=== PATIENT | female | born 1935 | race Caucasian/White ===

== ENCOUNTER 2017-09-13 08:14 | Inpatient (IN) | payer OTHER, MEDICARE ==
--- NOTE | 2017-09-13 08:37 | RAD REPORT ---
EXAM DESCRIPTION: CT - Ct Stroke Brain Wo Cont - 09/13/2017 8:30 am CLINICAL HISTORY: CVA COMPARISON: 09/13/2014 MR brain TECHNIQUE: All CT scans are performed using dose optimization technique as appropriate and may inclu de automated exposure control or mA/KV adjustment according to patient size. FINDINGS: No intracranial hemorrhage, hydrocephalus or extra-axial fluid collection.Moderate brain a trophy seen.2.5 cm area of hypodensity distribution of the left MCA noted compatible with subacute CV A. No hemorrhagic component. The paranasal sinuses and mastoids are clear. The calvarium is intact. 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 The findings were discussed with Dr. Barry on 09/13/2017 at 8:30 a.m. by telephone.
[2017-09-13 08:55] LABS: Absolute Lymphocytes (CBC) 2.5 K/uL (0.7-4.9); Absolute Monocytes 0.4 K/uL (0.1-1.3); Absolute Neutrophil 4.7 K/uL (1.8-8.0); Basophils % 0.6 % (0-1.3); Eosinophils % 0.9 % (0-4.4); Hematocrit 43.2 % (36.0-45.0); Lymphocytes % 32.3 % (15.3-44.8); MCH 31.9 pg (27.0-35.0); MCV 93.5 fL (80-100); MPV 8.4 fL (7.6-11.3); Monocytes % 5.7 % (3.3-12.3); RBC Red Blood Cell Count 4.62 M/uL (3.86-4.86)
[2017-09-13 09:02] LABS: Protime INR 0.97
[2017-09-13 09:05] LABS: Potassium 3.9 mEq/L (3.6-5.0)
[2017-09-13] MEDS ORDERED: ACETAMINOPHEN 650MG/RECT SUPP PR ONE (09:29)
--- NOTE | 2017-09-13 10:23 | RAD REPORT ---
EXAM DESCRIPTION: CT - Head angio - 09/13/2017 9:30 am CLINICAL HISTORY: CVA COMPARISON: CT head September 13 TECHNIQUE: During dynamic enhancement using nonionic IV contrast, axial 1 millimeter thick images of the head were obtained. Sagittal and coronal reformatted images were generated and reviewed. FINDINGS: Left vertebral artery is dominant. Distal vertebral arteries and basilar artery show a very minimal t ortuosity but no stenosis or acute finding. No aneurysm or vascular malformation identified. At the skullbase to supraclinoid termination, the internal carotid artery show no stenosis or signifi cant atherosclerotic change. The anterior and posterior cerebral artery distribution show no signific ant disease. The patient's left frontal and left basal ganglia region infarction does not have a berny esponding named branch occlusion on CT angiography. No significant atherosclerotic changes identifiab le in the left MCA distribution. No acute right MCA abnormality seen. Major venous sinuses are patent. IMPRESSION: CT angiography of the head shows no aneurysm, vascular malformation or significant vascu lar finding. No specific abnormality seen as a correlate for the acute/subacute CVA findings on the earlier CT hea d exam.
--- NOTE | 2017-09-13 10:34 | RAD REPORT ---
EXAM DESCRIPTION: RAD - Chest Single View - 09/13/2017 8:49 am CLINICAL HISTORY: Code stroke chest film COMPARISON: August 09 TECHNIQUE: AP portable chest image was obtained 0820 hours . FINDINGS: Lung volumes are low. Lung base atelectasis is present. No failure, infiltrate or mass. He art and vasculature are normal. No measurable pleural effusion and no pneumothorax. No gross bony abn ormality seen. No acute aortic findings suspected. IMPRESSION: No acute cardiopulmonary process. No suspicious interval change.
--- NOTE | 2017-09-13 10:47 | EKG ---
Test Date: 2017-09-13 Test Time: 08:36:13 Tower Climber: JESSICA MEASUREMENT RESULTS: Intervals: Rate: 69 AZ: 194 QRSD: 78 QT: 416 QTc: 445 Tiona: P: 58 AZ: 194 QRS: -7 T: 49 INTERPRETIVE STATEMENTS: Sinus bradycardia with frequent premature ventricular complexes Low voltage QRS Borderline ECG No previous ECG available for comparison Electronically Signed On 09-13-17 10:46:11 CDT by Ferdinand Benites
--- NOTE | 2017-09-13 11:01 | EDPHYS ---
Physician Documentation [facility] Name: Robby Schmid Age: 82 yrs Sex: Female : 1935 Arrival Date: 09/13/2017 Time: 08:15 Bed 6 Private MD: Davion Florian ED Physician Atif Barry HPI: 09/13 08:19 This 82 yrs old Female presents to ER via Wheelchair with complaints of S/S jr8 of Possible Stroke. 08:19 The patient's problem is reported as a facial droop, on right, dysphasia, incoherent jr8 speech, expressive aphasia, weakness, in the right upper extremity, in the right lower extremity, in the right side of face. Onset: The symptoms/episode began/occurred at an unknown time. Duration: The episode is continuous. The symptoms are alleviated by nothing. The symptoms are aggravated by nothing. Associated signs and symptoms: The patient has no apparent associated signs or symptoms. Severity of symptoms: At their worst the symptoms were severe. Patient's baseline: Neuro: alert and fully oriented, Motor: no deficits, Ambulation: walks without assistance, Speech: normal. The patient has not experienced similar symptoms in the past. The patient has not recently seen a physician. Daughter of patient stated that last known well was sometime last night. That patient woke up with garbled speech and weakness . Historical: - Allergies: 08:20 No Known Allergies; aa5 - PMHx: 08:22 Hypothyroidism; High Cholesterol; sv - PSHx: 08:21 Cholecystectomy; Hysterectomy; Tonsillectomy; sv - Immunization history:: Adult Immunizations unknown, Last tetanus immunization: unknown. - Social history:: Smoking status: unknown. - Ebola Screening: : Unable to complete screening because patient is disoriented, . ROS: 08:19 Eyes: Negative for injury, pain, redness, and discharge, ENT: Negative for injury, jr8 pain, and discharge, Neck: Negative for injury, pain, and swelling, Cardiovascular: Negative for chest pain, palpitations, and edema, Respiratory: Negative for shortness of breath, cough, wheezing, and pleuritic chest pain, Abdomen/GI: Negative for abdominal pain, nausea, vomiting, diarrhea, and constipation, Back: Negative for injury and pain, MS/Extremity: Negative for injury and deformity, Skin: Negative for injury, rash, and discoloration. 08:19 Neuro: Positive for speech changes, weakness. Exam: 08:19 Eyes: Pupils equal round and reactive to light, extra-ocular motions intact. Lids and jr8 lashes normal. Conjunctiva and sclera are non-icteric and not injected. Cornea within normal limits. Periorbital areas with no swelling, redness, or edema. ENT: Nares patent. No nasal discharge, no septal abnormalities noted. Tympanic membranes are normal and external auditory canals are clear. Oropharynx with no redness, swelling, or masses, exudates, or evidence of obstruction, uvula midline. Mucous membranes moist. Neck: Trachea midline, no thyromegaly or masses palpated, and no cervical lymphadenopathy. Supple, full range of motion without nuchal rigidity, or vertebral point tenderness. No Meningismus. Cardiovascular: Regular rate and rhythm with a normal S1 and S2. No gallops, murmurs, or rubs. Normal PMI, no JVD. No pulse deficits. Respiratory: Lungs have equal breath sounds bilaterally, clear to auscultation and percussion. No rales, rhonchi or wheezes noted. No increased work of breathing, no retractions or nasal flaring. Abdomen/GI: Soft, non-tender, with normal bowel sounds. No distension or tympany. No guarding or rebound. No evidence of tenderness throughout. Back: No spinal tenderness. No costovertebral tenderness. Full range of motion. Skin: Warm, dry with normal turgor. Normal color with no rashes, no lesions, and no evidence of cellulitis. MS/ Extremity: Pulses equal, no cyanosis. Neurovascular intact. Full, normal range of motion. 08:19 Neuro: Orientation: to person, place, situation, Mentation: able to follow commands, Memory: unable to test, Cranial nerves: CN I not tested, CN II- XII are normal as tested, visual forbes are intact. extraocular movements are intact, Nystagmus is absent. Speech is dysarthric, slowed, Cerebellar function: Motor: moves all fours, strength is 5/5 in the left arm and left leg, strength is 4/5 in the right arm, Strength is 2/5 in the right leg, Sensation: no obvious gross deficits, Gait: not tested. seizure activity, is not displayed by the patient, Abnormal movements: there are no abnormal movements. 08:30 Radiologist reports: Left sided ischemic changes present jr8 Vital Signs: 09:00 Weight 81.65 kg (R); Height 5 ft. 6 in. (167.64 cm); sg 09:04 BP 148 / 97; Pulse 67; Resp 23 S; Temp 97.6; Pulse Ox 98% on R/A; Pain 0/10; sg 09:43 BP 156 / 72; Pulse 60; Resp 14 S; Pulse Ox 100% on R/A; sg 10:26 BP 156 / 89; Pulse 68 MON; Resp 16 S; Pulse Ox 99% on R/A; sg 11:30 BP 139 / 64; Pulse 55 MON; Resp 16 S; Pulse Ox 99% on R/A; sg 19:18 BP 169 / 84; Pulse 68; Resp 20; Pulse Ox 100% on R/A; mt 20:52 BP 151 / 77; Pulse 70; Resp 18; Pulse Ox 97% on R/A; mt 23:44 BP 155 / 70; Pulse 65; Resp 19; Pulse Ox 97% on R/A; mt 09:00 Body Mass Index 29.05 (81.65 kg, 167.64 cm) NIH Stroke Scale Scores: 08:17 NIHSS Score: 11 aa5 08:19 NIHSS Score: 11 jr8 MDM: 08:29 ED course: Spoke with daughter, last known normal was last night, brother contacted rn patient this AM, already "garbled speech", not at baseline. outside of TPA window, spoke with daughter, understands no TPA. . 08:29 Patient medically screened. jr8 09:01 ED course: Contacted Dr. Durham. Wants CTA done to see if large vessel occlusion. If not jr8 will be happy to keep her here . 09:21 Data reviewed: vital signs, nurses notes, lab test result(s), EKG, radiologic studies, jr8 CT scan, plain films. Data interpreted: Pulse oximetry: on room air is 98 %. Interpretation: normal. Counseling: I had a detailed discussion with the patient and/or guardian regarding: the historical points, exam findings, and any diagnostic results supporting the discharge/admit diagnosis, lab results, radiology results. ED course: Discussed with family and patient that because there is no clear definitive time as to when the s/s started that she is not a candidate for tPA. Family understood and is good with this decision. 10:58 ED course: Dr. Durham consulted again. No large vessel occlusion. Will accept patient as jr8 consult. Dr. Florian notified and will see patient as well . 09/13 08:20 Order name: Basic Metabolic Panel; Complete Time: 09:09 09/13 08:20 Order name: CBC with Diff; Complete Time: 08:57 em09/13 08:20 Order name: Protime (+inr); Complete Time: 09:09 09/13 08:20 Order name: Ptt, Activated; Complete Time: 09:09 09/13 08:20 Order name: Urine Microscopic Only; Complete Time: 15:56 em09/13 08:20 Order name: CT Stroke Brain w/o Contrast; Complete Time: 08:57 em09/13 08:20 Order name: Stroke CXR 1 View; Complete Time: 10:41 em09/13 09:04 Order name: Head angio; Complete Time: 10:41 EDMS 09/13 10:58 Order name: US Carotid Artery Bilateral 09/13 10:58 Order name: MRI - Brain Wo Cont 8 09/13 15:24 Order name: Urine Dipstick--Ancillary (enter results) 09/13 15:52 Order name: Urine Dipstick-Ancillary; Complete Time: 15:56 EDMS 09/13 18:11 Order name: Glucose, Ancillary Testing; Complete Time: 07:03 EDMS 09/13 08:20 Order name: EKG; Complete Time: 08:21 em09/13 08:20 Order name: Accucheck; Complete Time: 09:20 09/13 08:20 Order name: Cardiac monitoring; Complete Time: 09:20 09/13 08:20 Order name: EKG - Nurse/Tech; Complete Time: 09:20 09/13 08:20 Order name: IV Saline Lock; Complete Time: 09:20 09/13 08:20 Order name: Labs collected and sent; Complete Time: 09:20 em09/13 08:20 Order name: NPO; Complete Time: 09:20 em09/13 08:20 Order name: O2 Per Protocol; Complete Time: 09:20 09/13 08:20 Order name: O2 Sat Monitoring; Complete Time: 09:20 em1 09/13 08:20 Order name: Stroke Swallow Screen; Complete Time: 09:35 em1 09/13 08:20 Order name: Urine Dipstick-Ancillary (obtain specimen); Complete Time: 15:05 [facility] 09/13 12:49 Order name: US; Complete Time: 12:55 EDHI 09/13 14:55 Order name: MRI; Complete Time: 15:08 [facility] 09/13 14:32 Order name: Mackey; Complete Time: 15:05 sg Administered Medications: 09:35 Drug: Acetaminophen Suppository 650 mg Route: MD; sg 11:21 Follow up: Response: No adverse reaction sg 11:42 Drug: Aspirin Suppository 300 mg Route: MD; sg 11:58 Follow up: Response: No adverse reaction sg 11:43 Drug: foLIC Acid 1 mg Route: IVPB; Site: left antecubital; sg 11:58 Follow up: Response: No adverse reaction; IV Status: Completed infusion sg Point of Care Testing: Blood Glucose: 09:04 Blood Glucose: 104 mg/dL; sg Ranges: Critical Glucose Levels:Adult <50 mg/dl or >400 mg/dl <40 mg/dl or >180 mg/dl Disposition: 09/13/17 11:00 Hospitalization ordered by Davion Florian for Inpatient Admission. Preliminary diagnosis is Cerebral infarction. - Bed requested for Intensive Care Unit. - Status is Inpatient Admission. ao - Condition is Fair. - Problem is new. - Symptoms are unchanged. UTI on Admission? No NIH Stroke Scale - NIH Stroke Score Date: 09/13/2017 Time: 08:17 Total Score = 11 1a. Level of Consciousness (LOC) - 0(Alert) 1b. Level of Consciousness (LOC) (Year \\T\\ Age) - 2(Neither) 1c. LOC Commands (Open \\T\\ Closes Eyes/Recycling Crew Supervisor) - 0(Both) 2. Best Gaze (Lateral Gaze Paresis) - 0(Normal) 3. Visual Field Loss - 0(No visual loss) 4. Facial Palsy - 2(Partial paralysis) 5a. Left Arm: Motor (10-second hold) - 0(No drift) 5b. Right Arm: Motor (10-second hold) - 1(Drift) 6a. Left Leg: Motor (5-second hold - always test supine) - 0(No drift) 6b. Right Leg: Motor (5-second hold - always test supine) - 2(Drift, some effort against gravity) 7. Limb Ataxia (finger/nose \\T\\ heel/vaughn - test with eyes open) - 0(Absent) 8. Sensory Loss (pinprick arms/legs/face) - 0(Normal) 9. Best Language: Aphasia (description/naming/reading) - 2(Severe aphasia) 10. Dysarthria (speech clarity - read or repeat words) - 2(Severe) 11. Extinction and Inattention (visual/tactile/auditory/spatial/personal) - 0(No abnormality) Initials: aa5 NIH Stroke Scale - NIH Stroke Score Date: 09/13/2017 Time: 08:19 Total Score = 11 1a. Level of Consciousness (LOC) - 0(Alert) 1b. Level of Consciousness (LOC) (Year \\T\\ Age) - 1(One) 1c. LOC Commands (Open \\T\\ Closes Eyes/Recycling Crew Supervisor) - 0(Both) 2. Best Gaze (Lateral Gaze Paresis) - 0(Normal) 3. Visual Field Loss - 0(No visual loss) 4. Facial Palsy - 3(Complete paralysis) 5a. Left Arm: Motor (10-second hold) - 0(No drift) 5b. Right Arm: Motor (10-second hold) - 1(Drift) 6a. Left Leg: Motor (5-second hold - always test supine) - 0(No drift) 6b. Right Leg: Motor (5-second hold - always test supine) - 2(Drift, some effort against gravity) 7. Limb Ataxia (finger/nose \\T\\ heel/vaughn - test with eyes open) - 0(Absent) 8. Sensory Loss (pinprick arms/legs/face) - 0(Normal) 9. Best Language: Aphasia (description/naming/reading) - 2(Severe aphasia) 10. Dysarthria (speech clarity - read or repeat words) - 2(Severe) 11. Extinction and Inattention (visual/tactile/auditory/spatial/personal) - 0(No abnormality) Initials: jr8 Addendum: 09/19/2017 19:39 Co-signature as Attending Physician, Atif Barry MD. rn Signatures: Dispatcher [employer] Bárbara Graham RN RN sv Webb, Martha, RN RN mw Gay, Steven RN RN sg Atif Barry MD MD rn Martinez, Eric em1 Jacklyn Garrett RN RN aa5 Nikolas Richardson PA PA jr8 Stone Bhakta RN RN ao Corrections: (The following items were deleted from the chart) 09/13 08:56 08:21 NIHSS Score: 11 jr8 jr8 08:56 08:19 NIHSS Score: 11 jr8 jr8 08:56 08:32 NIHSS Score: 11 jr8 jr8 11:00 11:00 Hospitalization Ordered by Davion Florian MD for Inpatient Admission. jr8 Preliminary diagnosis is Cerebral infarction. Bed requested for Telemetry/MedSurg (Inpatient). Status is Inpatient Admission. Condition is Fair. Problem is new. Symptoms are unchanged. UTI on Admission? No. jr8 17:27 11:00 09/13/2017 11:00 Hospitalization Ordered by Davion Florian MD for Inpatient sg Admission. Preliminary diagnosis is Cerebral infarction. Bed requested for Intensive Care Unit. Status is Inpatient Admission. Condition is Fair. Problem is new. Symptoms are unchanged. UTI on Admission? No. jr8 19:24 17:27 09/13/2017 11:00 Hospitalization Ordered by Davion Florian MD for Inpatient sg Admission. Preliminary diagnosis is Cerebral infarction. Bed requested for [facility] ER HOLD. Status is Inpatient Admission. Condition is Fair. Problem is new. Symptoms are unchanged. UTI on Admission? No. sg 23:14 19:24 09/13/2017 11:00 Hospitalization Ordered by Davion Florian MD for Inpatient mw Admission. Preliminary diagnosis is Cerebral infarction. Bed requested for [facility] ER HOLD. Status is Inpatient Admission. Condition is Fair. Problem is new. Symptoms are unchanged. UTI on Admission? No. sg 09/14 00:51 09/13 23:14 09/13/2017 11:00 Hospitalization Ordered by Davion Florian MD for ao Inpatient Admission. Preliminary diagnosis is Cerebral infarction. Bed requested for Intensive Care Unit. Status is Inpatient Admission. Condition is Fair. Problem is new. Symptoms are unchanged. UTI on Admission? No.
--- NOTE | 2017-09-13 11:01 | ER ---
Nurse's Notes [facility] Name: Robby Schmid Age: 82 yrs Sex: Female : 1935 Arrival Date: 09/13/2017 Time: 08:15 Bed 6 Private MD: Davion Florian Diagnosis: Cerebral infarction Presentation: 09/13 08:15 Acuity: MANJINDER 2 aa5 08:15 Transition of care: patient was not received from another setting of care. An acute aa5 neurological deficit is present. The patient has been moved to a treatment area. Care prior to arrival: None. 08:15 Method Of Arrival: Wheelchair aa5 08:15 Presenting complaint: Pt's daughter states "my brother was speaking to her over-the aa5 phone this morning and she seemed like she was having trouble speaking". Pt is able to state her name at this time. Expressive aphasia noted. Right sided facial droop noted. 08:15 Pre-hospital glucose is not applicable to this patient. Onset of symptoms is unknown. aa5 Risk Assessment: Do you want to hurt yourself or someone else? Patient reports no desire to harm self or others. Initial Sepsis Screen: Does the patient meet any 2 criteria? No. Patient's initial sepsis screen is negative. Does the patient have a suspected source of infection? No. Patient's initial sepsis screen is negative. Triage Assessment: 08:30 The onset of the patients symptoms was more than six hours ago. General: Behavior is sg cooperative, anxious. General: Appears in no apparent distress. well groomed, well developed, well nourished. Neuro: Reports headache in entire frontal area. 22:05 The onset of the patients symptoms was. ao 09/14 00:50 The onset of the patients symptoms was. ao Stroke Activation: Symptom onset > 6 hours Physician: Stroke Attending; Name: ; Notified At: ; Arrived At: Physician: Chief Stroke Resident; Name: ; Notified At: ; Arrived At: Physician: Stroke Resident; Name: ; Notified At: ; Arrived At: Physician: ED Attending; Name: ; Notified At: ; Arrived At: Physician: ED Resident; Name: ; Notified At: ; Arrived At: Historical: - Allergies: 09/13 08:20 No Known Allergies; aa5 - PMHx: 08:22 Hypothyroidism; High Cholesterol; sv - PSHx: 08:21 Cholecystectomy; Hysterectomy; Tonsillectomy; sv - Immunization history:: Adult Immunizations unknown, Last tetanus immunization: unknown. - Social history:: Smoking status: unknown. - Ebola Screening: : Unable to complete screening because patient is disoriented, . Screenin:30 Fall Risk No secondary diagnosis (0 pts). IV access (20 points). Ambulatory Aid- sg None/Bed Rest/Nurse Assist (0 pts). Gait- Weak (10 pts.). Mental Status- Overestimates/Forgets Limitations (15 pts.). Total Welch Fall Scale indicates Low Risk Score (25-44 pts). Fall prevention measures have been instituted. Side Rails Up X 2 Family Present and informed to notify staff if they need to leave bedside. 08:30 Abuse screen: unable to assess. Nutritional screening: No deficits noted. Tuberculosis sg screening: unable to assess at this time. Assessment: 08:20 Reassessment: Pt taken to CT via stretcher and accompanied by me . aa5 08:30 The patient has not been NPO before screening. The patient is alert, and able to follow sg commands. The patient exhibits slurred or garbled speech. The patient is exhibiting difficulty speaking. The patient does not exhibit difficulty understanding words. The patient is unable to swallow own secretions without drooling or the need for suction. Bedside swallow screening discontinued. Patient kept NPO until cleared by Speech Therapy or Physician. The patient failed the bedside swallow screening. The patient will be kept NPO until cleared by Speech Therapy or Physician. Provider notified of bedside swallow screening results: Atif Barry MD. 08:30 pt to remain NPO d/t current status/condition pt to be NPO dt current status. sg 08:37 T-PA (Activase) Screening: Contraindications: Patient reports onset of signs and sg symptoms of stroke greater than 6 hours ago: Yes. 08:45 General: Appears in no apparent distress. Behavior is cooperative, appropriate for age, sg anxious. Pain: Complains of pain in head. Neuro: Level of Consciousness is awake, obeys commands, Oriented to person, Speech is slurred, with expressive aphasia noted, Facial droop on right. Cardiovascular: Heart tones S1 S2 present Capillary refill is brisk in bilateral fingers Patient's skin is warm and dry. Chest pain is denied. Respiratory: Airway is patent Respiratory effort is even, unlabored, Respiratory pattern is regular, symmetrical, Breath sounds are clear. GI: No signs and/or symptoms were reported involving the gastrointestinal system. : No signs and/or symptoms were reported regarding the genitourinary system. EENT: No signs and/or symptoms were reported regarding the EENT system. Derm: Skin is pink, warm \\T\\ dry. 09:40 Reassessment: Patient appears in no apparent distress at this time. Patient and/or sg family updated on plan of care and expected duration. Pain level reassessed. 10:43 Reassessment: Patient appears in no apparent distress at this time. No changes from sg previously documented assessment. pt family remains at bedside at this time, awaiting CT results prior to dispo, no new orders received at this time, Nikolas CAMP at bedside re evaluating pt at this time, updating pt and pt family on results and POC. 11:49 Reassessment: pt able to verbalize yes and no at this time, remains slurred, pt family sg at bedside, updated on POC and need for admission, pt family stated understanding, awaiting [facility] bed [facility]. Vital Signs: 09:00 Weight 81.65 kg (R); Height 5 ft. 6 in. (167.64 cm); sg 09:04 BP 148 / 97; Pulse 67; Resp 23 S; Temp 97.6; Pulse Ox 98% on R/A; Pain 0/10; sg 09:43 BP 156 / 72; Pulse 60; Resp 14 S; Pulse Ox 100% on R/A; sg 10:26 BP 156 / 89; Pulse 68 MON; Resp 16 S; Pulse Ox 99% on R/A; sg 11:30 BP 139 / 64; Pulse 55 MON; Resp 16 S; Pulse Ox 99% on R/A; sg 19:18 BP 169 / 84; Pulse 68; Resp 20; Pulse Ox 100% on R/A; mt 20:52 BP 151 / 77; Pulse 70; Resp 18; Pulse Ox 97% on R/A; mt 23:44 BP 155 / 70; Pulse 65; Resp 19; Pulse Ox 97% on R/A; mt 09:00 Body Mass Index 29.05 (81.65 kg, 167.64 cm) NIH Stroke Scale Scores: 08:17 NIHSS Score: 11 aa5 08:19 NIHSS Score: 11 jr8 ED Course: 08:15 Patient arrived in ED. sb2 08:15 Davion Florian MD is Private Physician. sb2 08:15 Arm band placed on Patient placed in an exam room, on a stretcher. aa5 08:[address] via stretcher. sv 08:21 Nikolas Richardson PA is PHCP. jr8 08:21 Atif Barry MD is Attending Physician. jr8 08:30 CT Stroke Brain w/o Contrast In Process Unspecified. EDMS 08:30 Patient has correct armband on for positive identification. Placed in gown. Bed in low sg position. Call light in reach. Side rails up X2. field marketing associate on. Pulse ox on. NIBP on. Warm blanket given. Head of bed elevated. 08:30 Diet: Patient is NPO. sg 08:32 Triage completed. aa5 08:33 geochemical laboratory technician Sondra at bedside for code stroke blood draw. Inserted saline lock: 22 gauge sg in left antecubital area, using aseptic technique. IV inserted by waste transportation technicianteto Brown. Thermoregulation: warm blanket given to patient. 08:44 Chet Fields, RN is Primary Nurse. sg 08:49 Stroke CXR 1 View In Process Unspecified. EDMS 09:12 CT completed. Patient tolerated procedure well. Patient moved to CT via stretcher. mw3 Patient moved back from CT. 09:15 RN/ABAP DEVELOPER escort patient out of department to CT scan. sg 09:30 Head angio In Process Unspecified. EDMS 10:59 Davion Florian MD is Hospitalizing Provider. jr8 11:00 No provider procedures requiring assistance completed. Patient admitted, IV remains in sg place. intact. 12:14 Patient taken to ultrasound. via stretcher. aa4 13:50 Patient moved to MRI via stretcher. em2 14:59 Mackey cath inserted, using sterile technique, 16 Fr., by ks, balloon inflated, urine sg specimen collected. returned clear yellow urine. Patient tolerated well. a urine specimen has been collected and sent to lab. Administered Medications: 09:35 Drug: Acetaminophen Suppository 650 mg Route: NC; sg 11:21 Follow up: Response: No adverse reaction sg 11:42 Drug: Aspirin Suppository 300 mg Route: NC; sg 11:58 Follow up: Response: No adverse reaction sg 11:43 Drug: foLIC Acid 1 mg Route: IVPB; Site: left antecubital; sg 11:58 Follow up: Response: No adverse reaction; IV Status: Completed infusion sg Point of Care Testing: Blood Glucose: 09:04 Blood Glucose: 104 mg/dL; sg Ranges: Outcome: 11:00 Decision to Hospitalize by Provider. nelson 11:00 Admitted to ER Hold. Please see [facility] for further documentation. sg 11:00 Condition: stable 11:00 Instructed on the need for admit, safety practices. 09/14 00:51 Patient left the ED. ao NIH Stroke Scale - NIH Stroke Score Date: 09/13/2017 Time: 08:17 Total Score = 11 1a. Level of Consciousness (LOC) - 0(Alert) 1b. Level of Consciousness (LOC) (Year \\T\\ Age) - 2(Neither) 1c. LOC Commands (Open \\T\\ Closes Eyes/Director Of Nuclear Medicine) - 0(Both) 2. Best Gaze (Lateral Gaze Paresis) - 0(Normal) 3. Visual Field Loss - 0(No visual loss) 4. Facial Palsy - 2(Partial paralysis) 5a. Left Arm: Motor (10-second hold) - 0(No drift) 5b. Right Arm: Motor (10-second hold) - 1(Drift) 6a. Left Leg: Motor (5-second hold - always test supine) - 0(No drift) 6b. Right Leg: Motor (5-second hold - always test supine) - 2(Drift, some effort against gravity) 7. Limb Ataxia (finger/nose \\T\\ heel/vaughn - test with eyes open) - 0(Absent) 8. Sensory Loss (pinprick arms/legs/face) - 0(Normal) 9. Best Language: Aphasia (description/naming/reading) - 2(Severe aphasia) 10. Dysarthria (speech clarity - read or repeat words) - 2(Severe) 11. Extinction and Inattention (visual/tactile/auditory/spatial/personal) - 0(No abnormality) Initials: aa5 NIH Stroke Scale - NIH Stroke Score Date: 09/13/2017 Time: 08:19 Total Score = 11 1a. Level of Consciousness (LOC) - 0(Alert) 1b. Level of Consciousness (LOC) (Year \\T\\ Age) - 1(One) 1c. LOC Commands (Open \\T\\ Closes Eyes/Director Of Nuclear Medicine) - 0(Both) 2. Best Gaze (Lateral Gaze Paresis) - 0(Normal) 3. Visual Field Loss - 0(No visual loss) 4. Facial Palsy - 3(Complete paralysis) 5a. Left Arm: Motor (10-second hold) - 0(No drift) 5b. Right Arm: Motor (10-second hold) - 1(Drift) 6a. Left Leg: Motor (5-second hold - always test supine) - 0(No drift) 6b. Right Leg: Motor (5-second hold - always test supine) - 2(Drift, some effort against gravity) 7. Limb Ataxia (finger/nose \\T\\ heel/vaughn - test with eyes open) - 0(Absent) 8. Sensory Loss (pinprick arms/legs/face) - 0(Normal) 9. Best Language: Aphasia (description/naming/reading) - 2(Severe aphasia) 10. Dysarthria (speech clarity - read or repeat words) - 2(Severe) 11. Extinction and Inattention (visual/tactile/auditory/spatial/personal) - 0(No abnormality) Initials: nelson Signatures: Dispatcher [employer] EDBárbara Peck RN Chet Shaw RN LEONOR sg Sondra Chowdary aa4 Jacklyn Garrett RN RN aa5 Nikolas Richardson PA PA jr8 Steve Stoddard2 Stone Bhakta, RN RN darell Garcia, [facility] Greta Das 2 Yvonne Stapleton mw3 Corrections: (The following items were deleted from the chart) 09/13 11:22 08:37 T-PA (Activase) Screening: Contraindications: Intracranial hemorrhage and sg its risk factor and suspicion of subarachnoid bleed: Yes. Patient reports onset of signs and symptoms of stroke greater than 6 hours ago: Yes. sg
[2017-09-13] MEDS ORDERED: ASPIRIN 600 MG/SUPP PR ONE (11:29)
[2017-09-13] MEDS ORDERED: FOLIC ACID 5 MG/ML VIAL ONE (11:30)
--- NOTE | 2017-09-13 12:49 | RAD REPORT ---
EXAM DESCRIPTION: MIGUEL - CP - 09/13/2017 12:33 pm CLINICAL HISTORY: CVA COMPARISON: None. TECHNIQUE: Real-time sonographic evaluation of both carotid systems was performed. Doppler interroga tion was performed with waveform tracing bilaterally. FINDINGS: Normal high resistance waveforms are noted in both external carotid arteries. The common c arotid arteries and internal carotid arteries show normal low resistance waveforms. No significant plaque formation is seen. Peak systolic and end diastolic velocity values and the ICA/ CCA ratios are in the non-hemodynamically significant range. Antegrade flow seen in both vertebral arteries. IMPRESSION: No significant atherosclerotic changes noted. No evidence of a hemodynamically significant stenosis.
--- NOTE | 2017-09-13 14:54 | RAD REPORT ---
EXAM DESCRIPTION: MRI - Brain Wo Cont - 09/13/2017 2:21 pm CLINICAL HISTORY: CVA, abnormal CT head COMPARISON: CT head September 13 TECHNIQUE: Sagittal T1-weighted images were obtained along with axial PD, heavily T2-weighted and T2 -FLAIR images. Axial DWI and ADC mapping sequences were also obtained along with coronal heavily T2-w eighted images. FINDINGS: Diffusion-weighted imaging shows a 4 centimeter area of abnormal signal. Signal abnormalit y extends from the deep periventricular white matter of the posterior left frontal lobe into the left basal ganglia, external capsule and insular cortex. There is corresponding diminished signal on ADC mapping. Hyperintense T2 signal is present in the same areas. The area of MR infarction is larger starr n reflected by the CT study. This is not believed to be progression over the short interval but rathe r differences between the 2 modalities. Patient has a mild underlying atrophy. There is little or no chronic ischemic change identifiable. In the posterolateral left cerebellar hemisphere there is a 15 x 3 mm area of abnormal diffusion weight ed signal. This has a matching diminished signal on ADC mapping. T2 signal is hyperintense. No midline shift and no significant mass effect. No extra-axial fluid collections. Signal voids are s een as a normal finding in the major intracranial vessels. No globe or orbital content abnormality. No sella or supra sella abnormality. Mastoid air cells and paranasal sinuses are clear. IMPRESSION: Acute nonhemorrhagic 4 centimeter sized infarction involving the left basal ganglia, ins ular cortex and deep periventricular white matter of the left frontal lobe. Finding matches the earlier CT study with the MRI indicating that the area of infarction is larger th an reflected on the CT examination. A second much smaller area of infarction is present in the left cerebellum. The presence of a second area of infarction in a different vascular distribution could indicate that etiology for the infarcti ons is thromboembolic.
[2017-09-13 15:51] LABS: Urine Blood NEGATIVE (NEG); Urine Glucose NEGATIVE (NEG); Urine Protein NEGATIVE (NEG); Urine Specific Gravity 1.015 (1.005-1.030)
[2017-09-13 15:52] LABS: Urine Bacteria <20 /HPF (<20); Urine Culture Reflex Order NOT NEEDED; Urine RBC <5 /HPF (NONE SEEN)
[2017-09-13] MEDS: NA CHLORIDE 0.9% 1,000 ML IV SCH (17:00)
[2017-09-13] MEDS: ENOXAPARIN 40 MG/0.4 ML SQ SCH (17:00)
[2017-09-13] MEDS ORDERED: NA CHLORIDE 0.9% 1,000 ML ONE (17:08)
[2017-09-13] MEDS ORDERED: ENOXAPARIN 40 MG/0.4 ML SQ ONE (17:08)
--- NOTE | 2017-09-13 23:12 | CON ---
Date of Consultation: 09/13/2017 Reason For Consultation: Stroke. History Of Present Illness: This is an 82-year-old lady who was in her usual state of health until r eally she was found this morning by her family with right-sided weakness and unable to speak properly . She was brought to the emergency department. CT scan of the brain even at that juncture demonstra luisa hypodensity, 2.5 cm, left MCA distribution. It is not the entire left MCA. Urgent CT angiogram did not demonstrate any evidence of a large vessel occlusion. Subsequently, brain MRI confirms the m oderate left subcortical infarct involving basal ganglia, insula, and periventricular white matter, l eft frontal region, with a small area of infarction in the left cerebellum as well, suggesting cardio embolic etiology. The patient was normally on aspirin prior to this event. She is in slightly luisito r clinical condition than the imaging demonstrates, although she is still quite ill. Consultation wa s requested. Past Medical History: Hypertension, hypothyroidism. Medications: Routine home medications are metoprolol, lisinopril, hydrochlorothiazide, and aspirin. Now, she is on aspirin and Lovenox 0.9. Allergies: NONE. Social History: She lives with family. Never smoked. Normally independent with activities of daily living. Family History: Noncontributory. Review of Systems: General: General good health. Eyes: Negative. Ears, Nose, and Throat: The patient is aphasic. Cardiovascular: Hypertension. Pulmonary: Negative. Gastrointestinal: Negative. Genitourinary: Negative. Musculoskeletal: Right-sided weakness. Neurologic: As noted. Psychiatric: Negative. Endocrine: Hypothyroidism. Hematologic: Negative. Physical Examination: General/Neurologic/HEENT: On exam, she is awake, alert, but aphasic. Can follow simple one-step com mands, squeezing hands, lifting the left upper extremity. Pupils are reactive. Ocular motion full. Bruno full to threat. Significant nonfluent aphasia. The patient is essentially unable to speak a t all. Decreased right nasolabial fold. Upper motor neuron. Tongue midline. Soft palate elevates bilaterally. Examination of her extremities reveals 4/5 right hemiparesis, leg slightly greater than the arm. No cortical extinction as best I can tell given the aphasia. Reflexes 2+ on the right, 1+ /4 on the left. Upgoing toe on the right. Stroke scale 11. Pertinent Laboratory Data: Imaging as noted. CBC is normal. PTT 19. Electrolytes are normal. EKG is sinus bradycardia. Impression: Acute ischemic stroke. Plan: Continue DVT prophylaxis, aspirin, IV fluids, speech therapy, physical therapy, occupational t herapy. Labs as ordered are appropriate. Check echocardiogram. Check sedimentation rate, B12 level in the morning as well. The patient would benefit from inpatient rehab. I suspect she will need ei ther that or some other intermediate facility before she is able to safely return home with supervisi on. Doppler demonstrated no stenosis. We will continue to follow with you. HUNTER/SALOME Voice ID: [id number] Report ID: [id number]
--- NOTE | 2017-09-14 03:01 | HP ---
Date of Admission: 09/13/2017 Chief Complaint: Slurred speech. History Of Present Illness: This is an 82-year-old female patient, who lives at home, was brought in to the emergency room this morning because of possibility of stroke with her slurred speech. The pat augustina's son called and talked to her this morning around 0730 or so and noted that her speech was abno rmal and the last time when she was found to be normal was sometime yesterday evening, so she went to bed apparently feeling normal and woke up this morning like this, so we believe that sometime during nighttime she probably had a stroke which was diagnosed after she came into the emergency room and s he was admitted to the hospital under my service. I saw her in the emergency room this evening. The re were no family members with her at bedside when I saw her. Allergies: NO KNOWN ALLERGIES. Medications: According to office chart, she takes allopurinol 100 mg daily, aspirin 81 mg daily, Sean trate plus D 1 tablet 2 times a day, clonazepam 1 mg every day as needed for muscle cramps, levothyro xine 88 mcg p.o. daily, metoprolol ER 100 mg p.o. 2 times a day, ProAir inhaler 2 puffs every 4 to 6 hours as needed, valsartan 40 mg p.o. daily in the morning, vitamin D3 1000 units p.o. daily, Zyrtec 10 mg p.o. daily. Review of Systems: MANAGER RFID: As mentioned above. All other systems reviewed and negative. Past Medical History: Hypertension, mixed hyperlipidemia, COPD, hypothyroidism, impaired fasting glu cose, osteoarthritis at multiple sites. Past Surgical History: Hysterectomy and cholecystectomy. Family History: Significant for hypertension, diabetes, anxiety, breast cancer. Social History: Negative for smoking or alcohol use. Physical Examination: Vital Signs: Last vital signs before I saw her this evening, temperature 97.6, pulse 60, respiratory rate 16, blood pressure 169/84, oxygen saturation 99%. General: Awake, alert, oriented, not in distress. HEENT: Head atraumatic, normocephalic. Conjunctivae nonerythematous. Sclerae white. Mouth, no thr ush or edema noted. Ears/Nose, no mass, lesion, discharge noted. Neck: Supple. No JVD, lymph nodes, bruit, thyromegaly noted. Lungs: Bilateral good equal air entry. Clear to auscultation. No rhonchi. No rales. Heart: Normal heart sounds, no murmur or gallop. Abdomen: Soft, bowel sounds normal. No guarding, rigidity, tenderness, mass, hepatosplenomegaly, di stention, or bruit noted. Extremities: No leg edema. No calf tenderness. Skin: No rash, ulcer, cellulitis. Lymphatics: No lymph node enlargement in neck, supraclavicular, infraclavicular region. Neuro: The patient has flattening of the right nasolabial fold. Her speech, she has expressive apha branden, but she is able to speak very few words. She does follow simple commands and she has right-side d hemiparesis. Chest: Unremarkable. External Genitalia: Deferred. Rectal: Deferred. Laboratory Data: White count 7.8, hemoglobin 14.7, platelets 176. INR 0.97. Sodium 138, potassium 3.9, chloride 104, bicarb 26, BUN 19, creatinine 0.84, glucose 118. Urinalysis negative. Her carotid Doppler shows no significant atherosclerotic changes noted. No evidence of hemodynamical ly significant stenosis. CAT scan of the brain shows subacute CVA, left MCA territory without hemorr hagic component. Chest x-ray, no acute cardiopulmonary process identified. CT angiogram of head, no evidence of aneurysm, vascular malformation. MRI of the brain shows known hemorrhagic acute 4 cm si ze infarction involving left basal ganglia, insular cortex, and deep periventricular white matter of the left frontal lobe, second smaller area of infarction present in the left cerebellum. Electrocard iogram: Normal sinus rhythm, sinus bradycardia with premature ventricular complex. Impression: 1.Acute stroke. 2.Hypertension. 3.Hypothyroidism. 4.Mixed hyperlipidemia. 5.Chronic obstructive pulmonary disease. 6.Osteoarthritis, multiple sites. 7.Impaired fasting glucose. Plan: Admit the patient to hospital for further evaluation and management of this problem. The kne ent is appropriate for inpatient and is expected to spend 2 midnights in hospital. We will consult N eurology. Start the patient on aspirin and Lovenox for DVT prophylaxis. Fall precaution ordered. W e will consult physical therapy, occupational therapy, speech therapy and I will continue home medica tions per order tomorrow depending on the patient's swallowing ability. I will see her tomorrow for followup. Details and plan of treatment discussed with the patient. We will not initiate any oral m edication until we get clearance from speech therapy. We will monitor her on telemetry for any cardi ac arrhythmia, especially atrial fibrillation. SAPNA/MODL Voice ID: [id number]
[2017-09-14 06:03] LABS: Albumin 3.7 g/dL (3.2-5.5); Bilirubin Total 0.7 mg/dL (0.3-1.2); CKMB Creatine Kinase MB 1.7 ng/ml (0.3-4.0); Magnesium 1.9 mg/dL (1.8-2.5); Potassium 3.7 mEq/L (3.6-5.0); Protein, Total 6.7 g/dL (6.0-8.3)
[2017-09-14 06:04] LABS: Thyroid Stimulating Hormone 7.68 uIU/mL (0.34-5.60)
[2017-09-14 07:09] VITALS: BMI 24.6
[2017-09-14] MEDS: NA CHLORIDE 0.9% 1,000 ML IV SCH ×2 (07:23→20:45)
[2017-09-14] MEDS ORDERED: PNEUMOCOCCAL VACCINE 0.5 ML IMVAC ONE (08:00)
[2017-09-14] MEDS: ENOXAPARIN 40 MG/0.4 ML SQ SCH (08:37)
[2017-09-14] MEDS ORDERED: ASPIRIN 600 MG/SUPP PR SCH (09:00)
--- NOTE | 2017-09-14 10:36 | RAD REPORT ---
EXAM DESCRIPTION: VASExtrem Venous W Compress Bil09/14/2017 10:26 am CLINICAL HISTORY: Bilateral leg swelling COMPARISON: 2011 FINDINGS: The common femoral, superficial femoral, popliteal and posterior tibial veins bilaterally are compressible and demonstrate augmentation. Doppler demonstrates good flow. IMPRESSION: No evidence of deep venous thrombosis involving either lower extremity.
--- NOTE | 2017-09-14 10:41 | RAD REPORT ---
EXAM DESCRIPTION: RAD - Barium Swallow Modified - 09/14/2017 10:27 am CLINICAL HISTORY: Cough and dysphagia FINDINGS: laryngeal penetration not cleared;aspiration cough with thin straw and pill;
--- NOTE | 2017-09-14 12:48 | ECHO ---
HEIGHT: 5 ft 6 in WEIGHT: 152 lb 9.6 oz DATE OF STUDY: 09/14/[address]: Serafin Richardson 2-DIMENSIONAL: YES M.MODE: YES DOPPLER: YES COLOR FLOW: YES TDS: PORTABLE: DEFINITY: BUBBLE STUDY: DIAGNOSIS: CEREBRAL VASCULAR ACCIDENT CARDIAC HISTORY: CATHERIZATION: SURGERY: PROSTHETIC VALVE: PACEMAKER: MEASUREMENTS (cm) DIASTOLIC (NORMALS) SYSTOLIC (NORMALS) IVSd 1.0 (0.6-1.2) LA Diam 3.2 (1.9-4.0) LVEF 62% LVIDd 3.7 (3.5-5.7) LVIDs 2.5 (2.0-3.5) %FS 33% LVPWd 1.0 (0.6-1.2) Ao Diam 2.8 (2.0-3.7) 2 DIMENSIONAL ASSESSMENT: RIGHT ATRIUM: NORMAL LEFT ATRIUM: NORMAL RIGHT VENTRICLE: NORMAL LEFT VENTRICLE: NORMAL TRICUSPID VALVE: NORMAL MITRAL VALVE: NORMAL PULMONIC VALVE: NORMAL AORTIC VALVE: NORMAL PERICARDIAL EFFUSION: NONE AORTIC ROOT: NORMAL LEFT VENTRICULAR WALL MOTION: NORMAL DOPPLER/COLOR FLOW: NORMAL COMMENTS: 1, NORMAL 2D ECHO DOPPLER. 2, NO THROMBUS. 3, NO VEGETATION TECHNOLOGIST: JAGDISH PENA
--- NOTE | 2017-09-15 00:40 | PN ---
Date of Progress Note: 09/14/2017 Reason: Stroke. Interval History: The patient is quite a bit improved today, still in ICU, but should be transferrin g to the floor later on this evening. Speech is much better. She only passed her swallow study, mod ified diet, but she will be able to eat. LDL was 62. So, no need for intensive statin therapy. Physical Examination: General: On exam, she is awake, alert, oriented. HEENT/Neurologic: Pupils are reactive. Ocular motion full, forbes full. Decreased right nasolabial fold. Aphasia dramatically improved today. Able to name objects and colors appropriately. Follow commands. Right hemiparesis 4+, right-sided hyperreflexia. Upgoing toe on the right. Pertinent Laboratory Data: As noted. Echocardiogram normal. Impression: Acute ischemic stroke. Plan: groover and turner to aspirin and Plavix combination, overlap at 48 hours, and then likely just downg rade to Plavix monotherapy. PT, OT, and speech therapy. Rehab consult has been ordered. We will co mag to follow with you. CARMENZA Voice ID: [id number] Report ID: [id number]
--- NOTE | 2017-09-15 01:20 | PN ---
Date of Progress Note: 09/14/2017 Subjective: The patient was seen this morning for followup. She was lying in bed, not in any distress, feels better today than yesterday. No new problem reported by nursing staff in ICU. Objective: Vital Signs: Reviewed. HEENT: Examination unremarkable. Lungs: Clear to auscultation. Heart: Sounds normal. Abdomen: Soft. Bowel sounds normal. No guarding, rigidity, tenderness, or distention. Extremities: No leg edema. Neurologic: No change from yesterday. Laboratory Data: The patient's TSH result reviewed, vitamin B12 550, LDL cholesterol 62, triglycerides 74. Liver function test unremarkable. Glucose 120. Troponin 0.37. Venous Doppler of the lower extremity negative for DVT. Echocardiogram shows normal ejection fraction, modified barium swallow result reviewed. Impression: 1. Stroke. 2. Hypertension. 3. Hyperlipidemia. 4. Hypothyroidism. Plan: We will go ahead and continue to follow with neurologist and neurology consultation is appreciated. We will consult rehab, Physical Therapy, Occupational Therapy, and Speech Therapy work with patient. Continue DVT prophylaxis with Lovenox. Details and plan of treatment discussed with the patient and her daughter who was outside in ICU waiting room. I will see her tomorrow for followup. We will make adjustment on her levothyroxine dose. Diet order was given per recommendation from Speech Therapy. SAPNA/MODL Voice ID: [id number] Report ID: [id number]
[2017-09-15] MEDS ORDERED: LEVOTHYROXINE SOD 0.1 MG TAB PO SCH (06:00)
[2017-09-15] MEDS: METOPROLOL TAR 25 MG TAB PO SCH ×2 (09:57→20:11)
[2017-09-15] MEDS: VALSARTAN 40 MG TAB PO SCH (09:58)
[2017-09-15] MEDS: ENOXAPARIN 40 MG/0.4 ML SQ SCH (09:59)
[2017-09-15] MEDS: CLOPIDOGREL 75 MG TABLET PO SCH (10:00)
[2017-09-15] MEDS: ASPIRIN EC 81 MG TAB PO SCH (10:00)
--- NOTE | 2017-09-15 13:43 | PN ---
Date of Progress Note: 09/15/2017 Subjective: The patient was seen this morning for followup. No new complaints or problems reported by patient. Lying in bed. Her daughter was present with her. Answers questions. Follows commands. Objective: Vital Signs: Reviewed. HEENT: Examination unremarkable. Lungs: Clear to auscultation. Heart: Sounds normal. Abdomen: Soft, bowel sounds normal. No guarding, rigidity, tenderness, or distention. Extremities: No leg edema. Neurologic Exam: Right-sided hemiparesis and facial asymmetry that she had with flattening of the ri ght nasolabial fold upon admission is significantly better. She still has some asymmetry but much be tter. Impression: 1.Stroke with right-sided hemiparesis. 2.Hypertension. 3.Mixed hyperlipidemia. 4.Hypothyroidism. Plan: We will go ahead and increase the dose of levothyroxine from 88 mcg up to 100 mcg p.o. daily. Continue statin therapy, aspirin, and Plavix. Continue to follow with neurologist. She is tolerati ng diet very well as per recommendation from speech therapist. Rehab consult is requested. Details and plan of treatment discussed with her and her daughter. Continue current antihypertensive medicat ions. Vital signs reviewed. SAPNA/MODL Voice ID: [id number] Report ID: [id number]
[2017-09-15] MEDS: ATORVASTATIN 80 MG TAB PO SCH (20:12)
--- NOTE | 2017-09-16 01:08 | PN ---
Date of Progress Note: 09/15/2017 Reason: Stroke. Interval History: The patient is doing quite well. I would say she is doing better than anticipated , making a very good recovery. Actually doing so well, rehab declined to accept the patient, so home health will needs to be arranged. Outpatient speech therapy and occupational therapy and physical t herapy. Physical Examination: Vital Signs: On exam, she is afebrile. Vitals are stable. GENERAL: Awake, alert, oriented, able to name 6/6 objects accurately. Can read a sentence accuratel y. Slight residual dysarthria. Decreased right nasolabial fold, drift on the right. Upgoing toe on the right. Impression: Cerebral infarction, improving. Plan: We will stop aspirin tomorrow. Plan for discharge to home once home health arrangements have been made. We will continue to follow with you. CARMENZA Voice ID: [id number] Report ID: [id number]
[2017-09-16] MEDS: LEVOTHYROXINE SOD 0.1 MG TAB PO SCH (06:03)
[2017-09-16] MEDS: CLOPIDOGREL 75 MG TABLET PO SCH (09:03)
[2017-09-16] MEDS: ASPIRIN EC 81 MG TAB PO SCH (09:03)
[2017-09-16] MEDS: ENOXAPARIN 40 MG/0.4 ML SQ SCH (09:03)
[2017-09-16] MEDS: VALSARTAN 40 MG TAB PO SCH (09:03)
[2017-09-16] MEDS: METOPROLOL TAR 25 MG TAB PO SCH ×2 (09:03→21:03)
[2017-09-16 11:08] LABS: Potassium 3.3 mEq/L (3.6-5.0)
[2017-09-16 11:14] LABS: Absolute Lymphocytes (CBC) 1.7 K/uL (0.7-4.9); Absolute Monocytes 0.3 K/uL (0.1-1.3); Absolute Neutrophil 3.8 K/uL (1.8-8.0); Basophils % 0.4 % (0-1.3); Eosinophils % 2.4 % (0-4.4); Hematocrit 42.4 % (36.0-45.0); Lymphocytes % 28.2 % (15.3-44.8); MCH 32.5 pg (27.0-35.0); MCV 93.2 fL (80-100); MPV 8.4 fL (7.6-11.3); RBC Red Blood Cell Count 4.55 M/uL (3.86-4.86)
--- NOTE | 2017-09-16 15:33 | PN ---
Date of Progress Note: 09/16/2017 Subjective: The patient was seen for followup. Lying in bed. Her family member was at bedside. No new complaints or problems reported. She participated well with the therapy yesterday, ambulating w ell with the therapy. No trouble swallowing. Objective: Vital Signs: Reviewed. HEENT: Unremarkable. Lungs: Clear to auscultation. Heart: Heart sounds normal. Abdomen: Soft, bowel sounds normal. No guarding, rigidity, tenderness, or distention. Extremities: No leg edema. Laboratory Data: White count 5.9, hemoglobin 14.8, and platelets 170. Sodium 135, potassium 3.3, ch loride 104, bicarb 24, BUN 16, creatinine 0.78, and glucose 183. Impression: 1.Stroke with right-sided hemiparesis. 2.Hypokalemia. 3.Hypertension. 4.Hyperlipidemia. Plan: We will continue current medications. Replace electrolytes per protocol. Physical therapy to continue to work with the patient. Continue current statin therapy. DVT prophylaxis, and I will se e her tomorrow for followup. SAPNA/MODL Voice ID: [id number] Report ID: [id number]
[2017-09-16] MEDS ORDERED: MAGNESIUM HYDROXIDE 8% 30 ML PO PRN (16:30)
[2017-09-16] MEDS: KCL 20 MEQ/100 mL IVPB 20 MEQ/100 ML BAG IV SCH ×2 (16:33→21:03)
--- NOTE | 2017-09-16 18:32 | PN ---
Date of Progress Note: 09/16/2017 Reason: Stroke. Interval History: The patient is stable, doing well, eating regular diet, not too much difficulty wi th manipulation of the utensils. No new problems. Physical Examination: Vital Signs: On exam, she is afebrile. Vitals are stable. General: Awake, alert, oriented. Slight dysarthria. Aphasia has largely resolved. Decreased right nasolabial fold. Ocular motion full. Bruno full. Neurologic: Right hemiparesis significantly improved 4+ to 5-. No cortical extinction on sensory ex am. Upgoing toe on the right still on reflex testing. Impression: Cerebral infarction stable. Plan: Stop aspirin. Continue Plavix, secondary stroke prevention. DVT prophylaxis. We will follow up on Monday. She may not going to leave the hospital until Monday. She will need some type of the [facility] arranged and it is unclear if the facilities/Home Health companies will be open on Monday b eing that it is a holiday. We will continue to follow. CARMENZA Voice ID: [id number] Report ID: [id number]
[2017-09-16] MEDS: DOCUSATE NA/SENNA CONC 1 TAB PO SCH (21:03)
[2017-09-16] MEDS: ATORVASTATIN 80 MG TAB PO SCH (21:03)
[2017-09-17] MEDS: LEVOTHYROXINE SOD 0.1 MG TAB PO SCH (06:02)
[2017-09-17 06:12] LABS: Magnesium 2.2 mg/dL (1.8-2.5)
[2017-09-17] MEDS: METOPROLOL TAR 25 MG TAB PO SCH ×2 (10:12→21:31)
[2017-09-17] MEDS: CLOPIDOGREL 75 MG TABLET PO SCH (10:12)
[2017-09-17] MEDS: ENOXAPARIN 40 MG/0.4 ML SQ SCH (10:12)
[2017-09-17] MEDS: VALSARTAN 40 MG TAB PO SCH (11:02)
--- NOTE | 2017-09-17 12:10 | PN ---
Date of Progress Note: 09/17/2017 Subjective: The patient was seen this morning for followup. No new complaints or problems reported by the patient. She is overall feeling better. Had a bowel movement this morning. She does transfe r herself out of bed to go to the bathroom with a standby assist. No swallowing difficulties. Objective: Vital Signs: Reviewed. HEENT: Unremarkable. Lungs: Clear to auscultation. Heart: Sounds normal. Abdomen: Soft. Bowel sounds normal. No guarding, rigidity, tenderness, or distention. Extremities: No leg edema. Neurologic: Very minimum facial asymmetry noted compared to before. Power in right upper and right lower extremity is almost identical to the left side. Laboratory Data: Potassium 4, magnesium 2.2. Fingerstick blood sugar readings reviewed. Impression: 1.Stroke. 2.Hypertension. 3.Hypokalemia. 4.Type 2 diabetes mellitus. Plan: Continue current medications. We will continue aspirin, Plavix, statin therapy. Continue cur rent antihypertensive medication. Physical Therapy to continue to work with the patient. Possible discharge to go home beginning of is next week. SAPNA/MODL Voice ID: [id number] Report ID: [id number]
[2017-09-17] MEDS: DOCUSATE NA/SENNA CONC 1 TAB PO SCH (21:27)
[2017-09-17] MEDS: ATORVASTATIN 80 MG TAB PO SCH (21:34)
[2017-09-18] MEDS: LEVOTHYROXINE SOD 0.1 MG TAB PO SCH (05:40)
[2017-09-18] MEDS: METOPROLOL TAR 25 MG TAB PO SCH (09:58)
[2017-09-18] MEDS: CLOPIDOGREL 75 MG TABLET PO SCH (09:58)
[2017-09-18] MEDS: VALSARTAN 40 MG TAB PO SCH (09:58)
[2017-09-18] MEDS: ENOXAPARIN 40 MG/0.4 ML SQ SCH (09:58)
--- NOTE | 2017-09-18 13:32 | PN ---
Date of Progress Note: 09/18/2017 Subjective: The patient was seen this morning for followup. She was sitting at bedside, trying to p ut her socks on. Family was at bedside. She is doing very well in terms of her day-to-day activity. Denies any complaints. Objective: Vital Signs: Reviewed. HEENT: Unremarkable. Lungs: Clear to auscultation. Heart: Sounds normal. Abdomen: Soft. Bowel sounds normal. No guarding, rigidity, tenderness, or distention. Extremities: No leg edema. Neurologic: Very minimum facial asymmetry on the right side to go with minimal flattening of the marga olabial fold. Her power in both upper and both lower extremities almost symmetrical on both sides. Impression: 1.Stroke. 2.Hypertension. 3.Hyperlipidemia. Plan: We will go ahead and continue current medications. Continue physical therapy, occupational th erapy, speech therapy. Our plan is to possibly discharge her to go home tomorrow. The patient is co nsidered high level for inpatient rehab and it was recommended that the patient gets either outpatien t physical therapy or home health care and home physical therapy. I did discuss with the patient and her family today. Family will be able to bring her for outpatient therapy and I think that would be more beneficial for her than getting home health and home physical therapy. So, I have requested [facility] to help make arrangements for any DME that the patient may need and also outpatient physical therapy, occupational therapy, and speech therapy services with pos sibility of discharge tomorrow. SAPNA/MODL Voice ID: [id number] Report ID: [id number]
[2017-09-18] MEDS: DOCUSATE NA/SENNA CONC 1 TAB PO SCH (20:12)
[2017-09-18] MEDS: ATORVASTATIN 80 MG TAB PO SCH (20:12)
[2017-09-18 23:52] VITALS: O2SAT 97
[2017-09-19] MEDS: LEVOTHYROXINE SOD 0.1 MG TAB PO SCH (05:57)
[2017-09-19] MEDS: ENOXAPARIN 40 MG/0.4 ML SQ SCH (09:30)
[2017-09-19] MEDS: VALSARTAN 40 MG TAB PO SCH (09:30)
[2017-09-19] MEDS: CLOPIDOGREL 75 MG TABLET PO SCH (09:30)
[2017-09-19 11:53] VITALS: BP 119/62; TEMP 97.5
--- NOTE | 2017-09-20 04:25 | CON ---
Date of Consultation: 09/19/2017 Reason For Consultation: Sinus pauses and sick sinus syndrome. History Of Present Illness: Ms. Schmid is an 82-year-old. She was admitted to Dr. Florian's service on 09/13/2017 with a CVA. She has a history of hypertension, dyslipidemia, and hypothyroidism. An echo cardiogram, which was done on 09/14/2017, was normal. The patient's main issue was speech impairment with a stroke. Negative cardiac workup, otherwise. No chest pain. While she was in the hospital [facility] evaluated, she had episodes of bradycardia and pauses overnight. There were hemodynamically n on-compromising. There were no symptoms. No chest pain, palpitations, or syncope. Her EKG is florencia l. She was receiving beta-blockers. Allergies: NONE. Review of Systems: Negative. Social History: Negative. Family History: Noncontributory. Medications: As listed by Dr. Florian. Physical Examination: Vital signs: Stable. She was afebrile. HEENT: Negative. Neck: Supple with no bruit. Chest: Clear to auscultation and percussion. Cardiac: Exam reveals a regular rhythm and rate without murmurs, gallops, or rubs. Abdomen: Benign. Extremities: Reveal no clubbing, cyanosis, or edema. Diagnostic Data: Fairly unremarkable. Impression And Plan: 1.Recent cerebrovascular accident. No evidence of atrial fibrillation. Pauses and bradycardia may be secondary to the cerebrovascular accident and certainly could be secondary to the beta-blockers. I would just stop her beta-blockers for now and continue her valsartan for blood pressure. She is on aspirin and Plavix. 2.Hypertension, well controlled. 3.Dyslipidemia, on Lipitor. 4.Hypothyroid, on Synthroid. 5.The patient has an appointment with me on the a 48-hour Holter to see if she is still h as pauses after being off beta-blockers. We will make further decisions in that regard depending on the Holter. She can go home whenever it is okay with Dr. Florian. KIZZY/SALOME Voice ID: [id number] Report ID: [id number]
--- NOTE | 2017-09-20 21:07 | DS ---
Date of Discharge: 09/19/2017 Disposition: Discharged to go home. Physical Examination: HEENT: Unremarkable. Lungs: Clear to auscultation. Heart: Sounds normal Abdomen: soft, bowel sounds normal, no guarding rigidity tenderness or distention Extremities: No leg edema. OUTSIDE SALESMAN exam minimum, facial asymmetry with flattening of the right-sided nasolabial fold, again this is significant better than before. Otherwise power is almost equal on both upper and lower extremity. Discharge Medications Instructions: 1. Continue all prior home medication except. 2. Stop metoprolol. 3. Stop aspirin. 4. stop levothyroxine 88 mcg dose. 5. Start atorvastatin 80 mg p.o. daily at bedtime. 6. Start clopidogrel 75 mg p.o. daily. 7. Start levothyroxine 100 mcg p.o. daily. 8. Follow up at my office per her scheduled appointment and she has appointment to see me end of next month and follow up with Dr. Durham in 2 weeks. 9. Go to hospital outpatient physical therapy. Hospital Course: 82-year-old female patient, who was admitted to the hospital under my service. After she came into the emergency room with complaints of slurred speech. Please see dictated H and P for more information. The patient was evaluated in emergency room, she was out of window for tPA therapy and after she was evaluated, she was admitted to the hospital. She had workup done in the emergency room and after admission that included a carotid Doppler showing no significant atherosclerotic changes. CAT scan of the brain showing subacute CVA left MCA territory without hemorrhagic component chest x-ray no acute cardiopulmonary changes. CT angiogram of the head no evidence of aneurysm or vascular malformation. MRI of the brain showing no non hemorrhagic acute 4 cm size. Infarction involving left basal ganglia, insular cortex and deep periventricular white matter of the left frontal lobe. Neurology consultation was obtained from Dr. Durham, initially he continued aspirin 81 mg and added Plavix subsequently he discontinued aspirin and only continued Plavix as anti-platelet therapy. Echocardiogram showed normal ejection fraction 62% and modified barium swallow was done. Speech therapy's give recommendation regarding her diet and she tolerated diet very well. Initially, she was in ICU. Subsequently, she was moved out of ICU to regular room. Venous Doppler of leg was negative for DVT. Patient participated well with physical therapy. Rehab was consulted but she was considered too high level for rehab and it was recommended for patient to either do home health with home physical therapy or outpatient physical therapy. The patient has excellent family support and they are going to bring her to outpatient physical therapy. Social Service was consulted to help make arrangements. Overall, the patient's condition has improved significantly and she was discharged to go home in stable condition with above-mentioned medication and instructions. Final Diagnoses: 1. Acute stroke. 2. Hypertension. 3. Hypothyroidism. 4. Mixed hyperlipidemia. 5. Chronic obstructive pulmonary disease. 6. Osteoarthritis, multiple sites. 7. Impaired fasting glucose. SAPNA/MODL Voice ID: [id number] Report ID: [id number] GARO
--- NOTE | 2017-09-20 21:52 | DS ---
Date of Discharge: 09/19/2017 Disposition: Discharged to go home. Physical Examination: HEENT: Unremarkable. Lungs: Clear to auscultation. Heart: Sounds normal Abdomen: Soft. Bowel sounds normal. No guarding, rigidity, tenderness or distention Extremities: No leg edema. MINER PLACER: Minimum facial asymmetry with flattening of the right-sided nasolabial fold. Again, this is si gnificantly better than before. Otherwise, power is almost equal on both upper and lower extremities . Discharge Medications Instructions: 1.Continue all prior home medication except. 2.Stop metoprolol. 3.Stop aspirin. 4.stop levothyroxine 88 mcg dose. 5.Start atorvastatin 80 mg p.o. daily at bedtime. 6.Start clopidogrel 75 mg p.o. daily. 7.Start levothyroxine 100 mcg p.o. daily. 8.Follow up at my office per her scheduled appointment and she has appointment to see me end of next month and follow up with Dr. Durham in 2 weeks. 9.Go to hospital outpatient physical therapy. Hospital Course: 82-year-old female patient, who was admitted to the hospital under my service. Aft er she came into the emergency room with complaints of slurred speech. Please see dictated H and P f or more information. The patient was evaluated in emergency room, she was out of window for tPA ther apy and after she was evaluated, she was admitted to the hospital. She had workup done in the emerge ncy room and after admission that included a carotid Doppler showing no significant atherosclerotic c hanges. CAT scan of the brain showing subacute CVA left MCA territory without hemorrhagic component chest x-ray no acute cardiopulmonary changes. CT angiogram of the head no evidence of aneurysm or va scular malformation. MRI of the brain showing no non hemorrhagic acute 4 cm size. Infarction involv ing left basal ganglia, insular cortex and deep periventricular white matter of the left frontal lobe . Neurology consultation was obtained from Dr. Durham, initially he continued aspirin 81 mg and added Plavix subsequently he discontinued aspirin and only continued Plavix as anti-platelet therapy. Ech ocardiogram showed normal ejection fraction 62% and modified barium swallow was done. Speech therapy 's give recommendation regarding her diet and she tolerated diet very well. Initially, she was in IC U. Subsequently, she was moved out of ICU to regular room. Venous Doppler of leg was negative for D VT. Patient participated well with physical therapy. Rehab was consulted but she was considered too high level for rehab and it was recommended for patient to either do home health with home physical therapy or outpatient physical therapy. The patient has excellent family support and they are going to bring her to outpatient physical therapy. Social Service was consulted to help make arrangements. Overall, the patient's condition has improved significantly and she was discharged to go home in [facility] condition with above-mentioned medication and instructions. Final Diagnoses: 1.Acute stroke. 2.Hypertension. 3.Hypothyroidism. 4.Mixed hyperlipidemia. 5.Chronic obstructive pulmonary disease. 6.Osteoarthritis, multiple sites. 7.Impaired fasting glucose. SAPNA/MODL Voice ID: [id number] Report ID: [id number]
== END 2017-09-19 12:32 | disposition home or self-care (01) | DRG 65 ==
LOC: ER 08:14 → ERHOLD 11:00 → 3RD-ICU 09-14 00:13 → 4TH 09-14 21:30
PROVIDERS: ADMIT Internal Medicine; ATTEND Internal Medicine
DX: I63.9 Cerebral infarction, unspecified (principal); G81.91 Hemiplegia, unspecified affecting right dominant side; R47.01 Aphasia; I10 Essential (primary) hypertension; R29.711 NIHSS score 11; E03.9 Hypothyroidism, unspecified; E78.2 Mixed hyperlipidemia; J44.9 Chronic obstructive pulmonary disease, unspecified; M19.90 Unspecified osteoarthritis, unspecified site; E87.6 Hypokalemia; R73.01 Impaired fasting glucose
CPT/HCPCS: 36415; 51702; 70450; 70496; 70551; 71045; 74230; 80048; 80053; 80061; 81003; 81015; 82550; 82553; 82607; 82962; 83735; 84132; 84439; 84443; 84484; 85025; 85610; 85652; 85730; 93005; 93306; 93880; 93970; 94760; 96374; 97163; 99285; J1650; J7030; Q9967

== ENCOUNTER 2018-01-15 19:40 | Emergency (ER) | payer OTHER, MEDICARE ==
[2018-01-15] MEDS ORDERED: AMLODIPINE 5 MG TAB ONE (20:57)
[2018-01-15 21:21] LABS: Absolute Lymphocytes (CBC) 1.8 K/uL (0.7-4.9); Absolute Monocytes 0.6 K/uL (0.1-1.3); Absolute Neutrophil 3.4 K/uL (1.8-8.0); Basophils % 0.4 % (0-1.3); Eosinophils % 1.6 % (0-4.4); Hematocrit 39.3 % (36.0-45.0); Lymphocytes % 30.5 % (15.3-44.8); MCH 31.9 pg (27.0-35.0); MCV 91.5 fL (80-100); MPV 8.1 fL (7.6-11.3); Monocytes % 10.7 % (3.3-12.3)
[2018-01-15 21:30] LABS: Protime INR 1.04
[2018-01-15 21:53] LABS: Albumin 3.5 g/dL (3.4-5.0); Bilirubin Direct 0.2 mg/dL (0-0.2); Bilirubin Total 0.3 mg/dL (0.2-1.0); Magnesium 2.1 mg/dL (1.8-2.4); Potassium 3.8 mmol/L (3.5-5.1)
--- NOTE | 2018-01-15 22:04 | RAD REPORT ---
EXAM DESCRIPTION: CT - Head Brain Wo Cont - 01/15/2018 9:53 pm CLINICAL HISTORY: Headache COMPARISON: August 2017 TECHNIQUE: Computed axial tomography of the head was obtained. IV contrast was not requested. All CT scans are performed using dose optimization technique as appropriate and may include automated exposure control or mA/KV adjustment according to patient size. FINDINGS: An intracranial bleed is not seen . The ventricles are normal in caliber. No extra-axial fluid collection is noted. 4 centimeter low-density area within the left insular cortex, left external capsule and left basal ga nglia represents a relatively old infarct. . Fluid within the sinuses/ mastoids is not seen. IMPRESSION: No acute intracranial abnormality is seen. If patient's symptoms persist MRI of the bra in would be recommended.
--- NOTE | 2018-01-15 23:20 | ER ---
Nurse's Notes [facility] Name: Robby Schmid Age: 82 yrs Sex: Female : 1935 Arrival Date: 01/15/2018 Time: 19:40 Bed 28 Private MD: Davion Florian Diagnosis: Epistaxis Presentation: 01/15 19:50 Presenting complaint: Patient states: she was at home this evening and coughed aa1 forcefully and her nose began to bleed. Reports bleeding began around 1700 and family was concerned because she had a stroke back in August. Upon arrival blood oozing from R nare which was controlled after application of nose clamp. Transition of care: patient was not received from another setting of care. Onset of symptoms was January 15, 2018. Risk Assessment: Do you want to hurt yourself or someone else? Patient reports no desire to harm self or others. Initial Sepsis Screen: Does the patient meet any 2 criteria? No. Patient's initial sepsis screen is negative. Does the patient have a suspected source of infection? No. Patient's initial sepsis screen is negative. Care prior to arrival: None. 19:50 Method Of Arrival: Ambulatory aa1 19:50 Acuity: MANJINDER 3 aa1 Historical: - Allergies: 20:10 No Known Allergies; aa1 - Home Meds: 20:10 atorvastatin 40 mg oral tab 1 tab once daily [Active]; Plavix 75 mg Oral tab 1 tab once aa1 daily [Active]; valsartan 40 mg oral tab once daily [Active]; levothyroxine 75 mcg tab 1 tab once daily [Active]; clonazepam 1 mg Oral tab daily [Active]; Zyrtec 10 mg Oral tab 1 tab once daily [Active]; [place] 3-6-9 1,200 mg oral cap daily [Active]; CoQ-10 100 mg oral cap daily [Active]; cholecalciferol (vitamin D3) 5,000 unit oral tab daily [Active]; - PMHx: 20:10 High Cholesterol; Hypothyroidism; CVA; Hypertension; aa1 - PSHx: 20:10 Cholecystectomy; Hysterectomy; Tonsillectomy; aa1 - Immunization history:: Flu vaccine is not up to date. - Social history:: Smoking status: Patient/guardian denies using tobacco, never smoked, Patient/guardian denies using alcohol, street drugs, The patient lives with family. - Ebola Screening: : No symptoms or risks identified at this time. - Family history:: not pertinent. Screenin:50 Abuse screen: Denies threats or abuse. Denies injuries from another. Nutritional aa1 screening: No deficits noted. Tuberculosis screening: No symptoms or risk factors identified. Fall Risk None identified. Assessment: 20:14 General: Appears uncomfortable, slender, well groomed, well developed, well nourished, tl3 Behavior is calm, cooperative, appropriate for age. Pain: Denies pain. Neuro: Level of Consciousness is awake, alert, obeys commands, Oriented to person, place, time, situation, Appropriate for age. Cardiovascular: Patient's skin is warm and dry. Respiratory: Airway is patent Respiratory effort is even, unlabored, Respiratory pattern is regular, symmetrical, Breath sounds are clear bilaterally. GI: No signs and/or symptoms were reported involving the gastrointestinal system. : EENT: Nares with bleeding noted nose clip applied. Derm: No signs and/or symptoms reported regarding the dermatologic system. Musculoskeletal: No signs and/or symptoms reported regarding the musculoskeletal system. 21:16 Reassessment: No changes from previously documented assessment. Patient and/or family tl3 updated on plan of care and expected duration. Pain level reassessed. Patient is alert, oriented x 3, equal unlabored respirations, skin warm/dry/pink. pt in no distress, removed nasal clamp, no further bleeding. 21:46 Reassessment: Patient appears in no apparent distress at this time. No changes from tl3 previously documented assessment. Patient and/or family updated on plan of care and expected duration. Pain level reassessed. Patient is alert, oriented x 3, equal unlabored respirations, skin warm/dry/pink. 23:03 Reassessment: Patient appears in no apparent distress at this time. No changes from tl3 previously documented assessment. Patient and/or family updated on plan of care and expected duration. Pain level reassessed. Patient is alert, oriented x 3, equal unlabored respirations, skin warm/dry/pink. Dr Peres at bedside discussing POC. 23:44 Reassessment: Patient appears in no apparent distress at this time. No changes from tl3 previously documented assessment. Patient and/or family updated on plan of care and expected duration. Pain level reassessed. Patient is alert, oriented x 3, equal unlabored respirations, skin warm/dry/pink. Vital Signs: 19:50 BP 193 / 80; Pulse 73; Resp 18; Pulse Ox 99% on R/A; Weight 63.96 kg; Height 5 ft. 2 aa1 in. (157.48 cm); Pain 0/10; 21:16 BP 160 / 76; Pulse 71; Resp 18; Pulse Ox 100% on R/A; tl3 23:03 BP 151 / 66; Pulse 71; Resp 18; Pulse Ox 98% ; tl3 19:50 Body Mass Index 25.79 (63.96 kg, 157.48 cm) aa1 ED Course: 19:40 Patient arrived in ED. am2 19:41 Davion Florian MD is Private Physician. am2 19:50 Arm band placed on right wrist. Patient placed in an exam room, on a stretcher. aa1 19:50 Patient has correct armband on for positive identification. Bed in low position. Call aa1 light in reach. Pulse ox on. NIBP on. Warm blanket given. 19:54 Kamila Peres MD is Attending Physician. ma2 20:06 Triage completed. aa1 20:10 Deb Reagan RN is Primary Nurse. tl3 20:14 No provider procedures requiring assistance completed. tl3 21:16 Inserted saline lock: 22 gauge in left antecubital area, using aseptic technique. Blood tl3 collected. 21:[address] via stretcher. tl3 21:53 CT completed. Patient tolerated procedure well. Patient moved back from CT. nj 21:53 CT Head Brain wo Cont In Process Unspecified. EDMS 23:44 IV discontinued, intact, bleeding controlled, No redness/swelling at site. Pressure tl3 dressing applied. Administered Medications: 21:00 Drug: Norvasc 5 mg Route: PO; tl3 21:48 Follow up: Response: No adverse reaction tl3 Outcome: 23:19 Discharge ordered by . ma2 23:44 Discharged to home ambulatory. tl3 23:44 Condition: improved 23:44 Discharge instructions given to patient, family, Instructed on discharge instructions, follow up and referral plans. Demonstrated understanding of instructions, follow-up care. 23:45 Patient left the ED. tl3 Signatures: Dispatcher [employer] EDMS Stephany Medley, RN RN aa1 Jed Ellsworth Amanda am2 Kamila Peres MD MD ma2 Deb Reagan RN RN tl3
--- NOTE | 2018-01-15 23:20 | EDPHYS ---
Physician Documentation [facility] Name: Robby Schmid Age: 82 yrs Sex: Female : 1935 Arrival Date: 01/15/2018 Time: 19:40 Bed 28 Private MD: Davion Florian ED Physician Kamila Peres HPI: 01/15 21:33 This 82 yrs old Female presents to ER via Ambulatory with complaints of Nose ma2 Bleed. 21:33 The patient presents with epistaxis x 10 min . Onset: The symptoms/episode ma2 began/occurred suddenly, today. Associated signs and symptoms: Loss of consciousness: the patient experienced no loss of consciousness, Pertinent positives: bleeding, Pertinent negatives: blurred vision, chest pain, cough, lightheadedness, nausea, rhinorrhea, shortness of breath. Severity of symptoms: At their worst the symptoms were moderate in the emergency department the symptoms have resolved. The patient has experienced a previous episode. here with epistaxis x 10 that stopped with pressure, takes Plavix, no bleeding anywhere els e. Historical: - Allergies: 20:10 No Known Allergies; aa1 - Home Meds: 20:10 atorvastatin 40 mg oral tab 1 tab once daily [Active]; Plavix 75 mg Oral tab 1 tab once aa1 daily [Active]; valsartan 40 mg oral tab once daily [Active]; levothyroxine 75 mcg tab 1 tab once daily [Active]; clonazepam 1 mg Oral tab daily [Active]; Zyrtec 10 mg Oral tab 1 tab once daily [Active]; [place] 3-6-9 1,200 mg oral cap daily [Active]; CoQ-10 100 mg oral cap daily [Active]; cholecalciferol (vitamin D3) 5,000 unit oral tab daily [Active]; - PMHx: 20:10 High Cholesterol; Hypothyroidism; CVA; Hypertension; aa1 - PSHx: 20:10 Cholecystectomy; Hysterectomy; Tonsillectomy; aa1 - Immunization history:: Flu vaccine is not up to date. - Social history:: Smoking status: Patient/guardian denies using tobacco, never smoked, Patient/guardian denies using alcohol, street drugs, The patient lives with family. - Ebola Screening: : No symptoms or risks identified at this time. - Family history:: not pertinent. ROS: 21:33 Constitutional: Negative for fever, chills, and weight loss, Cardiovascular: Negative ma2 for chest pain, palpitations, and edema, Respiratory: Negative for shortness of breath, cough, wheezing, and pleuritic chest pain, Abdomen/GI: Negative for abdominal pain, nausea, diarrhea, and constipation, MS/Extremity: Negative for injury and deformity, Skin: Negative for injury, rash, and discoloration, Neuro: Negative for headache, weakness, numbness, tingling, and seizure, Psych: Negative for depression, anxiety, suicide ideation, homicidal ideation, and hallucinations. 21:33 ENT: Positive for Negative for clotted blood right nostril . Exam: 21:33 Constitutional: This is a well developed, well nourished patient who is awake, alert, ma2 and in no acute distress. Head/Face: Normocephalic, atraumatic. Eyes: Pupils equal round and reactive to light, extra-ocular motions intact. Lids and lashes normal. Conjunctiva and sclera are non-icteric and not injected. Cornea within normal limits. Periorbital areas with no swelling, redness, or edema. ENT: Nares patent. No nasal discharge, no septal abnormalities noted. Tympanic membranes are normal and external auditory canals are clear. Oropharynx with no redness, swelling, or masses, exudates, or evidence of obstruction, uvula midline. Mucous membranes moist. Chest/axilla: Normal chest wall appearance and motion. Nontender with no deformity. No lesions are appreciated. Cardiovascular: Regular rate and rhythm with a normal S1 and S2. No gallops, murmurs, or rubs. Normal PMI, no JVD. No pulse deficits. Respiratory: Lungs have equal breath sounds bilaterally, clear to auscultation and percussion. No rales, rhonchi or wheezes noted. No increased work of breathing, no retractions or nasal flaring. Abdomen/GI: Soft, non-tender, with normal bowel sounds. No distension or tympany. No guarding or rebound. No evidence of tenderness throughout. Skin: Warm, dry with normal turgor. Normal color with no rashes, no lesions, and no evidence of cellulitis. MS/ Extremity: Pulses equal, no cyanosis. Neurovascular intact. Full, normal range of motion. Neuro: Awake and alert, GCS 15, oriented to person, place, time, and situation. Cranial nerves II-XII grossly intact. Motor strength 5/5 in all extremities. Sensory grossly intact. Cerebellar exam normal. Normal gait. Vital Signs: 19:50 BP 193 / 80; Pulse 73; Resp 18; Pulse Ox 99% on R/A; Weight 63.96 kg; Height 5 ft. 2 aa1 in. (157.48 cm); Pain 0/10; 21:16 BP 160 / 76; Pulse 71; Resp 18; Pulse Ox 100% on R/A; tl3 23:03 BP 151 / 66; Pulse 71; Resp 18; Pulse Ox 98% ; tl3 19:50 Body Mass Index 25.79 (63.96 kg, 157.48 cm) aa1 MDM: 19:54 Patient medically screened. ma2 21:33 Differential diagnosis: epistaxis r/t trauma, spontaneous epistaxis, elevated BP, went ma2 doen from sbp 190 to 160. 23:18 Data reviewed: vital signs, nurses notes, lab test result(s), EKG, radiologic studies. ma2 Counseling: I had a detailed discussion with the patient and/or guardian regarding: the historical points, exam findings, and any diagnostic results supporting the discharge/admit diagnosis, the presence of at least one elevated blood pressure reading (>120/80) during this emergency department visit, radiology results, the need for outpatient follow up. Response to treatment: the patient's symptoms have resolved after treatment. 01/15 20:03 Order name: Basic Metabolic Panel; Complete Time: 22:47 [facility] 01/15 20:03 Order name: CBC with Diff; Complete Time: 22:47 [facility] 01/15 20:03 Order name: LFT's; Complete Time: 22:47 [facility] 01/15 20:03 Order name: Magnesium; Complete Time: 22:47 [facility] 01/15 20:03 Order name: PT-INR; Complete Time: 22:47 [facility] 01/15 21:29 Order name: CT Head Brain wo Cont; Complete Time: 22:47 [facility] 01/15 20:03 Order name: Cardiac monitoring; Complete Time: 21:15 [facility] 01/15 20:03 Order name: EKG - Nurse/Tech; Complete Time: 21:15 [facility] 01/15 20:03 Order name: IV Saline Lock; Complete Time: 21:15 [facility] 01/15 20:03 Order name: Labs collected and sent; Complete Time: 21:15 [facility] 01/15 20:03 Order name: O2 Per Protocol; Complete Time: 20:17 [facility] 01/15 20:03 Order name: O2 Sat Monitoring; Complete Time: 20:17 me Administered Medications: 21:00 Drug: Norvasc 5 mg Route: PO; tl3 21:48 Follow up: Response: No adverse reaction tl3 Disposition: 01/15/18 23:19 Discharged to Home. Impression: Epistaxis. - Condition is Stable. - Discharge Instructions: Nosebleed, Adult, Nosebleed, [id number]. - Medication Reconciliation Form, Thank You Letter, Antibiotic Education, Prescription Opioid Use form. - Follow up: Private Physician; When: Tomorrow; Reason: Continuance of care. - Problem is new. - Symptoms are resolved. - Notes: do not take plavix tomorrow 01/16/2018 for 1 day. Resume plavix as prescribed on 01/17/2018. Signatures: Dispatcher [employer] EDStephany Munoz, RN RN aa1 Kamila Peres MD MD ma2 Deb Reagan RN RN tl3 Corrections: (The following items were deleted from the chart) 23:45 23:19 01/15/2018 23:19 Discharged to Home. Impression: Epistaxis. Condition is Stable. tl3 Forms are Medication Reconciliation Form, Thank You Letter, Antibiotic Education, Prescription Opioid Use. Follow up: Private Physician; When: Tomorrow; Reason: Continuance of care. Problem is new. Symptoms are resolved. me2
[2018-01-16 00:40] VITALS: BP 151/66; O2SAT 98
--- NOTE | 2018-01-16 09:25 | EKG ---
Test Date: 2018-01-15 Test Time: 20:58:56 [employer]er: TL MEASUREMENT RESULTS: Intervals: Rate: 73 LA: 184 QRSD: 90 QT: 404 QTc: 445 [place]: P: 61 LA: 184 QRS: -5 T: 54 INTERPRETIVE STATEMENTS: Normal sinus rhythm Normal ECG Compared to ECG 09/13/2017 08:36:13 Sinus bradycardia no longer present Ventricular premature complex(es) no longer present Electronically Signed On 01-16-18 09:23:57 CDT by Shay Reyez
== END 2018-01-15 23:45 | disposition home or self-care (01) ==
LOC: ER 19:40
DX: R04.0 Epistaxis (principal); E78.00 Pure hypercholesterolemia, unspecified; E03.9 Hypothyroidism, unspecified; I10 Essential (primary) hypertension
CPT/HCPCS: 36415; 70450; 80048; 80076; 83735; 85025; 85610; 93005; 99284

== ENCOUNTER 2018-01-22 09:20 | Emergency (ER) | payer OTHER, MEDICARE ==
[2018-01-22 09:55] LABS: Absolute Monocytes 0.2 K/uL (0.1-1.3); Absolute Neutrophil 4.7 K/uL (1.8-8.0); Basophils % 0.4 % (0-1.3); Eosinophils % 1.1 % (0-4.4); Hematocrit 38.4 % (36.0-45.0); Lymphocytes % 37.4 % (15.3-44.8); MCV 92.3 fL (80-100); MPV 8.5 fL (7.6-11.3); Monocytes % 2.8 % (3.3-12.3); RBC Red Blood Cell Count 4.16 M/uL (3.86-4.86)
[2018-01-22 10:04] LABS: Protime INR 1.12
[2018-01-22 10:24] LABS: BUN Blood Urea Nitrogen 30 mg/dL (7-18); Bicarbonate 26 mmol/L (21-32); Glucose Level 144 mg/dL (74-106); Sodium Level 143 mmol/L (136-145); Troponin (Emerg Dept Use Only) < 0.02 ng/mL (0.0-0.045)
[2018-01-22] MEDS ORDERED: NA CHLORIDE 0.9% 0 ML ONE (10:39)
--- NOTE | 2018-01-22 11:09 | ER ---
Nurse's Notes [facility] Name: Robby Schmid Age: 82 yrs Sex: Female : 1935 Arrival Date: 01/22/2018 Time: 09:26 Bed 5 Private MD: Diagnosis: Epistaxis;Dehydration Presentation: 01/22 09:26 Presenting complaint: EMS states: Seen in ED last week for nosebleed, was told to stop hb taking Plavix, got confused and continued taking it, had nosebleed on Monday that lasted all day long, has felt weak ever since. On scene pt was diaphoretic and pale, BP 90/40, improved 120/80 after 200ml NS. BGL 103. Hx CVA. Transition of care: patient was not received from another setting of care. Onset of symptoms was January 22, 2018. Risk Assessment: Do you want to hurt yourself or someone else? Patient reports no desire to harm self or others. 09:26 Method Of Arrival: EMS: [facility] hb 09:26 Acuity: MANJINDER 3 hb 09:28 Care prior to arrival: IV initiated. 20 GA, in the left hand, Glucose check: 103. hb 09:30 Initial Sepsis Screen: Does the patient meet any 2 criteria? No. Patient's initial sv sepsis screen is negative. Does the patient have a suspected source of infection? No. Patient's initial sepsis screen is negative. Historical: - Allergies: : No Known Allergies; hb - Home Meds: : atorvastatin 40 mg Oral tab 1 tab once daily [Active]; cholecalciferol (vitamin D3) hb 5,000 unit Oral tab daily [Active]; clonazepam 1 mg Oral tab daily [Active]; CoQ-10 100 mg Oral cap daily [Active]; levothyroxine 75 mcg tab 1 tab once daily [Active]; [place] 3-6-9 1,200 mg Oral cap daily [Active]; Plavix 75 mg Oral tab 1 tab once daily [Active]; valsartan 40 mg Oral tab once daily [Active]; Zyrtec 10 mg Oral tab 1 tab once daily [Active]; - PMHx: :29 CVA; Hypertension; High Cholesterol; Hypothyroidism; hb - PSHx: : Cholecystectomy; Hysterectomy; Tonsillectomy; hb - Immunization history:: Adult Immunizations up to date. - Social history:: Smoking status: Patient/guardian denies using tobacco. - Ebola Screening: : No symptoms or risks identified at this time. - Family history:: not pertinent. - Hospitalizations: : No recent hospitalization is reported. Screenin:30 Abuse screen: Denies threats or abuse. Denies injuries from another. Nutritional sv screening: No deficits noted. Tuberculosis screening: No symptoms or risk factors identified. Fall Risk None identified. Assessment: 09:30 General: Appears in no apparent distress. uncomfortable, well developed, Behavior is sv calm, cooperative, appropriate for age. General: Reports not drinking water because it makes her cough. Pain: Denies pain. Neuro: Level of Consciousness is awake, alert, obeys commands, Oriented to person, place, time, situation, Moves all extremities. Full function Speech is normal, Reports weakness. Cardiovascular: Patient's skin is warm and dry. Pulses are palpable in right radial artery and left radial artery Rhythm is sinus rhythm. Respiratory: Respiratory effort is even, unlabored, Respiratory pattern is regular, symmetrical. GI: No signs and/or symptoms were reported involving the gastrointestinal system. : No signs and/or symptoms were reported regarding the genitourinary system. EENT: No signs and/or symptoms were reported regarding the EENT system. Derm: Skin is pale, Skin temperature is cool. Musculoskeletal: No signs and/or symptoms reported regarding the musculoskeletal system. 10:40 Reassessment: Patient appears in no apparent distress at this time. No changes from sv previously documented assessment. Patient and/or family updated on plan of care and expected duration. Pain level reassessed. Patient is alert, oriented x 3, equal unlabored respirations, skin warm/dry/pink. 11:33 Reassessment: Patient appears in no apparent distress at this time. No changes from sv previously documented assessment. Patient and/or family updated on plan of care and expected duration. Pain level reassessed. Patient is alert, oriented x 3, equal unlabored respirations, skin warm/dry/pink. Vital Signs: 09:28 BP 127 / 88; Pulse 89; Resp 16; Pulse Ox 96% on R/A; Pain 0/10; hb 10:00 BP 119 / 63; Pulse 71; Resp 17; Pulse Ox 100% on R/A; sv 10:51 BP 123 / 68; Pulse 70; Resp 18; Pulse Ox 100% ; sv 11:29 BP 115 / 66; Pulse 72; Resp 16; Pulse Ox 99% ; sv ED Course: 09:26 Patient arrived in ED. hb 09:26 Maintain EMS IV. Dressing intact. Site clean \T\ dry. Gauge \T\ site: 20G left hand. sv 09:28 Triage completed. hb 09:28 Atif Barry MD is Attending Physician. rn 09:29 Arm band placed on right wrist. hb 09:30 Patient has correct armband on for positive identification. Placed in gown. Bed in low sv position. Side rails up X2. senior sales representative on. Pulse ox on. NIBP on. Door closed. Warm blanket given. Head of bed elevated. 09:39 Bárbara Gonsalez RN is Primary Nurse. sv 09:45 Initial lab(s) drawn, by me, sent to lab. Inserted saline lock: 22 gauge in left sv antecubital area, using aseptic technique. ,using aseptic technique. diffusics Blood collected. Flushed left antecubital with 5 ml normal saline. 10:00 EKG done, by health physics technician. reviewed by Atif Barry MD. at1 11:08 Bárbara eNw MD is Referral Physician. rn 11:30 No provider procedures requiring assistance completed. IV discontinued, intact, sv bleeding controlled, No redness/swelling at site. Pressure dressing applied. Administered Medications: 09:48 Drug: NS 0.9% 500 ml Route: IV; Rate: bolus; Site: left antecubital; sv 10:15 Follow up: Response: No adverse reaction; IV Status: Completed infusion; IV Intake: sv 500ml 10:45 Drug: NS 0.9% 500 ml Route: IV; Rate: bolus; Site: left antecubital; sg 11:20 Follow up: Response: No adverse reaction; IV Status: Completed infusion; IV Intake: sv 500ml Intake: 10:15 IV: 500ml; Total: 500ml. sv 11:20 IV: 500ml; Total: 1000ml. sv Outcome: 11:09 Discharge ordered by . rn 11:30 Discharged to home via wheelchair, with family. sv 11:30 Condition: stable 11:30 Discharge instructions given to patient, family, Instructed on discharge instructions, follow up and referral plans. increase PO fluids Demonstrated understanding of instructions, follow-up care. 11:34 Patient left the ED. sv Signatures: Bárbara Gonsalez RN RN sv Chet Fields RN RN sg Nieto, Roman, MD MD rn Gonzales, Amanda, server EKG Tat1 Ghada Fields RN RN Corrections: (The following items were deleted from the chart) 11:33 11:33 Reassessment: Patient appears in no apparent distress at this time. No changes sv from previously documented assessment. Patient and/or family updated on plan of care and expected duration. Pain level reassessed. Patient is alert, oriented x 3, equal unlabored respirations, skin warm/dry/pink. Patient is alert/active/playful, equal unlabored respirations, skin warm/dry/pink. sv
--- NOTE | 2018-01-22 11:09 | EDPHYS ---
Physician Documentation [facility] Name: Robby Schmid Age: 82 yrs Sex: Female : 1935 Arrival Date: 01/22/2018 Time: 09:26 Bed 5 Private MD: ED Physician Atif Barry HPI: 01/22 09:37 This 82 yrs old Female presents to ER via EMS with complaints of General rn Weakness. 09:37 The patient presents with a nose bleed, that is apparently anterior, and the bleeding rn resolved prior to arrival. Onset: The symptoms/episode began/occurred 2 day(s) ago. Modifying factors: The symptoms are alleviated by nothing. the symptoms are aggravated by nothing. Severity of symptoms: At their worst the symptoms were moderate in the emergency department the symptoms have resolved. The patient has experienced a previous episode. The patient has been recently seen by a physician:. Reports 2 nosebleeds in last week, last one was 2 days ago, was seen here, told to stop plavix, got medication confused, continued taking her plavix, states "bled all day". Is scared to eat or drink because states coughs when swallows and is scared of causing nosebleed again. Has not bled for 2 days. + generalized weakness, got up to use bathroom today, felt lightheaded, thinks let herself down and sat next to tub, but doesn't recall all events, unsure if passed out.. Historical: - Allergies: : No Known Allergies; hb - Home Meds: : atorvastatin 40 mg Oral tab 1 tab once daily [Active]; cholecalciferol (vitamin D3) hb 5,000 unit Oral tab daily [Active]; clonazepam 1 mg Oral tab daily [Active]; CoQ-10 100 mg Oral cap daily [Active]; levothyroxine 75 mcg tab 1 tab once daily [Active]; [place] 3-6-9 1,200 mg Oral cap daily [Active]; Plavix 75 mg Oral tab 1 tab once daily [Active]; valsartan 40 mg Oral tab once daily [Active]; Zyrtec 10 mg Oral tab 1 tab once daily [Active]; - PMHx: : CVA; Hypertension; High Cholesterol; Hypothyroidism; hb - PSHx: Cholecystectomy; Hysterectomy; Tonsillectomy; hb - Immunization history:: Adult Immunizations up to date. - Social history:: Smoking status: Patient/guardian denies using tobacco. - Ebola Screening: : No symptoms or risks identified at this time. - Family history:: not pertinent. - Hospitalizations: : No recent hospitalization is reported. ROS: 09:37 Constitutional: Negative for fever, chills, and weight loss, Eyes: Negative for injury, rn pain, redness, and discharge, ENT: + intermittent nosebleed Neck: Negative for injury, pain, and swelling, Cardiovascular: Negative for chest pain, palpitations, and edema, Respiratory: Negative for shortness of breath, cough, wheezing, and pleuritic chest pain, Abdomen/GI: Negative for abdominal pain, nausea, vomiting, diarrhea, and constipation, MS/Extremity: Negative for injury and deformity, Skin: Negative for injury, rash, and discoloration, Neuro: + generalized weakness Exam: 09:37 Constitutional: This is a well developed, well nourished patient who is awake, alert, rn and in no acute distress. Head/Face: Normocephalic, atraumatic. Eyes: Pupils equal round and reactive to light, extra-ocular motions intact. Lids and lashes normal. Conjunctiva and sclera are non-icteric and not injected. Cornea within normal limits. Periorbital areas with no swelling, redness, or edema. ENT: no active bleeding, no clots in nares, dry MM Cardiovascular: Regular rate and rhythm with a normal S1 and S2. No gallops, murmurs, or rubs. Normal PMI, no JVD. No pulse deficits. Respiratory: Lungs have equal breath sounds bilaterally, clear to auscultation and percussion. No rales, rhonchi or wheezes noted. No increased work of breathing, no retractions or nasal flaring. Abdomen/GI: Soft, non-tender, with normal bowel sounds. No distension or tympany. No guarding or rebound. No evidence of tenderness throughout. Skin: warm, dry MS/ Extremity: Pulses equal, no cyanosis. Neurovascular intact. Full, normal range of motion. Equal circumference. Neuro: Awake and alert, GCS 15, oriented to person, place, time, and situation. Cranial nerves II-XII grossly intact. Motor strength 4/5 in all extremities. Sensory grossly intact. 10:02 ECG was reviewed by the Attending Physician. rn Vital Signs: 09:28 BP 127 / 88; Pulse 89; Resp 16; Pulse Ox 96% on R/A; Pain 0/10; hb 10:00 BP 119 / 63; Pulse 71; Resp 17; Pulse Ox 100% on R/A; sv 10:51 BP 123 / 68; Pulse 70; Resp 18; Pulse Ox 100% ; sv 11:29 BP 115 / 66; Pulse 72; Resp 16; Pulse Ox 99% ; sv MDM: 09:28 Patient medically screened. rn 11:07 Differential diagnosis: spontaneous epistaxis. Data reviewed: vital signs, nurses rn notes, lab test result(s), EKG, and as a result, I will discharge patient. Counseling: I had a detailed discussion with the patient and/or guardian regarding: the historical points, exam findings, and any diagnostic results supporting the discharge/admit diagnosis, lab results, the need for outpatient follow up, to return to the emergency department if symptoms worsen or persist or if there are any questions or concerns that arise at home. Response to treatment: the patient's symptoms have markedly improved after treatment, and as a result, I will discharge patient. Special discussion: I discussed with the patient/guardian in detail that at this point there is no indication for admission to the hospital. It is understood, however, that if the symptoms persist or worsen the patient needs to return immediately for re-evaluation. Based on the history and exam findings, there is no indication for further emergent testing or inpatient evaluation. I discussed with the patient/guardian the need to see the ENT specialist for further evaluation of the symptoms. ED course: Pt needs ENT f/u, no bleed for 2 days, off plavix, h/h normal, + dehydration, otherwise feels better with fluids, will dc home as at baseline now and no changes neurologically. . 01/22 09:29 Order name: CBC with Diff; Complete Time: 10: rn 01/22 09:29 Order name: Basic Metabolic Panel; Complete Time: : rn 01/22 09:29 Order name: Protime (+inr); Complete Time: :30 rn 01/22 09:29 Order name: Ptt, Activated; Complete Time: : rn 01/22 09:29 Order name: Troponin (emerg Dept Use Only); Complete Time: 10: rn 01/22 09:29 Order name: IV Start; Complete Time: 09:49 rn 01/22 09:29 Order name: EKG; Complete Time: rn 01/22 09:29 Order name: EKG - Nurse/Tech; Complete Time: :25 rn EC:02 Rate is 70 beats/min. Rhythm is regular. QRS [place] is Normal. MI interval is normal. QRS rn interval is normal. QT interval is normal. No Q waves. T waves are Normal. No ST changes noted. Clinical impression: Normal ECG. Interpreted by me. Administered Medications: 09:48 Drug: NS 0.9% 500 ml Route: IV; Rate: bolus; Site: left antecubital; sv 10:15 Follow up: Response: No adverse reaction; IV Status: Completed infusion; IV Intake: sv 500ml 10:45 Drug: NS 0.9% 500 ml Route: IV; Rate: bolus; Site: left antecubital; sg 11:20 Follow up: Response: No adverse reaction; IV Status: Completed infusion; IV Intake: sv 500ml Disposition: 01/22/18 11:09 Discharged to Home. Impression: Epistaxis, Dehydration. - Condition is Stable. - Discharge Instructions: Dehydration, Adult, Nosebleed, Adult, Near-Syncope. - Medication Reconciliation Form, Thank You Letter, Antibiotic Education, Prescription Opioid Use form. - Follow up: Bárbara New MD; When: As needed; Reason: Recheck today's complaints, Re-evaluation by your physician. - Problem is an ongoing problem. - Symptoms have improved. Signatures: Dispatcher [employer] EDBárbara Peck RN RN sv Gay, Steven, RN RN Atif Barry MD MD rn Baxter, Heather, RN RN Corrections: (The following items were deleted from the chart) 11:34 11:09 01/22/2018 11:09 Discharged to Home. Impression: Epistaxis; Dehydration. sv Condition is Stable. Forms are Medication Reconciliation Form, Thank You Letter, Antibiotic Education, Prescription Opioid Use. Follow up: Bárbara New; When: As needed; Reason: Recheck today's complaints, Re-evaluation by your physician. Problem is an ongoing problem. Symptoms have improved. rn
[2018-01-22 12:05] VITALS: BP 115/66; O2SAT 99
--- NOTE | 2018-01-22 13:15 | EKG ---
Test Date: 2018-01-22 Test Time: 09:54:04 Ballet Dancer: WOODY MEASUREMENT RESULTS: Intervals: Rate: 70 WI: 176 QRSD: 84 QT: 420 QTc: 453 [place]: P: 58 WI: 176 QRS: -2 T: 61 INTERPRETIVE STATEMENTS: Normal sinus rhythm Normal ECG Compared to ECG 01/15/2018 20:58:56 No significant changes Electronically Signed On 01-22-18 13:14:24 CDT by Ferdinand Benites
== END 2018-01-22 11:34 | disposition home or self-care (01) ==
LOC: ER 09:20
DX: E86.0 Dehydration (principal); I10 Essential (primary) hypertension; E03.9 Hypothyroidism, unspecified; E78.00 Pure hypercholesterolemia, unspecified; Z79.01 Long term (current) use of anticoagulants; Z86.73 Personal history of transient ischemic attack (TIA), and cerebral infarction without residual deficits
CPT/HCPCS: 36415; 80048; 84484; 85025; 85610; 85730; 93005; 96360; 99285

== ENCOUNTER 2020-12-18 19:36 | Inpatient (IN) | payer OTHER, MEDICARE ==
--- NOTE | 2020-12-18 20:25 | RAD REPORT ---
EXAM DESCRIPTION: RAD - Hip Right 2 View - 12/18/2020 8:19 pm CLINICAL HISTORY: Right hip pain FINDINGS: Subcapital markedly displaced right femoral fracture with angulation present at fracture s ite. No dislocation
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
--- NOTE | 2020-12-18 20:26 | RAD REPORT ---
EXAM DESCRIPTION: Adalid Single View12/18/2020 8:19 pm CLINICAL HISTORY: Chest pain COMPARISON: 2019 FINDINGS: The lungs appear clear of acute infiltrate. The heart is normal size IMPRESSION: No acute abnormalities displayed
[2020-12-18 20:30] LABS: Absolute Lymphocytes (CBC) 1.2 K/uL (0.7-4.9); Basophils % 0.3 % (0-1.3); Hematocrit 38.9 % (36.0-45.0); MPV 8.1 fL (7.6-11.3)
[2020-12-18 20:34] LABS: Protime INR 1.03
[2020-12-18] MEDS ORDERED: MORPHINE 4 MG/ML SYR ONE (20:47)
[2020-12-18] MEDS ORDERED: ONDANSETRON 4 MG/2 ML VIAL ONE (20:47)
--- NOTE | 2020-12-18 20:49 | ER ---
Nurse's Notes [facility] Name: Robby Schmid Age: 85 yrs Sex: Female : 1935 Arrival Date: 12/18/2020 Time: 19:37 Bed 7 Private MD: Diagnosis: Fracture of unspecified part of neck of right femur-Subcapital fracture Presentation: 12/18 19:43 Ebola Screen: No symptoms or risks identified at this time. ea 19:43 Acuity: MANJINDER 3 ea 19:43 Chief complaint: EMS states: Reports pt felt dizzy and fell onto her bottom pt ea complaining of right hip pain with leg turned out and shortened. Coronavirus screen: At this time, the client does not indicate any symptoms associated with coronavirus-19. Initial Sepsis Screen: Does the patient meet any 2 criteria? No. Patient's initial sepsis screen is negative. Does the patient have a suspected source of infection? No. Patient's initial sepsis screen is negative. Risk Assessment: Do you want to hurt yourself or someone else? Patient reports no desire to harm self or others. Onset of symptoms was December 18, 2020. 19:43 Method Of Arrival: EMS: [facility] ea 19:43 Care prior to arrival: 22G to right hand, IV acetaminophen. Trauma event details: ea Injury occurred in the [facility], Injury occurred: at home. Injury occurred: December 18, 2020. 19:44 Mechanism of Injury: Fall from standing position. ea Trauma Activation: Alert Physician: ED Physician; Name: Dr Barry; Notified At: 19:35; Arrived At: 19:35 Physician: General Surgeon; Name: ; Notified At: 19:35; Arrived At: Physician: Radiology; Name: Yvnone Angel; Notified At: 19:35; Arrived At: 19:35 Physician: Respiratory; Name: ; Notified At: 19:35; Arrived At: Physician: Lab; Name: ; Notified At: 19:35; Arrived At: Trauma Activation: Alert Physician: ED Physician; Name: ; Notified At: ; Arrived At: Physician: General Surgeon; Name: ; Notified At: ; Arrived At: Physician: Radiology; Name: ; Notified At: ; Arrived At: Physician: Respiratory; Name: ; Notified At: ; Arrived At: Physician: Lab; Name: ; Notified At: ; Arrived At: Historical: - Allergies: 19:45 No Known Allergies; ea - Home Meds: 19:45 atorvastatin 40 mg Oral tab 1 tab once daily [Active]; cholecalciferol (vitamin D3) ea 5,000 unit Oral tab daily [Active]; clonazepam 1 mg Oral tab daily [Active]; CoQ-10 100 mg Oral cap daily [Active]; levothyroxine 75 mcg tab 1 tab once daily [Active]; [place] 3-6-9 1,200 mg Oral cap daily [Active]; Plavix 75 mg Oral tab 1 tab once daily [Active]; valsartan 40 mg Oral tab once daily [Active]; Zyrtec 10 mg Oral tab 1 tab once daily [Active]; - PMHx: 19:45 Hypothyroidism; Hypertension; High Cholesterol; CVA; ea - Immunization history:: Adult Immunizations up to date. - Immunization history: Last tetanus immunization: unknown. - Family history:: not pertinent. - Social history:: Smoking status: Patient denies any tobacco usage or history of. - Hospitalizations: : No recent hospitalization is reported. Screenin:43 Abuse screen: Denies threats or abuse. Nutritional screening: No deficits noted. ea Tuberculosis screening: No symptoms or risk factors identified. Fall Risk IV access (20 points). Primary Survey: 19:44 NO uncontrolled hemorrhage observed. A: The patient is alert. Airway: patent. ea Breathing/Chest: Respiratory pattern: regular, Respiratory effort: spontaneous, unlabored. Circulation: Skin color: pink, Skin temperature: warm. Disability Alert. Exposure/Environment: Obvious injury(ies) are noted at this time: pain to right hip A warming method has been applied: A warm blanket has been provided to the patient. 20:40 Reassessment Breathing/Chest Respiratory pattern Regular Respiratory effort Spontaneous em Unlabored Chest inspection Symmetrical. Assessment: 19:43 General: Appears uncomfortable, Behavior is appropriate for age. Pain: Complains of ea pain in right hip. Neuro: Level of Consciousness is awake, alert, obeys commands, Oriented to person, place, time. Cardiovascular: Patient's skin is warm and dry. Respiratory: Airway is patent Respiratory effort is even, unlabored, Respiratory pattern is regular, symmetrical. Derm: Skin is pink, warm \T\ dry. Musculoskeletal: right leg turned out pt complaining of pain to right hip. 20:30 Reassessment: Patient and/or family updated on plan of care and expected duration. Pain ea level reassessed. Patient is alert, oriented x 3, equal unlabored respirations, skin warm/dry/pink. 21:30 Reassessment: Patient and/or family updated on plan of care and expected duration. Pain ea level reassessed. Patient is alert, oriented x 3, equal unlabored respirations, skin warm/dry/pink. 22:57 Reassessment: Patient and/or family updated on plan of care and expected duration. Pain ea level reassessed. Patient is alert, oriented x 3, equal unlabored respirations, skin warm/dry/pink. Vital Signs: 19:46 BP 123 / 59; Pulse 70; Resp 18; Temp 97.8; Pulse Ox 97% ; ea 21:02 BP 142 / 71; Pulse 68; Resp 18; Pulse Ox 99% ; ea 22:00 BP 140 / 61; Pulse 65; Resp 18; Pulse Ox 91% on R/A; jb4 Marshall Coma Score: 19:46 Eye Response: spontaneous(4). Verbal Response: oriented(5). Motor Response: obeys ea commands(6). Total: 15. Trauma Score (Adult): 19:46 Eye Response: spontaneous(1); Verbal Response: oriented(1); Motor Response: obeys ea commands(2); Systolic BP: > 89 mm Hg(4); Respiratory Rate: 10 to 29 per min(4); Miranda Score: 15; Trauma Score: 12 ED Course: 19:37 Patient arrived in ED. ea 19:37 Myke Ring PA is PHCP. jmm 19:41 Atif Barry MD is Attending Physician. rn 19:43 Michelle Bangura RN is Primary Nurse. ea 19:44 Patient maintains SpO2 saturation greater than 95% on room air. Thermoregulation: warm ea blanket given to patient. 19:45 Patient has correct armband on for positive identification. Placed in gown. Bed in low ea position. Call light in reach. Side rails up X2. Pulse ox on. NIBP on. 19:47 Arm band placed on right wrist. Patient placed in an exam room, on a stretcher, on ea pulse oximetry. 20:19 Hip Right 2 View XRAY In Process Unspecified. EDMS 20:19 Pelvis XRAY In Process Unspecified. EDMS 20:19 XRAY Chest (1 view) In Process Unspecified. EDMS 20:35 Mackey cath inserted, using sterile technique, 18 Fr., by al, balloon inflated, to ea gravity drainage. 20:48 Brit Florian MD is Hospitalizing Provider. rn 20:49 Triage completed. ea 20:56 No provider procedures requiring assistance completed. Patient admitted, IV remains in ea place. Administered Medications: 20:39 Drug: morphine 2 mg Route: IVP; Site: right hand; em 20:39 CANCELLED (Other Intervention Used): Zofran (Ondansetron) 4 mg IVP once; over 2 minutes em 20:41 Drug: morphine 2 mg Route: IVP; Site: right hand; ea 21:30 Follow up: Response: No adverse reaction; Pain is decreased ea 20:46 Drug: Magnesium Sulfate 1 grams Route: IVPB; Infused Over: 1 hrs; Site: right hand; ea 22:58 Follow up: Response: No adverse reaction; IV Status: Completed infusion ea 23:59 Drug: Demerol (meperidine) 25 mg Route: IVP; Site: right hand; ea Intake: 20:58 PO: 0ml; Total: 0ml. ea Outcome: 20:48 Decision to Hospitalize by Provider. rn 20:58 Patient's length of stay was not longer than 2 hours. ea 21:02 Instructed on the need for admit, Demonstrated understanding of instructions. ea 22:48 Admitted to Med/surg accompanied by tech, via stretcher, room 406, with chart, Report ea called to Receiving nurse 22:48 Condition: stable 12/19 00:11 Patient left the ED. ea Signatures: Dispatcher [employer] EDMS Myke Ring PA PA jmm Munoz, Edgar, RN RN Acacia Elliott RN Atif Kaur MD MD rn Bryson, James, RN RN jb Michelle Bangura RN RN ea
--- NOTE | 2020-12-18 20:49 | EDPHYS ---
Physician Documentation [facility] Name: Robby Schmid Age: 85 yrs Sex: Female : 1935 Arrival Date: 12/18/2020 Time: 19:37 Bed 7 Private MD: ED Physician Atif Barry HPI: 12/18 19:43 This 85 yrs old Female presents to ER via Unassigned with complaints of Fall rn Injury. 19:43 Details of fall: The patient fell from an upright position, while standing. Onset: The rn symptoms/episode began/occurred just prior to arrival. Associated injuries: The patient sustained Right hip. Severity of symptoms: At their worst the symptoms were moderate, in the emergency department the symptoms are unchanged. The patient has not experienced similar symptoms in the past. The patient has not recently seen a physician. Patient reports fall from standing, got dizzy, no syncope or preceding chest pain. Reports only pain to right hip. Takes 2 baby aspirin a day. Sees Dr. Florian. Denies head or neck pain. Denies rib pain or back pain.. Historical: - Allergies: 19:45 No Known Allergies; ea - Home Meds: 19:45 atorvastatin 40 mg Oral tab 1 tab once daily [Active]; cholecalciferol (vitamin D3) ea 5,000 unit Oral tab daily [Active]; clonazepam 1 mg Oral tab daily [Active]; CoQ-10 100 mg Oral cap daily [Active]; levothyroxine 75 mcg tab 1 tab once daily [Active]; [place] 3-6-9 1,200 mg Oral cap daily [Active]; Plavix 75 mg Oral tab 1 tab once daily [Active]; valsartan 40 mg Oral tab once daily [Active]; Zyrtec 10 mg Oral tab 1 tab once daily [Active]; - PMHx: 19:45 Hypothyroidism; Hypertension; High Cholesterol; CVA; ea - Immunization history:: Adult Immunizations up to date. - Immunization history: Last tetanus immunization: unknown. - Family history:: not pertinent. - Social history:: Smoking status: Patient denies any tobacco usage or history of. - Hospitalizations: : No recent hospitalization is reported. ROS: 19:43 Constitutional: Negative for fever, chills, and weight loss, Eyes: Negative for injury, rn pain, redness, and discharge, ENT: Negative for injury, pain, and discharge, Neck: Negative for injury, pain, and swelling, Cardiovascular: Negative for chest pain, palpitations, and edema, Respiratory: Negative for shortness of breath, cough, wheezing, and pleuritic chest pain, Abdomen/GI: Negative for abdominal pain, nausea, vomiting, diarrhea, and constipation, Back: Negative for injury and pain, : Negative for injury, bleeding, discharge, and swelling, MS/Extremity: Positive for injury and pain to right hip Skin: Negative for injury, rash, and discoloration, Neuro: Negative for headache, weakness, numbness, tingling, and seizure. 19:43 All other systems are negative. Exam: 19:43 Constitutional: This is a well developed, well nourished patient who is awake, alert, rn appears uncomfortable Head/Face: Normocephalic, atraumatic. Eyes: Pupils equal round and reactive to light, extra-ocular motions intact. Lids and lashes normal. Conjunctiva and sclera are non-icteric and not injected. Cornea within normal limits. Periorbital areas with no swelling, redness, or edema. Neck: No midline cervical tenderness Chest/axilla: Normal chest wall appearance and motion. Nontender with no deformity. No lesions are appreciated. Cardiovascular: Regular rate and rhythm. No pulse deficits. Respiratory: No increased work of breathing, no retractions or nasal flaring. Abdomen/GI: Soft, non-tender Back: No spinal tenderness. No costovertebral tenderness. Full range of motion. Skin: Warm, dry with normal turgor. Normal color with no rashes, no lesions, and no evidence of cellulitis. MS/ Extremity: Pulses equal, no cyanosis. Right lower extremity slightly shortened and externally rotated with tenderness over lateral and proximal right hip Neuro: Awake and alert, GCS 15, oriented to person, place, time, and situation. Cranial nerves II-XII grossly intact. Motor strength 5/5 in all extremities. Sensory grossly intact. Vital Signs: 19:46 BP 123 / 59; Pulse 70; Resp 18; Temp 97.8; Pulse Ox 97% ; ea 21:02 BP 142 / 71; Pulse 68; Resp 18; Pulse Ox 99% ; ea 22:00 BP 140 / 61; Pulse 65; Resp 18; Pulse Ox 91% on R/A; jb4 [place] Coma Score: 19:46 Eye Response: spontaneous(4). Verbal Response: oriented(5). Motor Response: obeys ea commands(6). Total: 15. Trauma Score (Adult): 19:46 Eye Response: spontaneous(1); Verbal Response: oriented(1); Motor Response: obeys ea commands(2); Systolic BP: > 89 mm Hg(4); Respiratory Rate: 10 to 29 per min(4); Miranda Score: 15; Trauma Score: 12 MDM: 19:40 Patient medically screened. [facility] 20:46 Differential diagnosis: contusion, fracture, sprain, strain. Data reviewed: vital rn signs, nurses notes, lab test result(s), EKG, radiologic studies, plain films. Data interpreted: gambling monitor: rate is 70 beats/min, rhythm is normal sinus rhythm, regular, with no ectopy, Interpretation: normal rate, normal rhythm, Pulse oximetry: on room air is 97 %. Interpretation: normal. Test interpretation: by ED physician or midlevel provider: plain radiologic studies, X-ray right hip shows mildly displaced subcapital fracture. Counseling: I had a detailed discussion with the patient and/or guardian regarding: the historical points, exam findings, and any diagnostic results supporting the discharge/admit diagnosis, lab results, radiology results, the need for further work-up and treatment in the hospital. Response to treatment: the patient's symptoms have mildly improved after treatment, and as a result, I will admit patient. Admission orders: after a detailed discussion of the patient's condition and case, the admit orders are written by me. ED course: Patient with subcapital right hip fracture. Will admit to Dr. Florian. Consulted with Dr. Shultz.. 12/18 19:41 Order name: CBC with Diff; Complete Time: 20:39 [facility] 12/18 19:41 Order name: CMP [facility] 12/18 19:42 Order name: PT-INR rn 12/18 19:42 Order name: Ptt, Activated rn 12/18 19:42 Order name: Protime (+INR); Complete Time: 20:39 [facility] 12/18 19:42 Order name: PTT, Activated Partial Thromb; Complete Time: 20:39 [facility] 12/18 19:40 Order name: Hip Right 2 View XRAY; Complete Time: 20:29 [facility] 12/18 19:40 Order name: Pelvis XRAY; Complete Time: 20:29 [facility] 12/18 19:42 Order name: XRAY Chest (1 view); Complete Time: 20:29 rn 12/18 21:33 Order name: SARS-COV-2 RT PCR [facility] 12/18 19:41 Order name: Saline Lock; Complete Time: 20:40 [facility] 12/18 19:41 Order name: EKG - Nurse/Tech; Complete Time: 20:12 [facility] 12/18 19:52 Order name: NPO; Complete Time: 20:12 rn 12/18 20:46 Order name: Mackey; Complete Time: 20:46 ea 12/18 21:32 Order name: Droplet/Contact Precautions; Complete Time: 21:40 rn Administered Medications: 20:39 Drug: morphine 2 mg Route: IVP; Site: right hand; em 20:39 CANCELLED (Other Intervention Used): Zofran (Ondansetron) 4 mg IVP once; over 2 minutes em 20:41 Drug: morphine 2 mg Route: IVP; Site: right hand; ea 21:30 Follow up: Response: No adverse reaction; Pain is decreased ea 20:46 Drug: Magnesium Sulfate 1 grams Route: IVPB; Infused Over: 1 hrs; Site: right hand; ea 22:58 Follow up: Response: No adverse reaction; IV Status: Completed infusion ea 23:59 Drug: Demerol (meperidine) 25 mg Route: IVP; Site: right hand; ea Disposition Summary: 12/18/20 20:48 Hospitalization Ordered Hospitalization Status: Inpatient Admission rn Provider: Brit Florian rn Location: Telemetry/MedSurg (Inpatient) rn Condition: Stable rn Problem: new rn Symptoms: have improved rn Bed/Room Type: Standard rn Room Assignment: 406(12/18/20 22:29) mw Diagnosis - Fracture of unspecified part of neck of right femur - Subcapital fracture rn Forms: - Medication Reconciliation Form rn - SBAR form rn Signatures: Dispatcher [employer] Richelle Xavier RN RN mw Mickail, Joel, PA PA jmm Munoz, Edgar RN RN Atif Brown MD MD rn Antunez, Elena RN RN ea Corrections: (The following items were deleted from the chart) 20:21 20:02 CORONAVIRUS+BRZ ordered. EDMS EDMS 20:39 20:23 Zofran (Ondansetron) 4 mg IVP once; over 2 minutes ordered. rn em 22: 20:48 rn mw
[2020-12-18] MEDS ORDERED: Magnesium Sulfate 2gm IVPB 2 G/50 ML BAG IV ONE (21:06)
[2020-12-18 21:18] LABS: Potassium 4.2 mmol/L (3.5-5.1)
[2020-12-18 21:19] LABS: Bilirubin Total 0.4 mg/dL (0.2-1.0); Protein, Total 6.5 g/dL (6.4-8.2)
[2020-12-19] MEDS ORDERED: MEPERIDINE HCL 25 MG/ML SYR ONE (00:11)
[2020-12-19] MEDS ORDERED: ONDANSETRON 4 MG/2 ML VIAL IV PRN (01:03)
[2020-12-19] MEDS: D5.45NS W/KCL 20MEQ 1,000 ML IV SCH ×2 (02:38→11:03)
[2020-12-19] MEDS: MORPHINE 2 MG/ML SYR IV PRN ×2 (03:50→09:10)
[2020-12-19 06:55] LABS: Absolute Lymphocytes (CBC) 1.2 K/uL (0.7-4.9); Basophils % 0.4 % (0-1.3); Hematocrit 40.3 % (36.0-45.0); Lymphocytes % 32.5 % (15.3-44.8); MPV 8.1 fL (7.6-11.3); RBC Red Blood Cell Count 4.33 M/uL (3.86-4.86)
[2020-12-19 07:07] LABS: Potassium 5.3 mmol/L (3.5-5.1)
[2020-12-19] MEDS ORDERED: TRANEXAMIC ACID 1,000 MG in NA CHLORIDE 0.9% 50 ML IV ONE ×4 (11:00)
[2020-12-19 11:26] LABS: Potassium 4.2 mmol/L (3.5-5.1)
[2020-12-19] MEDS ORDERED: Ringers Lactate 1,000 ML IV ONE ×2 (11:38→14:36)
[2020-12-19] MEDS ORDERED: FENTANYL CITR 100 MCG/2 ML ONE (11:46)
[2020-12-19] MEDS ORDERED: propofoL 200 MG/20 ML VIAL IV ONE (11:46)
[2020-12-19] MEDS ORDERED: NEOSTIGMINE 1 MG/ML -5 ML ONE (11:47)
[2020-12-19] MEDS ORDERED: LIDOCAINE 1% MPF 5 ML VIAL ONE (11:47)
[2020-12-19] MEDS ORDERED: GLYCOPYRROLATE 0.2 MG/ML SYR ONE (11:47)
[2020-12-19] MEDS ORDERED: MIDAZOLAM HCL 2 MG/2 ML INJ ONE (11:47)
[2020-12-19] MEDS ORDERED: KETOROLAC 30 MG/ML INJ ONE (11:47)
[2020-12-19] MEDS ORDERED: ROCURONIUM 50 MG/5 ML VIAL IV ONE (11:48)
[2020-12-19] MEDS ORDERED: ONDANSETRON 4 MG/2 ML VIAL ONE (11:48)
[2020-12-19] MEDS ORDERED: dexAMETHasone 4 MG/ML VIAL ONE (11:55)
[2020-12-19] MEDS: D5 0.45 NS 1,000 ML IV SCH (12:00)
[2020-12-19] MEDS ORDERED: HYDROMORPHONE HCL 1 MG/ML INJ ONE (12:05)
[2020-12-19] MEDS ORDERED: CEFAZOLIN/SWI 1gm 1 GM/10 ML SYR ONE (12:06)
[2020-12-19] MEDS ORDERED: KETAMINE HCL 500 MG/5 ML VIAL ONE (12:19)
--- NOTE | 2020-12-19 14:33 | CON ---
Date of Consultation: 12/19/2020 Reason For Consultation: Right hip pain. History Of Present Illness: Ms. Schmid is an 85-year-old female, presented to the ER yesterday after sustaining a fall onto her right side with subsequent pain and inability to bear weight. She was bro ught in the emergency room and had x-rays, which demonstrated a right displaced femoral neck fracture . While in the ER, she was tested for COVID and was noted to come back positive. Review of Systems: As above, otherwise negative. Past Medical History: Includes hypothyroidism, hypertension, high cholesterol, history of stroke. Home Medications: Atorvastatin, levothyroxine, valsartan, Zyrtec. Allergies: NO KNOWN DRUG ALLERGIES. Social History: Denies tobacco use. Physical Examination: General: No apparent distress. HEENT: Normocephalic, atraumatic. Neck: Supple. Cardiovascular: Brisk cap refill to all digits. Chest: Nonlabored breathing. Abdomen: Nondistended. Psychiatric: Response to exam. Musculoskeletal: Bilateral upper extremities functional range of motion. No pain. No gross deformi ties. No obvious dislocations. Left lower extremity, functional range of motion without pain. No g ross deformities. No obvious dislocations. Right lower extremity, pain with range of motion of the right hip. Tenderness to palpation over the right hip. No tenderness over the right knee, tibia, or ankle. Gross sensation over the dorsal and plantar surface of the right foot. Positive firing of E HL and FHL. X-rays: X-rays of the right hip demonstrates a displaced right femoral neck fracture. Assessment And Plan: Ms. Bustamante is an 85-year-old female with a displaced right femoral neck fractur e as well as COVID positive test. I discussed with the patient and her family risks and benefits ass ociated with operative and nonoperative treatment at length. She expressed understanding. Given her displaced fracture pattern, I recommend right hip hemiarthroplasty. The patient is at increased ris k of morbidity and mortality postoperatively secondary to her positive COVID status and I discussed w ith the patient and family this as well. We will proceed with surgery today and patient will be ruiz sferred to the floor postoperatively and physical therapy will be consulted today with mobilization. CV/MODL Voice ID: [id number] Report ID: [id number]
--- NOTE | 2020-12-19 14:56 | P.BOP ---
Preoperative diagnosis: right femoral neck fracture Postoperative diagnosis: same Primary procedure: right hip hemiarthroplasty Tube Wrapper: NONE,NONE Estimated blood loss: 200 cc Specimen: right femoral head Findings: see dictation Anesthesia: General Complications: None Drain(s): Urinary catheter Implants: Biomet Sea 10 STD Press fit stem, 28x-6 mm head, 45 mm shell Fluids & blood products: per anesthesia record Transferred to: Recovery Room Condition: Good
[2020-12-19] MEDS ORDERED: DOCUSATE NA 100 MG CAP PO PRN (15:06)
[2020-12-19] MEDS ORDERED: TRAMADOL HCL 50 MG TAB PO PRN (15:06)
--- NOTE | 2020-12-19 15:47 | RAD REPORT ---
EXAM DESCRIPTION: RAD - Hip Right 2 View - 12/19/2020 3:35 pm CLINICAL HISTORY: postop right hip hemiarthroplasty COMPARISON: Hip Right 2 View dated 12/18/2020 FINDINGS: Postsurgical changes of the right hip arthroplasty procedure is noted. Skin justyna are pr esent laterally. No unexpected postoperative finding.
[2020-12-19 15:50] LABS: Hematocrit 35.8 % (36.0-45.0)
[2020-12-19] MEDS: CEFAZOLIN/SWI 1gm 1 GM/10 ML SYR IV SCH (16:49)
[2020-12-19] MEDS ORDERED: CEFAZOLIN/NS 1gm 1 GM/50 ML BAG IVPB SCH (18:00)
--- NOTE | 2020-12-19 22:12 | HP ---
Date of Admission: 12/18/2020 Chief Complaint: Fall and hip pain. History Of Present Illness: This is an 85-year-old female patient who lives at home, fell down and w as brought into emergency room, complaining of hip pain. After she was evaluated in the ER, she was diagnosed as having hip fracture and her COVID-19 test came back positive. She was admitted to the [facility] for further evaluation and management of this problem. Over 2 weeks ago on 12/03/2020, armando marie had symptoms of sinus infection with nasal and sinus congestion, sinus headache, and some colored sinus discharge. Her daughter who lives with her did not have any symptoms and patient was prescribe d antibiotics for sinus infection and she was instructed to get echo with test done, if she does not feel any better after using antibiotics. After that on 12/03/2020, I have not heard anything back fr senior living. The patient has decided not to take COVID-19 vaccine as per my discussion with her. Allergies: NO KNOWN ALLERGIES. Medications: 1.Amlodipine 5 mg daily at bedtime. 2.Aspirin 81 mg daily. 3.Atorvastatin 10 mg daily. 4.Vitamin D3 1000 unit daily. 5.Clonazepam 1 mg daily as needed for muscle spasm or cramps. 6.Escitalopram 10 mg daily. 7.Galantamine 8 mg daily. 8.Levothyroxine 88 mcg daily. 9.Metoprolol tartrate 25 mg 2 times a day. 10.Benicar 40 mg p.o. daily. Review of Systems: Musculoskeletal: As mentioned above. All other systems reviewed and negative. Past Medical History: Prior history of stroke, allergic rhinitis, hypothyroidism, impaired fasting g lucose, COPD, hypertension, mixed hyperlipidemia, osteoarthritis, restless leg syndrome, and chronic back pain. Past Surgical History: Cholecystectomy, hysterectomy. Family History: Father had hypertension, diabetes. Mother had breast cancer, hypertension. Brother , hypertension, diabetes. Sister with diabetes. Social History: Negative for smoking and alcohol use. Physical Examination: Vital Signs: Temperature 97.2, pulse 78, respiratory rate 20, blood pressure 154/63, oxygen saturati on 98% on room air, on 1 L nasal cannula oxygen. Height documented as 14 feet which is obviously wro ng. Weight documented as 159 pounds. According to my office record, her height is 5 feet 1 inch. General: Awake, alert, oriented, not in distress. HEENT: Head atraumatic, normocephalic. Conjunctivae nonerythematous. Sclerae white. Mouth, no thr ush or edema noted. Ears/Nose, no mass, lesion, discharge noted. Neck: Supple. No JVD, lymph nodes, bruit, thyromegaly noted. Lungs: Bilateral good equal air entry. Clear to auscultation. No rhonchi. No rales. Heart: Normal heart sounds, no murmur or gallop. Abdomen: Soft, bowel sounds normal. No guarding, rigidity, tenderness, mass, hepatosplenomegaly, dis tention, or bruit noted. Extremities: No leg edema. No calf tenderness. Skin: No rash, ulcer, cellulitis. Lymphatics: No lymph node enlargement in neck, supraclavicular, infraclavicular region. Neuro: No focal neurological deficit. Chest: Unremarkable. External Genitalia: Deferred. Rectal: Deferred. Laboratory Data: Yesterday, white count 4.3, hemoglobin 13.6, platelets 125. Today, white count 3.6, hemoglobin 13.9, platelets 110. PT 11.9, INR 1.03, PTT 25.1. Yesterday sodium 136, potassium 4.2, chloride 107, bicarb 23, BUN 16, creatinine 0.80, glucose 159, A ST 44, ALT 56, alkaline phosphatase 85. Today, sodium 135, potassium 5.3, chloride 108, bicarb 23, BUN 16, creatinine 0.70, glucose 171. Repeat Stat chem-7 was done this morning and potassium was 4.8. COVID-19 test positive. Chest x-ray, no acute cardiopulmonary changes. Hip and pelvis x-ray shows subcapital markedly displa chente right femoral fracture. Impression: 1.Right femur subcapital fracture, trauma, displaced. 2.COVID-19 infection. 3.Thrombocytopenia. 4.Hyperkalemia. 5.Hypertension. 6.Mixed hyperlipidemia. 7.Osteoarthritis, multiple sites. 8.Restless leg syndrome. 9.Hypothyroidism. 10.Impaired fasting glucose. 11.Chronic obstructive pulmonary disease. Plan: 1.Admit patient to hospital for further evaluation and management of this problem. The patient is a ppropriate who is expected to spend 2 midnights in hospital. We will keep her n.p.o. and she is at a cceptable risk from hip surgery which will be done today. We will continue IV fluid pain medications . SCD was ordered for deep venous thrombosis prophylaxis and we will go ahead and start her home med ications after surgery including appropriate anticoagulation therapy. Details and plan of treatment discussed with her. We will see her tomorrow for followup. SAPNA/SALOME Voice ID: [id number]
[2020-12-20] MEDS: D5 0.45 NS 1,000 ML IV SCH (03:32)
--- NOTE | 2020-12-20 04:10 | OP ---
Date of Procedure: 12/19/2020 Surgeon: Brett Shultz MD Preoperative Diagnosis: Right displaced femoral neck fracture. Postoperative Diagnosis: Right displaced femoral neck fracture. Procedure Performed: Right hip hemiarthroplasty. Anesthesia: General endotracheal. Fluids: Per Anesthesia record. Estimated Blood Loss: 200 cc. Complications: None. Implants: A Biomet Sea size 10 standard press-fit stem, a 28 x -6 mm head and a 45 mm bipolar shell. Indication For Procedure: Ms. Schmid is an 85-year-old female who presented the ER after sustaining a fall onto her right side with subsequent pain to the right hip. X-rays demonstrated a right femoral neck fracture. She was also noted to be COVID positive in the ER. I discussed with the patient and her family risks and benefits associated with operative and nonoperative treatment. She expressed understanding and elected to proceed with operative treatment. Description Of Procedure: After informed consent was obtained, the patient was identified in the preoperative holding area. The right lower extremity was marked. The patient was then brought back to the operating room, transferred to the operating table in the supine fashion and placed under general endotracheal anesthesia. She was then placed in the left lateral decubitus position with her extremities well padded and an axillary roll placed. A baltazar bag was then used to help hold the patient in position. The right lower extremity was then prepped and draped in usual sterile fashion. A time-out was initiated. The correct patient and procedure were confirmed and identified. The patient did receive her preoperative prophylactic antibiotics. Approximately, a 15 cm curvilinear incision was made centered over the greater trochanter consistent with a posterior approach to the hip. Dissection was then taken out of the tensor fascia ana rosa which was split and divided both in line with the incision. A Charnley retractor was then placed to retracted the tensor fascia ana rosa. Short external rotators were then found using blunt and gentle dissection. They were tagged with #5 Ethibond and removed using Bovie electrocautery off the greater trochanter. A T-shaped capsulotomy was performed and hematoma was evacuated. The femoral head was then noted to have obvious fracture of the femoral neck. A corkscrew was then used to remove the femoral head and a size 45 mm shell was selected. A trial head was then used to have an overall good fit. Next, attention was taken to the proximal femur. A cookie cutter followed by a canal finder was placed down the femoral canal in an antegrade fashion. A lateralizer was then placed down the femoral canal in an antegrade fashion. The proximal femur was then reamed using reamers starting at an 8 mm up to a size 10 mm reamer followed by broaching of the proximal femur from starting with a size 8 mm reamer to a size 10 mm broach. There was good overall fit with a 10 mm broach. It was then removed. A calcar planer was then used to clean up the femoral neck cut. A 20 x -6 mm head was selected with a 45 mm shell and trials were then reduced. The hip had overall good stability and good overall leg length. Those trial components were selected. The trial components were then removed. Hip was then irrigated thoroughly with normal saline using pulse lavage. A 10 mm press-fit stem was then placed down the femoral canal and there was good overall fit. A 45 mm shell with a 28 and -6 mm head was then placed. The hip was reduced. There was good overall limb length as well as stability. The wound was irrigated thoroughly with normal saline. The capsulotomy was approximated using a #5 Ethibond. The short external rotators were then attached back to the greater trochanter using a drill and suture passer to tighten the external rotators over a bone bridge. Next, the tensor fascia ana rosa was approximated using a #1 Vicryl. Subcutaneous tissue was approximated using a 2-0 Vicryl. Skin was approximated using the stapler. Sterile dressings were applied. The patient was placed in the abduction pillow, awakened, and transferred to PACU in stable condition. Postoperative Plan: Physical Therapy will be consulted to aid with mobilization. Patient may be weightbearing as tolerated with posterior hip precautions. CV/MODL Voice ID: [id number] Report ID: [id number] GARO
[2020-12-20] MEDS: CEFAZOLIN/SWI 1gm 1 GM/10 ML SYR IV SCH ×2 (06:20)
[2020-12-20 06:28] LABS: Absolute Lymphocytes (CBC) 0.8 K/uL (0.7-4.9); Basophils % 0.1 % (0-1.3); Hematocrit 31.8 % (36.0-45.0); Lymphocytes % 14.5 % (15.3-44.8); MPV 7.9 fL (7.6-11.3); RBC Red Blood Cell Count 3.44 M/uL (3.86-4.86)
[2020-12-20 06:44] LABS: Potassium 4.5 mmol/L (3.5-5.1)
[2020-12-20] MEDS ORDERED: MAGNESIUM HYDROXIDE 8% 30 ML PO PRN (08:35)
[2020-12-20] MEDS: LEVOTHYROXINE SOD 0.088 MG TAB PO SCH (09:00)
[2020-12-20] MEDS: DOCUSATE NA 100 MG CAP PO SCH (09:52)
[2020-12-20] MEDS: GALANTAMINE 4 MG TAB PO SCH (09:52)
[2020-12-20] MEDS: ASPIRIN EC 81 MG TAB PO SCH (09:52)
[2020-12-20] MEDS: ESCITALOPRAM 20 MG TAB PO SCH (09:52)
[2020-12-20] MEDS: ENOXAPARIN 40 MG/0.4 ML SQ SCH (09:53)
[2020-12-20] MEDS: AMLODIPINE 5 MG TAB PO SCH (09:54)
--- NOTE | 2020-12-20 11:49 | PN ---
Date of Progress Note: 12/20/2020 Subjective: The patient was seen this morning for followup. No new complaints or problems reported by the patient. Lying in bed, not in distress. Objective: Vital Signs: Reviewed. HEENT: Unremarkable. Lungs: Clear to auscultation. Heart: Sounds normal. Abdomen: Soft. Bowel sounds normal. No guarding, rigidity, tenderness, or distention. Extremities: No leg edema. Laboratory Data: White count 5.3, hemoglobin 11.1, platelets 135. Sodium 134, potassium 4.5, chlori de 104, bicarb 26, BUN 11, creatinine 0.72, glucose 196. Impression: 1.Hip fracture. 2.Acute blood loss anemia. 3.Hypertension. 4.Hyperlipidemia. 5.COVID-19 infection. Plan: We will continue anticoagulation therapy which is Lovenox per order. Continue home medication s per order. Pain medications will be given per order. As far as COVID-19 infection is concerned, t he patient is not having any problem with that at this point and we will continue to monitor her. St ool softener will be ordered for her. I will see her tomorrow for followup. We will monitor blood count. No need for any blood transfusion at this time. SAPNA/MODL Voice ID: [id number] Report ID: [id number]
[2020-12-20] MEDS: HYDROCODONE/APAP 7.5/325 MG TAB PO PRN (15:19)
[2020-12-20] MEDS ORDERED: GALANTAMINE 4 MG TAB PO SCH (17:00)
[2020-12-20] MEDS: ATORVASTATIN 10 MG TAB PO SCH (20:25)
[2020-12-20] MEDS: METOPROLOL TAR 25 MG TAB PO SCH (20:33)
[2020-12-21 04:18] LABS: Absolute Lymphocytes (CBC) 1.3 K/uL (0.7-4.9); Basophils % 0.2 % (0-1.3); Hematocrit 33.3 % (36.0-45.0); Lymphocytes % 21.9 % (15.3-44.8); MPV 7.7 fL (7.6-11.3); RBC Red Blood Cell Count 3.58 M/uL (3.86-4.86)
[2020-12-21] MEDS: METOPROLOL TAR 25 MG TAB PO SCH ×2 (06:00→17:28)
[2020-12-21] MEDS: GALANTAMINE 4 MG TAB PO SCH (09:32)
[2020-12-21] MEDS: ESCITALOPRAM 20 MG TAB PO SCH (09:33)
[2020-12-21] MEDS: AMLODIPINE 5 MG TAB PO SCH (09:33)
[2020-12-21] MEDS: DOCUSATE NA 100 MG CAP PO SCH (09:33)
[2020-12-21] MEDS: LEVOTHYROXINE SOD 0.088 MG TAB PO SCH (09:33)
[2020-12-21] MEDS: ASPIRIN EC 81 MG TAB PO SCH (09:34)
[2020-12-21] MEDS: ENOXAPARIN 40 MG/0.4 ML SQ SCH (09:34)
[2020-12-21] MEDS: MORPHINE 2 MG/ML SYR IV PRN (11:47)
[2020-12-21] MEDS: ATORVASTATIN 10 MG TAB PO SCH (20:26)
--- NOTE | 2020-12-21 23:26 | P.PN ---
Subjective Date of Service: 12/21/20 Chief Complaint: s/p R hip hemiarthroplasty Subjective: Improving, Working w/ PT pain controlled Physical Examination - Vital Signs Temperature: 99.8 F Blood Pressure: 131/56 Pulse: 70 Respirations: 21 Pulse Ox (%): 95 - Physical Exam General: Alert, In no apparent distress Musculoskeletal: Other (RLE: dressing with mild sanguinous drainage; mild swelling to thigh; no pain with ROM right hip; NVI distally) Assessment And Plan - Plan Robby is an 85 yo female s/p right hip hemiarthroplasty POD#2 -d/c viera today -mobilize with PT; WBAT RLE with posterior hip precautions -lovenox for DVT prophylaxis -await placement for IPR vs SNF
[2020-12-22] MEDS: METOPROLOL TAR 25 MG TAB PO SCH ×2 (05:30→17:09)
[2020-12-22] MEDS: HYDROCODONE/APAP 7.5/325 MG TAB PO PRN ×2 (05:45→20:42)
[2020-12-22] MEDS ORDERED: BISACODYL 10 MG RECTAL SUPP PR ONE (07:07)
--- NOTE | 2020-12-22 07:42 | PN ---
Date of Progress Note: 12/21/2020 Subjective: The patient was seen this morning for followup. She was lying in bed, not in distress. No new complaints or problems reported. Her hip pain is well controlled with pain medication. David es any nausea, vomiting. Objective: Vital Signs: Reviewed. HEENT: Unremarkable. Lungs: Clear to auscultation. Heart: Sounds normal. Abdomen: Soft. Bowel sounds normal. No guarding, rigidity, tenderness, or distention. Extremities: No leg edema. Laboratory Data: White count 6.2, hemoglobin 11.5, platelets 129. Sodium 137, potassium 4, chloride 105, bicarb 26, BUN 12, creatinine 0.65, glucose 109. Impression: 1.Hip fracture. 2.Anemia. 3.Hypertension. 4.Hyperlipidemia. 5.COVID-19 infection. Plan: We will continue current medication. The patient does not seem to have any problem regarding COVID-19 infection. We will continue current medications, continue current pain medication and DVT p rophylaxis. Physical Therapy to work with the patient and Social Service was consulted for discharge planning. I will see her tomorrow for followup. SAPNA/MODL Voice ID: [id number] Report ID: [id number]
--- NOTE | 2020-12-22 07:43 | RAD REPORT ---
EXAM DESCRIPTION: Adalid Single View12/22/2020 7:11 am CLINICAL HISTORY: Shortness of breath COMPARISON: December 18, 2020 FINDINGS: Development of mild bilateral pulmonary opacities. The heart is normal size IMPRESSION: Mild bilateral pulmonary opacities may represent pneumonia or
[2020-12-22] MEDS: ESCITALOPRAM 20 MG TAB PO SCH (09:47)
[2020-12-22] MEDS: GALANTAMINE 4 MG TAB PO SCH (09:47)
[2020-12-22] MEDS: DOCUSATE NA 100 MG CAP PO SCH (09:47)
[2020-12-22] MEDS: LEVOTHYROXINE SOD 0.088 MG TAB PO SCH (09:47)
[2020-12-22] MEDS: AMLODIPINE 5 MG TAB PO SCH (09:47)
[2020-12-22] MEDS: ENOXAPARIN 40 MG/0.4 ML SQ SCH (09:48)
[2020-12-22] MEDS: ASPIRIN EC 81 MG TAB PO SCH (09:48)
[2020-12-22] MEDS: ATORVASTATIN 10 MG TAB PO SCH (20:42)
[2020-12-23 04:51] LABS: BUN Blood Urea Nitrogen 11 mg/dL (7-18); Bicarbonate 29 mmol/L (21-32); Glucose Level 104 mg/dL (74-106); Magnesium 2.1 mg/dL (1.8-2.4); Potassium 3.6 mmol/L (3.5-5.1); Sodium Level 136 mmol/L (136-145)
[2020-12-23 04:55] LABS: Absolute Lymphocytes (CBC) 1.7 K/uL (0.7-4.9); Basophils % 0.3 % (0-1.3); Hematocrit 31.9 % (36.0-45.0); Lymphocytes % 28.3 % (15.3-44.8); MPV 7.6 fL (7.6-11.3); RBC Red Blood Cell Count 3.49 M/uL (3.86-4.86)
[2020-12-23] MEDS: METOPROLOL TAR 25 MG TAB PO SCH ×2 (05:52→17:21)
[2020-12-23] MEDS: LEVOTHYROXINE SOD 0.088 MG TAB PO SCH (05:52)
--- NOTE | 2020-12-23 06:19 | PN ---
Date of Progress Note: 12/22/2020 Subjective: The patient was seen this morning for followup. No new complaints or problems noted. S he was lying in bed. Pain was controlled with pain medication. On nasal cannula oxygen 2 to 3 L/min jessy. Objective: Vital Signs: Reviewed. HEENT: Unremarkable. Lungs: Clear to auscultation. Heart: Sounds normal. Abdomen: Soft. Bowel sounds normal. No guarding, rigidity, tenderness, or distention. Extremities: No leg edema. Laboratory Data: Chest x-ray reviewed. Impression: 1.Hip fracture. 2.COVID-19 infection. 3.Hypertension. 4.Acute blood loss anemia. Plan: We will continue current medication. Chest x-ray result from today reviewed. We will consult Dr. Dougherty. The patient came in with hip fracture and positive COVID test. Her symptoms related to COVID started approximately now 2 weeks prior to hospital admission with sinus infection type of s ymptoms and those symptoms have resolved now. Will continue to follow with Physical Therapy and I wi ll see her tomorrow for followup. SAPNA/MODL Voice ID: [id number] Report ID: [id number]
[2020-12-23] MEDS: ESCITALOPRAM 20 MG TAB PO SCH (09:13)
[2020-12-23] MEDS: AMLODIPINE 5 MG TAB PO SCH (09:13)
[2020-12-23] MEDS: ASPIRIN EC 81 MG TAB PO SCH (09:13)
[2020-12-23] MEDS: DOCUSATE NA 100 MG CAP PO SCH (09:13)
[2020-12-23] MEDS: GALANTAMINE 4 MG TAB PO SCH (09:13)
[2020-12-23] MEDS: ENOXAPARIN 40 MG/0.4 ML SQ SCH (09:14)
--- NOTE | 2020-12-23 19:20 | PN ---
Date of Progress Note: 12/23/2020 Subjective: The patient was seen this morning for followup. No new complaints or problems reported by the patient. Lying in bed, not in distress. She is no longer on oxygen and maintaining adequate oxygenation on room air. Denies any chest pain, shortness of breath physical therapy. Objective: Vital Signs: Reviewed. HEENT: Unremarkable. Lungs: Clear to auscultation. Heart: Sounds normal. Abdomen: Soft. Bowel sounds normal. No guarding, rigidity, tenderness, or distention. Extremities: No leg edema. Laboratory Data: Reviewed. Impression: 1.Hip fracture. 2.Hypertension. 3.Hyperlipidemia. 4.Acute blood loss anemia. Plan: We will go ahead and continue current medications, continue current DVT prophylaxis, continue physical therapy and we are awaiting on approval for inpatient rehab. Meanwhile, we will continue cu rrent medications. SAPNA/MODL Voice ID: [id number] Report ID: [id number]
[2020-12-23] MEDS: ATORVASTATIN 10 MG TAB PO SCH (21:05)
[2020-12-24] MEDS: METOPROLOL TAR 25 MG TAB PO SCH (05:35)
[2020-12-24] MEDS: LEVOTHYROXINE SOD 0.088 MG TAB PO SCH (05:41)
[2020-12-24] MEDS: DOCUSATE NA 100 MG CAP PO SCH (09:02)
[2020-12-24] MEDS: ESCITALOPRAM 20 MG TAB PO SCH (09:03)
[2020-12-24] MEDS: ASPIRIN EC 81 MG TAB PO SCH (09:03)
[2020-12-24] MEDS: GALANTAMINE 4 MG TAB PO SCH (09:03)
[2020-12-24] MEDS: AMLODIPINE 5 MG TAB PO SCH (09:03)
[2020-12-24 09:04] VITALS: BP 132/66
[2020-12-24] MEDS: ENOXAPARIN 40 MG/0.4 ML SQ SCH (09:04)
[2020-12-24 09:08] VITALS: TEMP 98.3
[2020-12-24 09:54] VITALS: O2SAT 96
--- NOTE | 2020-12-25 06:45 | DS ---
Date of Discharge: 12/24/2020 Disposition: Discharged to go to rehab floor. Physical Examination: HEENT: Unremarkable. Lungs: Clear to auscultation. Heart: Sounds normal. Abdomen: Soft. Bowel sounds normal. No guarding, rigidity, tenderness, or distention. Extremities: No leg edema. Right lower extremity has large area of green colored bruise involving u pper half of the anterior leg below the knee. Laboratory Data: Last CBC from yesterday: White count 5.9, hemoglobin 11.1, platelets 183. Upon ad mission, white count 4.3, hemoglobin 13.6, and platelet . Last chemistry yesterday: Sodiu m 136, potassium 3.6, chloride 103, bicarb 29, BUN 11, creatinine 0.56, glucose 104, magnesium ____. Hospital Course: This is an 85-year-old female patient who came into emergency room with fall and hi p pain. Please see dictated H and P for more information. Patient was diagnosed as having hip fract ure and was admitted to the hospital. Her COVID-19 test came back positive as well. On 12/03/2020, patient had symptoms of sinus infection with nasal and sinus congestion, sinus headache, and some col ored nasal discharge. She did not have any COVID test at that time, but she was treated with oral an tibiotics and she seemed to recover from that until this fall requiring admission to the hospital. A fter she was admitted to the hospital, Dr. Shultz from orthopedic service was consulted and patient was admitted to the hospital for this hip fracture problem. Patient had surgery done and postoperativel y she remained stable. At some point, she did require nasal cannula oxygen at 2 L/minute, but now sh e is maintaining adequate oxygenation on room air. She did not require any blood transfusion. DVT p rophylaxis was given using Lovenox. Home medications were continued per order and patient started to participate well with physical therapy. Inpatient rehab was consulted, and once the patient was acc epted, she was transferred to rehab in a stable condition where I will continue to follow up with her . Final Diagnoses: 1.Right femur subcapital fracture, displaced, status post surgery. 2.COVID-19 infection. 3.Thrombocytopenia. 4.Anemia due to acute blood loss. 5.Hypertension. 6.Mixed hyperlipidemia. 7.Osteoarthritis, multiple sites. 8.Restless legs syndrome. 9.Hypothyroidism. 10.Impaired fasting glucose. 11.Chronic obstructive pulmonary disease. 12.Hyperkalemia. 13.Hyponatremia. Discharge Medications: See copy of transfer order for more details. [facility] Voice ID: [id number] Report ID: [id number]
== END 2020-12-24 10:35 | DRG 521 ==
LOC: ER 19:36 → 4TH 22:01
PROVIDERS: ADMIT Internal Medicine; ATTEND Internal Medicine
PROC: 0SRR0JA Replacement of Right Hip Joint, Femoral Surface with Synthetic Substitute, Uncemented, Open Approach (ICD-10-PCS; principal; 2020-12-19 12:00)
DX: S72.011A Unspecified intracapsular fracture of right femur, initial encounter for closed fracture (principal); U07.1 COVID-19; D62 Acute posthemorrhagic anemia; E87.1 Hypo-osmolality and hyponatremia; D69.6 Thrombocytopenia, unspecified; E87.5 Hyperkalemia; I10 Essential (primary) hypertension; W18.39XA Other fall on same level, initial encounter; Y92.009 Unspecified place in unspecified non-institutional (private) residence as the place of occurrence of the external cause; E78.2 Mixed hyperlipidemia; M19.90 Unspecified osteoarthritis, unspecified site; G25.81 Restless legs syndrome; E03.9 Hypothyroidism, unspecified; R73.01 Impaired fasting glucose; J44.9 Chronic obstructive pulmonary disease, unspecified; Z86.73 Personal history of transient ischemic attack (TIA), and cerebral infarction without residual deficits
CPT/HCPCS: 36415; 51702; 71045; 72170; 80048; 80053; 82947; 83735; 85014; 85018; 85025; 85610; 85730; 88305; 88311; 93005; 96365; 96366; 96375; 97110; 97116; 97161; 97530; 99285; G0390; J0690; J1100; J1170; J1650; J2175; J2250; J2270; J2405; J2704; J2710; J3010; J3475; J7120; J7799; U0003

== ENCOUNTER 2020-12-22 14:22 | Inpatient (IN) | payer OTHER, MEDICARE ==
--- NOTE | 2020-12-24 10:39 | R.PREADM ---
PRE-ADMISSION SCREENING FORM SCREENING DATE AND TIME 12/22/2020 14:36 (CDT) ANTICIPATED REHAB ADMISSION DATE 12/24/2020 REFERRING FACILITY [facility] REFERRAL DATE AND TIME 12/22/2020 14:36 (CDT) REFERRAL ROOM# 406 ACUTE ADMIT DATE 12/18/2020 Previous Rehabilitation(s): No. ACUTE SPARE HAND/DC EMERGENCY DOCTOR Caro ATTENDING PHYSICIAN REFERRING PHYSICIAN REHAB FACILITY [facility] CLINICAL LIAISON Paulo Pizarro PHYSICIAN REVIEWER Dr. Neftaly Gaxiola M.D. MR# [id number] NAME RUDOLPH HERNANDEZ ADDRESS [address] PHONE [facility] [id number] DATE OF 1935 AGE 85 SSN# [id number] GENDER female MARITAL STATUS Single (Never ) PREF. LANGUAGE (IF NON-ARMENIAN) Bulgarian ADMIT FROM 02 - [email or web address]] PRE-HOSPITAL LIVING SETTING 01 - Home (private home/apt. board/care, assisted living, shelter, transitional living) HOME TYPE AND DETAILS Type of home: mobile home # of levels in the residence: 1 # of steps within the residence: 0 # of steps to enter the residence: 0 PRE-HOSPITAL LIVING WITH Family/Relatives FAMILY SUPPORT Yes PRIMARY FAMILY CONTACT NAME CARLOS MARTINO PRIMARY FAMILY CONTACT PHONE PRIMARY FAMILY CONTACT RELATIONSHIP Daughter IS PRIMARY FAMILY CONTACT AUTH. REP.? no 1ST EMERGENCY CONTACT CARLOS MARTINO 1ST CONTACT PHONE 1ST CONTACT RELATIONSHIP Daughter IS 1ST CONTACT AUTH. REP.? no PHONE 2ND CONTACT ON ADM.? no PATIENT EMPLOYMENT STATUS Retired (for age) PATIENT EMPLOYER No Employer PAYOR INFORMATION: 1ST PAYOR NAME MEDICARE 1ST PAYOR PHONE 1ST PAYOR INJURY/ILLNESS DUE TO ACCIDENT? No ANOTHER CONSTITUTION PARTY RESPONSIBLE? No PRIMARY REHAB/ACUTE DIAGNOSIS: Right Displaced Femoral Neck Fracture ONSET DATE 12/18/2020 REHAB IMPAIRMENT CATEGORY (KEERTHI): 07 Fracture of LE (FracLE) MEETS 60% rule AFFECTED EXTREMITIES: RLE PRIMARY DIAGNOSIS-RELATED SURGERIES: Right Hemiarthroplasty RISK FOR COMPLICATIONS: - COPD Pneumonia Respiratory Failure - Anti-Coagulants DVT - N/A COVID-19 Skin Breakdown Fall Risk Pain Impaired Fasting Glucose - Hypertension Hypertension - Past CVA Residual Weakness SUMMARY OF ACUTE HOSPITALIZATION: Pt. is a 85 yo Right-handed female. On 12/18/2020 she was admitted to [facility] with diagnosis Right Displaced Femoral Neck Fracture. Her impairment category is Orthopaedic Disorders 08 - Unilateral Hip Fracture (08.11). Pre-morbidly, Pt. was independent/mod-I in Locomotion, Social Cognition, Safety Awareness, Balance, a nd Transfers Control; and she had good Sphincter Control, Self-Care, Communication, and Endurance. Currently, she has deficits of Locomotion, Balance, Safety Awareness, Transfers Control, Sphincter Co ntrol, Self-Care, and Endurance. Pt. is now referred to [facility] for acute in-patient rehabilitation in order to maximize patient's functional independence in activities of daily living, strength, ROM, and mobi lity. Patient has realistic goal of being discharged at assistance level 7-Ind to reside at Home with Fami ly/Relatives. PAST MEDICAL HISTORY CVA COPD HYPERLIPIDEMIA OA RESTLESS LEG SYNDROME CHRONIC BACK PAIN ALLERGIC RHINITIS HYPOTHYROIDISM IMPAIRED FASTING GLUCOSE HTN PAST SURGICAL HISTORY: HYSTERECTOMY CHOLECYSTECTOMY MEDICATION ALLERGIES: No Known Drug Allergies (NKDA) ENVIRONMENTAL ALLERGIES: - Substance Allergies None Known - Other Allergies None Known CODE STATUS: Full code WEIGHT/HEIGHT/BMI: WEIGHT 174 lbs HEIGHT 5' 1" BMI 32.9 DIET: - Diet Type Regular - Diet - Solid Texture Regular - Diet - Liquid Texture Regular - Tube Feed N/A REVIEW OF SYSTEMS: - Gen Alert and awake Lying in bed No apparent distress Oriented to: person, time, and place - Vital Signs Temperature: 97.1 F SBP/DBP: 104/58 Pulse: 67 Resp: 16 Vital signs stable, afebrile - CVS RRR VITAL SIGNS Temperature: 97.1 F SBP/DBP: 104/58 Pulse: 67 Resp: 16 Vital signs stable, afebrile MEDICATIONS/TREATMENT: Other- See attached MAR (Medication Administration Record). CURRENT SPHINCTER CONTROL: Pre-hospital bladder status: unspecified # of bladder accidents in the last 7 days prior to screenin Pre-hospital bowel status: unspecified # of bowel accidents in the last 7 days prior to screenin Last Bowel Movement Date: 12/22/2020 CURRENT LOCOMOTION STATUS: distance walked 7 feet CGA WBAT RLE DETAILED CURRENT FUNCTIONAL STATUS: - Bladder accident frequency: 7-Ind - No accidents in the past 7 days - Bowel accident frequency: 7-Ind - No accidents in the past 7 days - Walking score based on distance walked: 0(N/A) score based on distance walked: 1(<=50ft) - Wheelchair score based on distance traveled: 0(N/A) QI SCORES: - Self-Care A. Eating 03-Partial/moderate assistance B. Oral hygiene 03-Partial/moderate assistance C. Toileting hygiene 02-Substantial/maximal assistance E. Shower/bathe self 02-Substantial/maximal assistance F. Upper body dressing 02-Substantial/maximal assistance G. Lower body dressing 02-Substantial/maximal assistance H. Putting on/taking off footwear 88-Not attempted due to medical condition or safety concerns - Mobility A. Roll left and right 03-Partial/moderate assistance B. Sit to lying 03-Partial/moderate assistance C. Lying to sitting on side of bed 03-Partial/moderate assistance D. Sit to stand 03-Partial/moderate assistance E. Chair/djv-in-znzzo transfer 03-Partial/moderate assistance F. Toilet transfer 03-Partial/moderate assistance G. Car transfer 88-Not attempted due to medical condition or safety concerns I. Walk 10 feet 88-Not attempted due to medical condition or safety concerns J. Walk 50 feet with two turns 88-Not attempted due to medical condition or safety concerns K. Walk 150 feet 88-Not attempted due to medical condition or safety concerns L. Walking 10 feet on uneven surfaces 88-Not attempted due to medical condition or safety concerns M. 1 step (curb) 88-Not attempted due to medical condition or safety concerns N. 4 steps 88-Not attempted due to medical condition or safety concerns O. 12 steps 88-Not attempted due to medical condition or safety concerns P. Picking up object 88-Not attempted due to medical condition or safety concerns R. Wheel 50 feet with two turns 88-Not attempted due to medical condition or safety concerns S. Wheel 150 feet 88-Not attempted due to medical condition or safety concerns - Bladder and Bowel Bladder continence Bowel continence - Endurance Fair - Balance Fair - Safety Awareness Fair CURRENT FUNC. DEFICITS: Self-Care, Mobility, Endurance, Balance, and Safety Awareness CURRENT / PREVIOUS ASSISTIVE DEVICES: Rolling Walker HISTORY OF FALLS. HAS THE PATIENT HAD TWO OR MORE FALLS IN THE PAST YEAR OR ANY FALL WITH INJURY IN T HE PAST YEAR?: No PRIOR SURGERY. DID THE PATIENT HAVE MAJOR SURGERY DURING THE 100 DAYS PRIOR TO ADMISSION?: No THERAPY NOTES FROM ACUTE CARE: Attached. SPECIAL NEEDS: - Safety Concerns Skin breakdown precautions needed due to skin breakdown risk PRECAUTIONS: - Posterior Hip Precaution No adduction across midline No external rotation No hip flexion >90 degrees No internal rotation No wheel chair propulsion - Weight Bearing Precaution WBAT right LE PATIENT NEEDS ACTIVE AND ONGOING THERAPEUTIC INTERVENTION OF MULTIPLE THERAPY DISCIPLINES, INCLUDING: - Dietary and Nutrition Adequate Nutrition. Nutritional Education. Nutritional Supplements. - Occupational Therapy Cognitive Retraining. Visual Perceptual Training. - Speech Therapy Cognitive Training. Expressive Language Skills. Memory Strategies. Receptive Language Skills. Speech Intelligibility Training. PATIENT NEEDS CLOSE MEDICAL SUPERVISION BY A REHABILITATION PHYSICIAN FOR: Coordination of Treatment Team Post-Op Complications PATIENT REQUIRES 24X7 REHAB NURSING FOR MEDICAL AND FUNCTIONAL MGT. OF THE FOLLOWING DEFICITS: Disease Management Medication Management Patient/Family Education Providing Safe Environment PATIENT REQUIRES INTENSIVE, COORDINATED INTERDISCIPLINARY APPROACH TO REHAB: Arranging Home Equipment/Services Discharge Planning Family Intervention/Training Identifier Horse/Case Management PATIENT REHAB POTENTIAL: Katy HERNANDEZ is able and expected to receive 3 hours of individualized therapy daily on at least 5 of chicho ry 7 days Katy HERNANDEZ's prognosis for significant practical improvement within a reasonable period of time appears Good Expected level of measurable improvement will be of a practical value to Katy HERNANDEZ's functional capaci ty or adaptations to impairments Has a viable Discharge Plan Medically appropriate; condition is sufficiently stable to participate in intensive rehab program DISCHARGE PLAN: - Estimated Length of Stay (days) 14. - Consensus on plan Discharge plan has been discussed with primary caregiver. Patient/Family is in agreement with the thanh n. Primary caregiver is in agreement with the plan. - Patient/Family Goals Return home independently. - Planned Living Setting Upon Discharge Home, to live with Family/Relatives. Transitional Living. RECOMMENDED CARE LEVEL: IRF RECOMMENDATION DETAILS: Recommended Admission to Comprehensive Rehabilitation Program to Increase Functional [place] SCREENER'S COMPLETENESS CONFIRMATION: - Screening Confirmation The patient data collection on this preadmission screening form is finished PHYSICIANS REVIEW AND ADMISSION DETERMINATION Admit - Based on my review of the Pre-Admission Screening results, in my medical judgment and experie nce, I concur with the findings and recommend admission to [facility], as this patient requires an IRF level of care. SIGNATURE PANEL: Electric System Operator - [electronically] signed by Paulo Pizarro on 12/24/2020 at 08:59 (CDT) Electric System Operator - [electronically] signed by Den Higginbotham PT on 12/24/2020 at 10:15 (CDT) Physician Reviewer - [electronically] signed by Dr. Neftaly Gaxiola M.D. on 12/24/2020 at 10:38 (CDT )
[2020-12-24] MEDS ORDERED: MORPHINE 2 MG/ML SYR IV PRN (11:34)
[2020-12-24] MEDS ORDERED: MAGNESIUM HYDROXIDE 8% 30 ML PO PRN (11:34)
[2020-12-24] MEDS ORDERED: ONDANSETRON 4 MG/2 ML VIAL IV PRN (11:34)
[2020-12-24] MEDS ORDERED: HYDROCODONE/APAP 7.5/325 MG TAB PO PRN ×2 (11:34→12:06)
[2020-12-24] MEDS ORDERED: ONDANSETRON 4 MG (ODT) TAB PO PRN (14:10)
[2020-12-24] MEDS: TRAMADOL HCL 50 MG TAB PO PRN (14:19)
[2020-12-24] MEDS: ACETAMINOPHEN 500 MG TAB PO PRN (17:09)
[2020-12-24] MEDS: METOPROLOL TAR 25 MG TAB PO SCH (17:09)
--- NOTE | 2020-12-24 17:21 | R.HP ---
HISTORY AND PHYSICAL FACILITY: [facility] ENCOUNTER DATE AND TIME: 12/24/2020 17:15 (CDT) MR#: [id number] NAME RUDOLPH HERNANDEZ ADDRESS: [address] [place] [address] [address] [facility] CITY: [place] [address] [address] PHONE: DATE OF : 1935 AGE: 85 SSN# [id number] GENDER: Female MARITAL STATUS Single (Never ) PRE-HOSPITAL LIVING SETTING 01 - Home (private home/apt. board/care, assisted living, snf, transitional living) PRE-HOSPITAL LIVING WITH Family/Relatives ENCOUNTER PHYSICIAN: Dr. Neftaly Gaxiola M.D. REFERRING DOCTOR: DATE OF ADMISSION: 12/24/2020 10:47 (CDT) REFERRING FACILITY [facility] HOME TYPE AND DETAILS: Type of home: mobile home # of levels in the residence: 1 # of steps within the residence: 0 # of steps to enter the residence: 0 ONSET DATE: 12/18/2020 PRIMARY DIAGNOSIS-RELATED SURGERIES: Right Hemiarthroplasty HISTORY OF PRESENT ILLNESS (HPI): Pt. is a 85 yo Right-handed female. On 12/18/2020 she was admitted to [facility] with diagnosis Right Displaced Femoral Neck Fracture. Her impairment category is Orthopaedic Disorders 08 - Unilateral Hip Fracture (08.11). Pre-morbidly, Pt. was independent/mod-I in Locomotion, Social Cognition, Safety Awareness, Balance, a nd Transfers Control; and she had good Sphincter Control, Self-Care, Communication, and Endurance. Currently, she has deficits of Locomotion, Balance, Safety Awareness, Transfers Control, Sphincter Co ntrol, Self-Care, and Endurance. Pt. is now referred to [facility] for acute in-patient rehabilitation in order to maximize patient's functional independence in activities of daily living, strength, ROM, and mobi lity. Patient has realistic goal of being discharged at assistance level 7-Ind to reside at Home with Fami ly/Relatives. MEDICATION ALLERGIES: No Known Drug Allergies (NKDA) ENVIRONMENTAL ALLERGIES: - Substance Allergies None Known - Other Allergies None Known PAST MEDICAL HISTORY: CVA COPD HYPERLIPIDEMIA OA RESTLESS LEG SYNDROME CHRONIC BACK PAIN ALLERGIC RHINITIS HYPOTHYROIDISM IMPAIRED FASTING GLUCOSE HTN PAST SURGICAL HISTORY: HYSTERECTOMY CHOLECYSTECTOMY SOCIAL HISTORY: - Home Living Family/Relatives REVIEW OF SYSTEMS: - Gen No Chills Fatigue No Fever - Eyes No Double Vision No itchiness - ENMT No Difficulty Swallowing - CVS No Chest Discomfort No Chest Pain Fatigue No Weight Gain - Resp No Cough No Shortness of Breath - GI Continent No Abdominal Pain No Constipation No Diarrhea - Continent No Kidney Pain No Painful Urination No Urinary Urgency - MSK Joint Pain Muscle Cramps No Stiffness - Skin No Itching No Rash No Suspicious Lesions - Neuro Coordination Difficulty No Difficulty with Concentration Memory Loss No Seizures Weakness - Psych No Anxiety No Depression No HIV Exposure No Persistent Infections No Seasonal Allergies - Endo No Cold/Heat Intolerance No Excessive Hunger No Excessive Thirst No Excessive Urination PHYSICAL EXAM - Gen Alert and awake Lying in bed No apparent distress Oriented to: person, time, and place - Skin No skin breakdown. Normacephalic - Eyes No abnormalities - ENMT No abnormalities - Neck No abnormalities - CVS RRR - Chest No abnormalities - Abd Soft - GI Non distended Deferred - No abnormalities - Ext Right hip surgical site has good hemostasis. - MSK 4+/5 weakness in right lower extremity - Neuro 4/5 strength right lower extremity. - Psych No abnormalities VITAL SIGNS Temperature: 97.6 F SBP/DBP: 112/56 Pulse: 80 Resp: 16 NURSING: - Shower allowing shower - Skin care per protocol PRECAUTIONS: - Posterior Hip Precaution No adduction across midline No external rotation No hip flexion >90 degrees No internal rotation No wheel chair propulsion - Weight Bearing Precaution WBAT right LE ACTIVITIES OOB only with supervision QI SCORES: - Self-Care A. Eating 03-Partial/moderate assistance B. Oral hygiene 03-Partial/moderate assistance C. Toileting hygiene 02-Substantial/maximal assistance E. Shower/bathe self 02-Substantial/maximal assistance F. Upper body dressing 02-Substantial/maximal assistance G. Lower body dressing 02-Substantial/maximal assistance H. Putting on/taking off footwear 88-Not attempted due to medical condition or safety concerns - Mobility A. Roll left and right 03-Partial/moderate assistance B. Sit to lying 03-Partial/moderate assistance C. Lying to sitting on side of bed 03-Partial/moderate assistance D. Sit to stand 03-Partial/moderate assistance E. Chair/mac-vs-rzvzu transfer 03-Partial/moderate assistance F. Toilet transfer 03-Partial/moderate assistance G. Car transfer 88-Not attempted due to medical condition or safety concerns I. Walk 10 feet 88-Not attempted due to medical condition or safety concerns J. Walk 50 feet with two turns 88-Not attempted due to medical condition or safety concerns K. Walk 150 feet 88-Not attempted due to medical condition or safety concerns L. Walking 10 feet on uneven surfaces 88-Not attempted due to medical condition or safety concerns M. 1 step (curb) 88-Not attempted due to medical condition or safety concerns N. 4 steps 88-Not attempted due to medical condition or safety concerns O. 12 steps 88-Not attempted due to medical condition or safety concerns P. Picking up object 88-Not attempted due to medical condition or safety concerns R. Wheel 50 feet with two turns 88-Not attempted due to medical condition or safety concerns S. Wheel 150 feet 88-Not attempted due to medical condition or safety concerns - Bladder and Bowel Bladder continence Bowel continence - Endurance Fair - Balance Fair - Safety Awareness Fair CURRENT FUNC. DEFICITS: Self-Care, Mobility, Endurance, Balance, and Safety Awareness MEDICATIONS: - Other See attached MAR (Medication Administration Record) ASSESSMENT: Pt. is a 85 yo Right-handed female.On 12/18/2020 she was admitted to [facility] with bashir gnosis Right Displaced Femoral Neck Fracture.Her impairment category is Orthopaedic Disorders 08 - U nilateral Hip Fracture (.).Pre-morbidly, Pt. was independent/mod-I in Locomotion, Social Cognitio n, Safety Awareness, Balance, and Transfers Control; and she had good Sphincter Control, Self-Care, C ommunication, and Endurance.Currently, she has deficits of Locomotion, Balance, Safety Awareness, Tra nsfers Control, Sphincter Control, Self-Care, and Endurance.Pt. is now referred to [facility] for acute in-patient rehabilitation in order to maximize patient's functional indepen dence in activities of daily living, strength, ROM, and mobility.- Rehab Goal Patient has realistic goal of being discharged at assistance level 7-Ind to reside at Home with Fami ly/Relatives. - Physical Therapy Decreased range of motion - to improve, our physical therapists will perform initial evaluation of pt 's status upon admission and devise an individualized program for increasing patient's Range of Motio n. Gait dysfunction - to improve, our physical therapists will perform initial evaluation of pt's status upon admission and devise an individualized program for Gait Training, and Wheel Chair mobility Inability to transfer - to improve, our physical therapists will perform initial evaluation of pt's s tatus upon admission and devise an individualized program for Bed mobility Need for home safety evaluation - to improve, our physical therapists will perform initial evaluation of pt's status upon admission and devise an individualized program for Home Evaluation Need in caregiver upon discharge - to improve, our physical therapists will perform initial evaluatio n of pt's status upon admission and devise an individualized program for Caregiver Training New precaution - to improve, our physical therapists will perform initial evaluation of pt's status u lili admission and devise an individualized program for Patient precaution education Poor balance - to improve, our physical therapists will perform initial evaluation of pt's status upo n admission and devise an individualized program for Balance Training Poor endurance - to improve, our physical therapists will perform initial evaluation of pt's status u lili admission and devise an individualized program for Endurance Training Weakness - to improve, our physical therapists will perform initial evaluation of pt's status upon ad mission and devise an individualized program for Aquatic Therapy, Neuromuscular Reeducation, and Stre ngthening Achieving independence - to improve, our physical therapists will perform initial evaluation of pt's status upon admission and devise an individualized program for Community Reintegration Activities - Occupational Therapy ADL deficits - to improve, our occupation therapists will perform initial evaluation of pt's status u lili admission and devise an individualized program for Bathing, Bed mobility, Community Reintegration , Cooking, Dressing, Eating, Fine Motor Skills, Grooming, Homemaking, Kitchen Mobility, Laundry, Britney ent Education, Safety Awareness, Splinting - Positioning, Transfers(Toilet, Tub, Shower), and Wheel C hair Management Need for director career - to improve, our occupation therapists will perform initial evaluation of pt's s tatus upon admission and devise an individualized program for Caregiver Training Weakness - to improve, our occupation therapists will perform initial evaluation of pt's status upon admission and devise an individualized program for Aquatic Therapy, Balance, Endurance, UE ROM, and U E strengthening MEDICAL PLAN: - Anterior Hip Precaution No abduction No active extension No adduction across midline No external rotation No hip flexion >90 degrees No internal rotation - Diet - Liquid Texture Start Regular - Tube Feed Start N/A - Diet Type Start Regular - Posterior Hip Precaution No adduction across midline No external rotation No hip flexion >90 degrees No internal rotation No wheel chair propulsion - Weight Bearing Precaution WBAT right LE - Skin care per protocol - Other See attached MAR (Medication Administration Record) - Diet - Solid Texture Regular - Shower shower DISCHARGE PLAN: - Estimated Length of Stay (days) 14. - Consensus on plan Discharge plan has been discussed with primary caregiver. Patient/Family is in agreement with the thanh n. Primary caregiver is in agreement with the plan. - Patient/Family Goals Return home independently. - Planned Living Setting Upon Discharge Home, to live with Family/Relatives. Transitional Living. SIGNATURE PANEL: (CDT)
--- NOTE | 2020-12-24 17:23 | PAPE ---
POST ADMISSION PHYSICIAN EVALUATION PATIENT: [facility] MR# [id number] REFERRING DOCTOR EVALUATION DATE AND TIME 12/24/2020 17:21 (CDT) NAME RUDOLPH HERNANDEZ DATE OF 1935 AGE 85 PHONE SSN# [id number] GENDER female EVALUATING PHYSICIAN Dr. Neftaly Gaxiola M.D. ADMISSION DIAGNOSIS: Right Displaced Femoral Neck Fracture ONSET DATE 12/18/2020 POST-ADMISSION FUNCTIONAL/MEDICAL STATUS: - Bladder Same accident frequency: 7-Ind - No accidents in the past 7 days - Bowel Same accident frequency: 7-Ind - No accidents in the past 7 days - Walking Same score based on distance walked: 0(N/A) Same score based on distance walked: 1(<=50ft) - Wheelchair Same score based on distance traveled: 0(N/A) STATUS CHANGE EVALUATION: No change in Functional or Medical Status is identified compared with Pre-Admission screening. PATIENT NEEDS CLOSE MEDICAL SUPERVISION BY A REHABILITATION PHYSICIAN FOR: Coordination of Treatment Team Post-Op Complications PATIENT REQUIRES 24X7 REHAB NURSING FOR MEDICAL AND FUNCTIONAL MGT. OF THE FOLLOWING DEFICITS: Disease Management Medication Management Patient/Family Education Providing Safe Environment PATIENT REQUIRES INTENSIVE, COORDINATED INTERDISCIPLINARY APPROACH TO REHAB: Arranging Home Equipment/Services Discharge Planning Family Intervention/Training Frame Table Operator/Case Management LIST OF IDENTIFIED AND POTENTIAL PROBLEMS: Alteration in leisure activities Bladder, Incontinence Bowel, Incontinence Infection, Actual or Potential Mobility Impaired Pain, Alteration in Comfort Self Care Deficit Skin Integrity, Actual or Potential Urinary Tract Infection (UTI), Actual or Potential RISK FOR COMPLICATIONS - COPD Pneumonia. Respiratory Failure. - Anti-Coagulants DVT. - N/A COVID-19. Skin Breakdown. Fall Risk. Pain. Impaired Fasting Glucose. - Hypertension Hypertension. - Past CVA Residual Weakness. PATIENT COULD BE AT RISK FOR COMPLICATIONS FROM ADVERSE MEDICAL CONDITIONS DUE TO HIS/HER COMORBIDITI ES AND THE RIGORS OF THE INTENSIVE REHABILLITATION PROGRAM. METHODS OR INTERVENTIONS TO AVOID COMPLIC ATIONS INCLUDE: - Infection Clinical staff to assess and manage the signs and symptoms of infection including fever, redness, war mth, etc. - Urinary Tract Infection - Falls Patient will be evaluated for Fall Precautions and will be placed on Fall Precautions as indicated pe r protocol. - Skin Breakdown Nursing will assess skin daily using assessment tool and will place on Skin Breakdown Precautions as indicated per protocol. - Pain Clinical staff may employ non-medication methods such as massage, distraction, decrease stimulus, etc . as needed. Clinical staff will assess patient's pain level every shift per protocol to assess and e nsure pain management effectiveness. Medications will be given and the pain level re-assessed. PRELIMINARY PLAN OF CARE: - Physical Therapy Patient needs Physical Therapy for a daily minimum of 1.5 hours at least 5 out of 7 days, to improve: Mobility, Strengthening, Transfers, Stretching, ROM, Endurance, Ability to manage stairs, Gait, and Balance. - Speech Therapy Patient needs Speech Therapy for a daily minimum of 0.5 hours at least 5 out of 7 days, to improve: S wallowing, Cognition, Language Skills, and Compensatory Strategies. - Rehabilitation Nursing Patient requires 24x7 Rehabilitation Nursing for: Pain Issues, Identifying and preventing risk factor s, Monitoring and reporting current medical conditions, Assisting with ambulation and transfer, Mariah ting with all ADL-s, Teaching patients about disease process and medications, Family teaching, Provid ing safe environment, Bowel and Bladder Issues, Skin Integrity, and Medication Management. Patient needs Frame Table Operator and/or Case Management for: Discharge Planning, Arranging Home Equipmen t or Services, and Family Interventions. - Dietary and Nutrition Services Patient needs Dietary and Nutrition Services for: Adequate Nutrition, Nutritional Supplements, and Nu tritional Education. - Occupational Therapy Patient needs Occupational Therapy for a daily minimum of 1.5 hours at least 5 out of 7 days, to impr ove Activities of Daily Living, including: Eating, Grooming, Bathing, Dressing, Toileting, Toilet Tra nsfers, Community Reintegration, Higher functional activities, Adaptive Equipment, Splinting, Househo ld Tasks, and Other activities as determined. QI SCORES: - Self-Care A. Eating 03-Partial/moderate assistance B. Oral hygiene 03-Partial/moderate assistance C. Toileting hygiene 02-Substantial/maximal assistance E. Shower/bathe self 02-Substantial/maximal assistance F. Upper body dressing 02-Substantial/maximal assistance G. Lower body dressing 02-Substantial/maximal assistance H. Putting on/taking off footwear 88-Not attempted due to medical condition or safety concerns - Mobility A. Roll left and right 03-Partial/moderate assistance B. Sit to lying 03-Partial/moderate assistance C. Lying to sitting on side of bed 03-Partial/moderate assistance D. Sit to stand 03-Partial/moderate assistance E. Chair/[id number] transfer 03-Partial/moderate assistance F. Toilet transfer 03-Partial/moderate assistance G. Car transfer 88-Not attempted due to medical condition or safety concerns I. Walk 10 feet 88-Not attempted due to medical condition or safety concerns J. Walk 50 feet with two turns 88-Not attempted due to medical condition or safety concerns K. Walk 150 feet 88-Not attempted due to medical condition or safety concerns L. Walking 10 feet on uneven surfaces 88-Not attempted due to medical condition or safety concerns M. 1 step (curb) 88-Not attempted due to medical condition or safety concerns N. 4 steps 88-Not attempted due to medical condition or safety concerns O. 12 steps 88-Not attempted due to medical condition or safety concerns P. Picking up object 88-Not attempted due to medical condition or safety concerns R. Wheel 50 feet with two turns 88-Not attempted due to medical condition or safety concerns S. Wheel 150 feet 88-Not attempted due to medical condition or safety concerns - Bladder and Bowel Bladder continence Bowel continence - Endurance Fair - Balance Fair - Safety Awareness Fair POTENTIAL FUNCTIONAL GOALS FOR PATIENT TO ACHIEVE BY DISCHARGE: - Safety Precaution Patient will remain free from falls or injury at time of discharge. - Bed Mobility Patient will perform bed mobility at 4-Wong level of assistance. - Transfers Patient will complete transfers from bed to chair at 4-Wong level of assistance. - Mobility Patient will ambulate 150 ft with 4-Wong level of assistance with RW. PATIENT REHAB POTENTIAL Katy HERNANDEZ is able and expected to receive 3 hours of individualized therapy daily on at least 5 of chicho ry 7 days LeoraTesfaye HERNANDEZ's prognosis for significant practical improvement within a reasonable period of time appears Good Expected level of measurable improvement will be of a practical value to LeoraTesfaye HERNANDEZ's functional capaci ty or adaptations to impairments Has a viable Discharge Plan Medically appropriate; condition is sufficiently stable to participate in intensive rehab program DISCHARGE PLAN: - Estimated Length of Stay (days) 14. - Consensus on plan Discharge plan has been discussed with primary caregiver. Patient/Family is in agreement with the thanh n. Primary caregiver is in agreement with the plan. - Patient/Family Goals Return home independently. - Planned Living Setting Upon Discharge Home, to live with Family/Relatives. Transitional Living. CONCLUSION ON REHABILITATION NECESSITY: I have evaluated patient's pre-admission functional status and, comparing it to the patient's post-ad mission functional status now, I conclude that the pre-admission assessment was accurate. Patient's c ondition on admission supports the medical necessity of admission to IRF. It is safe to proceed with patient's therapy program. SIGNATURE PANEL: (CDT)
[2020-12-24 19:58] LABS: Urine Appearance CLEAR (Clear); Urine Bilirubin NEGATIVE (Negative); Urine Blood NEGATIVE (Negative); Urine Color DK YELLOW (Yellow); Urine Glucose NEGATIVE (Negative); Urine Protein NEGATIVE (Negative); Urine Specific Gravity 1.015 (1.005-1.030); Urine pH 6.5 (5.0-7.0)
[2020-12-24] MEDS: MAGNESIUM OXIDE 400 MG TAB PO SCH (20:00)
[2020-12-24] MEDS: MELATONIN 3 MG TABLET PO PRN (21:22)
[2020-12-24] MEDS: ATORVASTATIN 10 MG TAB PO SCH (21:22)
[2020-12-24] MEDS: DOCUSATE NA/SENNA CONC 1 TAB PO PRN (21:22)
[2020-12-24 22:12] LABS: Urine Bacteria 20-50 /HPF (<20); Urine Mucus 2+ /HPF (NONE SEEN); Urine RBC <5 /HPF (NONE SEEN)
[2020-12-25] MEDS: METOPROLOL TAR 25 MG TAB PO SCH ×2 (05:17→17:24)
[2020-12-25 06:24] LABS: Absolute Lymphocytes (CBC) 1.4 K/uL (0.7-4.9); Basophils % 0.7 % (0-1.3); Hematocrit 31.4 % (36.0-45.0); Lymphocytes % 22.6 % (15.3-44.8); MPV 7.1 fL (7.6-11.3)
[2020-12-25 06:34] LABS: Albumin 2.2 g/dL (3.4-5.0); BUN Blood Urea Nitrogen 14 mg/dL (7-18); Bicarbonate 26 mmol/L (21-32); Glucose Level 105 mg/dL (74-106); Magnesium 2.1 mg/dL (1.8-2.4); Potassium 3.5 mmol/L (3.5-5.1); Prealbumin 5.5 mg/dL (20-40); Sodium Level 137 mmol/L (136-145)
[2020-12-25] MEDS: ENOXAPARIN 40 MG/0.4 ML SQ SCH (07:47)
[2020-12-25] MEDS: ESCITALOPRAM 20 MG TAB PO SCH (07:48)
[2020-12-25] MEDS: LEVOTHYROXINE SOD 0.088 MG TAB PO SCH (07:51)
[2020-12-25] MEDS: AMLODIPINE 5 MG TAB PO SCH (08:00)
[2020-12-25] MEDS: DOCUSATE NA 100 MG CAP PO SCH (08:33)
[2020-12-25] MEDS: MAGNESIUM OXIDE 400 MG TAB PO SCH ×2 (08:34→19:39)
[2020-12-25] MEDS: ASPIRIN EC 81 MG TAB PO SCH (08:34)
[2020-12-25] MEDS: GALANTAMINE 4 MG TAB PO SCH (08:35)
[2020-12-25] MEDS: LIDOCAINE 4% PATCH TOP SCH (08:40)
--- NOTE | 2020-12-25 10:04 | P.RH.PN ---
Estimated Length of Stay: 14 Expected Discharge Date: 01/05/21 Discharge Disposition Plan: Home Family Support: Yes Skilled Nursing Goal: Mobility, Transfers, Self Care Vital Signs: Last Vital Signs Temp 96.7 F L 12/25/20 08:00 Pulse 65 12/25/20 08:00 Resp 14 12/25/20 08:00 BP 117/63 12/25/20 08:00 Pulse Ox 96 12/25/20 08:00 Laboratory: Laboratory Last Values WBC 6.10 K/uL (4.3-10.9) 12/25/20 06:00 RBC 3.40 M/uL (3.86-4.86) L 12/25/20 06:00 Hgb 11.0 g/dL (12.0-15.0) L 12/25/20 06:00 Hct 31.4 % (36.0-45.0) L 12/25/20 06:00 MCV 92.2 fL (80-100) 12/25/20 06:00 MCH 32.3 pg (27.0-35.0) 12/25/20 06:00 MCHC 35.0 g/dL (32.0-36.0) 12/25/20 06:00 RDW 13.3 % (12.1-15.2) 12/25/20 06:00 Plt Count 262 K/uL (152-406) D 12/25/20 06:00 MPV 7.1 fL (7.6-11.3) L 12/25/20 06:00 Neutrophils % 65.2 % (41.7-73.7) 12/25/20 06:00 Lymphocytes % 22.6 % (15.3-44.8) 12/25/20 06:00 Monocytes % 9.5 % (3.3-12.3) 12/25/20 06:00 Eosinophils % 2.0 % (0-4.4) 12/25/20 06:00 Basophils % 0.7 % (0-1.3) 12/25/20 06:00 Absolute Neutrophils 4.0 K/uL (1.8-8.0) 12/25/20 06:00 Absolute Lymphocytes 1.4 K/uL (0.7-4.9) 12/25/20 06:00 Absolute Monocytes 0.6 K/uL (0.1-1.3) 12/25/20 06:00 Absolute Eosinophils 0.1 K/uL (0-0.5) 12/25/20 06:00 Absolute Basophils 0.0 K/uL (0-0.5) 12/25/20 06:00 Sodium 137 mmol/L (136-145) 12/25/20 06:00 Potassium 3.5 mmol/L (3.5-5.1) 12/25/20 06:00 Chloride 105 mmol/L (98-107) 12/25/20 06:00 Carbon Dioxide 26 mmol/L (21-32) 12/25/20 06:00 BUN 14 mg/dL (7-18) 12/25/20 06:00 Creatinine 0.57 mg/dL (0.55-1.3) 12/25/20 06:00 Estimated GFR > 90 mL/min (=/>90) 12/25/20 06:00 Glucose 105 mg/dL (74-106) 12/25/20 06:00 Calcium 8.0 mg/dL (8.5-10.1) L 12/25/20 06:00 Magnesium 2.1 mg/dL (1.8-2.4) 12/25/20 06:00 Albumin 2.2 g/dL (3.4-5.0) L 12/25/20 06:00 Prealbumin 5.5 mg/dL (20-40) L 12/25/20 06:00 Urine Color Dk yellow (Yellow) 12/24/20 19:17 Urine Appearance Clear (Clear) 12/24/20 19:17 Urine pH 6.5 (5.0-7.0) 12/24/20 19:17 Ur Specific [place] 1.015 (1.005-1.030) 12/24/20 19:17 Glucose (UA)(Auto) Negative (Negative) 12/24/20 19:17 Urine Ketones Negative (Negative) 12/24/20 19:17 Urine Blood Negative (Negative) 12/24/20 19:17 Urine Nitrite Negative (Negative) 12/24/20 19:17 Urine Bilirubin Negative (Negative) 12/24/20 19:17 Urine Urobilinogen 2.0 mg/dL (0.2-1.0) H 12/24/20 19:17 Ur Leukocyte Esterase Negative (Negative) 12/24/20 19:17 Urine RBC <5 /HPF (NONE SEEN) 12/24/20 19:17 Urine WBC 5-10 /HPF (<5) H 12/24/20 19:17 Ur Squamous Epith Cells 10-20 /HPF (NONE SEEN) H 12/24/20 19:17 Urine Bacteria 20-50 /HPF (<20) H 12/24/20 19:17 Urine Mucus 2+ /HPF (NONE SEEN) 12/24/20 19:17 Urine Culture Reflexed Not needed 12/24/20 19:17 Urine Total Protein Negative (Negative) 12/24/20 19:17 Weight: 174 lb Physician Update: Labs reviewed and are stable except prealbumin of 5.5. Will add Lasha and Ensure high protein. Walking 32' with minimum assistance using a rolling waker. She has post covid-19 and may need O2 supplementation. Will use incentive spirometry. Summary: Patient's care plan and longterm goals have been reviewed and revised as necessary. Please see the Rehabilitation Signature page for all necessary signatures.
[2020-12-25] MEDS: ENSURE HIGH PROTEIN 237 ML CAN PO SCH (19:38)
[2020-12-25] MEDS: DOCUSATE NA/SENNA CONC 1 TAB PO PRN (19:39)
[2020-12-25] MEDS: MEGESTROL 400 MG/10 ML UCUP PO SCH (19:39)
[2020-12-25] MEDS: JUVEN PACKET PO SCH (19:39)
[2020-12-25] MEDS: MELATONIN 3 MG TABLET PO PRN (19:40)
[2020-12-25] MEDS: ATORVASTATIN 10 MG TAB PO SCH (20:30)
[2020-12-25] MEDS: TRAMADOL HCL 50 MG TAB PO PRN (22:12)
[2020-12-26] MEDS: METOPROLOL TAR 25 MG TAB PO SCH ×2 (05:27→16:56)
[2020-12-26] MEDS: LEVOTHYROXINE SOD 0.088 MG TAB PO SCH (06:52)
[2020-12-26] MEDS: TRAMADOL HCL 50 MG TAB PO PRN ×2 (06:52→16:57)
[2020-12-26] MEDS: ENOXAPARIN 40 MG/0.4 ML SQ SCH (06:53)
[2020-12-26] MEDS: LIDOCAINE 4% PATCH TOP SCH (06:54)
[2020-12-26] MEDS: MEGESTROL 400 MG/10 ML UCUP PO SCH ×3 (08:00→20:00)
[2020-12-26] MEDS: AMLODIPINE 5 MG TAB PO SCH (08:00)
[2020-12-26] MEDS: ESCITALOPRAM 20 MG TAB PO SCH (08:27)
[2020-12-26] MEDS: ENSURE HIGH PROTEIN 237 ML CAN PO SCH ×2 (08:27→20:00)
[2020-12-26] MEDS: ASPIRIN EC 81 MG TAB PO SCH (08:28)
[2020-12-26] MEDS: GALANTAMINE 4 MG TAB PO SCH (08:28)
[2020-12-26] MEDS: MAGNESIUM OXIDE 400 MG TAB PO SCH ×2 (08:28→20:00)
[2020-12-26] MEDS: DOCUSATE NA 100 MG CAP PO SCH (08:28)
[2020-12-26] MEDS: JUVEN PACKET PO SCH ×2 (08:28→20:00)
--- NOTE | 2020-12-26 10:37 | PN ---
Date of Progress Note: 12/25/2020 Subjective: The patient was seen this morning for followup. No new complaints or problems reported by patient, lying in bed, not in distress. Objective: Vital Signs: Reviewed. HEENT: Examination unremarkable. Lungs: Clear to auscultation. Cardiac: Heart sounds normal. Abdomen: Soft. Bowel sounds normal. No guarding, rigidity, tenderness, or distention. Extremities: No leg edema. Laboratory Data: White count 6.1, hemoglobin 11, platelets 262. Sodium 137, potassium 3.5, chloride 105, bicarb 26, BUN 14, creatinine 0.57, glucose 105, albumin 2.2. Impression: 1.Hip fracture. 2.Malnutrition. 3.Hypertension. 4.Anemia due to acute blood loss. Plan: We will continue current medications. Continue current DVT prophylaxis, antihypertensive medi cation, and physical therapy to be provided under guidance of Dr. Gaxiola. For malnutrition, the gwendolyn jeronimo was encouraged to use nutritional supplement. [facility] Voice ID: [id number] Report ID: [id number]
--- NOTE | 2020-12-26 12:22 | PN ---
Date of Progress Note: 12/26/2020 Subjective: The patient was seen this morning for followup. No new complaints or problems reported by patient. She was sitting in the wheelchair. Her son was with her in the room. Denies any compla ints. Had a bowel movement last night. No chest pain. No shortness of breath. No abdominal pain. Objective: Vital Signs: Reviewed. HEENT: Unremarkable. Lungs: Clear to auscultation. No rales. No wheezing. Heart: Sounds normal. Abdomen: Soft. Bowel sounds normal. No guarding, rigidity, tenderness, or distention. Extremities: No leg edema. Impression: 1.Hip fracture. 2.Acute blood loss anemia. 3.Hypertension. Plan: We will go ahead and continue current medications. Continue current stool softener. The ken ent received her last dose of Lovenox this morning for DVT prophylaxis. We will discontinue that and start her on Xarelto 10 mg daily starting tomorrow. Continue current pain medication as needed. Cu rrent antihypertensive medications will be continued. Her blood pressure is under good control. I w ill see her tomorrow for followup. SAPNA/[facility] Voice ID: [id number] Report ID: [id number]
[2020-12-26] MEDS: ATORVASTATIN 10 MG TAB PO SCH (20:07)
[2020-12-26] MEDS: MELATONIN 3 MG TABLET PO PRN (20:07)
[2020-12-27] MEDS: METOPROLOL TAR 25 MG TAB PO SCH ×2 (05:03→16:48)
[2020-12-27] MEDS: LEVOTHYROXINE SOD 0.088 MG TAB PO SCH (06:29)
[2020-12-27] MEDS: LIDOCAINE 4% PATCH TOP SCH (06:29)
[2020-12-27] MEDS: GALANTAMINE 4 MG TAB PO SCH (08:00)
[2020-12-27] MEDS: DOCUSATE NA 100 MG CAP PO SCH (08:00)
[2020-12-27] MEDS: MEGESTROL 400 MG/10 ML UCUP PO SCH ×2 (08:00→19:10)
[2020-12-27] MEDS: ESCITALOPRAM 20 MG TAB PO SCH (08:00)
[2020-12-27] MEDS: RIVAROXABAN 10 MG TABLET PO SCH (08:00)
[2020-12-27] MEDS: AMLODIPINE 5 MG TAB PO SCH (08:00)
[2020-12-27] MEDS: ASPIRIN EC 81 MG TAB PO SCH (08:00)
[2020-12-27] MEDS: ENSURE HIGH PROTEIN 237 ML CAN PO SCH ×2 (08:01→19:11)
[2020-12-27] MEDS: JUVEN PACKET PO SCH ×2 (08:01→19:12)
[2020-12-27] MEDS: MAGNESIUM OXIDE 400 MG TAB PO SCH ×2 (08:01→19:10)
--- NOTE | 2020-12-27 12:22 | PN ---
Date of Progress Note: 12/27/2020 Subjective: The patient was seen this morning for followup. No new complaints or problems reported by the patient. Objective: General: She was lying in bed, not in distress. Vital Signs: Reviewed. HEENT: Unremarkable. Lungs: Clear to auscultation. Heart: Sounds normal. Abdomen: Soft, bowel sounds normal. No guarding, rigidity, tenderness, or distention. Extremities: No leg edema. Impression: 1.Rib fracture, status post surgery. 2.Anemia, due to acute blood loss. 3.Hypertension. 4.Constipation. Plan: Continue current stool softener. The patient had a bowel movement today and yesterday. We wi ll continue current antihypertensive medication. Pain is well controlled with current pain medicatio n and we will continue Xarelto as DVT prophylaxis. I will see her tomorrow for followup. SAPNA/MODL Voice ID: [id number] Report ID: [id number]
[2020-12-27] MEDS: TRAMADOL HCL 50 MG TAB PO PRN (14:41)
[2020-12-27] MEDS: ATORVASTATIN 10 MG TAB PO SCH (19:11)
[2020-12-28] MEDS: METOPROLOL TAR 25 MG TAB PO SCH ×2 (05:01→17:15)
[2020-12-28] MEDS: LEVOTHYROXINE SOD 0.088 MG TAB PO SCH (07:06)
[2020-12-28] MEDS: LIDOCAINE 4% PATCH TOP SCH (08:21)
[2020-12-28] MEDS: DOCUSATE NA 100 MG CAP PO SCH (08:21)
[2020-12-28] MEDS: MEGESTROL 400 MG/10 ML UCUP PO SCH ×3 (08:21→19:18)
[2020-12-28] MEDS: ESCITALOPRAM 20 MG TAB PO SCH (08:22)
[2020-12-28] MEDS: AMLODIPINE 5 MG TAB PO SCH (08:22)
[2020-12-28] MEDS: ASPIRIN EC 81 MG TAB PO SCH (08:23)
[2020-12-28] MEDS: MAGNESIUM OXIDE 400 MG TAB PO SCH ×2 (08:23→19:17)
[2020-12-28] MEDS: RIVAROXABAN 10 MG TABLET PO SCH (08:23)
[2020-12-28] MEDS: ENSURE HIGH PROTEIN 237 ML CAN PO SCH ×2 (08:26→19:17)
[2020-12-28] MEDS: GALANTAMINE 4 MG TAB PO SCH (08:26)
[2020-12-28] MEDS: JUVEN PACKET PO SCH ×2 (08:26→19:16)
[2020-12-28] MEDS: TRAMADOL HCL 50 MG TAB PO PRN (08:29)
[2020-12-28] MEDS: ATORVASTATIN 10 MG TAB PO SCH (19:17)
[2020-12-29] MEDS: METOPROLOL TAR 25 MG TAB PO SCH ×2 (05:11→17:09)
[2020-12-29] MEDS: LEVOTHYROXINE SOD 0.088 MG TAB PO SCH (07:08)
[2020-12-29] MEDS: LIDOCAINE 4% PATCH TOP SCH (08:17)
[2020-12-29] MEDS: RIVAROXABAN 10 MG TABLET PO SCH (08:18)
[2020-12-29] MEDS: AMLODIPINE 5 MG TAB PO SCH (08:18)
[2020-12-29] MEDS: DOCUSATE NA 100 MG CAP PO SCH (08:18)
[2020-12-29] MEDS: ASPIRIN EC 81 MG TAB PO SCH (08:18)
[2020-12-29] MEDS: ESCITALOPRAM 20 MG TAB PO SCH (08:19)
[2020-12-29] MEDS: GALANTAMINE 4 MG TAB PO SCH (08:19)
[2020-12-29] MEDS: TRAMADOL HCL 50 MG TAB PO PRN (08:20)
[2020-12-29] MEDS: MAGNESIUM OXIDE 400 MG TAB PO SCH ×2 (08:28→19:58)
[2020-12-29] MEDS: JUVEN PACKET PO SCH ×2 (08:28→19:59)
[2020-12-29] MEDS: ENSURE HIGH PROTEIN 237 ML CAN PO SCH ×2 (08:30→19:59)
--- NOTE | 2020-12-29 17:19 | R.PN ---
PROGRESS NOTES ENCOUNTER DATE AND TIME: 12/29/2020 17:10 (CDT) NAME RUDOLPH HERNANDEZ DATE OF : 1935 DATE OF ADMISSION: 12/24/2020 10:47 (CDT) Right Displaced Femoral Neck FractureCHIEF COMPLAINT: Right hip fracture, debility SUBJECTIVE: Pt denied any depression. Pt denied any Shortness of Breath. She reports mild to moderate pain while sitting and no significant pain when standing and ambulating. Walked 750' with contact guard assistance using a rolling walker. Hgb is mildly low at 11.0, O/W CBC is unremarkable. Prealbumin is very low at 5.5. She is on Lasha an d Ensure Plus. She has frequent nocturnal urination since her chronic stroke. Her UA is negative. She has mild bilateral lower extremity edema likely related to to low albumin of 2.2 with low prealbu min of 5.5. Ambulated 100, 45 and 25 feet with rolling walker and contact guard assistance. Self-propelled 260 fe et x 2 with modified independence. VITAL SIGNS Temperature: 97.8 F SBP/DBP: 121/63 Pulse: 67 Resp: 16 MEDICATION ALLERGIES: No Known Drug Allergies (NKDA) ENVIRONMENTAL ALLERGIES: - Substance Allergies None Known - Other Allergies None Known NURSING: - Shower allowing shower - Skin care per protocol PRECAUTIONS: - Posterior Hip Precaution No adduction across midline No external rotation No hip flexion >90 degrees No internal rotation No wheel chair propulsion - Weight Bearing Precaution WBAT right LE ACTIVITIES OOB only with supervision THERAPIES: - Dietary and Nutrition Adequate Nutrition. Nutritional Education. Nutritional Supplements. - Occupational Therapy Cognitive Retraining. Visual Perceptual Training. - Speech Therapy Cognitive Training. Expressive Language Skills. Memory Strategies. Receptive Language Skills. Speech Intelligibility Training. PHYSICAL EXAM - Gen Alert and awake Lying in bed No apparent distress Oriented to: person, time, and place - Skin No skin breakdown. Normacephalic - Eyes No abnormalities - ENMT No abnormalities - Neck No abnormalities - CVS RRR - Chest No abnormalities - Abd Soft - GI Non distended Deferred - No abnormalities - Ext Right hip surgical site has good hemostasis. - MSK 4+/5 weakness in right lower extremity - Neuro 4/5 strength right lower extremity. - Psych No abnormalities ASSESSMENT: Pt. is a 85 yo Right-handed female.On 12/18/2020 she was admitted to [facility] with bashir gnosis Right Displaced Femoral Neck Fracture.Her impairment category is Orthopaedic Disorders 08 - U nilateral Hip Fracture (12.02).Pre-morbidly, Pt. was independent/mod-I in Locomotion, Social Cognitio n, Safety Awareness, Balance, and Transfers Control; and she had good Sphincter Control, Self-Care, C ommunication, and Endurance.Currently, she has deficits of Locomotion, Balance, Safety Awareness, Tra nsfers Control, Sphincter Control, Self-Care, and Endurance.Pt. is now referred to [facility] for acute in-patient rehabilitation in order to maximize patient's functional indepen dence in activities of daily living, strength, ROM, and mobility.- Rehab Goal Patient has realistic goal of being discharged at assistance level 7-Ind to reside at Home with Fami ly/Relatives. MDM/PLAN: - Physical Therapy Decreased range of motion - to improve, our physical therapists will perform initial evaluation of p t's status upon admission and devise an individualized program for increasing patient's Range of Albert on. Gait dysfunction - to improve, our physical therapists will perform initial evaluation of pt's statu s upon admission and devise an individualized program for Gait Training, and Wheel Chair mobility Inability to transfer - to improve, our physical therapists will perform initial evaluation of pt's status upon admission and devise an individualized program for Bed mobility Need for home safety evaluation - to improve, our physical therapists will perform initial evaluatio n of pt's status upon admission and devise an individualized program for Home Evaluation Need in caregiver upon discharge - to improve, our physical therapists will perform initial evaluati on of pt's status upon admission and devise an individualized program for Caregiver Training New precaution - to improve, our physical therapists will perform initial evaluation of pt's status upon admission and devise an individualized program for Patient precaution education Poor balance - to improve, our physical therapists will perform initial evaluation of pt's status up on admission and devise an individualized program for Balance Training Poor endurance - to improve, our physical therapists will perform initial evaluation of pt's status upon admission and devise an individualized program for Endurance Training Weakness - to improve, our physical therapists will perform initial evaluation of pt's status upon a dmission and devise an individualized program for Aquatic Therapy, Neuromuscular Reeducation, and Str engthening Achieving independence - to improve, our physical therapists will perform initial evaluation of pt's status upon admission and devise an individualized program for Community Reintegration Activities - Occupational Therapy ADL deficits - to improve, our occupation therapists will perform initial evaluation of pt's status upon admission and devise an individualized program for Bathing, Bed mobility, Community Reintegratio n, Cooking, Dressing, Eating, Fine Motor Skills, Grooming, Homemaking, Kitchen Mobility, Laundry, Pat ient Education, Safety Awareness, Splinting - Positioning, Transfers(Toilet, Tub, Shower), and Wheel Chair Management Need for healthcare social worker - to improve, our occupation therapists will perform initial evaluation of pt's status upon admission and devise an individualized program for Caregiver Training Weakness - to improve, our occupation therapists will perform initial evaluation of pt's status upon admission and devise an individualized program for Aquatic Therapy, Balance, Endurance, UE ROM, and UE strengthening - Other See attached MAR (Medication Administration Record) - Anterior Hip Precaution No abduction No active extension No adduction across midline No external rotation No hip flexion >90 degrees No internal rotation - Diet - Liquid Texture Continue Regular - Tube Feed Continue N/A - Diet Type Continue Regular - Posterior Hip Precaution No adduction across midline No external rotation No hip flexion >90 degrees No internal rotation No wheel chair propulsion - Weight Bearing Precaution WBAT right LE - Skin care per protocol - Diet - Solid Texture Continue Regular - Shower allowing shower FUNCTIONAL STATUS: UPDATED AT WEEKLY TEAM CONFERENCE - Bladder Same accident frequency: 7-Ind - No accidents in the past 7 days - Bowel Same accident frequency: 7-Ind - No accidents in the past 7 days - Walking Same score based on distance walked: 0(N/A) Same score based on distance walked: 1(<=50ft) - Wheelchair Same score based on distance traveled: 0(N/A) FUNCTIONAL STATUS: - Self-Care A. Eating Ind B. Grooming Wong C. Bathing modA D. Dressing - Upper Wong E. Dressing - Lower modA F. Toileting Wogn - Sphincter Control G. Bladder control Wong H. Bowel control Amelia - Transfers Control I. Bed/Chair/Wheelchair Wong J. Toilet Wong K. Tub/Shower modA - Locomotion L. Walk/Wheelchair (B) Wong M. Stairs ADNO - Communication N. Comprehension (B) Amelia O. Expression (B) Ind - Social Cognition P. Social Interaction Amelia Q. Problem Solving Amelia R. Memory Amelia - Endurance Good - Balance Fair - Safety Awareness Fair QI SCORES: - Self-Care A. Eating 03-Partial/moderate assistance B. Oral hygiene 03-Partial/moderate assistance C. Toileting hygiene 02-Substantial/maximal assistance E. Shower/bathe self 02-Substantial/maximal assistance F. Upper body dressing 02-Substantial/maximal assistance G. Lower body dressing 02-Substantial/maximal assistance H. Putting on/taking off footwear 88-Not attempted due to medical condition or safety concerns - Mobility A. Roll left and right 03-Partial/moderate assistance B. Sit to lying 03-Partial/moderate assistance C. Lying to sitting on side of bed 03-Partial/moderate assistance D. Sit to stand 03-Partial/moderate assistance E. Chair/ojg-nh-aajdo transfer 03-Partial/moderate assistance F. Toilet transfer 03-Partial/moderate assistance G. Car transfer 88-Not attempted due to medical condition or safety concerns I. Walk 10 feet 88-Not attempted due to medical condition or safety concerns J. Walk 50 feet with two turns 88-Not attempted due to medical condition or safety concerns K. Walk 150 feet 88-Not attempted due to medical condition or safety concerns L. Walking 10 feet on uneven surfaces 88-Not attempted due to medical condition or safety concerns M. 1 step (curb) 88-Not attempted due to medical condition or safety concerns N. 4 steps 88-Not attempted due to medical condition or safety concerns O. 12 steps 88-Not attempted due to medical condition or safety concerns P. Picking up object 88-Not attempted due to medical condition or safety concerns R. Wheel 50 feet with two turns 88-Not attempted due to medical condition or safety concerns S. Wheel 150 feet 88-Not attempted due to medical condition or safety concerns - Bladder and Bowel Bladder continence Bowel continence - Endurance Fair - Balance Fair - Safety Awareness Fair [facility]RENT [facility] DEFICITS: Self-Care, Mobility, Endurance, Balance, and Safety Awareness SIGNATURE PANEL: (CDT)
[2020-12-29] MEDS: MELATONIN 3 MG TABLET PO SCH (19:58)
[2020-12-29] MEDS: ATORVASTATIN 10 MG TAB PO SCH (19:58)
--- NOTE | 2020-12-29 22:22 | PN ---
Date of Progress Note: 12/29/2020 Subjective: The patient was seen this morning for followup. No new complaints, problems reported by the patient. Lying in bed, not in distress. Objective: VITAL SIGNS: Reviewed. HEENT: Unremarkable. LUNGS: Clear to auscultation. CARDIAC: Heart sounds normal. ABDOMEN: Soft, bowel sounds normal. No guarding, rigidity, tenderness, distention. EXTREMITIES: No leg edema. Impression: 1.Hip fracture. 2.Hypertension. 3.Acute blood loss anemia. 4.Stroke. Plan: We will continue Xarelto for DVT prophylaxis and aspirin. Continue current antihypertensive m edication. Continue current pain medication and physical therapy to be provided under guidance of Dr Tesfaye Gaxiola. I will see her tomorrow for followup. SAPNA/MODL Voice ID: [id number] Report ID: [id number]
[2020-12-30] MEDS: METOPROLOL TAR 25 MG TAB PO SCH ×2 (05:05→17:01)
[2020-12-30] MEDS: LEVOTHYROXINE SOD 0.088 MG TAB PO SCH (06:27)
[2020-12-30] MEDS: ESCITALOPRAM 20 MG TAB PO SCH (07:48)
[2020-12-30] MEDS: ASPIRIN EC 81 MG TAB PO SCH (07:48)
[2020-12-30] MEDS: DOCUSATE NA 100 MG CAP PO SCH (07:48)
[2020-12-30] MEDS: AMLODIPINE 5 MG TAB PO SCH (07:48)
[2020-12-30] MEDS: GALANTAMINE 4 MG TAB PO SCH (07:48)
[2020-12-30] MEDS: RIVAROXABAN 10 MG TABLET PO SCH (07:48)
[2020-12-30] MEDS: MAGNESIUM OXIDE 400 MG TAB PO SCH ×2 (07:49→19:12)
[2020-12-30] MEDS: JUVEN PACKET PO SCH ×2 (07:49→19:12)
[2020-12-30] MEDS: ENSURE HIGH PROTEIN 237 ML CAN PO SCH ×2 (07:49→19:12)
[2020-12-30] MEDS: TRAMADOL HCL 50 MG TAB PO PRN ×2 (07:52→19:12)
[2020-12-30] MEDS: LIDOCAINE 4% PATCH TOP SCH ×2 (09:26→13:10)
--- NOTE | 2020-12-30 14:08 | R.PN ---
PROGRESS NOTES ENCOUNTER DATE AND TIME: 12/30/2020 14:00 (CDT) NAME RUDOLPH HERNANDEZ DATE OF : 1935 DATE OF ADMISSION: 12/24/2020 10:47 (CDT) Right Displaced Femoral Neck FractureCHIEF COMPLAINT: Right hip fracture, debility SUBJECTIVE: Pt denied any depression. Pt denied any Shortness of Breath. She reports mild pain while sitting and no significant pain when standing and ambulating. Hgb is mildly low at 11.0, O/W CBC is unremarkable. Prealbumin is very low at 5.5. She is on Lasha an d Ensure Plus. She has less nocturnal urination. Her UA is negative. She has improved mild bilateral lower extremity edema. Ambulated 1250' feet with rolling walker and supervision. Self-propelled wheelchair 500' with contact guard assistance. Comprehension/Cognition exercises done with 60 % to 100 % accuracy. VITAL SIGNS Temperature: 97.3 F SBP/DBP: 138/86 Pulse: 63 Resp: 16 MEDICATION ALLERGIES: No Known Drug Allergies (NKDA) ENVIRONMENTAL ALLERGIES: - Substance Allergies None Known - Other Allergies None Known NURSING: - Shower allowing shower - Skin care per protocol PRECAUTIONS: - Posterior Hip Precaution No adduction across midline No external rotation No hip flexion >90 degrees No internal rotation No wheel chair propulsion - Weight Bearing Precaution WBAT right LE ACTIVITIES OOB only with supervision THERAPIES: - Dietary and Nutrition Adequate Nutrition. Nutritional Education. Nutritional Supplements. - Occupational Therapy Cognitive Retraining. Visual Perceptual Training. - Speech Therapy Cognitive Training. Expressive Language Skills. Memory Strategies. Receptive Language Skills. Speech Intelligibility Training. PHYSICAL EXAM - Gen Alert and awake Lying in bed No apparent distress Oriented to: person, time, and place - Skin No skin breakdown. Normacephalic - Eyes No abnormalities - ENMT No abnormalities - Neck No abnormalities - CVS RRR - Chest No abnormalities - Abd Soft - GI Non distended Deferred - No abnormalities - Ext Right hip surgical site has good hemostasis. - MSK 4+/5 weakness in right lower extremity - Neuro 4/5 strength right lower extremity. - Psych No abnormalities ASSESSMENT: Pt. is a 85 yo Right-handed female.On 12/18/2020 she was admitted to [facility] with bashir gnosis Right Displaced Femoral Neck Fracture.Her impairment category is Orthopaedic Disorders 08 - U nilateral Hip Fracture (12.02).Pre-morbidly, Pt. was independent/mod-I in Locomotion, Social Cognitio n, Safety Awareness, Balance, and Transfers Control; and she had good Sphincter Control, Self-Care, C ommunication, and Endurance.Currently, she has deficits of Locomotion, Balance, Safety Awareness, Tra nsfers Control, Sphincter Control, Self-Care, and Endurance.Pt. is now referred to [facility] for acute in-patient rehabilitation in order to maximize patient's functional indepen dence in activities of daily living, strength, ROM, and mobility.- Rehab Goal Patient has realistic goal of being discharged at assistance level 7-Ind to reside at Home with Fami ly/Relatives. MDM/PLAN: - Physical Therapy Decreased range of motion - to improve, our physical therapists will perform initial evaluation of p t's status upon admission and devise an individualized program for increasing patient's Range of Albert on. Gait dysfunction - to improve, our physical therapists will perform initial evaluation of pt's statu s upon admission and devise an individualized program for Gait Training, and Wheel Chair mobility Inability to transfer - to improve, our physical therapists will perform initial evaluation of pt's status upon admission and devise an individualized program for Bed mobility Need for home safety evaluation - to improve, our physical therapists will perform initial evaluatio n of pt's status upon admission and devise an individualized program for Home Evaluation Need in caregiver upon discharge - to improve, our physical therapists will perform initial evaluati on of pt's status upon admission and devise an individualized program for Caregiver Training New precaution - to improve, our physical therapists will perform initial evaluation of pt's status upon admission and devise an individualized program for Patient precaution education Poor balance - to improve, our physical therapists will perform initial evaluation of pt's status up on admission and devise an individualized program for Balance Training Poor endurance - to improve, our physical therapists will perform initial evaluation of pt's status upon admission and devise an individualized program for Endurance Training Weakness - to improve, our physical therapists will perform initial evaluation of pt's status upon a dmission and devise an individualized program for Aquatic Therapy, Neuromuscular Reeducation, and Str engthening Achieving independence - to improve, our physical therapists will perform initial evaluation of pt's status upon admission and devise an individualized program for Community Reintegration Activities - Occupational Therapy ADL deficits - to improve, our occupation therapists will perform initial evaluation of pt's status upon admission and devise an individualized program for Bathing, Bed mobility, Community Reintegratio n, Cooking, Dressing, Eating, Fine Motor Skills, Grooming, Homemaking, Kitchen Mobility, Laundry, Pat ient Education, Safety Awareness, Splinting - Positioning, Transfers(Toilet, Tub, Shower), and Wheel Chair Management Need for child care aide - to improve, our occupation therapists will perform initial evaluation of pt's status upon admission and devise an individualized program for Caregiver Training Weakness - to improve, our occupation therapists will perform initial evaluation of pt's status upon admission and devise an individualized program for Aquatic Therapy, Balance, Endurance, UE ROM, and UE strengthening - Other See attached MAR (Medication Administration Record) - Anterior Hip Precaution No abduction No active extension No adduction across midline No external rotation No hip flexion >90 degrees No internal rotation - Diet - Liquid Texture Continue Regular - Tube Feed Continue N/A - Diet Type Continue Regular - Posterior Hip Precaution No adduction across midline No external rotation No hip flexion >90 degrees No internal rotation No wheel chair propulsion - Weight Bearing Precaution WBAT right LE - Skin care per protocol - Diet - Solid Texture Continue Regular - Shower allowing shower FUNCTIONAL STATUS: UPDATED AT WEEKLY TEAM CONFERENCE - Bladder Same accident frequency: 7-Ind - No accidents in the past 7 days - Bowel Same accident frequency: 7-Ind - No accidents in the past 7 days - Walking Same score based on distance walked: 0(N/A) Same score based on distance walked: 1(<=50ft) - Wheelchair Same score based on distance traveled: 0(N/A) FUNCTIONAL STATUS: - Self-Care A. Eating Ind B. Grooming Wong C. Bathing modA D. Dressing - Upper Wong E. Dressing - Lower modA F. Toileting Wong - Sphincter Control G. Bladder control Wong H. Bowel control Amelia - Transfers Control I. Bed/Chair/Wheelchair Wong J. Toilet Wong K. Tub/Shower modA - Locomotion L. Walk/Wheelchair (B) Wong M. Stairs ADNO - Communication N. Comprehension (B) Amelia O. Expression (B) Ind - Social Cognition P. Social Interaction Amelia Q. Problem Solving Amelia R. Memory Amelia - Endurance Good - Balance Fair - Safety Awareness Fair QI SCORES: - Self-Care A. Eating 03-Partial/moderate assistance B. Oral hygiene 03-Partial/moderate assistance C. Toileting hygiene 02-Substantial/maximal assistance E. Shower/bathe self 02-Substantial/maximal assistance F. Upper body dressing 02-Substantial/maximal assistance G. Lower body dressing 02-Substantial/maximal assistance H. Putting on/taking off footwear 88-Not attempted due to medical condition or safety concerns - Mobility A. Roll left and right 03-Partial/moderate assistance B. Sit to lying 03-Partial/moderate assistance C. Lying to sitting on side of bed 03-Partial/moderate assistance D. Sit to stand 03-Partial/moderate assistance E. Chair/lbv-pz-hynnh transfer 03-Partial/moderate assistance F. Toilet transfer 03-Partial/moderate assistance G. Car transfer 88-Not attempted due to medical condition or safety concerns I. Walk 10 feet 88-Not attempted due to medical condition or safety concerns J. Walk 50 feet with two turns 88-Not attempted due to medical condition or safety concerns K. Walk 150 feet 88-Not attempted due to medical condition or safety concerns L. Walking 10 feet on uneven surfaces 88-Not attempted due to medical condition or safety concerns M. 1 step (curb) 88-Not attempted due to medical condition or safety concerns N. 4 steps 88-Not attempted due to medical condition or safety concerns O. 12 steps 88-Not attempted due to medical condition or safety concerns P. Picking up object 88-Not attempted due to medical condition or safety concerns R. Wheel 50 feet with two turns 88-Not attempted due to medical condition or safety concerns S. Wheel 150 feet 88-Not attempted due to medical condition or safety concerns - Bladder and Bowel Bladder continence Bowel continence - Endurance Fair - Balance Fair - Safety Awareness Fair [facility] DEFICITS: Self-Care, Mobility, Endurance, Balance, and Safety Awareness SIGNATURE PANEL: (CDT)
[2020-12-30] MEDS: MELATONIN 3 MG TABLET PO SCH (19:11)
[2020-12-30] MEDS: ATORVASTATIN 10 MG TAB PO SCH (19:12)
--- NOTE | 2020-12-30 21:32 | PN ---
Date of Progress Note: 12/30/2020 Subjective: The patient was seen this morning for followup. No new complaints or problems reported by patient, lying in bed, not in distress. Objective: Vital Signs: Reviewed. HEENT: Unremarkable. Lungs: Clear to auscultation. Heart: Heart sounds normal. Abdomen: Soft. Bowel sounds normal. No guarding, rigidity, tenderness, or distention. Extremities: No leg edema. Impression: 1.Hip fracture. 2.Acute blood loss anemia. 3.Hypertension. Plan: We will go ahead and continue current medications. Continue current antihypertensive medicati on, anticoagulation therapy. Continue to follow with Dr. Gaxiola for physical therapy to be provide d under his guidance. I will see her tomorrow for followup. Details of plan of treatment discussed with her. SAPNA/MODL Voice ID: [id number] Report ID: [id number]
[2020-12-31 04:46] LABS: Absolute Lymphocytes (CBC) 2.1 K/uL (0.7-4.9); Basophils % 1.3 % (0-1.3); Hematocrit 29.3 % (36.0-45.0); Lymphocytes % 32.9 % (15.3-44.8); MPV 6.9 fL (7.6-11.3); RBC Red Blood Cell Count 3.12 M/uL (3.86-4.86)
[2020-12-31 05:11] LABS: Albumin 2.6 g/dL (3.4-5.0); Magnesium 2.4 mg/dL (1.8-2.4); Potassium 4.3 mmol/L (3.5-5.1); Prealbumin 12.2 mg/dL (20-40)
[2020-12-31] MEDS: METOPROLOL TAR 25 MG TAB PO SCH ×2 (05:18→16:54)
[2020-12-31] MEDS: LEVOTHYROXINE SOD 0.088 MG TAB PO SCH (06:32)
[2020-12-31] MEDS: LIDOCAINE 4% PATCH TOP SCH (06:32)
[2020-12-31] MEDS: MAGNESIUM OXIDE 400 MG TAB PO SCH ×2 (07:47→19:29)
[2020-12-31] MEDS: DOCUSATE NA 100 MG CAP PO SCH (07:48)
[2020-12-31] MEDS: RIVAROXABAN 10 MG TABLET PO SCH (07:48)
[2020-12-31] MEDS: GALANTAMINE 4 MG TAB PO SCH (07:48)
[2020-12-31] MEDS: JUVEN PACKET PO SCH ×2 (07:49→19:32)
[2020-12-31] MEDS: ASPIRIN EC 81 MG TAB PO SCH (07:49)
[2020-12-31] MEDS: ENSURE HIGH PROTEIN 237 ML CAN PO SCH ×2 (07:49→19:32)
[2020-12-31] MEDS: ESCITALOPRAM 20 MG TAB PO SCH (07:49)
[2020-12-31] MEDS: TRAMADOL HCL 50 MG TAB PO PRN (07:51)
[2020-12-31] MEDS: AMLODIPINE 5 MG TAB PO SCH (08:00)
[2020-12-31] MEDS: ACETAMINOPHEN 500 MG TAB PO PRN ×2 (10:28→19:29)
--- NOTE | 2020-12-31 17:35 | R.PN ---
PROGRESS NOTES ENCOUNTER DATE AND TIME: 12/31/2020 17:30 (CDT) NAME RUDOLPH HERNANDEZ DATE OF : 1935 DATE OF ADMISSION: 12/24/2020 10:47 (CDT) Right Displaced Femoral Neck FractureCHIEF COMPLAINT: Right hip fracture, debility SUBJECTIVE: Pt denied any depression. Pt denied any Shortness of Breath. Hgb is mildly low at 10.1, WBC 6.3, Prealbumin improved to 12.2. She is on Lasha and Ensure Plus. She has less nocturnal urination. Her UA is negative. She has improved mild bilateral lower extremity edema. Ambulated 825' feet with rolling walker and standby assistance. Comprehension/Cognition exercises done with 60 % to 100 % accuracy. Her pain is well controlled. VITAL SIGNS Temperature: 97.3 F SBP/DBP: 138/69 Pulse: 76 Resp: 15 MEDICATION ALLERGIES: No Known Drug Allergies (NKDA) ENVIRONMENTAL ALLERGIES: - Substance Allergies None Known - Other Allergies None Known NURSING: - Shower allowing shower - Skin care per protocol PRECAUTIONS: - Posterior Hip Precaution No adduction across midline No external rotation No hip flexion >90 degrees No internal rotation No wheel chair propulsion - Weight Bearing Precaution WBAT right LE ACTIVITIES OOB only with supervision THERAPIES: - Dietary and Nutrition Adequate Nutrition. Nutritional Education. Nutritional Supplements. - Occupational Therapy Cognitive Retraining. Visual Perceptual Training. - Speech Therapy Cognitive Training. Expressive Language Skills. Memory Strategies. Receptive Language Skills. Speech Intelligibility Training. PHYSICAL EXAM - Gen Alert and awake Lying in bed No apparent distress Oriented to: person, time, and place - Skin No skin breakdown. Normacephalic - Eyes No abnormalities - ENMT No abnormalities - Neck No abnormalities - CVS RRR - Chest No abnormalities - Abd Soft - GI Non distended Deferred - No abnormalities - Ext Right hip surgical site has good hemostasis. - MSK 4+/5 weakness in right lower extremity - Neuro 4/5 strength right lower extremity. - Psych No abnormalities ASSESSMENT: Pt. is a 85 yo Right-handed female.On 12/18/2020 she was admitted to [facility] with bashir gnosis Right Displaced Femoral Neck Fracture.Her impairment category is Orthopaedic Disorders 08 - U nilateral Hip Fracture (.11).Pre-morbidly, Pt. was independent/mod-I in Locomotion, Social Cognitio n, Safety Awareness, Balance, and Transfers Control; and she had good Sphincter Control, Self-Care, C ommunication, and Endurance.Currently, she has deficits of Locomotion, Balance, Safety Awareness, Tra nsfers Control, Sphincter Control, Self-Care, and Endurance.Pt. is now referred to [facility] for acute in-patient rehabilitation in order to maximize patient's functional indepen dence in activities of daily living, strength, ROM, and mobility.- Rehab Goal Patient has realistic goal of being discharged at assistance level 7-Ind to reside at Home with Fami ly/Relatives. MDM/PLAN: - Physical Therapy Decreased range of motion - to improve, our physical therapists will perform initial evaluation of p t's status upon admission and devise an individualized program for increasing patient's Range of Albert on. Gait dysfunction - to improve, our physical therapists will perform initial evaluation of pt's statu s upon admission and devise an individualized program for Gait Training, and Wheel Chair mobility Inability to transfer - to improve, our physical therapists will perform initial evaluation of pt's status upon admission and devise an individualized program for Bed mobility Need for home safety evaluation - to improve, our physical therapists will perform initial evaluatio n of pt's status upon admission and devise an individualized program for Home Evaluation Need in caregiver upon discharge - to improve, our physical therapists will perform initial evaluati on of pt's status upon admission and devise an individualized program for Caregiver Training New precaution - to improve, our physical therapists will perform initial evaluation of pt's status upon admission and devise an individualized program for Patient precaution education Poor balance - to improve, our physical therapists will perform initial evaluation of pt's status up on admission and devise an individualized program for Balance Training Poor endurance - to improve, our physical therapists will perform initial evaluation of pt's status upon admission and devise an individualized program for Endurance Training Weakness - to improve, our physical therapists will perform initial evaluation of pt's status upon a dmission and devise an individualized program for Aquatic Therapy, Neuromuscular Reeducation, and Str engthening Achieving independence - to improve, our physical therapists will perform initial evaluation of pt's status upon admission and devise an individualized program for Community Reintegration Activities - Occupational Therapy ADL deficits - to improve, our occupation therapists will perform initial evaluation of pt's status upon admission and devise an individualized program for Bathing, Bed mobility, Community Reintegratio n, Cooking, Dressing, Eating, Fine Motor Skills, Grooming, Homemaking, Kitchen Mobility, Laundry, Pat ient Education, Safety Awareness, Splinting - Positioning, Transfers(Toilet, Tub, Shower), and Wheel Chair Management Need for rn acute care - to improve, our occupation therapists will perform initial evaluation of pt's status upon admission and devise an individualized program for Caregiver Training Weakness - to improve, our occupation therapists will perform initial evaluation of pt's status upon admission and devise an individualized program for Aquatic Therapy, Balance, Endurance, UE ROM, and UE strengthening - Other See attached MAR (Medication Administration Record) - Anterior Hip Precaution No abduction No active extension No adduction across midline No external rotation No hip flexion >90 degrees No internal rotation - Diet - Liquid Texture Continue Regular - Tube Feed Continue N/A - Diet Type Continue Regular - Posterior Hip Precaution No adduction across midline No external rotation No hip flexion >90 degrees No internal rotation No wheel chair propulsion - Weight Bearing Precaution WBAT right LE - Skin care per protocol - Diet - Solid Texture Continue Regular - Shower allowing shower FUNCTIONAL STATUS: UPDATED AT WEEKLY TEAM CONFERENCE - Bladder Same accident frequency: 7-Ind - No accidents in the past 7 days - Bowel Same accident frequency: 7-Ind - No accidents in the past 7 days - Walking Same score based on distance walked: 0(N/A) Same score based on distance walked: 1(<=50ft) - Wheelchair Same score based on distance traveled: 0(N/A) FUNCTIONAL STATUS: - Self-Care A. Eating Ind B. Grooming Wong C. Bathing modA D. Dressing - Upper Wong E. Dressing - Lower modA F. Toileting Wong - Sphincter Control G. Bladder control Wong H. Bowel control Amelia - Transfers Control I. Bed/Chair/Wheelchair Wong J. Toilet Wong K. Tub/Shower modA - Locomotion L. Walk/Wheelchair (B) Wong M. Stairs ADNO - Communication N. Comprehension (B) Amelia O. Expression (B) Ind - Social Cognition P. Social Interaction Amelia Q. Problem Solving Amelia R. Memory Amelia - Endurance Good - Balance Fair - Safety Awareness Fair QI SCORES: - Self-Care A. Eating 03-Partial/moderate assistance B. Oral hygiene 03-Partial/moderate assistance C. Toileting hygiene 02-Substantial/maximal assistance E. Shower/bathe self 02-Substantial/maximal assistance F. Upper body dressing 02-Substantial/maximal assistance G. Lower body dressing 02-Substantial/maximal assistance H. Putting on/taking off footwear 88-Not attempted due to medical condition or safety concerns - Mobility A. Roll left and right 03-Partial/moderate assistance B. Sit to lying 03-Partial/moderate assistance C. Lying to sitting on side of bed 03-Partial/moderate assistance D. Sit to stand 03-Partial/moderate assistance E. Chair/fob-ds-rmhfu transfer 03-Partial/moderate assistance F. Toilet transfer 03-Partial/moderate assistance G. Car transfer 88-Not attempted due to medical condition or safety concerns I. Walk 10 feet 88-Not attempted due to medical condition or safety concerns J. Walk 50 feet with two turns 88-Not attempted due to medical condition or safety concerns K. Walk 150 feet 88-Not attempted due to medical condition or safety concerns L. Walking 10 feet on uneven surfaces 88-Not attempted due to medical condition or safety concerns M. 1 step (curb) 88-Not attempted due to medical condition or safety concerns N. 4 steps 88-Not attempted due to medical condition or safety concerns O. 12 steps 88-Not attempted due to medical condition or safety concerns P. Picking up object 88-Not attempted due to medical condition or safety concerns R. Wheel 50 feet with two turns 88-Not attempted due to medical condition or safety concerns S. Wheel 150 feet 88-Not attempted due to medical condition or safety concerns - Bladder and Bowel Bladder continence Bowel continence - Endurance Fair - Balance Fair - Safety Awareness Fair [facility] DEFICITS: Self-Care, Mobility, Endurance, Balance, and Safety Awareness SIGNATURE PANEL: (CDT)
[2020-12-31] MEDS: MELATONIN 3 MG TABLET PO SCH (19:29)
[2020-12-31] MEDS: ATORVASTATIN 10 MG TAB PO SCH (19:29)
[2021-01-01] MEDS: METOPROLOL TAR 25 MG TAB PO SCH ×2 (05:08→17:16)
--- NOTE | 2021-01-01 06:19 | PN ---
Date of Progress Note: 12/31/2020 Subjective: The patient was seen this morning for followup. No new complaints. Problems reported b y patient lying in bed, not in any distress. Objective: Vital Signs: Reviewed. HEENT: Examination unremarkable. Lungs: Clear to auscultation. Heart: Sounds normal. Abdomen: Soft, bowel sounds normal. No guarding, rigidity, tenderness, distention. Extremities: No leg edema. Laboratory Data: White count 6.3, hemoglobin 10.1, platelets 315, sodium 139, potassium 4.3, chlorid e 108, bicarb 27, BUN 23, creatinine 0.71, glucose 121. Impression: 1.Hip fracture. 2.Acute blood loss anemia. 3.Hypertension. Plan: We will continue current medication. Continue current anticoagulation therapy and physical th erapy under guidance of Dr. Gaxiola. We will see her tomorrow for followup. SAPNA/MODL Voice ID: [id number] Report ID: [id number]
[2021-01-01] MEDS: RIVAROXABAN 10 MG TABLET PO SCH (07:18)
[2021-01-01] MEDS: DOCUSATE NA 100 MG CAP PO SCH (07:18)
[2021-01-01] MEDS: GALANTAMINE 4 MG TAB PO SCH (07:18)
[2021-01-01] MEDS: JUVEN PACKET PO SCH ×2 (07:18→19:43)
[2021-01-01] MEDS: ENSURE HIGH PROTEIN 237 ML CAN PO SCH ×2 (07:18→19:43)
[2021-01-01] MEDS: LIDOCAINE 4% PATCH TOP SCH (07:18)
[2021-01-01] MEDS: LEVOTHYROXINE SOD 0.088 MG TAB PO SCH (07:19)
[2021-01-01] MEDS: AMLODIPINE 5 MG TAB PO SCH (07:19)
[2021-01-01] MEDS: ESCITALOPRAM 20 MG TAB PO SCH (07:19)
[2021-01-01] MEDS: ASPIRIN EC 81 MG TAB PO SCH (07:19)
[2021-01-01] MEDS: MAGNESIUM OXIDE 400 MG TAB PO SCH ×2 (07:20→19:43)
--- NOTE | 2021-01-01 10:03 | P.RH.PN ---
Estimated Length of Stay: 14 Expected Discharge Date: 01/06/21 Discharge Disposition Plan: Home Family Support: Yes Long-Term Goal: Mobility, Transfers, Self Care Vital Signs: Last Vital Signs Temp 97 F 01/01/21 07:24 Pulse 62 01/01/21 07:24 Resp 18 01/01/21 07:24 BP 138/64 01/01/21 07:24 Pulse Ox 96 01/01/21 07:24 Laboratory: Laboratory Last Values WBC 6.30 K/uL (4.3-10.9) 12/31/20 04:34 RBC 3.12 M/uL (3.86-4.86) L 12/31/20 04:34 Hgb 10.1 g/dL (12.0-15.0) L 12/31/20 04:34 Hct 29.3 % (36.0-45.0) L 12/31/20 04:34 MCV 94.1 fL (80-100) 12/31/20 04:34 MCH 32.5 pg (27.0-35.0) 12/31/20 04:34 MCHC 34.5 g/dL (32.0-36.0) 12/31/20 04:34 RDW 13.7 % (12.1-15.2) 12/31/20 04:34 Plt Count 315 K/uL (152-406) D 12/31/20 04:34 MPV 6.9 fL (7.6-11.3) L 12/31/20 04:34 Neutrophils % 55.0 % (41.7-73.7) 12/31/20 04:34 Lymphocytes % 32.9 % (15.3-44.8) 12/31/20 04:34 Monocytes % 8.4 % (3.3-12.3) 12/31/20 04:34 Eosinophils % 2.4 % (0-4.4) 12/31/20 04:34 Basophils % 1.3 % (0-1.3) 12/31/20 04:34 Absolute Neutrophils 3.5 K/uL (1.8-8.0) 12/31/20 04:34 Absolute Lymphocytes 2.1 K/uL (0.7-4.9) 12/31/20 04:34 Absolute Monocytes 0.5 K/uL (0.1-1.3) 12/31/20 04:34 Absolute Eosinophils 0.2 K/uL (0-0.5) 12/31/20 04:34 Absolute Basophils 0.1 K/uL (0-0.5) 12/31/20 04:34 Sodium 139 mmol/L (136-145) 12/31/20 04:34 Potassium 4.3 mmol/L (3.5-5.1) 12/31/20 04:34 Chloride 108 mmol/L (98-107) H 12/31/20 04:34 Carbon Dioxide 27 mmol/L (21-32) 12/31/20 04:34 BUN 23 mg/dL (7-18) H 12/31/20 04:34 Creatinine 0.71 mg/dL (0.55-1.3) 12/31/20 04:34 Estimated GFR 78 mL/min (=/>90) L 12/31/20 04:34 Glucose 121 mg/dL (74-106) H 12/31/20 04:34 Calcium 8.5 mg/dL (8.5-10.1) 12/31/20 04:34 Magnesium 2.4 mg/dL (1.8-2.4) 12/31/20 04:34 Albumin 2.6 g/dL (3.4-5.0) L 12/31/20 04:34 Prealbumin 12.2 mg/dL (20-40) L 12/31/20 04:34 Urine Color Dk yellow (Yellow) 12/24/20 19:17 Urine Appearance Clear (Clear) 12/24/20 19:17 Urine pH 6.5 (5.0-7.0) 12/24/20 19:17 Ur Specific [place] 1.015 (1.005-1.030) 12/24/20 19:17 Glucose (UA)(Auto) Negative (Negative) 12/24/20 19:17 Urine Ketones Negative (Negative) 12/24/20 19:17 Urine Blood Negative (Negative) 12/24/20 19:17 Urine Nitrite Negative (Negative) 12/24/20 19:17 Urine Bilirubin Negative (Negative) 12/24/20 19:17 Urine Urobilinogen 2.0 mg/dL (0.2-1.0) H 12/24/20 19:17 Ur Leukocyte Esterase Negative (Negative) 12/24/20 19:17 Urine RBC <5 /HPF (NONE SEEN) 12/24/20 19:17 Urine WBC 5-10 /HPF (<5) H 12/24/20 19:17 Ur Squamous Epith Cells 10-20 /HPF (NONE SEEN) H 12/24/20 19:17 Urine Bacteria 20-50 /HPF (<20) H 12/24/20 19:17 Urine Mucus 2+ /HPF (NONE SEEN) 12/24/20 19:17 Urine Culture Reflexed Not needed 12/24/20 19:17 Urine Total Protein Negative (Negative) 12/24/20 19:17 Weight: 166 lb 12.8 oz Wound Present: No Closed Surgical Incision Present: Yes Negative Pressure Wound Therapy Present: No Physician Update: She has mild difficulty with memory, but recalls her hip precautions fairly well. Her Hgb is mildly low at 10.1. She is on hemocyte plus and ferrous sulfate. Her labs suggests dehydration. Will encourage more water. Walking 500' with supervision. Pain is managed well. Summary: Patient's care plan and shelter goals have been reviewed and revised as necessary. Please see the Rehabilitation Signature page for all necessary signatures.
[2021-01-01] MEDS: ATORVASTATIN 10 MG TAB PO SCH (19:43)
[2021-01-01] MEDS: MELATONIN 3 MG TABLET PO SCH (19:44)
[2021-01-01] MEDS: DOCUSATE NA/SENNA CONC 1 TAB PO PRN (19:44)
[2021-01-01] MEDS: TRAMADOL HCL 50 MG TAB PO PRN (20:40)
[2021-01-02] MEDS: METOPROLOL TAR 25 MG TAB PO SCH ×2 (05:24→17:19)
[2021-01-02 05:35] VITALS: BMI 30.4
[2021-01-02] MEDS: LEVOTHYROXINE SOD 0.088 MG TAB PO SCH (06:46)
[2021-01-02] MEDS: AMLODIPINE 5 MG TAB PO SCH (08:00)
[2021-01-02] MEDS: GALANTAMINE 4 MG TAB PO SCH (08:09)
[2021-01-02] MEDS: LIDOCAINE 4% PATCH TOP SCH (08:09)
[2021-01-02] MEDS: FE SULF/FA/VIT B COMP & C TAB PO SCH (08:10)
[2021-01-02] MEDS: DOCUSATE NA 100 MG CAP PO SCH (08:10)
[2021-01-02] MEDS: RIVAROXABAN 10 MG TABLET PO SCH (08:11)
[2021-01-02] MEDS: ASPIRIN EC 81 MG TAB PO SCH (08:11)
[2021-01-02] MEDS: ESCITALOPRAM 20 MG TAB PO SCH (08:11)
[2021-01-02] MEDS: TRAMADOL HCL 50 MG TAB PO PRN ×2 (08:13→19:00)
[2021-01-02] MEDS: FERROUS SULFATE 325 MG TAB PO SCH (08:13)
[2021-01-02] MEDS: ENSURE HIGH PROTEIN 237 ML CAN PO SCH ×2 (08:56→19:01)
[2021-01-02] MEDS: MAGNESIUM OXIDE 400 MG TAB PO SCH ×2 (08:56→19:00)
[2021-01-02] MEDS: JUVEN PACKET PO SCH ×2 (08:56→19:01)
--- NOTE | 2021-01-02 13:01 | PN ---
Date of Progress Note: 01/01/2021 Subjective: The patient was seen for followup this morning. Denied any complaints, lying in bed, no t in any distress. Objective: Vital Signs: Reviewed. HEENT: Unremarkable. Lungs: Clear to auscultation. Heart: Sounds normal. Abdomen: Soft. Bowel sounds normal. No guarding, rigidity, tenderness, or distention. Extremities: No leg edema. Impression: 1.Right hip fracture. 2.Acute blood loss anemia. 3.Hypertension. Plan: We will go ahead and continue current medications. Continue current anticoagulation therapy a s well as antihypertensive medication. Pain medications will be continued per order and I will see h er tomorrow for followup. Physical therapy to be provided under guidance of Dr. Gaxiola. SAPNA/MODL Voice ID: [id number] Report ID: [id number]
--- NOTE | 2021-01-02 13:04 | PN ---
Date of Progress Note: 01/02/2021 Subjective: The patient was seen this morning for followup. No new complaints or problems reported by her, lying in bed, not in any distress. Objective: Vital Signs: Reviewed. HEENT: Unremarkable. Lungs: Clear to auscultation. Heart: Sounds normal. Abdomen: Soft. Bowel sounds normal. No guarding, rigidity, tenderness, or distention. Extremities: No leg edema. Impression: 1.Right hip fracture. 2.Acute blood loss anemia. 3.Hypertension. Plan: We will go ahead and continue current anticoagulation therapy. Continue current antihypertens carlos medication, pain medications. The patient will continue to receive physical therapy under jc ce of Dr. Gaxiola. She is scheduled to go home day after tomorrow. Last night, she was complaining having pain in her leg and that resulted in her restless leg problem and she did not sleep until 4 o 'clock in the morning. Normally, she takes clonazepam at home and we will make sure that she continu es to receive it while in the hospital. SAPNA/MODL Voice ID: [id number] Report ID: [id number]
[2021-01-02] MEDS: DOCUSATE NA/SENNA CONC 1 TAB PO PRN (18:59)
[2021-01-02] MEDS: ATORVASTATIN 10 MG TAB PO SCH (18:59)
[2021-01-02] MEDS: MELATONIN 3 MG TABLET PO SCH (19:00)
[2021-01-03] MEDS: METOPROLOL TAR 25 MG TAB PO SCH ×2 (05:36→16:39)
[2021-01-03] MEDS: LEVOTHYROXINE SOD 0.088 MG TAB PO SCH (06:48)
[2021-01-03] MEDS: LIDOCAINE 4% PATCH TOP SCH (08:05)
[2021-01-03] MEDS: AMLODIPINE 5 MG TAB PO SCH (08:14)
[2021-01-03] MEDS: DOCUSATE NA 100 MG CAP PO SCH (08:14)
[2021-01-03] MEDS: FERROUS SULFATE 325 MG TAB PO SCH (08:17)
[2021-01-03] MEDS: RIVAROXABAN 10 MG TABLET PO SCH (08:18)
[2021-01-03] MEDS: ASPIRIN EC 81 MG TAB PO SCH (08:18)
[2021-01-03] MEDS: GALANTAMINE 4 MG TAB PO SCH (08:18)
[2021-01-03] MEDS: ESCITALOPRAM 20 MG TAB PO SCH (08:18)
[2021-01-03] MEDS: ACETAMINOPHEN 500 MG TAB PO PRN (08:18)
[2021-01-03] MEDS: FE SULF/FA/VIT B COMP & C TAB PO SCH (08:19)
[2021-01-03] MEDS: MAGNESIUM OXIDE 400 MG TAB PO SCH ×2 (09:33→19:41)
[2021-01-03] MEDS: ENSURE HIGH PROTEIN 237 ML CAN PO SCH ×2 (09:34→19:42)
[2021-01-03] MEDS: JUVEN PACKET PO SCH ×2 (09:34→19:42)
[2021-01-03] MEDS: TRAMADOL HCL 50 MG TAB PO PRN ×2 (12:21→19:41)
--- NOTE | 2021-01-03 18:24 | PN ---
Date of Progress Note: 01/03/2021 Subjective: The patient was seen this morning for followup. No new complaints or problems reported by the patient. Lying in bed, not in distress. Objective: Vital Signs: Reviewed. HEENT: Unremarkable. Lungs: Clear to auscultation. Heart: Sounds normal. Abdomen: Soft. Bowel sounds normal. No guarding, rigidity, tenderness, or distention. Extremities: No leg edema. Impression: 1.Hip fracture. 2.Hypertension. 3.Hyperlipidemia. Plan: We will continue current medication. Continue current pain medication and Xarelto for DVT pro phylaxis. I will see her tomorrow for followup. The patient is scheduled to go home tomorrow. Medi khadijah, she is stable. I will see her in the morning and then we will plan for discharge tomorrow. SAPNA/MODL Voice ID: [id number] Report ID: [id number]
[2021-01-03] MEDS: ATORVASTATIN 10 MG TAB PO SCH (19:41)
[2021-01-03] MEDS: MELATONIN 3 MG TABLET PO SCH (19:41)
[2021-01-04] MEDS: METOPROLOL TAR 25 MG TAB PO SCH (05:11)
[2021-01-04] MEDS: LEVOTHYROXINE SOD 0.088 MG TAB PO SCH (06:24)
[2021-01-04 07:16] VITALS: BP 111/61; TEMP 96.9
[2021-01-04] MEDS: MAGNESIUM OXIDE 400 MG TAB PO SCH (07:55)
[2021-01-04] MEDS: JUVEN PACKET PO SCH (07:56)
[2021-01-04] MEDS: DOCUSATE NA 100 MG CAP PO SCH ×2 (07:56→08:00)
[2021-01-04] MEDS: FE SULF/FA/VIT B COMP & C TAB PO SCH (07:56)
[2021-01-04] MEDS: FERROUS SULFATE 325 MG TAB PO SCH (07:56)
[2021-01-04] MEDS: ENSURE HIGH PROTEIN 237 ML CAN PO SCH (07:56)
[2021-01-04] MEDS: ESCITALOPRAM 20 MG TAB PO SCH (07:56)
[2021-01-04] MEDS: GALANTAMINE 4 MG TAB PO SCH (07:57)
[2021-01-04] MEDS: RIVAROXABAN 10 MG TABLET PO SCH (07:57)
[2021-01-04] MEDS: ASPIRIN EC 81 MG TAB PO SCH (07:57)
[2021-01-04] MEDS: TRAMADOL HCL 50 MG TAB PO PRN (07:57)
[2021-01-04] MEDS: AMLODIPINE 5 MG TAB PO SCH (07:58)
[2021-01-04] MEDS: LIDOCAINE 4% PATCH TOP SCH (09:52)
--- NOTE | 2021-01-05 18:31 | DS ---
Date of Discharge: 01/04/2021 Disposition: Discharged to go home. Physical Examination: HEENT: Unremarkable. Lungs: Clear to auscultation. Heart: Sounds normal. Abdomen: Soft. Bowel sounds normal. No guarding, rigidity, tenderness, distention. Extremities: No leg edema. Laboratory Data: Last CBC from 12/31/2020; white count 6.3, hemoglobin 10.1, platelets 315. Sodium 139, potassium 4.3, chloride 108, bicarb 27, BUN 23, creatinine 0.71, glucose 121, magnesium 2.4. Al bumin level was 2.6. On 12/25/2020, albumin level was 2.2. Discharge Diagnoses: 1.Right femur subcapital fracture, displaced, status post surgery. 2.COVID-19 infection. 3.Thrombocytopenia. 4.Anemia due to acute blood loss. 5.Hypertension. 6.Mixed hyperlipidemia. 7.Osteoarthritis, multiple sites. 8.Restless leg syndrome. 9.Hypothyroidism. 10.Impaired fasting glucose. 11.Chronic obstructive pulmonary disease. Hospital Course: An 85-year-old very pleasant female patient, who was admitted to the hospital after she fell down and had right hip fracture. Please see dictated H and P for more information. After the patient had her surgery, she was brought in to rehab floor. She was medically stable on the reha b floor, did not have any other problems. She participated well with physical therapy. Her home med ications were continued. DVT prophylaxis was given per order and overall she has done very well. To day, she was discharged to go home in stable condition with following discharge medications and instr uctions: 1.Continue all prior home medications except lower dose of your aspirin 81 mg and the patient to matthias e 1 tablet by mouth daily for the next 2 weeks and then after 2 weeks increase dose to take 2 tablets by mouth daily. 2.Take Xarelto 10 mg, take 1 tablet by mouth daily for the next 2 weeks and take the Xarelto with ev ening meal. 3.Ferrocite 324 mg, take 1 tablet by mouth daily for 2 months. 4.Use tramadol 50 mg, take 1 tablet by mouth 4 times a day as needed for pain. 5.Follow up at my office next week on 01/11/2021 and call office for appointment. 6.Follow up with Dr. Shultz in 2 weeks. SAPNA/MODL Voice ID: [id number] Report ID: [id number]
--- NOTE | 2021-01-15 15:04 | R.DS ---
DISCHARGE SUMMARY FACILITY [facility] MR# [id number] NAME RUDOLPH HERNANDEZ ADDRESS [address] [address] [address] PHONE DATE OF 1935 AGE 85 SSN# [id number] GENDER Female MARITAL STATUS Single (Never ) ENCOUNTER PHYSICIAN Dr. Neftaly Gaxiola M.D. REFERRING DOCTOR REFERRING FACILITY [facility] DISCHARGE DIAGNOSIS: - Orthopaedic Disorders 08 - Unilateral Hip Fracture (08.11) Right Displaced Femoral Neck Fracture. DATE OF ADMISSION 12/24/2020 10:47 (CDT) MEDICATION ALLERGIES: No Known Drug Allergies (NKDA) ENVIRONMENTAL ALLERGIES: - Substance Allergies None Known - Other Allergies None Known DISCHARGE MEDICATIONS: Other- ContinueSee attached MAR (Medication Administration Record). NURSING: - Shower allowing shower - Skin care per protocol PRECAUTIONS: - Posterior Hip Precaution No adduction across midline No external rotation No hip flexion >90 degrees No internal rotation No wheel chair propulsion - Weight Bearing Precaution WBAT right LE ACTIVITIES OOB only with supervision THERAPIES: - Dietary and Nutrition Adequate Nutrition Nutritional Education Nutritional Supplements - Occupational Therapy Cognitive Retraining Visual Perceptual Training - Speech Therapy Cognitive Training Expressive Language Skills Memory Strategies Receptive Language Skills Speech Intelligibility Training HISTORY OF PRESENT ILLNESS: Pt. is a 85 yo Right-handed female.On 12/18/2020 she [address] to [facility] with bashir gnosis Right Displaced Femoral Neck Fracture.Her impairment category is Orthopaedic Disorders 08 - U nilateral Hip Fracture (08.11).Pre-morbidly, Pt. was independent/mod-I in Locomotion, Social Cognitio n, Safety Awareness, Balance, and Transfers Control; and she had good Sphincter Control, Self-Care, C ommunication, and Endurance.Currently, she has deficits of Locomotion, Balance, Safety Awareness, Tra nsfers Control, Sphincter Control, Self-Care, and Endurance.Pt. is now referred to [facility] for acute in-patient rehabilitation in order to maximize patient's functional indepen dence in activities of daily living, strength, ROM, and mobility.- Rehab Goal Patient has realistic goal of being discharged at assistance level 7-Ind to reside at Home with Fami ly/Relatives. ANTERIOR HIP PRECAUTION: On 12/24/2020 the following precautions were added for the patient: Anterior Hip Precaution - No abd uction, Anterior Hip Precaution - No active extension, Anterior Hip Precaution - No adduction acros s midline, Anterior Hip Precaution - No external rotation, Anterior Hip Precaution - No hip flexion >90 degrees, and Anterior Hip Precaution - No internal rotation. On 12/29/2020 the following precautions were removed for the patient: Anterior Hip Precaution - No a bduction, Anterior Hip Precaution - No active extension, Anterior Hip Precaution - No adduction acr oss midline, Anterior Hip Precaution - No external rotation, Anterior Hip Precaution - No hip flexi on >90 degrees, and Anterior Hip Precaution - No internal rotation. The following precautions were added for the patient: Anterior Hip Precaution - No abduction, Anterio r Hip Precaution - No active extension, Anterior Hip Precaution - No adduction across midline, Anteri or Hip Precaution - No external rotation, Anterior Hip Precaution - No hip flexion >90 degrees, and A nterior Hip Precaution - No internal rotation. On 12/30/2020 the following precautions were removed for the patient: Anterior Hip Precaution - No ab duction, Anterior Hip Precaution - No active extension, Anterior Hip Precaution - No adduction across midline, Anterior Hip Precaution - No external rotation, Anterior Hip Precaution - No hip flexion >9 0 degrees, and Anterior Hip Precaution - No internal rotation. The following precautions were added for the patient: Anterior Hip Precaution - No abduction, Anteri or Hip Precaution - No active extension, Anterior Hip Precaution - No adduction across midline, Ant erior Hip Precaution - No external rotation, Anterior Hip Precaution - No hip flexion >90 degrees, and Anterior Hip Precaution - No internal rotation. The following precautions were removed for the patient: Anterior Hip Precaution - No abduction, Ante rior Hip Precaution - No active extension, Anterior Hip Precaution - No adduction across midline, A nterior Hip Precaution - No external rotation, Anterior Hip Precaution - No hip flexion >90 degrees , and Anterior Hip Precaution - No internal rotation. On 12/22/2020 the following precautions were added for the patient: Posterior Hip Precaution - No whe el chair propulsion, Posterior Hip Precaution - No internal rotation, Posterior Hip Precaution - No a dduction across midline, Posterior Hip Precaution - No hip flexion >90 degrees, and Posterior Hip Pre caution - No external rotation. On 12/29/2020 the following precautions were added for the patient: Posterior Hip Precaution - No ad duction across midline, Posterior Hip Precaution - No external rotation, Posterior Hip Precaution - No hip flexion >90 degrees, Posterior Hip Precaution - No internal rotation, and Posterior Hip Prec aution - No wheel chair propulsion. The following precautions were removed for the patient: Posterior Hip Precaution - No adduction acros s midline, Posterior Hip Precaution - No external rotation, Posterior Hip Precaution - No hip flexion >90 degrees, Posterior Hip Precaution - No internal rotation, Posterior Hip Precaution - No wheel ch air propulsion, Posterior Hip Precaution - No adduction across midline, Posterior Hip Precaution - No external rotation, Posterior Hip Precaution - No hip flexion >90 degrees, Posterior Hip Precautio n - No internal rotation, and Posterior Hip Precaution - No wheel chair propulsion. On 12/22/2020 the following precautions were added for the patient: Weight Bearing Precaution - WBAT right LE. On 12/24/2020 the following precautions were added for the patient: Weight Bearing Precaution - WBAT right LE. On 12/29/2020 the following precautions were removed for the patient: Weight Bearing Precaution - WB AT right LE. On 12/30/2020 the following precautions were added for the patient: Weight Bearing Precaution - WBAT right LE. DIET - LIQUID TEXTURE: On 12/22/2020 Pt was upgraded to Regular Diet - Liquid Texture. DIET - SOLID TEXTURE: On 12/22/2020 Pt was upgraded to Regular Diet - Solid Texture. DIET TYPE: On 12/22/2020 Pt was upgraded to Regular Diet Type. POSTERIOR HIP PRECAUTION: TUBE FEED: On 12/22/2020 Pt was changed to N/A Tube Feed. WEIGHT BEARING PRECAUTION: DISCHARGE PHYSICAL EXAM - Gen Alert and awake Lying in bed No apparent distress Oriented to: person, time, and place - Skin No skin breakdown. Normacephalic - Eyes No abnormalities - ENMT No abnormalities - Neck No abnormalities - CVS RRR - Chest No abnormalities - Abd Soft - GI Non distended Deferred - No abnormalities - Ext Right hip surgical site has good hemostasis. - MSK 4+/5 weakness in right lower extremity - Neuro 4/5 strength right lower extremity. - Psych No abnormalities FUNCTIONAL STATUS: - Self-Care A. Eating 7-Ind B. Grooming 5-sup C. Bathing 5-sup D. Dressing - Upper 5-sup E. Dressing - Lower 5-sup F. Toileting 5-sup - Sphincter Control G. Bladder control 5-sup H. Bowel control 6-Amelia - Transfers Control I. Bed/Chair/Wheelchair 5-sup J. Toilet 5-sup K. Tub/Shower 5-sup - Locomotion L. Walk/Wheelchair (B) 6-Amelia M. Stairs 5-sup - Communication N. Comprehension (B) 6-Amelia O. Expression (B) 7-Ind - Social Cognition P. Social Interaction 6-Amelia Q. Problem Solving 6-Amelia R. Memory 6-Amelia - Endurance Good - Balance Good - Safety Awareness Good QI SCORES: - Self-Care A. Eating 03-Partial/moderate assistance B. Oral hygiene 03-Partial/moderate assistance C. Toileting hygiene 02-Substantial/maximal assistance E. Shower/bathe self 02-Substantial/maximal assistance F. Upper body dressing 02-Substantial/maximal assistance G. Lower body dressing 02-Substantial/maximal assistance H. Putting on/taking off footwear 88-Not attempted due to medical condition or safety concerns - Mobility A. Roll left and right 03-Partial/moderate assistance B. Sit to lying 03-Partial/moderate assistance C. Lying to sitting on side of bed 03-Partial/moderate assistance D. Sit to stand 03-Partial/moderate assistance E. Chair/new-gl-pqnyc transfer 03-Partial/moderate assistance F. Toilet transfer 03-Partial/moderate assistance G. Car transfer 88-Not attempted due to medical condition or safety concerns I. Walk 10 feet 88-Not attempted due to medical condition or safety concerns J. Walk 50 feet with two turns 88-Not attempted due to medical condition or safety concerns K. Walk 150 feet 88-Not attempted due to medical condition or safety concerns L. Walking 10 feet on uneven surfaces 88-Not attempted due to medical condition or safety concerns M. 1 step (curb) 88-Not attempted due to medical condition or safety concerns N. 4 steps 88-Not attempted due to medical condition or safety concerns O. 12 steps 88-Not attempted due to medical condition or safety concerns P. Picking up object 88-Not attempted due to medical condition or safety concerns R. Wheel 50 feet with two turns 88-Not attempted due to medical condition or safety concerns S. Wheel 150 feet 88-Not attempted due to medical condition or safety concerns - Bladder and Bowel Bladder continence Bowel continence - Endurance Fair - Balance Fair - Safety Awareness Fair DISCHARGE INSTRUCTIONS: - N/A Lovenox 40 mg sq daily, aspirin 81 mg daily. DISCHARGE PLAN, FOLLOW UP CARE PROVISIONS: - Estimated Length of Stay (days) 14. - Consensus on plan Discharge plan has been discussed with primary caregiver. Patient/Family is in agreement with the thanh n. Primary caregiver is in agreement with the plan. - Patient/Family Goals Return home independently. - Planned Living Setting Upon Discharge Home, to live with Family/Relatives. Transitional Living. SIGNATURE PANEL: (CDT)
== END 2021-01-04 10:55 | disposition home health service (06) | DRG 560 ==
LOC: 5TH 12-24 10:47
PROVIDERS: ADMIT Internal Medicine; ATTEND Internal Medicine
DX: S72.011D Unspecified intracapsular fracture of right femur, subsequent encounter for closed fracture with routine healing (principal); D62 Acute posthemorrhagic anemia; E46 Unspecified protein-calorie malnutrition; I10 Essential (primary) hypertension; K59.00 Constipation, unspecified; Z68.30 Body mass index [BMI] 30.0-30.9, adult; G25.81 Restless legs syndrome; E03.9 Hypothyroidism, unspecified; D69.6 Thrombocytopenia, unspecified; E78.2 Mixed hyperlipidemia; M19.90 Unspecified osteoarthritis, unspecified site; J44.9 Chronic obstructive pulmonary disease, unspecified; Z96.641 Presence of right artificial hip joint; Z86.16 Personal history of COVID-19; Z79.01 Long term (current) use of anticoagulants
CPT/HCPCS: 36415; 80048; 81001; 82040; 83735; 84134; 85025; 87086; 87088; 92523; 94010; 97110; 97116; 97127; 97163; 97530; 97542; J1650

== ENCOUNTER 2021-05-23 10:42 | Observation (INO) | payer OTHER, MEDICARE ==
[2021-05-23 11:45] LABS: Absolute Lymphocytes (CBC) 1.8 K/uL (0.7-4.9); Hematocrit 42.7 % (36.0-45.0); Lymphocytes % 22.8 % (15.3-44.8); MPV 7.7 fL (7.6-11.3)
[2021-05-23 11:46] LABS: Protime INR 1.07
[2021-05-23 12:02] LABS: Albumin 3.3 g/dL (3.4-5.0); Bilirubin Direct 0.1 mg/dL (0-0.2); Bilirubin Total 0.3 mg/dL (0.2-1.0); Magnesium 2.3 mg/dL (1.8-2.4); Potassium 3.9 mmol/L (3.5-5.1); Protein, Total 7.7 g/dL (6.4-8.2); Troponin High Sensitivity 6.8 pg/mL (<58.9)
--- NOTE | 2021-05-23 12:03 | RAD REPORT ---
EXAM DESCRIPTION: RAD - Chest Single View - 05/23/2021 11:45 am CLINICAL HISTORY: DYSPNEA COMPARISON: Portable 12/22/2020 TECHNIQUE: AP portable chest image was obtained 05/23/2021 11:45 am . FINDINGS: Chronic interstitial opacities are present similar to prior imaging. Pattern is similar to prior imaging. A minimal interstitial edema or infiltrate could be masked but there are no focal inf iltrates or suspicious mass lesions seen. Failure and volume overload are not suspected. Heart and vasculature are normal. No measurable pleural effusion and no pneumothorax. No acute bony abnormality seen. No acute aortic findings suspected. IMPRESSION: Chronic interstitial lung disease is evident. No acute findings suspected.
--- NOTE | 2021-05-23 12:07 | RAD REPORT ---
EXAM DESCRIPTION: CT - Head Brain Wo Cont - 05/23/2021 11:52 am CLINICAL HISTORY: HEADACHE, history of CVA COMPARISON: Head Brain Wo Cont dated 01/15/2018; Ct Stroke Brain Wo Cont dated 09/13/2017 TECHNIQUE: Axial 5 mm thick images of the head were obtained without IV contrast. All CT scans are performed using dose optimization technique as appropriate and may include automated exposure control or mA/KV adjustment according to patient size. FINDINGS: No intracranial hemorrhage, mass, edema or shift of mid-line structures. No acute cortical based infarction identified. No cortical edema or sulcal effacement. Diminished attenuation is prese nt in the deep periventricular white matter of the left frontal lobe. Pattern is not substantially di fferent from comparison. This is a site of prior CVA. Pattern is not substantially different from agueda or imaging. No abnormal extra-axial fluid collections. Atrophy and chronic ischemic changes are mild for age. Ventricles remain in proportion to volume loss. Mastoid air cells and visualized portions of the paranasal sinuses are clear. No acute bony findings. IMPRESSION: No intracranial hemorrhage, edema, mass or other acute intracranial finding. 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 Pattern is not clearly different from prior imaging.
--- NOTE | 2021-05-23 13:29 | ER ---
Nurse's Notes [facility] Name: Robby Schmid Age: 86 yrs Sex: Female : 1935 Arrival Date: 05/23/2021 Time: 10:45 Bed 5 Private MD: Diagnosis: Headache;Syncope Near Presentation: 05/23 11:02 Chief complaint: Patient's son or daughter states: heachaches 'that come and go' and vg1 last night after taking a shower was in the kitchen and she 'felt faint'. States pt 'did not fall' but 'has not been feeling well since last night'. 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 Coronavirus screen: Vaccine status: Patient reports being unvaccinated. Client denies travel out of the [place] in the last 14 days. Ebola Screen: Patient negative for fever greater than or equal to 101.5 degrees Fahrenheit, and additional compatible Ebola Virus Disease symptoms. Initial Sepsis Screen: Does the patient meet any 2 criteria? No. Patient's initial sepsis screen is negative. Does the patient have a suspected source of infection? No. Patient's initial sepsis screen is negative. Risk Assessment: Do you want to hurt yourself or someone else? Patient reports no desire to harm self or others. Onset of symptoms was May 22, 2021. 11:02 Method Of Arrival: Wheelchair vg1 11:02 Acuity: MANJINDER 3 vg1 Triage Assessment: 11:06 General: Appears uncomfortable, Behavior is calm, cooperative. Pain: Denies pain. vg1 Respiratory: Reports shortness of breath at rest on exertion Onset: The symptoms/episode began/occurred yesterday, the patient has mild shortness of breath. Historical: - Allergies: 11:06 No Known Allergies; vg1 - Home Meds: 11:06 Aspirin Oral [Active]; atorvastatin 40 mg Oral tab 1 tab once daily [Active]; vg1 clonazepam 1 mg Oral tab daily [Active]; levothyroxine 75 mcg tab 1 tab once daily [Active]; Mark 3-6-9 1,200 mg Oral cap daily [Active]; Zyrtec 10 mg Oral tab 1 tab once daily [Active]; cholecalciferol (vitamin D3) 5,000 unit Oral tab daily [Active]; CoQ-10 100 mg Oral cap daily [Active]; amlodipine oral [Active]; - PMHx: 11:06 CVA; High Cholesterol; Hypertension; Hypothyroidism; vg1 - PSHx: 11:06 Hysterectomy; Cholecystectomy; vg1 - Immunization history:: Client reports having NOT received the Covid vaccine. - Social history:: Smoking status: Patient denies any tobacco usage or history of. Screenin:39 Abuse screen: Denies threats or abuse. Denies injuries from another. Nutritional jl7 screening: No deficits noted. Tuberculosis screening: No symptoms or risk factors identified. Fall Risk IV access (20 points). Total Welch Fall Scale indicates No Risk (0-24 pts). Assessment: 11:39 General: Appears in no apparent distress. uncomfortable, Behavior is calm, cooperative, jl7 appropriate for age. Pain: Denies pain. Neuro: Level of Consciousness is awake, alert, obeys commands, Oriented to person, place, time, situation. Cardiovascular: Denies chest pain, Patient's skin is warm and dry. Rhythm is sinus rhythm. Respiratory: Airway is patent Respiratory effort is even, unlabored, Respiratory pattern is regular, symmetrical. Derm: Skin is pink, warm \T\ dry. 21:03 Reassessment: Patient is alert, oriented x 3, equal unlabored respirations, skin bb warm/dry/pink. pt resting quietly, IV site intact with no erythema or edema noted, family at bedside report called to Linda GALVEZ for room 204. Vital Signs: 11:02 BP 113 / 53; Pulse 59; Resp 16; Temp 97.7; Pulse Ox 99% ; Weight 72.57 kg; Height 5 ft. vg1 2 in. (157.48 cm); Pain 0/10; 11:39 BP 99 / 60; Pulse 72; Resp 15; Pulse Ox 100% ; jl7 12:56 BP 104 / 52; Pulse 72; Resp 17; Pulse Ox 100% ; jl7 21:03 BP 122 / 67; Pulse 75; Resp 20 S; Temp 98(O); Pulse Ox 96% on R/A; bb 11:02 Body Mass Index 29.26 (72.57 kg, 157.48 cm) vg1 ED Course: 10:45 Patient arrived in ED. mr 11:06 Triage completed. vg1 11:06 Arm band placed on. vg1 11:10 Patient placed in an exam room, on a stretcher. ll1 11:14 [facility]C [facility] kb 11:14 Hardeep Gavin MD is Attending Physician. kb 11:15 COVID swab sent to lab. vg1 11:17 Tiff Arreguin, RN is Primary Nurse. jl7 11:39 Patient has correct armband on for positive identification. Placed in gown. Bed in low jl7 position. Call light in reach. Side rails up X 1. residential monitor on. Pulse ox on. NIBP on. Warm blanket given. 11:39 Initial lab(s) drawn, by me, sent to lab. EKG done, by ED staff, reviewed by Hardeep Gavin MD. Inserted saline lock: 20 gauge in left antecubital area, using aseptic technique. Blood collected. 11:45 XRAY Chest (1 view) In Process Unspecified. EDMS 11:52 CT Head Brain wo Cont In Process Unspecified. EDMS 13:16 Basic Metabolic Panel Sent. kj1 13:28 Nathaniel Marie is Hospitalizing Provider. kb 21:05 No provider procedures requiring assistance completed. Patient admitted, IV remains in bb place. Administered Medications: No medications were administered Outcome: 13:29 Decision to Hospitalize by Provider. kb 21:05 Admitted to Tele accompanied by nurse, via wheelchair, room 204, with chart, Report bb called to Linda GALVEZ 21:05 Condition: stable 21:05 Instructed on the need for admit. 21:14 Patient left the ED. as6 Signatures: Dispatcher [employer] EDMS Karla Hwang FNP-C FNP-Rosario MeltonaAnnamarie mr GarridoAcacia, RN RN bb Tiff Arreguin, Mary Kate Hopkins RN kj1 Evelia Bal RN RN vg1 Teddy Eugene, LEONOR RN ll1 Gen Jean-Baptiste, LEONOR RN as6 Corrections: (The following items were deleted from the chart) 11:09 11:06 Home Meds: Plavix 75 mg Oral tab 1 tab once daily; vg1 vg1
--- NOTE | 2021-05-23 13:29 | EDPHYS ---
Physician Documentation [facility] Name: Robby Schmid Age: 86 yrs Sex: Female : 1935 Arrival Date: 05/23/2021 Time: 10:45 Bed 5 Private MD: Hardeep Ochoa HPI: 05/23 13:23 This 86 yrs old Female presents to ER via Wheelchair with complaints of Shortness Of kb Breath, Headache. 13:23 The patient has not experienced similar symptoms in the past. The patient has not kb recently seen a physician. 13:29 The patient has experienced near-syncope, felt faint. Onset: The symptoms/episode kb began/occurred yesterday. Duration: The patient has had multiple episodes. Context: the episode(s) was witnessed, by no one, occurred at home, occurred while the patient was walking, Just prior to the episode the patient experienced headache. Associated injury: The patient did not suffer any apparent associated injury. Associated signs and symptoms: Pertinent positives: headache, shortness of breath, felt faint. Current symptoms: headache. Pt reports headache that started a few days ago and has been intermittent. States she felt faint after getting out of the shower last night and today has some shortness of breath. States she symptoms were bad this morning so she couldn't make it through alevism.. Historical: - Allergies: 11:06 No Known Allergies; vg1 - Home Meds: 11:06 Aspirin Oral [Active]; atorvastatin 40 mg Oral tab 1 tab once daily [Active]; vg1 clonazepam 1 mg Oral tab daily [Active]; levothyroxine 75 mcg tab 1 tab once daily [Active]; [place] 3-6-9 1,200 mg Oral cap daily [Active]; Zyrtec 10 mg Oral tab 1 tab once daily [Active]; cholecalciferol (vitamin D3) 5,000 unit Oral tab daily [Active]; CoQ-10 100 mg Oral cap daily [Active]; amlodipine oral [Active]; - PMHx: 11:06 CVA; High Cholesterol; Hypertension; Hypothyroidism; vg1 - PSHx: 11:06 Hysterectomy; Cholecystectomy; vg1 - Immunization history:: Client reports having NOT received the Covid vaccine. - Social history:: Smoking status: Patient denies any tobacco usage or history of. ROS: 13:21 Constitutional: Negative for fever, chills, and weight loss. kb 13:21 Respiratory: Positive for shortness of breath, Negative for cough, dyspnea on exertion, hemoptysis, orthopnea, pleurisy, sputum production, wheezing. 13:21 Neuro: Positive for headache, near syncope. 13:21 All other systems are negative. Exam: 13:21 Constitutional: This is a well developed, well nourished patient who is awake, alert, kb and in no acute distress. Head/Face: Normocephalic, atraumatic. Eyes: Pupils equal round and reactive to light, extra-ocular motions intact. Lids and lashes normal. Conjunctiva and sclera are non-icteric and not injected. Cornea within normal limits. Periorbital areas with no swelling, redness, or edema. ENT: Moist Mucous membranes Cardiovascular: Regular rate and rhythm with a normal S1 and S2. No gallops, murmurs, or rubs. No pulse deficits. Respiratory: Respirations even and unlabored. No increased work of breathing. Talking in full sentences Abdomen/GI: Soft, non-tender. No distention Skin: Warm, dry with normal turgor. Normal color. MS/ Extremity: Pulses equal, no cyanosis. Neurovascular intact. Full, normal range of motion. Neuro: Awake and alert, GCS 15, oriented to person, place, time, and situation. Moves all extremities. Normal gait. Psych: Awake, alert, with orientation to person, place and time. Behavior, mood, and affect are within normal limits. Vital Signs: 11:02 BP 113 / 53; Pulse 59; Resp 16; Temp 97.7; Pulse Ox 99% ; Weight 72.57 kg; Height 5 ft. vg1 2 in. (157.48 cm); Pain 0/10; 11:39 BP 99 / 60; Pulse 72; Resp 15; Pulse Ox 100% ; jl7 12:56 BP 104 / 52; Pulse 72; Resp 17; Pulse Ox 100% ; jl7 21:03 BP 122 / 67; Pulse 75; Resp 20 S; Temp 98(O); Pulse Ox 96% on R/A; bb 11:02 Body Mass Index 29.26 (72.57 kg, 157.48 cm) vg1 MDM: 11:14 Patient medically screened. kb 13:21 Data reviewed: vital signs, nurses notes. Data interpreted: Pulse oximetry: on room air kb is 100 %. Interpretation: normal. 13:23 Counseling: I had a detailed discussion with the patient and/or guardian regarding: the kb historical points, exam findings, and any diagnostic results supporting the discharge/admit diagnosis, lab results, radiology results, the need for further work-up and treatment in the hospital. Physician consultation: Nathaniel Marie was contacted at 13:23, regarding admission, to the telemetry unit. patient's condition, and will see patient in ED. 05/23 11:17 Order name: Glucose, Ancillary Testing; Complete Time: 11:22 EDMS 05/23 11:22 Order name: Basic Metabolic Panel kb 05/23 11:22 Order name: CBC with Diff; Complete Time: 11:48 kb 05/23 11:22 Order name: LFT's; Complete Time: 12:13 kb 05/23 11:22 Order name: Magnesium; Complete Time: 12:13 kb 05/23 11:22 Order name: NT PRO-BNP; Complete Time: 12:13 kb 05/23 11:22 Order name: PT-INR; Complete Time: 11:48 kb 05/23 11:22 Order name: Troponin HS; Complete Time: 12:13 kb 05/23 11:22 Order name: XRAY Chest (1 view); Complete Time: 12:13 kb 05/23 11:22 Order name: CT Head Brain wo Cont; Complete Time: 12:13 kb 05/23 11:22 Order name: Basic Metabolic Panel; Complete Time: 12:13 EDMS 05/23 11:39 Order name: SARS-COV-2 RT PCR; Complete Time: 12:24 EDMS 05/23 11:51 Order name: Glucose, Ancillary Testing; Complete Time: 11:59 EDMS 05/23 11:22 Order name: EKG; Complete Time: 11:22 kb 05/23 11:22 Order name: Cardiac monitoring; Complete Time: 11:24 kb 05/23 11:22 Order name: EKG - Nurse/Tech; Complete Time: 11:24 kb 05/23 11:22 Order name: IV Saline Lock; Complete Time: 11:38 kb 05/23 11:22 Order name: Labs collected and sent; Complete Time: 11:38 kb 05/23 11:22 Order name: O2 Per Protocol; Complete Time: :38 kb 05/23 11:22 Order name: O2 Sat Monitoring; Complete Time: 11:38 kb 05/23 13:39 Order name: Diet Regular; Complete Time: 13:39 eb Administered Medications: No medications were administered Disposition: 05/24 10:36 Co-signature as Attending Physician, Hardeep Gavin MD I agree with the assessment and hay plan of care. Disposition Summary: 05/23/21 13:29 Hospitalization Ordered Hospitalization Status: Observation kb Provider: Nathaniel Marie Location: Telemetry/MedSurg (observation) kb Condition: Stable kb Problem: new kb Symptoms: are unchanged kb Bed/Room Type: Standard Room Assignment: 204(05/23/21 20:12) mw Diagnosis - Headache kb - Syncope Near kb Forms: - Medication Reconciliation Form kb - SBAR form kb Signatures: Dispatcher [employer] Karla Alberto FNP-C FNP-Ckb Webb, Martha, RN RN mw Anderson, Corey, MD MD cha Garcia, Victoria, RN RN vg1 Corrections: (The following items were deleted from the chart) 05/23 11:09 11:06 Home Meds: Plavix 75 mg Oral tab 1 tab once daily; vg1 vg1 11:39 11:11 COVID 19 CPL+MR.LAB.BRZ ordered. EDAK EDMS 20:12 13:29 kb mw
--- NOTE | 2021-05-23 16:00 | P.HP ---
Certification for Inpatient Patient admitted to: Observation With expected LOS: <2 Midnights Practitioner: I am a practitioner with admitting privileges, knowledge of patient current condition, hospital course, and medical plan of care. Services: Services provided to patient in accordance with Admission requirements found in Title 42 Section 412.3 of the Code of Federal Regulations Patient History Date of Service: 05/23/21 Reason for admission: Headache, near syncope History of Present Illness: 86-year-old woman with a prior history of CVA, hypertension and hypothyroidism presented to the emergency department with a complaint of intractable headache. Patient stated she almost passed out in the shower today prompting the ED visit. She denied any visual changes. She denied any limb weakness. She reported diffuse headache, intensity described as a severe. She denied any chest pain. Head CT done in the ED shows no acute changes, CBC and blood chemistry unremarkable, her blood pressure was on the soft side with systolic in the low 100s. EKG demonstrated sinus arrhythmia. Initial troponin negative. ED provider is concerned about possible CVA causing intractable headache. Patient is placed on observation for further evaluation and management. Allergies No Known Allergies Allergy (Verified 12/24/20 11:49) Home Medications: clonazePAM [Clonazepam] 1 mg PO DAILY 09/13/17 Amlodipine [Norvasc] 5 mg PO DAILY 12/19/20 Aspirin [Adult Low Dose Aspirin EC] 162 mg PO DAILY 12/19/20 Atorvastatin Calcium [Lipitor] 10 mg PO BEDTIME 12/19/20 Cetirizine HCl [Zyrtec] 10 mg PO DAILY 12/19/20 Cholecalciferol (Vitamin D3) [Vitamin D3] 25 mcg PO DAILY 12/19/20 Escitalopram Oxalate 10 mg PO DAILY 12/19/20 Fish Oil/Borage/Flax/Om3,6,9 1 [[place] 3-6-9 Softgel] 400 mg PO DAILY 12/19/20 Galantamine HBr [Galantamine ER] 8 mg PO DAILY 12/19/20 Levothyroxine Sodium [Levothyroxine] 88 mcg PO DAILY 12/19/20 Metoprolol Tartrate [Lopressor] 25 mg PO BID 12/19/20 Olmesartan Medoxomil 40 mg PO DAILY 12/19/20 Ubidecarenone/Vit E Acet [Co Q-10 100 mg Softgel] 1 each PO DAILY 12/19/20 - Past Medical/Surgical History Diabetic: No -: Recurring bronchitis -: Hypertension -: Hypothyroidisim -: [place], 1967 -: Hysterectomy, 1971 -: Broken bone in R. foot, 1984 - Family History Father -: Hypertension, Diabetes Mother -: Hypertension, Cancer - Social History Alcohol use: No CD- Drugs: No Caffeine use: Yes Review of Systems Other: She denied any fever, denied photophobia, no vomiting. She endorses nausea this morning. Except as documented, all other systems reviewed and negative. Physical Examination - Physical Exam General: Alert, In no apparent distress, Oriented x3 HEENT: PERRLA, Mucous membr. moist/pink, EOMI, Sclerae nonicteric Neck: Supple, JVD not distended Respiratory: Clear to auscultation bilaterally, Normal air movement Cardiovascular: No edema, Regular rate/rhythm, Normal S1 S2 Capillary refill: <2 Seconds Gastrointestinal: Normal bowel sounds, Soft and benign, Non-distended, No tenderness Musculoskeletal: No swelling, No tenderness Integumentary: No rashes, No erythema, No cyanosis Neurological: Normal speech, Normal strength at 5/5 x4 extr, Cranial nerves 3-12 intact Lymphatics: No axilla or inguinal lymphadenopathy - Studies Laboratory Data (last 24 hrs) 05/23/21 11:36: PT 12.3, INR 1.07 05/23/21 11:36: WBC 7.70, Hgb 14.3, Hct 42.7, Plt Count 232 05/23/21 11:36: Sodium 135 L, Potassium 3.9, BUN 23 H, Creatinine 0.95, Glucose 173 H, Magnesium 2.3, Total Bilirubin 0.3, AST 26, ALT 45, Alkaline Phosphatase 115 Assessment and Plan - Problems (Diagnosis) (1) Intractable headache Current Visit: Yes Status: Acute (2) Near syncope Current Visit: Yes Status: Acute (3) Hypertension Current Visit: Yes Status: Acute (4) Hypothyroidism Current Visit: Yes Status: Acute - Plan Place under observation on the medical floor. Patient symptoms could be related to migraine headaches. She is currently normotensive. We will hydrate with IV normal saline. Fioricet and [place] as needed for pain. Obtain MRI of the brain to rule out acute CVA. PT to evaluate. Supportive measures Reconcile and continue home medications. - Advance Directives Does patient have a Living Will: No Does patient have a Durable POA for Healthcare: No
[2021-05-23] MEDS ORDERED: ACETAMIN/CAFFEINE/BUTALB TAB PO PRN (16:27)
[2021-05-23] MEDS ORDERED: ONDANSETRON 4 MG/2 ML VIAL IV PRN (16:27)
[2021-05-23] MEDS ORDERED: HYDROCODONE/APAP 5/325 MG TAB PO PRN (16:27)
[2021-05-23] MEDS ORDERED: ACETAMINOPHEN 500 MG TAB PO PRN (16:27)
[2021-05-23] MEDS ORDERED: ATORVASTATIN 10 MG TAB PO SCH (21:00)
[2021-05-23 21:47] VITALS: O2SAT 97
[2021-05-23] MEDS ORDERED: clonazePAM 1 MG TAB PO SCH (22:45)
[2021-05-23] MEDS: NA CHLORIDE 0.9% 1,000 ML IV SCH (22:54)
[2021-05-23] MEDS: AMLODIPINE 5 MG TAB PO SCH (23:14)
[2021-05-23 23:17] VITALS: BMI 28.1
[2021-05-24] MEDS: NA CHLORIDE 0.9% 1,000 ML IV SCH (04:49)
[2021-05-24 06:07] LABS: Absolute Lymphocytes (CBC) 2.7 K/uL (0.7-4.9); Hematocrit 39.5 % (36.0-45.0); Lymphocytes % 42.4 % (15.3-44.8); MPV 7.4 fL (7.6-11.3); RBC Red Blood Cell Count 4.38 M/uL (3.86-4.86)
[2021-05-24 07:50] LABS: Phosphorus 3.2 mg/dL (2.5-4.9); Potassium 3.9 mmol/L (3.5-5.1); Thyroid Stimulating Hormone 1.09 uIU/mL (0.360-3.740)
[2021-05-24] MEDS ORDERED: LEVOTHYROXINE SOD 0.088 MG TAB PO SCH (08:00)
[2021-05-24] MEDS ORDERED: ASPIRIN EC 81 MG TAB PO SCH (09:00)
[2021-05-24] MEDS ORDERED: ESCITALOPRAM 20 MG TAB PO SCH (09:00)
[2021-05-24] MEDS: AMLODIPINE 5 MG TAB PO SCH (09:00)
[2021-05-24] MEDS ORDERED: GALANTAMINE 4 MG TAB PO SCH (09:00)
[2021-05-24] MEDS ORDERED: VALSARTAN 80 MG TAB PO SCH (09:00)
[2021-05-24] MEDS ORDERED: HOME MED 1 EA UNK (Galantamine Hbr [Galantamine Er] 8 MG Cap24h.Pel) PO SCH (09:00)
[2021-05-24] MEDS ORDERED: HOME MED 1 EA UNK (Olmesartan Medoxomil [Olmesartan Medoxomil] 40 MG Tablet) PO SCH (09:00)
[2021-05-24] MEDS ORDERED: ENOXAPARIN 40 MG/0.4 ML SQ SCH (09:00)
[2021-05-24 12:18] VITALS: BP 122/60; TEMP 97.1
--- NOTE | 2021-05-24 12:25 | RAD REPORT ---
EXAM DESCRIPTION: MRI - Brain Wo Cont - 05/24/2021 10:39 am CLINICAL HISTORY: Intractable headache r/o CVA Headache, drowsiness, CVA COMPARISON: Head Brain Wo Cont dated 05/23/2021 TECHNIQUE: Multi-sequence, multiplanar MR imaging of the brain was performed without contrast. FINDINGS: No intracranial hemorrhage, hydrocephalus or extra-axial fluid collections. Mild generaliz ed brain atrophy is present mild periventricular and deep white matter chronic microvascular ischemia . An area of gliosis is seen left frontal lobe adjacent to the left lateral ventricle anteriorly comp atible with remote infarct. No acute CVA is suspected. Midline structures are normally formed. Mastoid air cells and paranasal sinuses are clear. IMPRESSION: Negative for acute CVA or other acute intracranial abnormality. Old left frontal periventricular infarct pattern.
[2021-05-24 16:41] LABS: Magnesium 1.9
--- NOTE | 2021-05-25 06:13 | DS ---
Date of Discharge: 05/24/2021 Disposition: Discharged to go home. Physical Examination: HEENT: Unremarkable. Lungs: Clear to auscultation. Heart: Sounds normal. Abdomen: Soft. Bowel sounds normal. No guarding, rigidity, tenderness, or distention. Extremities: No leg edema. 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 Laboratory Data: On 05/23/2021, white count 7.7, hemoglobin 14.3, platelets 232. Today, white count 6.4, hemoglobin 13.6, platelets 214. Upon admission, Chemistry: Sodium 135, potassium 3.9, chlorid e 102, bicarb 27, BUN 23, creatinine 0.95, glucose 173. Liver function tests unremarkable. Hospital Course: This is an 86-year-old very pleasant female patient who has a prior history of stro ke, and since that time, she has occasional headache. The patient came into emergency room because o f worsening of her headache. No fall. No head injury. No nausea or vomiting. No fever or chills. No visual complaints. No tingling, numbness, or weakness of extremities. After she came into emerg ency room, she was evaluated and admitted to the hospital. Her CAT scan of the head was negative for any acute intracranial changes, and today she had an MRI of the brain done which showed evidence of prior stroke, but no evidence of any acute intracranial findings. The patient's headache symptoms antoine ve improved since admission, and after an MRI result was available, she was discharged to go home in stable condition. I have instructed her to follow up with her neurologist Dr. Durham. Discharge Medications And Instructions: 1.Continue all prior home medications. 2.Follow up at my office next week and call office for appointment. 3.Follow up with Dr. Durham in 2 weeks. Final Diagnoses: 1.Headache. 2.Hypertension. 3.Mixed hyperlipidemia. 4.Hypothyroidism. 5.Impaired fasting glucose. 6.Osteoarthritis. 7.Chronic obstructive pulmonary disease. SAPNA/MODL Voice ID: [id number] Report ID: [id number]
== END 2021-05-24 13:48 | disposition home or self-care (01) ==
LOC: ER 10:42 → ERHOLD 15:16 → 2ND 20:44
PROVIDERS: ADMIT Internal Medicine; ATTEND Internal Medicine
DX: R51.9 Headache, unspecified (principal); I10 Essential (primary) hypertension; E03.9 Hypothyroidism, unspecified; E78.2 Mixed hyperlipidemia; R55 Syncope and collapse; R73.01 Impaired fasting glucose; J44.9 Chronic obstructive pulmonary disease, unspecified; M19.90 Unspecified osteoarthritis, unspecified site; Z86.73 Personal history of transient ischemic attack (TIA), and cerebral infarction without residual deficits; Z79.82 Long term (current) use of aspirin; Z79.899 Other long term (current) drug therapy; Z90.49 Acquired absence of other specified parts of digestive tract; Z20.822 Contact with and (suspected) exposure to COVID-19; Z90.710 Acquired absence of both cervix and uterus; Z82.49 Family history of ischemic heart disease and other diseases of the circulatory system; Z83.3 Family history of diabetes mellitus; Z80.9 Family history of malignant neoplasm, unspecified
CPT/HCPCS: 93005; 85025 ×2; 80048 ×2; 36415; 83735 ×2; 84100; 85610; 82947 ×2; 80076; 84443; 84484; 83880; 70450; 71045; 70551; 97116; 97161; 97530; U0003; J1650; J7030; G0378

== ENCOUNTER 2022-08-22 17:04 | Inpatient (IN) | payer OTHER, MEDICARE ==
--- OUTSIDE RECORDS SUMMARY | 2022-08-22 17:08 | XMS REPORT | Continuity of Care Document ---
:1935 Author Organization [facility] t Address [address] [place] [address] [place] [id number] Care Team Providers Name Role Phone Davion Florian Attending Clinician Unavailable Josue Durham Attending Clinician Payers Payer Name Policy Type Policy Number Effective Date Expiration Date S cristopher [facility] MEDICARE [id number] 2021 2021 COMPLETE 00:00:00 00:00:00 Problems Condition Condition Condition Status Onset Resolution Last Treating Co mments Source Name Details Category Date Date Treatment Clinician Date Amnesia Amnesia Problem Active 2022-05-14 Me moria (finding) (finding) 13:46:03 l Active Harsh Problem 05/14/2022 [facility] Cerebrovas Problem Active 2022-05-14 M emoria cular Cerebrovas 13:46:03 l accident cular [place] (disorder) accident (disorder) Active Problem 05/14/2022 [facility] Confusiona Confusion Problem Active 2022-05-14 Memoria l state al state 13:46:03 l (disorder) (disorder) He rmann Active Problem 05/14/2022 [facility] Dementia Dementia Problem Active 2022-05-14 Memoria (disorder) (disorder) 13:46:03 l Active [place] Problem 05/14/2022 [facility] Headache Headache Problem Active 2022-05-14 Memoria (finding) (finding) 13:46:03 l Active Harsh Problem 05/14/[address] [facility] Hyperlipid Hyperlipi Problem Active 2022-05-14 Memoria emia demia 13:46:03 l (disorder) (disorder) He ann Active Problem 05/14/[address] [facility] Hypertensi Hypertens Problem Active 2022-05-14 Memoria ve carlos 13:46:03 l disorder, disorder, [facility] systemic systemic arterial arterial (disorder) (disorder) Active Problem 05/14/[address] [facility] Hypothyroi Hypothyro Problem Active 2022-05-14 Memoria dism idism 13:46:03 l (disorder) (disorder) He ann Active Problem 05/14/[address] [facility] Incontinen Incontine Problem Active 2022-05-14 Memoria ce nce 13:46:03 l (finding) (finding) Herm rebel Active Problem 05/14/2022 [facility] [place] Labile Labile Problem Active 2022-05-14 Mem oria affect affect 13:46:03 l (finding) (finding) Herm rebel Active Problem 05/14/2022 [facility] F03.90 - F03.90 - Diagnosis Active 2021-06-24 Memoria UNSPECIFIE UNSPECIFIE 07:47:00 l D DEMENTIA D DEMENTIA He rmann WITHOUT B WITHOUT B Active [facility] [place] Male Stress Problem Common urinary incontinen Spiri t stress ce, male - [facility] incontinen [facility] SI - Stress Problem Common Stress incontinen Spirit incontinen ce - [facility]I ce [facility] [id number] Acute Problem Common cystitis Spirit with - [facility] positive [facility] [id number] Detrusor Problem Comm on instabilit Spirit y - CHI [facility] [id number] Dysfunctio Problem Co mmon nal Spirit voiding of - [facility]I urine [facility] [id number] Lower Problem Common urinary Spirit tract - CHI symptoms [facility] [id number] Urinary Problem Commo n incontinen Spirit ce without - CHI sensory [facility] awareness [facility] [id number] Status Problem Common post hip Spirit hemiarthro - CHI plasty [facility] Allergies, Adverse Reactions, Alerts Allergy Allergy Status Severity Reaction(s) Onset Inactive Treating Comm ents Source Name Type Date Date Clinician No Known No Known Active Memori a Medicati Medicati l on on Harsh Allergie Allergie s s Social History Social Habit Start Date Stop Date Quantity Comments Source History of Tobacco Use Co mmon [facility] Sex Assigned At Com mon [facility] Smoking Status Start Date Stop Date Source Tobacco smoking status [facility] Medications Ordered Filled Start Stop Current Ordering Indication Dosage Frequency Signature Comments Components Source Medication Medication Date Date Medication? Clinician (SIG) Name Name Symbicort Yes INHALE 2 Tim stacie 80/4.5 1-18 PUFFS BY l inhalation 19:26: MOUTH Jam n aerosol 00 TWICE with DAILY IN adapter THE MORNING AND IN THE EVENING alfuzosin 2021-04 Yes TAKE 1 Memori a 10 mg oral 2-07 TABLET BY l tablet, 17:32: MOUTH [place] extended 00 IMMEDIATEL release Y AFTER SAME MEAL EACH DAY FOR 30 DAYS benzonatate 2021-04 Yes PO, TID, 0 Memoria 2-07 Refill(s) l 17:32: Harsh 00 [place]-3 2021-04 Yes 1,000 mg = Tim stacie 1000 mg 2-07 1 cap, PO, l oral 17:32: Daily, 0 [place] capsule 00 Refill(s) CoQ10 2021-04 Yes PO, Daily, Memori a 2-07 0 l 17:32: Refill(s) [place] 00 Vitamin D3 2021-04 Yes 0 Memoria 2-07 Refill(s) l 17:32: [place] 00 fluticasone 2021-04 Yes 1 spray, Me moria nasal 0.05 2-07 NASAL, l mg/inh 17:31: BID, # 16 Jam n spray 00 gm, 0 Refill(s) Albuterol 2021-04 Yes 2 puff, Memor ia (Eqv-ProAir 2-07 INHALATION l HFA) 90 17:31: , Q6H, 0 Jam n mcg/inh 00 Refill(s) inhalation aerosol Alfuzosin Alfuzosin 2021-04- No 1{table QD Alfuzosin HCl ER 10 HCl ER 10 05-16 t_immed HCl ER 10 MG MG 00:00: 00:00 iately_ MG 00 :00 after_t he_same _meal} Topamax 25 No 25 mg = 1 Me moria mg oral 3-28 tab, PO, l tablet 19:32: Bedtime, # Rosalinda nn 00 90 tab, 1 Refill(s), Pharmacy: [facility], 152.4, cm, 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, Height, 70.918, kg, 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, Weight ubrogepant Yes 50 mg = 1 Me moria 50 MG Oral 3-08 tab, PO, l Tablet 19:25: PRN, PRN Harsh 00 Headache, # 8 tab, 1 Refill(s), [facility]: [facility], 152.4, cm, 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, Height, 70.918, kg, 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, Weight 24 HR Yes 8 mg = 1 Memoria galantamine 7-01 cap, PO, l hydrobromid 18:34: QAM, # 30 H ermann e 8 MG 00 cap, 4 Extended Refill(s), Release Pharmacy: [id number], 154.94, cm, 10/23/19 13:28:00 CDT, Height, 72.727, kg, 10/23/19 13:28:00 CDT, Weight Metoprolol 2019-0 Yes 0 Memoria Tartrate 25 10-22 Refill(s) l mg oral 18:33: [place] tablet 00 escitalopra 2019-0 Yes 0 Memori a m 10 mg 7- Refill(s) l oral tablet 18:33: Jam n 00 olmesartan 2019-0 Yes See Memoria 40 mg oral 7- Instructio l tablet 18:33: ns, 1/2 po Rosalinda nn 00 qd, 0 Refill(s) levothyroxi 2020-0 Yes 0 Memori a ne 88 mcg 10-22 Refill(s) l (0.088 mg) 18:33: Harsh oral tablet 00 Memantine Yes 5 mg = 1 Tim stacie hydrochlori 1-17 tab, PO, l de 5 MG 20:50: BID, # 60 Rosalinda nn Oral Tablet 00 tab, 3 [Namenda] Refill(s), Pharmacy: [id number] olmesartan Yes 20 mg = 1 Me moria 20 mg oral 1-17 tab, PO, l tablet 20:30: Daily, 0 [place] 00 Refill(s) escitalopra Yes 20 mg = 1 M emoria m 20 mg 1-17 tab, PO, l oral tablet 20:30: Daily, 0 He rmann 00 Refill(s) Norvasc 5 Yes 5 mg = 1 Tim stacie mg oral 4-12 tab, PO, l tablet 19:06: Daily, # [place] 00 30 tab, 1 Refill(s) Zyrtec 2017-04 Yes 10 mg, PO, Memor ia 2-20 Daily, 0 l 19:48: Refill(s) [place] 00 Clonazepam 2017-04 Yes 1 mg, PO, Me moria 2-20 Bedtime, 0 l 19:48: Refill(s) [place] 00 clonazePAM 2017-04 Yes 1 mg, PO, Me moria 2-20 Bedtime, 0 l 19:48: Refill(s) Harsh 00 ZyrTEC 2017-04 Yes 10 mg, PO, Memor ia 2-20 Daily, 0 l 19:48: Refill(s) [place] 00 Aspirin 81 2017-04 Yes 162 mg = 2 M emoria MG Enteric 0-18 tab, PO, l Coated 20:22: Daily, # Harsh Tablet 00 60 tab, 3 Refill(s), Pharmacy: [id number] aspirin 81 2017-04 Yes 162 mg = 2 M emoria mg tablet, 0-18 tab, PO, l enteric 20:22: Daily, # Jam n coated 00 60 tab, 3 Refill(s), Pharmacy: [facility] atorvastati Yes See Memori a n 80 mg 6-19 Instructio l oral tablet 20:28: ns, 10mg 1 Harsh 00 tab PO Bedtime, 0 Refill(s) clonazePAM clonazePAM No clonazePAM 1 MG 1 MG 1 MG Levothyroxi Levothyroxi No QD Levothyrox ne Sodium ne Sodium ine Sodium 88 MCG 88 MCG 88 MCG Co Q 10 Co Q 10 No Co Q 10 Escitalopra Escitalopra No 1{table QD Escitalopr m Oxalate m Oxalate t} am Oxalate 10 MG 10 MG 10 MG Flonase Flonase No Flonase ZyrTEC ZyrTEC No ZyrTEC Allergy Allergy Allergy Triple Triple No Triple [place]-3-6-9 [place]-3-6-9 [place]-3-6- 9 atorvastati atorvastati No atorvastat n n in Vitamin D3 Vitamin D3 No Vitamin D3 Aspirin 81 Aspirin 81 No Aspirin 81 Galantamine Galantamine No 1{table BID Galantamin Hydrobromid Hydrobromid t_with_ e e 8 MG e 8 MG meals} Hydrobromi de 8 MG Olmesartan Olmesartan No Olmesartan Medoxomil Medoxomil Medoxomil amLODIPine amLODIPine No 1{table QD amLODIPine Besylate 5 Besylate 5 t} Besylate 5 MG MG MG Flonase Flonase No Flonase Atorvastati Atorvastati No 1{table QD Atorvastat n Calcium n Calcium t} in Calcium 10 MG 10 MG 10 MG amLODIPine amLODIPine No 1{table QD amLODIPine Besylate 5 Besylate 5 t} Besylate 5 MG MG MG atorvastati atorvastati No atorvastat n n in Aspirin 81 Aspirin 81 No Aspirin 81 Vitamin D3 Vitamin D3 No 1{table QD Vitamin D3 25 MCG 25 MCG t} 25 MCG (1000 UT) (1000 UT) (1000 UT) Olmesartan Olmesartan No 1{table QD Olmesartan Medoxomil Medoxomil t} Medoxomil 20 MG 20 MG 20 MG Levothyroxi Levothyroxi No QD Levothyrox ne Sodium ne Sodium ine Sodium 100 MCG 100 MCG 100 MCG ZyrTEC ZyrTEC No ZyrTEC Allergy Allergy Allergy Galantamine Galantamine No 1{table BID Galantamin Hydrobromid Hydrobromid t_with_ e e 8 MG e 8 MG meals} Hydrobromi de 8 MG Co Q 10 Co Q 10 No Co Q 10 clonazePAM clonazePAM No clonazePAM 1 MG 1 MG 1 MG Escitalopra Escitalopra No 1{table QD Escitalopr m Oxalate m Oxalate t} am Oxalate 10 MG 10 MG 10 MG Triple Triple No Triple [place]-3-6-9 [place]-3-6-9 [place]-3-6- 9 Vitamin D3 Vitamin D3 No 1{table QD Vitamin D3 25 MCG 25 MCG t} 25 MCG (1000 UT) (1000 UT) (1000 UT) Atorvastati Atorvastati No 1{table QD Atorvastat n Calcium n Calcium t} in Calcium 10 MG 10 MG 10 MG amLODIPine amLODIPine No 1{table QD amLODIPine Besylate 5 Besylate 5 t} Besylate 5 MG MG MG Aspirin 81 Aspirin 81 No Aspirin 81 clonazePAM clonazePAM No clonazePAM 1 MG 1 MG 1 MG ZyrTEC ZyrTEC No ZyrTEC Allergy Allergy Allergy Olmesartan Olmesartan No 1{table QD Olmesartan Medoxomil Medoxomil t} Medoxomil 20 MG 20 MG 20 MG Escitalopra Escitalopra No 1{table QD Escitalopr m Oxalate m Oxalate t} am Oxalate 10 MG 10 MG 10 MG Co Q 10 Co Q 10 No Co Q 10 Flonase Flonase No Flonase atorvastati atorvastati No atorvastat n n in Triple Triple No Triple [place]-3-6-9 [place]-3-6-9 [place]-3-6- 9 Levothyroxi Levothyroxi No QD Levothyrox ne Sodium ne Sodium ine Sodium 100 MCG 100 MCG 100 MCG Galantamine Galantamine No 1{table BID Galantamin Hydrobromid Hydrobromid t_with_ e e 8 MG e 8 MG meals} Hydrobromi de 8 MG Vital Signs Vital Name Observation Time Observation Value Comments Source height 2022-03-16 13:00:00 62 [in_i] Common S pirit [facility] weight 2022-03-16 13:00:00 163.2 [lb_av] Common Spirit [facility] temperature 2022-03-16 13:00:00 97.6 [degF] [facility] bmi 2022-03-16 13:00:00 29.85 kg/m2 Common [facility] oximetry 2022-03-16 13:00:00 96 % [facility] respiratory rate 2022-03-16 13:00:00 18 /min Comm on [facility] blood pressure 2022-03-16 13:00:00 103 mm[Hg] Common [facility] - systolic [facility] blood pressure 2022-03-16 13:00:00 54 mm[Hg] Common [facility] - diastolic [facility] height 2022-02-17 08:00:00 62 [in_i] [facility] weight 2022-02-17 08:00:00 160.2 [lb_av] [facility] temperature 2022-02-17 08:00:00 97.3 [degF] [facility] bmi 2022-02-17 08:00:00 29.3 kg/m2 [facility] oximetry 2022-02-17 08:00:00 97 % [facility] respiratory rate 2022-02-17 08:00:00 18 /min Comm on [facility] blood pressure 2022-02-17 08:00:00 164 mm[Hg] Common [facility] - systolic [facility] blood pressure 2022-02-17 08:00:00 63 mm[Hg] Common [facility] - diastolic [facility] Systolic (mm Hg) 2022-05-11 19:16:00 Tim allison [place] Diastolic (mm Hg) 2022-05-11 19:16:00 Mem orial [place] Heart Rate 2022-05-11 19:16:[address] [facility] Harsh Height 2022-05-11 19:16:00 5 [ft_i] [facility] [place] Weight 2022-05-11 19:16:00 [facility] [place] BMI Calculated 2022-05-11 19:16:00 Marlen telles [place] Weight 2022-03-30 17:11:00 [facility] [place] BMI Calculated 2022-03-30 17:11:00 Marlen Contrerasann Systolic (mm Hg) 2022-03-30 17:11:00 Tim rial [place] Diastolic (mm Hg) 2022-03-30 17:11:00 Mem orial [place] Heart Rate 2022-03-30 17:11:00 [facility] [place] Height 2022-03-30 17:11:00 5 [ft_i] [facility] [place] Systolic (mm Hg) 2021-09-29 16:37:00 Tim rial [place] Diastolic (mm Hg) 2021-09-29 16:37:00 Mem orial [place] Heart Rate 2021-09-29 16:37:00 [facility] [place] Respitory Rate 2021-09-29 16:37:00 Memori al [place] Height 2021-09-29 16:37:00 154.94 cm [facility] [place] Weight 2021-09-29 16:37:00 [facility] [place] BMI Calculated 2021-09-29 16:37:00 Memori al [place] Systolic (mm Hg) 2021-06-29 19:04:00 Tim rial [place] Diastolic (mm Hg) 2021-06-29 19:04:00 Mem orial [place] Heart Rate 2021-06-29 19:04:00 [facility] [place] Respitory Rate 2021-06-29 19:04:00 Memori al [place] Height 2021-06-29 19:04:00 152.4 cm [facility] Weight 2021-06-29 19:04:00 [facility] [place] BMI Calculated 2021-06-29 19:04:00 Memori al [place] Systolic (mm Hg) 2021-06-10 16:36:00 Tim rial [place] Diastolic (mm Hg) 2021-06-10 16:36:00 Mem orial [place] Heart Rate 2021-06-10 16:36:00 [facility] [place] Respitory Rate 2021-06-10 16:36:00 Memori al [place] Height 2021-06-10 16:36:00 153.67 cm [facility] Weight 2021-06-10 16:36:00 [facility] [place] BMI Calculated 2021-06-10 16:36:00 Memori al [place] Systolic (mm Hg) 2020-12-02 16:54:00 Tim rial [place] Diastolic (mm Hg) 2020-12-02 16:54:00 Mem orial [place] Heart Rate 2020-12-02 16:54:00 [facility] [place] Respitory Rate 2020-12-02 16:54:00 Memori al [place] Height 2020-12-02 16:54:00 154.94 cm [facility] [place] Weight 2020-12-02 16:54:00 [facility] [place] BMI Calculated 2020-12-02 16:54:00 Memori al [place] Systolic (mm Hg) 2019-10-23 18:28:00 Tim rial [place] Diastolic (mm Hg) 2019-10-23 18:28:00 Mem orial [place] Heart Rate 2019-10-23 18:28:00 [facility] [place] Respitory Rate 2019-10-23 18:28:00 Memori al [place] Height 2019-10-23 18:28:00 154.94 cm [facility] Weight 2019-10-23 18:28:00 [facility] BMI Calculated 2019-10-23 18:28:00 Memori al [place] Systolic (mm Hg) 2019-07-05 19:12:00 Tim rial [place] Diastolic (mm Hg) 2019-07-05 19:12:00 Mem orial [place] Heart Rate 2019-07-05 19:12:00 [facility] [place] Respitory Rate 2019-07-05 19:12:00 Memori al [place] Height 2019-07-05 19:12:00 157.48 cm [facility] Harsh Weight 2019-07-05 19:12:00 [facility] BMI Calculated 2019-07-05 19:12:00 Memori al [place] Systolic (mm Hg) 2019-05-10 20:15:00 Tim rial [place] Diastolic (mm Hg) 2019-05-10 20:15:00 Mem orial [place] Heart Rate 2019-05-10 20:15:00 [facility] [place] Respitory Rate 2019-05-10 20:15:00 Memori al [place] Height 2019-05-10 20:15:00 154.94 cm [facility] Weight 2019-05-10 20:15:00 [facility] [place] BMI Calculated 2019-05-10 20:15:00 Memori al [place] Systolic (mm Hg) 2019-02-21 18:09:00 Tim rial [place] Diastolic (mm Hg) 2019-02-21 18:09:00 Mem orial [place] Heart Rate 2019-02-21 18:09:00 [facility] [place] Respitory Rate 2019-02-21 18:09:00 Memori al [place] Height 2019-02-21 18:09:00 154.94 cm [facility] Weight 2019-02-21 18:09:00 [facility] BMI Calculated 2019-02-21 18:09:00 Memori al [place] Height 2018-10-18 18:04:00 154.94 cm [facility] BMI Calculated 2018-10-18 18:04:00 Memori al [place] Weight 2018-10-18 18:04:00 [facility] [place] BMI Calculated 2018-09-07 18:23:00 Memori al [place] Weight 2018-09-07 18:23:00 [facility] [place] Height 2018-09-07 18:23:00 154.94 cm [facility] Heart Rate 2018-09-07 18:23:00 [facility] [place] Respitory Rate 2018-09-07 18:23:00 Memori al [place] Systolic (mm Hg) 2018-09-07 18:23:00 Tim rial [place] Diastolic (mm Hg) 2018-09-07 18:23:00 Mem orial [place] Height 2018-04-12 19:45:00 157.48 cm [facility] Weight 2018-04-12 19:45:00 [facility] BMI Calculated 2018-04-12 19:45:00 Memori al [place] Heart Rate 2018-04-12 19:45:00 [facility] [place] Systolic (mm Hg) 2018-04-12 19:45:00 Tim rial [place] Diastolic (mm Hg) 2018-04-12 19:45:00 Mem orial [place] BMI Calculated 2018-02-08 20:04:00 Memori al [place] Height 2018-02-08 20:04:00 154.94 cm [facility] [place] Weight 2018-02-08 20:04:00 [facility] [place] Respitory Rate 2018-02-08 20:04:00 Memori al [place] Heart Rate 2018-02-08 20:04:00 [facility] [place] Systolic (mm Hg) 2018-02-08 20:04:00 Tim rial [place] Diastolic (mm Hg) 2018-02-08 20:04:00 Mem orial [place] Weight 2018-01-24 16:29:00 [facility] [place] BMI Calculated 2018-01-24 16:29:00 Marlen telles [place] Height 2018-01-24 16:29:00 160.02 cm [facility] Heart Rate 2018-01-24 16:29:00 Anshu Harsh Systolic (mm Hg) 2018-01-24 16:29:00 Tim Cheathamann Diastolic (mm Hg) 2018-01-24 16:29:00 Mem orial H[place] Procedures This patient has no known procedures. Encounters Start End Encounter Admission Attending Care Care Encounter Source Date/Time Date/Time Type Type Clinicians Facility Department ID 2022-02-17 Outpatient Florian, STLMLC [facility] [id number] Common 07:46:01 Davion [id number] Spirit [facility] 2021-08-02 Outpatient [facility] [id number] PA 08:47:40 [id number] [facility] 2023-02-08 2023-02-08 Outpatient MHIE MHIE [id number] Memoria 13:15:00 13:15:00 25 l [place] 2022-05-11 2022-05-12 Outpatient MHIE MNA [id number] Memoria 19:00:00 05:59:59 Neurology 24 l [place] Harsh 2022-05-11 2022-05-11 Outpatient IRA DurhamMISCHER MHMISCHER [id number] 13:00:00 23:59:59 Josue 24 [place] 2022-05-11 2022-05-11 Outpatient MHIE MHIE [id number] Memoria 13:00:00 13:00:00 24 l [place] 2022-03-30 2022-03-31 Outpatient MHIE MNA [id number] Memoria 17:15:00 05:59:59 Neurology 23 l [place] Harsh 2022-03-31 2022-03-31 Ambulatory MHIE MNA [id number] Memoria 05:15:00 05:15:00 Pre-Reg Neurology 22 l [place] Harsh 2022-03-30 2022-03-30 Outpatient IRA DurhamMISCHER MHMISCHER [id number] 11:15:00 23:59:59 Josue 23 [place] 2022-03-30 2022-03-30 Outpatient MHIE MHIE [id number] Memoria 23:15:00 23:15:00 22 jody House 2022-03-30 2022-03-30 Outpatient CHICA DurhamSCHER MHMISCHER [id number] 23:15:00 23:15:00 Josue 22 [place] 2022-03-30 2022-03-30 Outpatient MHIE MHIE [id number] Memoria 11:15:00 11:15:00 23 jody House 2022-03-16 2022-03-16 OFFICE STLMLC STLMLC [id number] Co mmon 00:00:00 00:00:00 VISIT EST Spir it PT LEVEL 3 - CHI [facility] 2022-02-24 2022-02-24 OFFICE STLMLC STLMLC [id number] Co mmon 00:00:00 00:00:00 VISIT Spirit ESTAB PT - CHI LEVEL 1 [facility] 2022-02-17 2022-02-17 OFFICE STLMLC STLMLC [id number] Co mmon 00:00:00 00:00:00 VISIT NEW Spir it PT LEVEL 3 - CHI [facility] 2021-09-29 2021-09-30 Outpatient nullFlavo MNA [id number] Memoria 16:45:00 04:59:59 r Neurology 21 jody [place] 2021-09-29 2021-09-29 Outpatient CHICA DurhamSCHER MISCHER [id number] 11:45:00 23:59:59 Josue 21 [place] 2021-09-29 2021-09-29 Outpatient MHIE MHIE [id number] Memoria 11:45:00 11:45:00 21 jody House 2021-06-29 2021-06-30 Outpatient nullFlavo MNA [id number] Memoria 19:30:00 05:59:59 r Neurology 20 jody [place] 2021-06-29 2021-06-29 Outpatient CHICA DurhamSCHER MHMISCHER [id number] 13:30:00 23:59:59 Josue 20 [place] 2021-06-29 2021-06-29 Outpatient MHIE MHIE [id number] Memoria 13:30:00 13:30:00 20 jody [place] 2021-06-24 2021-06-25 Outpt Diag nullFlavo [facility] [id number] Memoria 13:38:00 05:59:00 Services r Outpatient 00 l Imaging Harsh Cheathamann 2021-06-24 2021-06-24 Outpatient Marva [facility] [id number] 07:38:00 23:59:00 Josue 00 [place] 2021-06-10 2021-06-11 Outpatient nullFlavo MNA [id number] Memoria 16:45:00 05:59:59 r Neurology 19 l Pranav [place] 2021-06-10 2021-06-10 [facility] [id number] 10:45:00 23:59:59 Josue 19 [place] 2021-06-10 2021-06-10 Outpatient MHIE MHIE [id number] Memoria 10:45:00 10:45:00 19 jody CheathamHarsh 2020-12-02 2020-12-03 Outpatient nullFlavo MNA [id number] Memoria 16:45:00 04:59:59 r Neurology 18 l Pranav [place] 2020-12-02 2020-12-02 [id number] 11:45:00 23:59:59 Josue 18 [place] 2020-12-02 2020-12-02 Outpatient MHIE MHIE [id number] Memoria 11:45:00 11:45:00 18 jody CheathamHarsh 2020-11-12 2020-11-12 Ambulatory nullFlavo MNA [id number] Memoria 14:15:00 14:15:00 Pre-Reg r Neurology 17 l Pranav [place] 2020-11-12 2020-11-12 [facility] [id number] 09:15:00 09:15:00 Josue 17 [place] 2020-11-04 2020-11-04 Outpatient MHIE MHIE [id number] Memoria 13:00:00 13:00:00 17 jody [place] 2020-05-07 2020-05-07 Outpatient MHIE MHIE [id number] Memoria 13:00:00 13:00:00 16 jody [place] 2019-11-01 2019-11-01 Outpatient MHIE MHIE [id number] Memoria 13:15:00 13:15:00 14 l [place] 2019-10-23 2019-10-24 Outpatient nullFlavo MNA [id number] Memoria 18:15:00 04:59:59 r Neurology 15 l [place] 2019-10-23 2019-10-23 [facility] [id number] 13:15:00 23:59:59 Josue 15 [place] 2019-10-23 2019-10-23 Ambulatory nullFlavo MNA [id number] Memoria 18:15:00 18:15:00 Pre-Reg r Neurology 14 l [place] 2019-10-23 2019-10-23 Outpatient MHIE MHIE [id number] Memoria 13:15:00 13:15:00 15 l [place] 2019-10-23 2019-10-23 [facility] [id number] 13:15:00 13:15:00 Josue 14 [place] 2019-08-02 2019-08-02 Ambulatory nullFlavo MNA [id number] Memoria 18:00:00 18:00:00 Pre-Reg r Neurology 11 l Pranav House 2019-08-02 2019-08-02 Outpatient MHIE MHIE [id number] Memoria 13:00:00 13:00:00 11 l [place] 2019-08-02 2019-08-02 [id number] 13:00:00 13:00:00 Josue 11 [place] 2019-07-05 2019-07-06 Outpatient nullFlavo MNA [id number] Memoria 19:00:00 04:59:59 r Neurology 13 l [place] 2019-07-05 2019-07-05 Out[facility] Mar[facility], [facility] [id number] 14:00:00 23:59:59 Josue 13 [place] 2019-07-05 2019-07-05 Outpatient MHIE MHIE [id number] Memoria 14:00:00 14:00:00 13 l [place] 2019-05-10 2019-05-11 Outpatient nullFlavo MNA [id number] Memoria 20:15:00 05:59:59 r Neurology 12 l Pranav House 2019-05-10 2019-05-10 Outpatient Marva MHMISCHER MISCHER [id number] 14:15:00 23:59:59 Josue 12 [place] 2019-05-10 2019-05-10 Outpatient MHIE MHIE [id number] Memoria 14:15:00 14:15:00 12 jody [place] 2019-02-21 2019-02-22 Outpatient nullFlavo MNA [id number] Memoria 18:00:00 04:59:59 r Neurology 10 jody [place] 2019-02-21 2019-02-21 Outpatient Marva, MHMISCHER MISCHER [id number] 13:00:00 23:59:59 Josue 10 [place] 2019-02-21 2019-02-21 Outpatient MHIE MHIE [id number] Memoria 13:00:00 13:00:00 10 jody [place] 2018-10-18 2018-10-19 Outpatient nullFlavo MNA [id number] Memoria 18:00:00 04:59:59 r Neurology 09 jody [place] 2018-10-18 2018-10-18 [id number] 13:00:00 23:59:59 Josue 09 [place] 2018-10-18 2018-10-18 Outpatient MHIE MHIE [id number] Memoria 13:00:00 13:00:00 09 jody [place] 2018-09-13 2018-09-14 Outpatient nullFlavo MNA [id number] Memoria 20:00:00 04:59:59 r Neurology 08 jody [place] 2018-09-13 2018-09-13 Outpatient Marva, MHMISCHER MISCHER [id number] 15:00:00 23:59:59 Josue 08 [place] 2018-09-13 2018-09-13 Outpatient MHIE MHIE [id number] Memoria 15:00:00 15:00:00 08 jody Harsh 2018-09-07 2018-09-08 Outpatient nullFlavo MNA [id number] Memoria 18:00:00 04:59:59 r Neurology 07 jody [place] H[place] 2018-09-07 2018-09-07 Outpatient Marva MHMISCHER MISCHER [id number] 13:00:00 23:59:59 Josue 07 [place] 2018-09-07 2018-09-07 Outpatient MHIE MHIE [id number] Memoria 13:00:00 13:00:00 07 jody Harsh 2018-08-03 2018-08-03 Outpatient MHIE MHIE [id number] Memoria 13:00:00 13:00:00 06 jody [place] 2018-04-12 2018-04-13 Outpatient nullFlavo MNA [id number] Memoria 19:30:00 05:59:59 r Neurology 05 jody [place] H[place] 2018-04-12 2018-04-12 Outpatient CHICA DurhamSCHER MHMISCHER [id number] 13:30:00 23:59:59 Josue 05 [place] 2018-04-12 2018-04-12 Outpatient MHIE MHIE [id number] Memoria 13:30:00 13:30:00 05 jody Harsh 2018-02-27 2018-02-27 Ambulatory nullFlavo MNA [id number] Memoria 17:30:00 17:30:00 Pre-Reg r Neurology 02 jody Pranav House 2018-02-27 2018-02-27 Outpatient MHIE MHIE [id number] Memoria 11:30:00 11:30:00 02 jody Harsh 2018-02-27 2018-02-27 Outpatient CHICA DurhamSCHER MHMISCHER [id number] 11:30:00 11:30:00 Josue 02 [place] 2018-02-08 2018-02-09 Outpatient nullFlavo MNA [id number] Memoria 19:30:00 04:59:59 r Neurology 04 jody Pranav [facility] 2018-02-08 2018-02-08 Outpatient CHICA DurhamSCHER MHMISCHER [id number] 14:30:00 23:59:59 Josue 04 [place] 2018-02-08 2018-02-08 Outpatient MHIE MHIE [id number] Memoria 14:30:00 14:30:00 04 jody Harsh 2018-01-24 2018-01-25 Outpatient nullFlavo MNA [id number] Memoria 16:15:00 04:59:59 r Neurology 03 l Pranav [facility] 2018-01-24 2018-01-24 Outpatient CHICA DurhamSCHER MHMISCHER [id number] 11:15:00 23:59:59 Josue [place] 2018-01-24 2018-01-[address] [facility] [id number] Memoria 11:15:00 11:15:00 03 jody House 2017-11-28 2017-11-28 [id number] Memoria 11:30:00 11:30:00 01 jody House 2017-10-10 2017-10-10 [facility] [id number] Memoria 15:45:00 15:45:00 00 jody House Results This patient has no known results.
[2022-08-22] MEDS ORDERED: FENTANYL CITR 100 MCG/2 ML ONE (18:10)
[2022-08-22] MEDS ORDERED: ONDANSETRON 4 MG/2 ML VIAL ONE (18:11)
[2022-08-22] MEDS ORDERED: NA CHLORIDE 0.9% 500 ML ONE (18:11)
[2022-08-22] MEDS ORDERED: METOPROLOL TAR 25 MG TAB ONE (18:11)
[2022-08-22] MEDS ORDERED: FAMOTIDINE 20 MG/2 ML VIAL IV ONE (18:11)
[2022-08-22 18:15] LABS: Absolute Lymphocytes (CBC) 1.9 K/uL (0.7-4.9); Hematocrit 38.8 % (36.0-45.0); Lymphocytes % 26.7 % (15.3-44.8); MCV 90.8 fL (80-100); MPV 7.5 fL (7.6-11.3); Protime INR 1.04; RBC Red Blood Cell Count 4.27 M/uL (3.86-4.86)
[2022-08-22 18:28] LABS: Albumin 3.3 g/dL (3.4-5.0); Bilirubin Direct 0.2 mg/dL (0-0.2); Bilirubin Total 0.5 mg/dL (0.2-1.0); Magnesium 2.1 mg/dL (1.6-2.4); Potassium 3.4 mEq/L (3.5-5.1); Protein, Total 7.2 g/dL (6.4-8.2); Troponin High Sensitivity 8.9 pg/mL (<58.9)
--- NOTE | 2022-08-22 18:40 | RAD REPORT ---
EXAM DESCRIPTION: RADChest Single View08/22/2022 6:20 pm CLINICAL HISTORY: COUGH COMPARISON: Chest Pa And Lat (2 Views) dated 06/17/2022; Chest Single View dated 05/23/2021; Chest Sin gle View dated 12/22/2020; Chest Single View dated 12/18/2020 TECHNIQUE: Portable AP view of the chest. FINDINGS: The lungs are clear. No pneumothorax or effusion. The cardiomediastinal contours are unrem arkable. IMPRESSION: No acute cardiopulmonary process.
--- NOTE | 2022-08-22 19:13 | RAD REPORT ---
EXAM DESCRIPTION: CT - Head Brain Wo Cont - 08/22/2022 6:51 pm CLINICAL HISTORY: WEAKNESS COMPARISON: Head Brain Wo Cont dated 05/23/2021; Head Brain Wo Cont dated 01/15/2018 TECHNIQUE: Noncontrast head CT images ad were obtained without IV contrast. Multiplanar reformats we re generated and reviewed. All CT scans are performed using dose optimization technique as appropriate and may include automated exposure control or mA/KV adjustment according to patient size. FINDINGS: No intracranial hemorrhage, mass, or edema. Midline structures are unremarkable. Stable ventricular caliber, with mild diffuse parenchymal volume loss. Left subinsular and centrum semiovale encephalomalacia, stable, suggestive of sequelae of remote isch emia. Martínez-white matter differentiation is otherwise preserved, without evidence of acute infarct. No abnormal extra-axial fluid collections. Mastoid air cells and visualized portions of the paranasal sinuses are clear. No acute bony findings. IMPRESSION: No evidence of an acute intracranial process. 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
--- NOTE | 2022-08-22 19:48 | EDPHYS ---
Physician Documentation [facility] Name: Robby Schmid Age: 87 yrs Sex: Female : 1935 Arrival Date: 08/22/2022 Time: 17:04 Bed 6 Private MD: ED Physician Hardeep Gavin HPI: 08/22 18:05 This 87 yrs old Female presents to ER via Wheelchair with complaints of Pain hay All Over, Blood Pressure Problem. 18:05 The patient or guardian reports chest pain that is located primarily in the substernal hay area, epigastric area. Onset: 2 day(s) ago. The pain radiates to Associated signs and symptoms: Pertinent positives: shortness of breath. Duration: The patient or guardian reports multiple episodes, that are intermittent. Severity of pain: At its worst the pain was moderate in the emergency department the pain has improved. Historical: - Allergies: 17:28 No Known Allergies; mb9 - Home Meds: 17:28 amlodipine oral [Active]; Aspirin Oral [Active]; atorvastatin 40 mg Oral tab 1 tab once mb9 daily [Active]; clonazepam 1 mg Oral tab daily [Active]; - PMHx: 17:28 CVA; Hypothyroidism; Hypertension; High Cholesterol; UTI; mb9 - PSHx: 17:28 Cholecystectomy; hysterectomy; mb9 - Immunization history:: Adult Immunizations up to date. - Social history:: Smoking status: Patient denies any tobacco usage or history of. ROS: 18:09 Constitutional: Negative for fever, chills, and weight loss, Eyes: Negative for injury, hay pain, redness, and discharge, ENT: Negative for injury, pain, and discharge, Neck: Negative for injury, pain, and swelling, Abdomen/GI: Negative for abdominal pain, nausea, vomiting, diarrhea, and constipation, Back: Negative for injury and pain, : Negative for injury, bleeding, discharge, and swelling, MS/Extremity: Negative for injury and deformity, Skin: Negative for injury, rash, and discoloration, Psych: Negative for depression, anxiety, suicide ideation, homicidal ideation, and hallucinations, Allergy/Immunology: Negative for hives, rash, and allergies, Endocrine: Negative for neck swelling, polydipsia, polyuria, polyphagia, and marked weight changes, Hematologic/Lymphatic: Negative for swollen nodes, abnormal bleeding, and unusual bruising. 18:09 Cardiovascular: Positive for chest pain, palpitations. 18:09 Respiratory: Positive for shortness of breath. 18:09 Neuro: Positive for headache. Exam: 18:09 Constitutional: This is a well developed, well nourished patient who is awake, alert, hay and in no acute distress. Head/Face: Normocephalic, atraumatic. Eyes: Pupils equal round and reactive to light, extra-ocular motions intact. Lids and lashes normal. Conjunctiva and sclera are non-icteric and not injected. Cornea within normal limits. Periorbital areas with no swelling, redness, or edema. ENT: Nares patent. No nasal discharge, no septal abnormalities noted. Tympanic membranes are normal and external auditory canals are clear. Oropharynx with no redness, swelling, or masses, exudates, or evidence of obstruction, uvula midline. Mucous membranes moist. Neck: Trachea midline, no thyromegaly or masses palpated, and no cervical lymphadenopathy. Supple, full range of motion without nuchal rigidity, or vertebral point tenderness. No Meningismus. Chest/axilla: Normal chest wall appearance and motion. Nontender with no deformity. No lesions are appreciated. Respiratory: Lungs have equal breath sounds bilaterally, clear to auscultation and percussion. No rales, rhonchi or wheezes noted. No increased work of breathing, no retractions or nasal flaring. Abdomen/GI: Soft, non-tender, with normal bowel sounds. No distension or tympany. No guarding or rebound. No evidence of tenderness throughout. Back: No spinal tenderness. No costovertebral tenderness. Full range of motion. Female : Normal external genitalia. Skin: Warm, dry with normal turgor. Normal color with no rashes, no lesions, and no evidence of cellulitis. MS/ Extremity: Pulses equal, no cyanosis. Neurovascular intact. Full, normal range of motion. Neuro: Awake and alert, GCS 15, oriented to person, place, time, and situation. Cranial nerves II-XII grossly intact. Motor strength 5/5 in all extremities. Sensory grossly intact. Cerebellar exam normal. Normal gait. Psych: Awake, alert, with orientation to person, place and time. Behavior, mood, and affect are within normal limits. 18:09 Cardiovascular: Rate: tachycardic, actual rate is 101 bpm, Rhythm: irregularly irregular, Pulses: Pulses are 4+ in bilateral radial, brachial, femoral, popliteal, posterior tibial and and dorsalis pedis arteries.. Heart sounds: normal, Edema: is not appreciated, JVD: is not appreciated. 18:09 ECG was reviewed by the Attending Physician. Vital Signs: 17:26 BP 101 / 87; Pulse 51; Resp 16; Temp 98.2; Pulse Ox 100% ; Weight 70.31 kg; Height 5 mb9 ft. 2 in. ; 18:12 BP 120 / 87; Pulse 94; Resp 18; Pulse Ox 98% on R/A; ld1 17:26 Body Mass Index 28.35 (70.31 kg, 157.48 cm) mb9 [place] Coma Score: 18:11 Eye Response: spontaneous(4). Motor Response: obeys commands(6). Verbal Response: hay oriented(5). Total: 15. MDM: 17:35 Patient medically screened. hay 18:11 Antibiotic administration: Not indicated. Differential diagnosis: Anemia Bronchitis CHF hay exacerbation, abnormal EKG, acute myocardial infarction, acute pericarditis, anxiety, coronary artery disease pancreatitis, pneumonia, pulmonary embolus, stable angina, thoracic aortic disection, unstable angina, hypertensive headache, sinusitis, subarachnoid bleed, subdural hematoma, tension headache, pulmonary edema, Pulmonary Embolism reactive airway disease, Sepsis. HEART Score: History: Moderately Suspicious (1), ECG: Non specific repolarization disturbance / LBTB / PM (1), Age: > or = 65 years (2), Risk Factors: > or = 3 Risk factors for atherosclerotic disease (2), [Hypercholesterolemia] [Hypertension] [+ Family HX] Troponin: < or = 1 x Normal Limit (0). The patient was given aspirin in the Emergency Department. MANNY Risk Score: 1 - patient's age is greater or equal to 65 years, 1 - Three or more CAD risk factors, 1- Known CAD, TOTAL SCORE = 3. Immunization status: Pneumococcal vaccine: within last 5 years. Influenza vaccine: within last 5 years. Data reviewed: vital signs, nurses notes, lab test result(s), EKG, radiologic studies, CT scan, plain films. Consideration of Admission/Observation Patient was admitted/placed on observation. Escalation of care including admission/observation considered. Management of patient was discussed with the following: Primary Care Provider: DR GODFREY, SCAN AORTA. 08/22 17:18 Order name: Basic Metabolic Panel; Complete Time: 19:01 hay 08/22 17:18 Order name: CBC with Diff; Complete Time: 19: hay 08/22 17:18 Order name: LFT's; Complete Time: 19:01 hay 08/22 17:18 Order name: Magnesium; Complete Time: 19: hay 08/22 17:18 Order name: NT PRO-BNP; Complete Time: 19: hay 08/22 17:18 Order name: PT-INR; Complete Time: 19: hay 08/22 17:18 Order name: Troponin HS; Complete Time: 19: hay 08/22 17:18 Order name: Lipase; Complete Time: 19: hay 08/22 17:18 Order name: Urinalysis w/ reflexes [facility] 08/22 17:49 Order name: TSH; Complete Time: 19: hay 08/22 20:48 Order name: Ptt, Activated vc1 08/22 22:14 Order name: PTT, Activated Partial Thromb EDNM 08/22 17:18 Order name: XRAY Chest (1 view); Complete Time: 19:01 hay 08/22 17:24 Order name: CT Aorta for Dissection; Complete Time: 20:43 hay 08/22 18:06 Order name: Head Brain Wo Cont CT; Complete Time: 19:22 08/22 17:18 Order name: EKG; Complete Time: 17:19 hay 08/22 19:57 Order name: CONS Physician Consult [facility] 08/22 17:18 Order name: Cardiac monitoring; Complete Time: 17:59 hay 08/22 17:18 Order name: EKG - Nurse/Tech; Complete Time: 18:12 hay 08/22 17:18 Order name: IV Saline Lock; Complete Time: 17:59 hay 08/22 17:18 Order name: Labs collected and sent; Complete Time: 17:59 hay 08/22 17:18 Order name: O2 Per Protocol; Complete Time: 17:47 hay 08/22 17:18 Order name: O2 Sat Monitoring; Complete Time: 17:47 hay EC:09 Rate is 91 beats/min. Rhythm is irregularly irregular. MT interval is normal. QRS hay interval is normal. No Q waves. T waves are Normal. No ST changes noted. Clinical impression: Atrial Fibrillation, Atrial Flutter, and No evidence of ischemia. Interpreted by me. Reviewed by me. Administered Medications: 18:11 Drug: NS 0.9% IV 500 ml Route: IV; Rate: bolus; Site: right wrist; ld1 18:11 Drug: Ondansetron IVP 4 mg Route: IVP; Site: right wrist; ld1 18:11 Drug: Metoprolol PO 25 mg Route: PO; ld1 18:11 Drug: Famotidine IVP 20 mg Route: IVP; Site: right wrist; ld1 18:12 Drug: fentaNYL (PF) IVP 25 mcg Route: IVP; Site: right wrist; ld1 19:06 Not Given (Patient Refused): fentaNYL (PF) IVP 25 mcg IVP once mb9 20:30 Drug: Magnesium Sulfate IVPB 1 grams Route: IVPB; Infused Over: 1 hrs; Site: right lg3 wrist; 20:30 Drug: Potassium PO Effervescent Tablet 50 mEq Route: PO; lg3 20:30 Drug: Aspirin PO Chewable Tablet 162 mg Route: PO; lg3 21:48 Not Given (Discontinued by Dr Florian): Heparin ([place]-Bolus No thrombolytic) - HEParin IVP nj1 60 units/kg IVP once; Max 5000 units 21:48 Not Given (Discontinued by Dr Veras): Heparin ([place] Drip) - ([place] [address] units, D5W nj1 IV 500 ml) 12 units/kg/hr IV at calculated rate Per protocol; Max initial rate 1000 units/hr Disposition Summary: 08/22/22 19:47 Hospitalization Ordered Hospitalization Status: Observation hay Provider: Davion Florian cha Location: Telemetry/MedSurg (observation) hay Condition: Fair hay Problem: new hay Symptoms: have improved hay Bed/Room Type: Standard hay Room Assignment: 411(08/22/22 20:44) cg Diagnosis - Chest pain, unspecified hay - Essential (primary) hypertension hay - Hypokalemia hay - Persistent atrial fibrillation - [place] hay Forms: - Medication Reconciliation Form hay - SBAR form hay Signatures: Dispatcher [employer] EDHardeep Garvey MD MD cha Garcia, Cindy RN RN Ita Ramos RN RN lg3 Meghan Gaming RN RN ld1 Lizabeth Mejia PA-C PA-C sb4 Annamarie Price, RN RN mb9 Anisha Saul RN nj1 Corrections: (The following items were deleted from the chart) 20:44 19:47 [facility]
--- NOTE | 2022-08-22 19:48 | ER ---
Nurse's Notes [facility] Name: Robby Schmid Age: 87 yrs Sex: Female : 1935 Arrival Date: 08/22/2022 Time: 17:04 Bed 6 Private MD: Diagnosis: Chest pain, unspecified;Essential (primary) hypertension;Hypokalemia;Persistent atrial fibrillation-[place] Presentation: 08/22 17:26 Chief complaint: Patient states: "I was just at Dr. Florian's office and he told me to go mb9 here. I don't feel good at all and been having left side chest pain that radiates to my back, neck, and head. My head hurts all the time from my previous stroke 5 years ago.". Coronavirus screen: At this time, the client does not indicate any symptoms associated with coronavirus-19. Ebola Screen: No symptoms or risks identified at this time. Initial Sepsis Screen: Does the patient meet any 2 criteria? No. Patient's initial sepsis screen is negative. Does the patient have a suspected source of infection? No. Patient's initial sepsis screen is negative. Risk Assessment: Do you want to hurt yourself or someone else? Patient reports no desire to harm self or others. Onset of symptoms was August 22, 2022. 17:26 Method Of Arrival: Wheelchair mb9 17:26 Acuity: MANJINDER 2 mb9 Triage Assessment: 17:30 Pain: Complains of pain in chest Pain radiates to left side neck and back Pain mb9 currently is 10 out of 10 on a pain scale. Quality of pain is described as stabbing, Pain began suddenly. Neuro: Level of Consciousness is awake, alert, obeys commands, Oriented to person, place, time, situation, Appropriate for age. Cardiovascular: Patient's skin is warm and dry. Rhythm is atrial flutter. Respiratory: Reports shortness of breath Airway is patent Respiratory effort is even, unlabored, Respiratory pattern is regular, symmetrical. Derm: Skin is pink, warm \\T\\ dry. Historical: - Allergies: 17:28 No Known Allergies; mb9 - Home Meds: 17:28 amlodipine oral [Active]; Aspirin Oral [Active]; atorvastatin 40 mg Oral tab 1 tab once mb9 daily [Active]; clonazepam 1 mg Oral tab daily [Active]; - PMHx: 17:28 CVA; Hypothyroidism; Hypertension; High Cholesterol; UTI; mb9 - PSHx: 17:28 Cholecystectomy; hysterectomy; mb9 - Immunization history:: Adult Immunizations up to date. - Social history:: Smoking status: Patient denies any tobacco usage or history of. Screenin:12 [facility] ED Fall Risk Assessment (Adult) History of falling in the last 3 months, ld1 including since admission No falls in past 3 months (0 pts). Abuse screen: Denies threats or abuse. Denies injuries from another. Nutritional screening: No deficits noted. Tuberculosis screening: No symptoms or risk factors identified. Assessment: 17:31 Reassessment: see triage assessment. mb9 18:12 General: Appears in no apparent distress. uncomfortable, Behavior is calm, cooperative, ld1 appropriate for age. Pain: Complains of pain in back Pain does not radiate. Pain currently is 7 out of 10 on a pain scale. at worst was 10 out of 10 on a pain scale. Quality of pain is described as sharp, shooting, throbbing. Neuro: Level of Consciousness is awake, alert, obeys commands, Oriented to person, place, time, situation. Cardiovascular: Capillary refill < 3 seconds Patient's skin is warm and dry. Rhythm is irregular. Respiratory: Airway is patent Respiratory effort is even, unlabored. GI: Abdomen is round non-distended. : No signs and/or symptoms were reported regarding the genitourinary system. EENT: No signs and/or symptoms were reported regarding the EENT system. Derm: No signs and/or symptoms reported regarding the dermatologic system. Musculoskeletal: No signs and/or symptoms reported regarding the musculoskeletal system. 20:40 Reassessment: While this RN was in the room, patient became unresponsive for about 2 nj1 seconds, pupils got dilated, this RN sternal rub patient once, patient became responsive after about 2 seconds. Pt states everything "blacked out", unsure of what happened. This RN notifies primary nurse as well as charge nurse. 21:32 Reassessment: Call placed to Dr Florian to inform of earlier event. He has ordered to nj1 discontinue Heparin bolus and gtt, make sure that his order for code status as DNR is in [facility] and to get copies of the telemetry strips in the chart for him to review tomorrow morning. This RN unable to print strips, housekeeping staff, Anjana, has taken pictures of them for his review. Vital Signs: 17:26 BP 101 / 87; Pulse 51; Resp 16; Temp 98.2; Pulse Ox 100% ; Weight 70.31 kg; Height 5 mb9 ft. 2 in. ; 18:12 BP 120 / 87; Pulse 94; Resp 18; Pulse Ox 98% on R/A; ld1 17:26 Body Mass Index 28.35 (70.31 kg, 157.48 cm) mb9 [place] Coma Score: 18:11 Eye Response: spontaneous(4). Motor Response: obeys commands(6). Verbal Response: hay oriented(5). Total: 15. ED Course: 17:06 Patient arrived in ED. ts1 17:17 Hardeep Gavin MD is Attending Physician. hay 17:28 Triage completed. mb9 17:30 Arm band placed on. mb9 17:34 Radiology exam delayed due to lab results not completed at this time. (BUN/Creatinine) jg10 IV insertion attempt and/or patient not having appropriate IV at this time. 17:45 Client placed on continuous cardiac and pulse oximetry monitoring. NIBP monitoring mb9 applied. insight director on. 17:46 EKG done, by ED staff, reviewed by Hardeep Gavin MD. mb9 18:11 Meghan Gaming, RN is Primary Nurse. ld1 18:12 Patient has correct armband on for positive identification. Placed in gown. Bed in low ld1 position. Call light in reach. Side rails up X2. insight director on. Pulse ox on. NIBP on. Door closed. Noise minimized. Warm blanket given. 18:12 No provider procedures requiring assistance completed. Inserted saline lock: 20 gauge ld1 in right wrist, using aseptic technique. Blood collected. 18:22 XRAY Chest (1 view) In Process Unspecified. EDMS 18:53 Head Brain Wo Cont CT In Process Unspecified. EDMS 18:54 CT Aorta for Dissection In Process Unspecified. EDMS 19:40 Davion Florian MD is Hospitalizing Provider. hay 22:19 Patient admitted, IV remains in place. intact, No redness/swelling at site. lg3 22:30 Ptt, Activated Sent. lg3 Administered Medications: 18:11 Drug: NS 0.9% IV 500 ml Route: IV; Rate: bolus; Site: right wrist; ld1 18:11 Drug: Ondansetron IVP 4 mg Route: IVP; Site: right wrist; ld1 18:11 Drug: Metoprolol PO 25 mg Route: PO; ld1 18:11 Drug: Famotidine IVP 20 mg Route: IVP; Site: right wrist; ld1 18:12 Drug: fentaNYL (PF) IVP 25 mcg Route: IVP; Site: right wrist; ld1 19:06 Not Given (Patient Refused): fentaNYL (PF) IVP 25 mcg IVP once mb9 20:30 Drug: Magnesium Sulfate IVPB 1 grams Route: IVPB; Infused Over: 1 hrs; Site: right lg3 wrist; 20:30 Drug: Potassium PO Effervescent Tablet 50 mEq Route: PO; lg3 20:30 Drug: Aspirin PO Chewable Tablet 162 mg Route: PO; lg3 21:48 Not Given (Discontinued by Dr Florian): Heparin ([place]-Bolus No thrombolytic) - HEParin IVP nj1 60 units/kg IVP once; Max 5000 units 21:48 Not Given (Discontinued by Dr Veras): Heparin ([place] Drip) - ([place] [address] units, D5W nj1 IV 500 ml) 12 units/kg/hr IV at calculated rate Per protocol; Max initial rate 1000 units/hr Medication: 18:12 VIS not applicable for this client. ld1 Outcome: 19:47 Decision to Hospitalize by Provider. hay 22:18 Admitted to Med/surg accompanied by tech, via stretcher, room 411, Report called to [address] 22:18 Condition: stable 22:18 Instructed on the need for admit, Demonstrated understanding of instructions. 23:10 Patient left the ED. mb9 Signatures: Dispatcher [employer] EDMS Hardeep Gavin MD MD cha Gibson, Lacie RN RN lg3 Meghan Gaming RN RN ld1 Liya Li Mary Beth, RN RN mb9 Anisha Saul RN RN nj1 Nora Robison PAS PAS ts1 Corrections: (The following items were deleted from the chart) 17:45 17:26 Acuity: MANJINDER 3 mb9 mb9 17:46 17:30 Cardiovascular: Patient's skin is warm and dry. Rhythm is sinus bradycardia mb9 mb9
[2022-08-22] MEDS ORDERED: ASPIRIN 81 MG CHEWABLE TABLET ONE (19:56)
--- NOTE | 2022-08-22 19:56 | RAD REPORT ---
EXAM DESCRIPTION: CT - Angio Aorta For Dissection - 08/22/2022 7:23 pm CLINICAL HISTORY: PE;Dissection COMPARISON: No comparisons TECHNIQUE: Dynamically enhanced 3 mm thick images of the chest, abdomen, and upper pelvis were obtai emmy during administration of approximately 150mL Isovue 370 IV contrast. Sagittal and coronal reconst ructions as well as maximal intensity projection reconstruction were generated and reviewed per an [facility] angiography protocol. All CT scans are performed using dose optimization technique as appropriate and may include automated exposure control or mA/KV adjustment according to patient size. FINDINGS: Aorta is normal in diameter with no dissection or other acute aortic findings. Reconstruct ion images show no significant findings. Pulmonary arteries are normal as well. No mass or infiltrate in the lung parenchyma. No pleural thickening, pleural effusion or pneumothorax . No abnormal mediastinal or hilar mass or lymphadenopathy seen. No chest wall mass or abnormal axillar y lymphadenopathy. Celiac, SMA and renal arteries show no suspicious findings. Mildly nodular contour of the liver, sugg esting early cirrhosis. Colonic diverticulosis. Diffuse pancreatic atrophic changes, with small cysti c lesions along the body of the pancreas, largest measuring 1.2 centimeter. Scarring along the left r enal upper to mid pole posterior cortex. Nonspecific small cysts of both kidneys. Mildly prominent po rta hepatis and upper retroperitoneal lymph nodes,, nonspecific, and could be infectious or inflammat ory. Solid abdominal viscera and bowel show no other significant findings. No mass or abnormal lympha denopathy. IMPRESSION: No acute abnormalities on CT angiogram of the aorta. No evidence of acute central pulmonary emboli. Incidental findings including mildly nodular liver contour and mildly prominent upper retroperitoneal and mykel hepatis lymph nodes, could be reactive or inflammatory. Small pancreatic cysts on background of pancreatic atrophic changes. These can be further evaluated b y dedicated pancreatic protocol MRI on an outpatient basis.
[2022-08-22] MEDS ORDERED: POTASSIUM 25 MEQ EFFERV TAB ONE (19:57)
[2022-08-22] MEDS ORDERED: MAGNESIUM SULFATE 1 gm IVPB 1 GM/100 ML BAG IV ONE (19:57)
[2022-08-22] MEDS ORDERED: MORPHINE 2 MG/ML SYR IV PRN (22:34)
[2022-08-22] MEDS ORDERED: HEPARIN/D5W 25,000 UNIT/500 ML BAG IV SCH (22:34)
[2022-08-22] MEDS ORDERED: ONDANSETRON 4 MG/2 ML VIAL IV PRN (22:34)
[2022-08-23 04:36] LABS: Absolute Lymphocytes (CBC) 2.2 K/uL (0.7-4.9); Hematocrit 34.8 % (36.0-45.0); Lymphocytes % 33.7 % (15.3-44.8); MCV 92.4 fL (80-100); MPV 7.8 fL (7.6-11.3); RBC Red Blood Cell Count 3.77 M/uL (3.86-4.86)
[2022-08-23 04:37] LABS: Urine Bacteria None Seen /HPF (<20); Urine Bilirubin NEGATIVE (Negative); Urine Blood Trace (Negative); Urine Clarity Clear (Clear); Urine Color Light-Yellow (Yellow); Urine Glucose NEGATIVE (Negative); Urine Mucus 1+ /HPF (None Seen); Urine Protein TRACE (Negative); Urine RBC <5 /HPF (None Seen); Urine Urobilinogen Normal (Normal)
[2022-08-23 04:45] LABS: Potassium 3.9 mEq/L (3.5-5.1)
[2022-08-23 05:06] LABS: Specific Gravity 1.015 (1.005-1.030)
[2022-08-23] MEDS ORDERED: METOPROLOL TAR 25 MG TAB PO SCH (06:00)
[2022-08-23] MEDS ORDERED: PNEUMOCOCCAL VACCINE 0.5 ML IMVAC ONE (08:00)
[2022-08-23] MEDS ORDERED: ASPIRIN EC 81 MG TAB PO SCH (09:00)
[2022-08-23] MEDS ORDERED: FAMOTIDINE 20 MG/2 ML VIAL IV SCH (09:00)
[2022-08-23] MEDS ORDERED: ENOXAPARIN 40 MG/0.4 ML SQ SCH (09:00)
[2022-08-23] MEDS: ALFUZOSIN HCL 10 MG PO SCH (09:00)
[2022-08-23] MEDS: ESCITALOPRAM 20 MG TAB PO SCH (09:17)
[2022-08-23] MEDS: LEVOTHYROXINE SOD 0.075 MG TAB PO SCH (09:17)
--- NOTE | 2022-08-23 09:19 | RAD REPORT ---
EXAM DESCRIPTION: RAD - C Spine W Obliques - 08/23/2022 9:08 am CLINICAL HISTORY: Neck pain FINDINGS: No fracture or dislocation is seen. Mild posterior subluxation C4 on C5 Mild spondylosis involves mid and distal cervical spine Oblique views demonstrate mild bony encroachment upon the left neural foramina C5-6
[2022-08-23] MEDS: ACETAMINOPHEN 325 MG TABLET PO PRN ×2 (09:43→21:03)
--- NOTE | 2022-08-23 16:06 | EKG ---
Test Date: 2022-08-22 Test Time: 17:37:17 Manager Regulatory: MB MEASUREMENT RESULTS: Intervals: Rate: 91 [place]: QRSD: 76 QT: 352 QTc: 432 [place]: P: LA: QRS: 13 T: 67 INTERPRETIVE STATEMENTS: Atrial fibrillation with premature ventricular or aberrantly conducted complexes Abnormal ECG Compared to ECG 08/22/2022 17:36:29 Atrial flutter no longer present T-wave abnormality no longer present Electronically Signed On 08-23-22 16:04:46 CDT by Shay Reyez
--- NOTE | 2022-08-23 16:07 | EKG ---
Test Date: 2022-08-22 Test Time: 17:36:29 Licensed Veterinary Technician: MB MEASUREMENT RESULTS: Intervals: Rate: 99 [place]: QRSD: 78 QT: 348 QTc: 446 [place]: P: 161 [place]: QRS: 23 T: 48 INTERPRETIVE STATEMENTS: Atrial flutter with variable AV block with premature ventricular or aberrantly conducted complexes Nonspecific T wave abnormality Abnormal ECG Compared to ECG 05/23/2021 11:19:29 Ventricular premature complex(es) now present T-wave abnormality now present Sinus rhythm no longer present Sinus arrhythmia no longer present Electronically Signed On 08-23-22 16:04:47 CDT by Shay Reyez
[2022-08-23] MEDS ORDERED: AMLODIPINE 5 MG TAB PO SCH (21:00)
[2022-08-23] MEDS ORDERED: ATORVASTATIN 10 MG TAB PO SCH (21:00)
[2022-08-23] MEDS ORDERED: clonazePAM 1 MG TAB PO SCH (21:00)
[2022-08-23] MEDS: APIXABAN 5 MG TABLET PO SCH (22:33)
--- NOTE | 2022-08-23 23:55 | CON ---
Date of Consultation: 08/23/2022 Time: 1939. Reason For Consultation: Headache, prior stroke. History Of Present Illness: 87-year-old lady, well known to myself, prior left MCA stroke. She actu ally has made quite a good improvement from that stroke. She had some persistent mild word-finding p roblems and she has had persistent headaches really for years and she is not a patient who likes to t mallory medications for symptoms. So we tried several different medicines, but the patient really does n ot like to stay on the medications and she stopped. So she presented in her usual state of health an d then she tells me maybe 2 weeks ago started noticing a change in the context of the headache. Had some left shoulder discomfort and neck discomfort and then pain that goes up into the ear and then ov er the left temporal region and the headaches were more long-lasting and perhaps a little bit more in tense and overall she did not feel well and then she started getting chest discomfort and that all th is became too much, so she came to the emergency department at the request of her primary care physic reina where workup revealed that the patient was in atrial fibrillation that compounded with the chest discomfort, got her admitted. She was actually in A flutter initially and then an AFib, although rig ht now on telemetry and as per patient, she is back in sinus rhythm. She has had a plain film cervic al spine demonstrating spondylosis with left foraminal encroachment at C5-6. Consultation was manoj moran. Past Medical History: Prior stroke, hypothyroidism, hyperlipidemia. Routine Medications: aspirin, levothyroxine, Lexapro, Lipitor, Klonopin, and Norvasc. Social History: Does not smoke. Independent basic activities of daily living. She does have a DNR status. Family History: Noncontributory. Review of Systems: General: Chronically ill. Eyes: No vision loss. Ears, Nose, Throat: Ear pain with headaches as noted. Cardiovascular: Hypertension, AFib. Pulmonary: Negative. GI: Negative. : Negative. Musculoskeletal: Neck arthralgias. Neurologic: As noted. Psychiatric: Depression/anxiety. Hematologic: Negative. Physical Examination: Vital Signs: 97.9, 73, 18, 142/67. General: Pleasant lady, sitting in bed, in no distress. Heart: Sinus rhythm on auscultation. No carotid bruits. Lungs: Clear. Neurological: She is awake, alert, oriented. Speech is fluent. Occasional word-finding problems, a lthough not particularly prominent. Pupils reactive. Ocular motion full without nystagmus. Visual forbes full to confrontation bilaterally. Facial strength and sensation is normal. Tongue protrudes evenly. Soft palate elevates symmetrically bilaterally. Extremities: Strength full. There is a little residual dyspraxia to the right arm and the right leg . Sensation is intact. No cortical extinction. Reflexes 1/4. Toes are downgoing. Feet are very s ensitive. Cerebellar exam demonstrates no ataxia. Impression: 1.Headache. 2.Cervical spondylosis/radiculopathy. 3.Prior stroke. Plan: Given the new-onset AFib and the change in the context of the headaches, check brain MRI strok e protocol and a carotid Doppler. Given the headache proper, we will check a CRP, sedimentation rate is no longer available at this institution as a study, and we will check a MRI cervical spine given cervical radicular symptoms, neck discomfort, and left shoulder discomfort. With regard to the systemic anticoagulation potential for the AFib, cardiology consult is pending. P juan might benefit from more aggressive systemic anticoagulation if she is amenable. Thank you for the consult. We will continue to follow with you. CARMENZA Voice ID: [id number] Report ID: [id number]
--- NOTE | 2022-08-24 00:55 | PN ---
Date of Progress Note: 08/23/2022 Subjective: Patient was seen this morning for followup. No new complaints or problems reported by t he patient this morning except she continues to have left-sided headache and left-sided neck pain. D enies any chest pain or shortness of breath, this morning. Objective: Vital Signs: Reviewed. HEENT: Unremarkable. Lungs: Clear to auscultation. Heart: Sounds normal. Abdomen: Soft. Bowel sounds normal. No guarding, rigidity, tenderness, or distention. Extremities: No leg edema. Laboratory Data: This morning, white count 6.40, hemoglobin 12, platelets 175. Sodium 136, potassiu m 3.9, chloride 107, bicarb 27, BUN 26, creatinine 0.80. Glucose 112. Impression: 1.Headache. 2.Chest pain. 3.Rule out sick sinus syndrome. 4.Hypertension. 5.Mixed hyperlipidemia. 6.Impaired fasting glucose. 7.Osteoarthritis, multiple sites. Plan: We will go ahead and follow with composition floor layer. Details were discussed with Dr. Reyez and he will try to review rhythm strip from emergency room. We will also consult neurologist and I have or dered x-ray of the cervical spine. Consult Physical Therapy. DVT prophylaxis will be given using Lovenox and I will see her tomorrow for followup. SAPNA/MODL Voice ID: [id number] Report ID: [id number]
[2022-08-24 01:56] VITALS: BMI 28.3
--- NOTE | 2022-08-24 05:07 | HP ---
Date of Admission: 08/23/2022 Chief Complaint: Chest pain, back pain, neck pain and headache. History Of Present Illness: This is an 87-year-old very pleasant female patient, lives at home with her daughter who woke up this morning not feeling good at all. Feels very tired, weak and short of b reath. She is also complaining of left-sided chest pain over the medial aspect of the left breast an d left scapular pain along with left lateral neck pain and left-sided headache. Denies any fall or i njury. No fever, chills, nausea, vomiting. The patient's daughter called the office requesting appo intment and after I saw her, it was advised for her to go to the emergency room for further evaluatio n and management of this problem and after she was evaluated, she was admitted to the hospital. Her pulse rate at office was 130 beats per minute. Allergies: NO KNOWN ALLERGIES. Medications: List reviewed. 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 Cardiovascular: As mentioned above. Constitutional: As mentioned above. All other systems reviewed and negative. Past Medical History: Significant for stroke, allergic rhinitis, hypothyroidism, impaired fasting gl ucose, COPD, hypertension, mixed hyperlipidemia, osteoarthritis at multiple sites, restless legs synd halie, and chronic back pain. Surgical History: Significant for cholecystectomy and hysterectomy. Right femur fracture surgery in 2020. Family History: Significant for father who had hypertension and diabetes. Mother had breast cancer and hypertension. Brother had hypertension and diabetes. Sister with diabetes. Social History: Negative for smoking and alcohol use. Physical Examination: Vital Signs: Initial vital signs upon admission; temperature 98.2, pulse 51, respiratory rate 16, bl ood pressure 101/87, oxygen saturation 100%, height 5 feet 2 inches, weight 155 pounds. General: Patient appears weaker than normal, not in any respiratory distress. HEENT: Head atraumatic, normocephalic. Conjunctivae nonerythematous. Sclerae white. Mouth, no thr ush or edema noted. Ears/Nose, no mass, lesion, discharge noted. Neck: Supple. No JVD, lymph nodes, bruit, thyromegaly noted. Lungs: Bilateral good equal air entry. Clear to auscultation. No rhonchi. No rales. Heart: Normal heart sounds, no murmur or gallop. Abdomen: Soft, bowel sounds normal. No guarding, rigidity, tenderness, mass, hepatosplenomegaly, dis tention, or bruit noted. Extremities: No leg edema. No calf tenderness. Skin: No rash, ulcer, cellulitis. Lymphatics: No lymph node enlargement in neck, supraclavicular, infraclavicular region. Neuro: No focal neurological deficit. Chest: Unremarkable. External Genitalia: Deferred. Rectal: Deferred. Laboratory Data: White count 7, hemoglobin 13.6, platelets 171. Sodium 136, potassium 3.4, chloride 107, bicarb 23, BUN 21, creatinine 0.87, glucose 145. Liver function tests unremarkable. Troponin 8.9. ProBNP 1471. Lipase 17. TSH 0.058. CAT scan of the brain without contrast was negative for any acute intracranial changes, stable left M CA territory sequela of remote ischemia. CT angiogram of the aorta shows no evidence of acute abnormality. No evidence of acute central pulmo nary emboli. Incidental finding of mildly nodular liver, small pancreatic cyst. Chest x-ray shows n o acute cardiopulmonary changes. Impression: 1.Chest pain. 2.Headache. 3.Hypertension. 4.Mixed hyperlipidemia. 5.Impaired fasting glucose. 6.Hypothyroidism. 7.Allergic rhinitis. 8.Restless legs syndrome. 9.Hypokalemia. Plan: Admit the patient to hospital for further evaluation and management of this problem. The ken ent's cardiac enzyme was normal and we will go ahead and repeat blood work tomorrow morning, replace potassium per order. Consult Cardiology. Home medications will be continued for hypertension and mo nitor blood pressure if necessary, adjust antihypertensive medication. Continue statin therapy for h yperlipidemia. While patient was in the emergency room, she was sitting in the bed and nurse was at bedside and all of a sudden, she had few second episode where she became semi-responsive to unrespons carlos and this lasted just for 2-3 seconds according to the nurse in the emergency room and according t o daughter, the episode might have lasted 5-6 seconds. Nurse did not see any cardiac arrhythmia at t hat time, but I did ask her to get copy of the rhythm strip and we are awaiting on that to be availab le for us to review. Definitely, our concern is that if she had any sick sinus syndrome type of prob elin to cause this kind of brief episode. We will consult Cardiology and I will see her tomorrow kevin ambrose for followup. She was started on heparin drip, which I did order it to be discontinued yesterday after two negative cardiac enzymes. SAPNA/MODL Voice ID: [id number]
[2022-08-24] MEDS: LEVOTHYROXINE SOD 0.075 MG TAB PO SCH (05:47)
[2022-08-24 07:17] LABS: C-Reactive Protein 5.26 mg/L (<3.00)
--- NOTE | 2022-08-24 08:21 | RAD REPORT ---
EXAM DESCRIPTION: - CP - 08/24/2022 5:44 am CLINICAL HISTORY: ALMANZA Headache, drowsiness COMPARISON: Carotid Artery Bilateral dated 08/03/2018 TECHNIQUE: Real-time sonographic evaluation of both carotid systems was performed. Doppler interroga tion was performed with waveform tracing bilaterally. FINDINGS: Normal high resistance waveforms are noted in both external carotid arteries. The common c arotid arteries and internal carotid arteries show normal low resistance waveforms. Mild soft plaque is seen both proximal internal carotid arteries. Based on NASCET criteria, stenosis bilaterally is estimated less than 50%. Peak systolic and end diastolic velocity values and the ICA/C CA ratios are in the non-hemodynamically significant range. Antegrade flow seen in both vertebral arteries. IMPRESSION: Oggw-bi-yhxuuqqf soft plaquing is noted involving both proximal internal carotid arterie s. No evidence of a hemodynamically significant stenosis.
--- NOTE | 2022-08-24 08:58 | RAD REPORT ---
EXAM DESCRIPTION: MRI - Brain W/Wo Cont - 08/24/2022 8:46 am CLINICAL HISTORY: ALMANZA Headache, drowsiness COMPARISON: MRA Head Wo Cont dated 08/24/2022; Brain Wo Cont dated 04/12/2022; Brain Wo Cont dated 04/26; Head Brain Wo Cont dated 05/23/2021; Brain Wo Cont dated 07/02/2018 TECHNIQUE: Multi-sequence, multiplanar MR imaging of the brain was performed with contrast. FINDINGS: No intracranial hemorrhage, hydrocephalus, or extra-axial fluid collection. No edema or sh ift of midline structures. No intracranial mass. DWI is negative for acute CVA. Gliosis is seen in th e distribution of the left middle cerebral artery compatible with old infarct. The midline structures are normally formed. Mastoid air cells and paranasal sinuses are clear. Post-contrast images show no abnormal enhancement to suggest tumor or infection. IMPRESSION: No acute CVA or other acute intracranial abnormality. Evidence of old left MCA territory infarction. No pathologic post-contrast enhancement suspected.
[2022-08-24] MEDS: ALFUZOSIN HCL 10 MG PO SCH (09:00)
--- NOTE | 2022-08-24 09:00 | RAD REPORT ---
EXAM DESCRIPTION: MRI - MRA Head Wo Cont - 08/24/2022 8:27 am CLINICAL HISTORY: ALMANZA CVA COMPARISON: Head Brain Wo Cont dated 08/22/2022 FINDINGS: 3D noncontrast [id number] MR angiography of the [place] of [place] was performed. No evidence of large vessel occlusion. No aneurysm, flow-limiting stenosis or vascular malformation i s seen. Forward flow seen in codominant vertebral arteries. The visualized dural venous sinuses appear patent. IMPRESSION: No significant flow abnormality of the [place] of [place] is identified.
[2022-08-24] MEDS: APIXABAN 5 MG TABLET PO SCH (09:07)
[2022-08-24] MEDS: ESCITALOPRAM 20 MG TAB PO SCH (09:07)
--- NOTE | 2022-08-24 09:43 | RAD REPORT ---
EXAM DESCRIPTION: MRI - C Spine Wo Cont- 08/24/2022 8:27 am CLINICAL HISTORY: neck pain Neck pain, radiculopathy COMPARISON: No comparisons FINDINGS: Cervical vertebral bodies are normal in height and alignment. No suspicious marrow edema or marrow replacing process. No fracture or traumatic subluxation. The craniocervical junction is normal. C2-3 level: Rbdua-vw-iiihogqb posterior osteophyte/ disc complex is present attenuating the anterior subarachnoid space. Left-sided facet and uncovertebral spurring moderately narrows the left exit fora men. C3-4 level: Small posterior osteophyte/ disc complex is present attenuating the anterior subarachnoid space. Bilateral facet and uncovertebral spurring mildly narrows both exit foramina. C4-5 level: Small to moderate posterior osteophyte/ disc complex is present attenuating the anterior subarachnoid space. Bilateral uncovertebral spurring, greater on the left narrows the left exit nikos en. C5-6 level: Left-sided facet and uncovertebral spurring results in significant left-sided exit forami nal stenosis. C6-7 level: Small posterior osteophyte/ disc complex is present attenuating the anterior subarachnoid space. C7-T1 level: No significant findings. Cervical cord is normal in size and signal. IMPRESSION: Moderately severe mid cervical degenerative spondylosis as described. No severe canal st enosis seen. There is quite significant left-sided exit foraminal stenosis at C5-6.
--- NOTE | 2022-08-24 09:43 | CON ---
Date of Consultation: 08/23/2022 Reason For Consultation: Syncope and bradycardia. History Of Present Illness: Mrs. Schmid is 87. Has a history of CVA, hypertension, dyslipidemia, and hypothyroidism. She is a do not resuscitate, but came into the hospital with chest pain and episode of severe bradycardia with documented presyncopal episode and an episode where she did not pass out, but she basically was unresponsive. Denied any nausea, vomiting, diaphoresis, PND, orthopnea, pedal edema. She herself denied any palpitation. She denied any fever or chills. Past Medical History: As stated above. Allergies: NONE. Review of Systems: Negative. Social History: Negative. Family History: Noncontributory. Medications: Now at home include aspirin, Norvasc, Lipitor, and Synthroid. The patient has received 1 dose of beta-blockers in the emergency room because of atrial fibrillation. Physical Examination: General: She was pleasant as usual. Vital Signs: Stable. She was afebrile. She was in a sinus rhythm. HEENT: Negative. Neck: Supple with no bruit. Chest: Clear. Cardiac: Revealed a regular rhythm and rate. No murmurs, gallops, or rubs. Abdomen: Benign. Extremities: Revealed no clubbing, cyanosis, or edema. Laboratory Data: Her TSH was 0.058. BNP was 1471. Chest x-ray was negative. Impression And Plan: Paroxysmal atrial fibrillation, syncope possibly secondary to severe bradycardi a. I think we should definitely not give her beta-blockers. Continue her aspirin, Norvasc, Lipitor, and Synthroid for her other medical problems. The TSH may be a little but low and we could probably cut down the dose on the thyroid a little bit. This was discussed with Dr. Florian. I am not convince d after the bradycardia on the monitor as if this was a picture of the telemetry that was taken by ph one. Nevertheless, I think we have to believe it for now. I will see what her echo shows. I will p elmo an event monitor as an outpatient before making any further decisions regarding her therapy. She can go home after the echo and I think it would be reasonable to watch her for another 24 hours. KIZZY/MODL Voice ID: [id number] Report ID: [id number]
--- NOTE | 2022-08-24 10:05 | RAD REPORT ---
EXAM DESCRIPTION: MRI - MRA Neck W/Wo Cont - 08/24/2022 8:27 am CLINICAL HISTORY: ALMANZA Headache, drowsiness COMPARISON: C Spine Wo Cont dated 08/24/2022; Brain W/Wo Cont dated 08/24/2022 FINDINGS: Contrast enhance 2D hoei-vv-[id number] MR angiography of the neck vessels was performed. There is a left aortic arch present with normal great vessel origin pattern. There is mild to moderate narrowing of right carotid bulb estimated at less 50% based on NASCET crite stacie. No significant left-sided carotid stenosis. Antegrade flow is seen in codominant vertebral arteries. IMPRESSION: Mild narrowing of the right carotid bulb is seen, however based on NASCET criteria appea rs less than 50%.
--- NOTE | 2022-08-24 10:54 | ECHO ---
HEIGHT: 5 ft 2 in WEIGHT: 155 lb 0 oz DATE OF STUDY: 08/23/[address]: Hardeep Gavin MD 2-DIMENSIONAL: YES M.MODE: YES DOPPLER: YES COLOR FLOW: YES TDS: NO PORTABLE: YES DEFINITY: NO BUBBLE STUDY: NO DIAGNOSIS: ATRIAL FIBRILLATION WITH RAPID VENTRICULAR RESPONSE CARDIAC HISTORY: CATHERIZATION: NO SURGERY: NO PROSTHETIC VALVE: NO PACEMAKER: NO MEASUREMENTS (cm) DIASTOLIC (NORMALS) SYSTOLIC (NORMALS) IVSd 0.7 (0.6-1.2) LA Diam 2.8 (1.9-4.0) LVEF 57% LVIDd 4.4 (3.5-5.7) LVIDs 3.1 (2.0-3.5) %FS 30% LVPWd 0.9 (0.6-1.2) Ao Diam 2.6 (2.0-3.7) 2 DIMENSIONAL ASSESSMENT: RIGHT ATRIUM: NORMAL LEFT ATRIUM: NORMAL RIGHT VENTRICLE: NORMAL LEFT VENTRICLE: NORMAL TRICUSPID VALVE: NORMAL MITRAL VALVE: NORMAL PULMONIC VALVE: NORMAL AORTIC VALVE: NORMAL PERICARDIAL EFFUSION: NONE AORTIC ROOT: NORMAL LEFT VENTRICULAR WALL MOTION: NORMAL DOPPLER/COLOR FLOW: MILD MITRAL AND TRICUSPID REGURGITATION. COMMENTS: 1. MILD MITRAL AND TRICUSPID REGURGITATION 2. NORMAL LEFT VENTRICULAR SIZE AND FUNCTION. 3. NO EFFUSION. 4. NORMAL LEFT ATRIAL SIZE. 5. NO THROMBUS. TECHNOLOGIST: Cassandra CHRISTENSEN
[2022-08-24 12:01] VITALS: O2SAT 97
[2022-08-24 12:05] VITALS: BP 147/67; TEMP 96.8
--- NOTE | 2022-08-24 19:49 | DS ---
Date of Discharge: 08/24/2022 Disposition: Discharged to go home. Physical Examination: HEENT: Unremarkable. Lungs: Clear to auscultation. Heart: Sounds normal. Abdomen: Soft. Bowel sounds normal. No guarding, rigidity, tenderness, distention. Extremities: No leg edema. Laboratory Data: Upon admission; white count 7, hemoglobin 13.6, platelets 171. Yesterday; white co unt 6.4, hemoglobin 12, platelets 175. Chemistry upon admission; sodium 136, potassium 3.4, chloride 107, bicarb 23, BUN 21, creatinine 0.87, glucose 145. Liver function tests unremarkable. Initial t roponin 8.9, second troponin 7.5. Yesterday; sodium 136, potassium 3.9, chloride 107, bicarb 27, BUN 26, creatinine 0.80, glucose 112. Today; her LDL cholesterol was 9, HDL 36, total cholesterol 62, t riglyceride 87. TSH upon admission was 0.058. Discharge Medications And Instructions: Continue all prior home medications except following changes ; 1.Stop aspirin. 2.Stop levothyroxine 100 mcg dose. 3.Start levothyroxine 75 mcg 1 tablet daily. 4.Start Eliquis 5 mg 2 times a day. 5.Start prednisone 10 mg, take 3 tablets daily for 3 days, then 2 tablets daily for 3 days, then 1 t ablet daily for 3 days, then stop. 6.Follow up at my office next week. Hospital Course: This is an 87-year-old female patient, who came into office with her daughter with complaints of chest pain, back pain, headache, and left-sided neck pain. Please see dictated H and P for more information. After the patient was evaluated at office, she was sent to the emergency room and after her evaluation in the emergency room, she was admitted to the hospital. AR was ruled out by getting serial cardiac enzymes. The patient had atrial fibrillation, which is a new onset, diagno sed during this hospitalization. Her CAT scan of the head was negative for any acute intracranial ch anges. Cardiology and Neurology consultation were obtained. Her MRI of the brain was negative for a ny acute changes, evidence of old stroke was noted. Her MRA of intracranial artery was negative for any stenotic lesions. X-ray of the cervical spine has shown evidence of cervical spondylosis with fo raminal stenosis and this would explain her neck pain and possibly headache also. Overall, the patie nt's condition has improved and today she was discharged to go home in stable condition. 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 Final Diagnoses: 1.Atrial fibrillation. 2.Chest pain. 3.Headache. 4.Cervical spondylosis. 5.Hypertension. 6.Mixed hyperlipidemia. 7.Hypokalemia. 8.Hypothyroidism. 9.Impaired fasting glucose. 10.Allergic rhinitis. 11.Restless legs syndrome. SAPNA/MODL Voice ID: [id number] Report ID: [id number]
== END 2022-08-24 13:31 | disposition home or self-care (01) | DRG 310 ==
LOC: ER 17:04 → ERHOLD 19:53 → 4TH 22:30 → OBSVTOIN 08-23 19:01
PROVIDERS: ADMIT Internal Medicine; ATTEND Internal Medicine
DX: I48.19 Other persistent atrial fibrillation (principal); I10 Essential (primary) hypertension; E03.9 Hypothyroidism, unspecified; E87.6 Hypokalemia; E78.00 Pure hypercholesterolemia, unspecified; F41.9 Anxiety disorder, unspecified; M47.892 Other spondylosis, cervical region; M54.10 Radiculopathy, site unspecified; F32.A Depression, unspecified; G89.29 Other chronic pain; M54.9 Dorsalgia, unspecified; M19.09 Primary osteoarthritis, other specified site; J30.9 Allergic rhinitis, unspecified; J44.9 Chronic obstructive pulmonary disease, unspecified; G25.81 Restless legs syndrome; R73.01 Impaired fasting glucose; Z66 Do not resuscitate; Z86.73 Personal history of transient ischemic attack (TIA), and cerebral infarction without residual deficits; Z79.82 Long term (current) use of aspirin; Z90.49 Acquired absence of other specified parts of digestive tract; Z90.710 Acquired absence of both cervix and uterus; Z79.899 Other long term (current) drug therapy
CPT/HCPCS: 36415; 70450; 70544; 70549; 70553; 71045; 71275; 72050; 72141; 74175; 80048; 80061; 80076; 81001; 83690; 83735; 83880; 84443; 84484; 85025; 85610; 85730; 86140; 93005; 93306; 93880; 96374; 96375; 97116; 97161; 99285; A9577; G0378; J1650; J2405; J3010; J3475; J7040; Q9967

== ENCOUNTER 2022-08-25 09:14 | Observation (INO) | payer OTHER, MEDICARE ==
--- OUTSIDE RECORDS SUMMARY | 2022-08-25 09:24 | XMS REPORT | Continuity of Care Document ---
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 Memoria 18:00:00 04:59:59 r Neurology 10 jody House 2019-02-21 2019-02-22 Outpatient nullFlavo MNA [id number] Memoria 18:00:00 04:59:59 r Neurology 10 jody House 2019-02-21 2019-02-21 Outpatient Mar[facility] [id number] 13:00:00 23:59:59 Josue 10 Cruzito 2019-02-21 2019-02-21 Outpatient MHIE MHIE [id number] Memoria 13:00:00 13:00:00 10 jody House 2018-10-18 2018-10-19 Outpatient nullFlavo MNA [id number] Memoria 18:00:00 04:59:59 r Neurology 09 jody [place] Harsh 2018-10-18 2018-10-19 Outpatient nullFlavo MNA [id number] Memoria 18:00:00 04:59:59 r Neurology 09 jody [place] Harsh 2018-10-18 2018-10-18 Outpatient Mar[facility] [id number] 13:00:00 23:59:59 Josue 09 Cruzito 2018-10-18 2018-10-18 Outpatient MHIE MHIE [id number] Memoria 13:00:00 13:00:00 09 jody Harsh 2018-09-13 2018-09-14 Outpatient nullFlavo MNA [id number] Memoria 20:00:00 04:59:59 r Neurology 08 jody [place] Harsh 2018-09-13 2018-09-14 Outpatient nullFlavo MNA [id number] Memoria 20:00:00 04:59:59 r Neurology 08 jody [place] Harsh 2018-09-13 2018-09-13 Outpatient [facility] [id number] 15:00:00 23:59:59 Josue 08 Cruzito 2018-09-13 2018-09-13 Outpatient MHIE MHIE [id number] Memoria 15:00:00 15:00:00 08 jody Harsh 2018-09-07 2018-09-08 Outpatient nullFlavo MNA [id number] Memoria 18:00:00 04:59:59 r Neurology 07 l Pranav House 2018-09-07 2018-09-08 Outpatient nullFlavo MNA [id number] Memoria 18:00:00 04:59:59 r Neurology 07 l Pranav House 2018-09-07 2018-09-07 [id number] 13:00:00 23:59:59 Josue Ari Cruzito 2018-09-07 2018-09-07 Outpatient MHIE MHIE [id number] Memoria 13:00:00 13:00:00 07 jody Harsh 2018-08-03 2018-08-03 Outpatient MHIE MHIE [id number] Memoria 13:00:00 13:00:00 06 jody Harsh 2018-08-03 2018-08-03 Outpatient MHIE MHIE [id number] Memoria 13:00:00 13:00:00 06 jody Harsh 2018-04-12 2018-04-13 Outpatient nullFlavo MNA [id number] Memoria 19:30:00 05:59:59 r Neurology 05 jody [place] Harsh 2018-04-12 2018-04-13 Outpatient nullFlavo MNA [id number] Memoria 19:30:00 05:59:59 r Neurology 05 jody [place] Harsh 2018-04-12 2018-04-12 [id number] 13:30:00 23:59:59 Josue Milton Cruzito 2018-04-12 2018-04-12 Outpatient MHIE MHIE [id number] Memoria 13:30:00 13:30:00 05 jody Harsh 2018-02-27 2018-02-27 Ambulatory nullFlavo MNA [id number] Memoria 17:30:00 17:30:00 Pre-Reg r Neurology 02 jody [place] Harsh 2018-02-27 2018-02-27 Ambulatory nullFlavo MNA [id number] Memoria 17:30:00 17:30:00 Pre-Reg r Neurology 02 jody Pranav House 2018-02-27 2018-02-27 Outpatient MHIE MHIE [id number] Memoria 11:30:00 11:30:00 02 jody Harsh 2018-02-27 2018-02-27 Outpatient Marva, [facility] [id number] 11:30:00 11:30:00 Josue 02 Cruzito 2018-02-08 2018-02-09 Outpatient nullFlavo MNA [id number] Memoria 19:30:00 04:59:59 r Neurology 04 l [place] Harsh 2018-02-08 2018-02-09 Outpatient nullFlavo MNA [id number] Memoria 19:30:00 04:59:59 r Neurology 04 l Pranav Harsh 2018-02-08 2018-02-08 Outpatient Marva, [facility] [id number] 14:30:00 23:59:59 Josue 04 Cruzito 2018-02-08 2018-02-08 Outpatient MHIE MHIE [id number] Memoria 14:30:00 14:30:00 04 jody Harsh 2018-01-24 2018-01-25 Outpatient nullFlavo MNA [id number] Memoria 16:15:00 04:59:59 r Neurology 03 l [place] Harsh 2018-01-24 2018-01-25 Outpatient nullFlavo MNA [id number] Memoria 16:15:00 04:59:59 r Neurology 03 jody [place] Harsh 2018-01-24 2018-01-24 Outpatient Marva, [facility] [id number] 11:15:00 23:59:59 Josue 03 Cruzito 2018-01-24 2018-01-24 Outpatient MHIE MHIE [id number] Memoria 11:15:00 11:15:00 03 jody House 2017-11-28 2017-11-28 Outpatient MHIE MHIE [id number] Memoria 11:30:00 11:30:00 01 jody House 2017-11-28 2017-11-28 Outpatient MHIE MHIE [id number] Memoria 11:30:00 11:30:00 01 jody House 2017-10-10 2017-10-10 Outpatient MHIE MHIE [id number] Memoria 15:45:00 15:45:00 00 jody House 2017-10-10 2017-10-10 Outpatient MHIE MHIE [id number] Memoria 15:45:00 15:45:00 00 jody House Results This patient has no known results.
--- NOTE | 2022-08-25 09:47 | EDPHYS ---
Physician Documentation [facility] Name: Robby Schmid Age: 87 yrs Sex: Female : 1935 Arrival Date: 08/25/2022 Time: 09:14 Bed 13 Private MD: CATALINO Physician Hardeep Gavin HPI: 08/25 09:39 This 87 yrs old Female presents to ER via Wheelchair with complaints of AFIB. hay 09:39 The patient has shortness of breath at rest, with light activity. Onset: The hay symptoms/episode began/occurred 1 day(s) ago. Duration: The symptoms are continuous, and are steadily getting worse. The patient's shortness of breath is aggravated by nothing, is alleviated by nothing. The patient or guardian reports chest pain that is located primarily in the anterior chest wall, bilaterally. Onset: this morning, today. The patient presents with a history of irregular heart beat. Context: The symptoms occur at rest. Modifying factors: The symptoms are aggravated by nothing. The symptoms are alleviated by nothing. Historical: - Allergies: 09:24 No Known Allergies; aa5 - PMHx: 09:20 CVA; High Cholesterol; Hypertension; Hypothyroidism; UTI; aa5 09:24 Atrial Fib August 2022; aa5 - PSHx: 09:20 Cholecystectomy; hysterectomy; aa5 - Immunization history:: Adult Immunizations up to date. - Family history:: not pertinent. - Social history:: Smoking status: Patient denies any tobacco usage or history of. ROS: 09:39 Constitutional: Negative for fever, chills, and weight loss, Eyes: Negative for injury, hay pain, redness, and discharge, ENT: Negative for injury, pain, and discharge, Neck: Negative for injury, pain, and swelling, Respiratory: Negative for shortness of breath, cough, wheezing, and pleuritic chest pain, Abdomen/GI: Negative for abdominal pain, nausea, vomiting, diarrhea, and constipation, Back: Negative for injury and pain, : Negative for injury, bleeding, discharge, and swelling, MS/Extremity: Negative for injury and deformity, Skin: Negative for injury, rash, and discoloration, Neuro: Negative for headache, weakness, numbness, tingling, and seizure, Psych: Negative for depression, anxiety, suicide ideation, homicidal ideation, and hallucinations, Allergy/Immunology: Negative for hives, rash, and allergies, Endocrine: Negative for neck swelling, polydipsia, polyuria, polyphagia, and marked weight changes. 09:39 Cardiovascular: Positive for chest pain, palpitations. Exam: 09:39 Constitutional: This is a well developed, well nourished patient who is awake, alert, hay and in no acute distress. Head/Face: Normocephalic, atraumatic. Eyes: Pupils equal round and reactive to light, extra-ocular motions intact. Lids and lashes normal. Conjunctiva and sclera are non-icteric and not injected. Cornea within normal limits. Periorbital areas with no swelling, redness, or edema. ENT: Nares patent. No nasal discharge, no septal abnormalities noted. Tympanic membranes are normal and external auditory canals are clear. Oropharynx with no redness, swelling, or masses, exudates, or evidence of obstruction, uvula midline. Mucous membranes moist. Neck: Trachea midline, no thyromegaly or masses palpated, and no cervical lymphadenopathy. Supple, full range of motion without nuchal rigidity, or vertebral point tenderness. No Meningismus. Chest/axilla: Normal chest wall appearance and motion. Nontender with no deformity. No lesions are appreciated. Respiratory: Lungs have equal breath sounds bilaterally, clear to auscultation and percussion. No rales, rhonchi or wheezes noted. No increased work of breathing, no retractions or nasal flaring. Abdomen/GI: Soft, non-tender, with normal bowel sounds. No distension or tympany. No guarding or rebound. No evidence of tenderness throughout. Back: No spinal tenderness. No costovertebral tenderness. Full range of motion. Female : Normal external genitalia. Skin: Warm, dry with normal turgor. Normal color with no rashes, no lesions, and no evidence of cellulitis. MS/ Extremity: Pulses equal, no cyanosis. Neurovascular intact. Full, normal range of motion. Neuro: Awake and alert, GCS 15, oriented to person, place, time, and situation. Cranial nerves II-XII grossly intact. Motor strength 5/5 in all extremities. Sensory grossly intact. Cerebellar exam normal. Normal gait. Psych: Awake, alert, with orientation to person, place and time. Behavior, mood, and affect are within normal limits. 09:39 Cardiovascular: Rate: tachycardic, actual rate is 114 bpm, Rhythm: Pulses: Pulses are 4+ in bilateral radial, brachial, femoral, popliteal, posterior tibial and and dorsalis pedis arteries.. Heart sounds: normal, Edema: is not appreciated, JVD: is not appreciated. 09:39 ECG was reviewed by the Attending Physician. Vital Signs: 09:22 BP 99 / 72; Pulse 114; Resp 18 S; Temp 98(TE); Pulse Ox 95% on R/A; aa5 11:00 BP 125 / 89; Pulse 101; Resp 19; Pulse Ox 99% ; bp 12:00 BP 114 / 66; Pulse 75; Resp 16; Pulse Ox 96% ; bp MDM: 09:16 Patient medically screened. hay 09:42 Differential diagnosis: Anemia CHF exacerbation, abnormal EKG, acute myocardial hay infarction, acute pericarditis, anxiety, coronary artery disease chest wall pain, arrythmia, dehydration, esophagitis, pancreatitis, pneumonia, pulmonary embolus, stable angina, Myocardial Infarction pulmonary edema, Pulmonary Embolism reactive airway disease, Unstable Angina. Antibiotic administration: Not indicated. HEART Score: History: Moderately Suspicious (1), ECG: Non specific repolarization disturbance / LBTB / PM (1), Age: > or = 65 years (2), Risk Factors: > or = 3 Risk factors for atherosclerotic disease (2), [Hypercholesterolemia] [Hypertension] [+ Family HX] [Obesity] Troponin: < or = 1 x Normal Limit (0). The patient was not given aspirin in the Emergency Department. Not indicated due to patient's past medical history. MANNY Risk Score: 1 - patient's age is greater or equal to 65 years, 1 - Three or more CAD risk factors, 1- Known CAD, 1 - ASA use in past 7 days, 1 - Recent [<24hrs] Severe Angina, TOTAL SCORE = 5. Immunization status: Pneumococcal vaccine: within last 5 years. Influenza vaccine: within last 5 years. Data reviewed: vital signs, nurses notes, lab test result(s), EKG, radiologic studies, CT scan, plain films. Consideration of Admission/Observation Patient was admitted/placed on observation. Escalation of care including admission/observation considered. I considered the following discharge prescriptions or medication management in the emergency department Medications were administered in the Emergency Department. See MAR. Test considered but Not performed: CT: ct chest ro pe. Care significantly affected by the following chronic conditions: Hypertension, Obesity, cva, a fib. Counseling: I had a detailed discussion with the patient and/or guardian regarding: the historical points, exam findings, and any diagnostic results supporting the discharge/admit diagnosis, lab results, radiology results, the need for outpatient follow up, the need for further work-up and treatment in the hospital. 08/25 09:18 Order name: Basic Metabolic Panel; Complete Time: 10:52 [facility] 08/25 09:18 Order name: CBC with Diff; Complete Time: 10:52 [facility] 08/25 09:18 Order name: LFT's; Complete Time: 10:52 [facility] 08/25 09:18 Order name: Magnesium; Complete Time: 10:52 [facility] 08/25 09:18 Order name: NT PRO-BNP; Complete Time: 10:52 [facility] 08/25 09:18 Order name: PT-INR; Complete Time: 10:52 [facility] 08/25 09:18 Order name: Troponin HS; Complete Time: 10:52 [facility] 08/25 09:18 Order name: TSH; Complete Time: 10:52 [facility] 08/25 09:18 Order name: Urinalysis w/ reflexes; Complete Time: 11:50 [facility] 08/25 11:44 Order name: Urinalysis w/ reflexes; Complete Time: 11:50 [facility] 08/25 09:18 Order name: XRAY Chest (1 view) [facility] 08/25 10:36 Order name: RAD; Complete Time: 10:52 [facility] 08/25 09:18 Order name: EKG; Complete Time: 09:19 [facility] 08/25 09:58 Order name: CONS Physician Consult [facility] 08/25 09:18 Order name: Cardiac monitoring; Complete Time: 10:01 [facility] 08/25 09:18 Order name: EKG - Nurse/Tech; Complete Time: 09:42 [facility] 08/25 09:18 Order name: IV Saline Lock; Complete Time: 09:57 [facility] 08/25 09:18 Order name: Labs collected and sent; Complete Time: 09:57 [facility] 08/25 09:18 Order name: O2 Per Protocol; Complete Time: 10:01 [facility] 08/25 09:18 Order name: O2 Sat Monitoring; Complete Time: 10:01 [facility] EC:39 Rate is 94 beats/min. Rhythm is irregularly irregular. QRS [place] is Normal. GA interval hay is normal. QRS interval is normal. QT interval is normal. No Q waves. T waves are Normal. No ST changes noted. Clinical impression: Atrial Fibrillation, Atrial Flutter, and No evidence of ischemia. Interpreted by me. Reviewed by me. Administered Medications: 10:00 Drug: Magnesium Sulfate IVPB 1 grams Route: IVPB; Infused Over: 1 hrs; Site: right bp forearm; 10:00 Drug: NS 0.9% IV 500 ml Route: IV; Rate: bolus; Site: right forearm; bp 10:00 Drug: NS 0.9% IV 1000 ml Route: IV; Rate: 125 ml/hr; Site: right forearm; bp 10:00 Drug: Metoprolol PO 25 mg Route: PO; bp 10:00 Drug: Metoprolol IVP 2.5 mg Route: IVP; Site: right forearm; bp 10:00 Drug: Digoxin IVP 0.5 mg Route: IVP; Site: right forearm; bp 11:24 Not Given (Duplicate Order): Metoprolol IVP 2.5 mg IVP once; Hold for SBP <100 or HR hay <60. Disposition Summary: 08/25/22 11:18 Transfer Ordered Transfer Location: [facility] hay Reason: Higher level of care hay Condition: Fair(08/25/22 11:18) hay Problem: new(08/25/22 11:18) hay Symptoms: have improved(08/25/22 11:18) hay Accepting Physician: Dr. Rafael Carver/ [facility](08/25/22 14:11) bp Diagnosis - Chronic atrial fibrillation(08/25/22 11:18) hay - Sick sinus syndrome hay - Weakness hay Forms: - Medication Reconciliation Form hay - SBAR form hay Signatures: Dispatcher [employer] EDMS Hardeep Gavin MD MD cha Calderon, Audri, RN RN aa5 Shun Villagomez RN RN bp Bella Maxwell Corrections: (The following items were deleted from the chart) 10:02 09:46 Chronic atrial fibrillation hay hay 10:10 10:03 Echo with Doppler ordered. EDMO EDMO 11:17 09:46 Observation hay hay 11:17 09:46 Chiqui, A hay hay 11:17 09:46 Telemetry/MedSurg (observation) hay hay 09:46 Fair hay hay 09:46 new hay hay 09:46 have worsened hay hay 09:46 Standard hay hay 09:46 hay hay 09:46 Typical atrial flutter hay hay 09:46 Chest pain, unspecified hay hay : 10:02 Chronic atrial fibrillation - with RVR hay hay : 10:53 Abnormal results of thyroid function studies - HYPERTHYROID hay hay 46 11:18 TO [facility] hay eb 14:11 12:46 Dr. Rafael Carver/ [facility] eb bp
--- NOTE | 2022-08-25 09:47 | ER ---
Nurse's Notes [facility] Name: Robby Schmid Age: 87 yrs Sex: Female : 1935 Arrival Date: 08/25/2022 Time: 09:14 Bed 13 Private MD: Diagnosis: Chronic atrial fibrillation;Sick sinus syndrome;Weakness Presentation: 08/25 09:14 Note Pt in restroom. aa5 09:22 Chief complaint: Pt states "I just don't feel good", pt reports generalized weakness, aa5 dizziness. Reports she was discharged home from hospital yesterday. Coronavirus screen: At this time, the client does not indicate any symptoms associated with coronavirus-19. Ebola Screen: Patient denies travel to an Ebola-affected area in the 21 days before illness onset. Initial Sepsis Screen: Does the patient meet any 2 criteria? HR > 90 bpm. Does the patient have a suspected source of infection? No. Patient's initial sepsis screen is negative. Risk Assessment: Do you want to hurt yourself or someone else? Patient reports no desire to harm self or others. Onset of symptoms was August 2022. 09:22 Acuity: MANJINDER 2 aa5 09:22 Method Of Arrival: Wheelchair aa5 Triage Assessment: 09:30 General: Appears distressed, Behavior is cooperative, appropriate for age, anxious. bp Pain: Denies pain. EENT: No deficits noted. Neuro: No deficits noted. Cardiovascular: No deficits noted. Respiratory: No deficits noted. GI: No signs and/or symptoms were reported involving the gastrointestinal system. : No signs and/or symptoms were reported regarding the genitourinary system. Derm: No deficits noted. Musculoskeletal: No deficits noted. Historical: - Allergies: 09:24 No Known Allergies; aa5 - PMHx: 09:20 CVA; High Cholesterol; Hypertension; Hypothyroidism; UTI; aa5 09:24 Atrial Fib August 2022; aa5 - PSHx: :20 Cholecystectomy; hysterectomy; aa5 - Immunization history:: Adult Immunizations up to date. - Family history:: not pertinent. - Social history:: Smoking status: Patient denies any tobacco usage or history of. Screenin:00 [facility] ED Fall Risk Assessment (Adult) History of falling in the last 3 months, bp including since admission No falls in past 3 months (0 pts). Abuse screen: Denies threats or abuse. Denies injuries from another. Nutritional screening: No deficits noted. Tuberculosis screening: No symptoms or risk factors identified. Assessment: 09:30 General: SEE TRIAGE NOTE. bp 11:00 Reassessment: TRANSFER PENDING. bp 12:30 Reassessment: No changes from previously documented assessment. Patient and/or family bp updated on plan of care and expected duration. Pain level reassessed. Vital Signs: 09:22 BP 99 / 72; Pulse 114; Resp 18 S; Temp 98(TE); Pulse Ox 95% on R/A; aa5 11:00 BP 125 / 89; Pulse 101; Resp 19; Pulse Ox 99% ; bp 12:00 BP 114 / 66; Pulse 75; Resp 16; Pulse Ox 96% ; bp ED Course: 09:15 Patient arrived in ED. am2 09:16 Hardeep Gavin MD is Attending Physician. hay 09:22 Arm band placed on. aa5 09:24 Triage completed. aa5 09:42 EKG done, by ED staff, reviewed by Hardeep Gavin MD. em1 09:45 Brit Florian MD is Hospitalizing Provider. hay 09:57 Initial lab(s) drawn, by ms, sent to lab. Inserted saline lock: 20 gauge in right em1 forearm, using aseptic technique. Blood collected. 10:00 Patient has correct armband on for positive identification. Bed in low position. Call bp light in reach. Side rails up X2. 10:32 Shun Villagomez, RN is Primary Nurse. bp 11:[address] Gavin with [facility] from the the [facility]. eb 11:[address] Ruffin the knot picker cloth financial sales professional for [facility] with Dr. Romaine jaeger for patient transfer consultation. 11:[address] Carver the hospitalist financial sales professional for [facility] with Dr. Romaine jaeger for patient transfer consultation. 12:41 administrative approval given by Jose Luis Amor/ patient has been accepted to [facility] RM 1405/ Dr. Rafael Carver has accepted the patient in transfer/ Report to be called to [phone]. 14:11 No provider procedures requiring assistance completed. Patient transferred, IV remains bp in place. Administered Medications: 10:00 Drug: Magnesium Sulfate IVPB 1 grams Route: IVPB; Infused Over: 1 hrs; Site: right bp forearm; 10:00 Drug: NS 0.9% IV 500 ml Route: IV; Rate: bolus; Site: right forearm; bp 10:00 Drug: NS 0.9% IV 1000 ml Route: IV; Rate: 125 ml/hr; Site: right forearm; bp 10:00 Drug: Metoprolol PO 25 mg Route: PO; bp 10:00 Drug: Metoprolol IVP 2.5 mg Route: IVP; Site: right forearm; bp 10:00 Drug: Digoxin IVP 0.5 mg Route: IVP; Site: right forearm; bp 11:24 Not Given (Duplicate Order): Metoprolol IVP 2.5 mg IVP once; Hold for SBP <100 or HR hay <60. Medication: 12:30 VIS not applicable for this client. bp Outcome: 09:46 Decision to Hospitalize by Provider. hay 11:18 ER care complete, transfer ordered by . hay 14:10 Transferred by ground EMS to [facility], Transfer form completed. bp 14:10 Condition: stable 14:10 Instructed on the need for transfer. 14:11 Patient left the ED. bp Signatures: Hardeep Gavin MD MD cha Martinez, Eric em1 Jacklyn Garrett, RN RN ti5 Sondra Acuna Brian, RN RN Bella Puri Corrections: (The following items were deleted from the chart) 09:25 09:24 Arm band placed on aa5 aa5 11:49 11:33 connected the knot picker cloth financial sales professional for [facility] with Dr. Gavin for eb patient transfer consultation, eb
[2022-08-25 10:11] LABS: Absolute Lymphocytes (CBC) 1.2 K/uL (0.7-4.9); Hematocrit 36.9 % (36.0-45.0); Lymphocytes % 20.1 % (15.3-44.8); MCV 91.8 fL (80-100); MPV 7.7 fL (7.6-11.3); RBC Red Blood Cell Count 4.01 M/uL (3.86-4.86)
[2022-08-25 10:12] LABS: Protime INR 1.53
[2022-08-25] MEDS ORDERED: NA CHLORIDE 0.9% 500 ML ONE (10:23)
[2022-08-25] MEDS ORDERED: METOPROLOL TARTRATE 5 MG/5 ML INJ IV ONE (10:23)
[2022-08-25] MEDS ORDERED: DIGOXIN 0.25 MG/ML AMP ONE (10:23)
[2022-08-25] MEDS ORDERED: METOPROLOL TAR 25 MG TAB ONE (10:23)
[2022-08-25] MEDS ORDERED: MAGNESIUM SULFATE 1 gm IVPB 1 GM/100 ML BAG IV ONE (10:24)
[2022-08-25 10:34] LABS: Albumin 3.2 g/dL (3.4-5.0); Bilirubin Direct 0.2 mg/dL (0-0.2); Bilirubin Total 0.4 mg/dL (0.2-1.0); Magnesium 2.2 mg/dL (1.6-2.4); Potassium 3.7 mEq/L (3.5-5.1); Protein, Total 7.1 g/dL (6.4-8.2); Thyroid Stimulating Hormone 0.034 uIU/mL (0.358-3.740); Troponin High Sensitivity 11.2 pg/mL (<58.9)
--- NOTE | 2022-08-25 10:36 | RAD REPORT ---
EXAM DESCRIPTION: Adalid Single View08/25/2022 10:12 am CLINICAL HISTORY: Chest pain COMPARISON: August 22, 2022 FINDINGS: The lungs appear clear of acute infiltrate. The heart is normal size IMPRESSION: No acute abnormalities displayed
--- NOTE | 2022-08-25 11:25 | PN ---
Date of Progress Note: 08/24/2022 Ms. Schmid had came in with syncope and paroxysmal AFib, with possible bradycardia on the monitor. Sh e has a history of CVA, hypertension, dyslipidemia, and hypothyroidism. Overnight, no episodes of br adycardia. Will stay off beta-blockers. Continue her medicine at home with aspirin, Norvasc, Lipito r, and Synthroid. Echocardiogram which was done yesterday was perfectly normal with a normal ejectio n fraction, no effusion, no valvular heart disease, normal wall motion. Case was discussed with Dr. Florian. I think she can go home today. I will make arrangements for her to have an outpatient event m onitor before we will make any further decisions. KIZZY/SALOME Voice ID: [id number] Report ID: [id number]
[2022-08-25 11:50] LABS: Specific Gravity 1.007 (1.005-1.030); Urine Bilirubin NEGATIVE (Negative); Urine Blood Negative (Negative); Urine Clarity Clear (Clear); Urine Color Colorless (Yellow); Urine Glucose NEGATIVE (Negative); Urine Protein NEGATIVE (Negative); Urine Urobilinogen Normal (Normal); Urine pH 7.5 (5.0-7.0)
--- NOTE | 2022-08-25 13:25 | CON ---
Date of Consultation: 08/25/2022 Reason For Consultation: Sick sinus syndrome. History Of Present Illness: Ms. Schmid had just discharged from the hospital when she came in with an episode of syncope. There were some suspicious recording of 6 to 7-second pauses on telemetry. We had held her metoprolol. She had came in with atrial fibrillation. We put her on Eliquis. Her TSH was low. We lowered her thyroid dose. She went home without beta-blockers, on Eliquis, on the lower thyroid level. Her other medications were continued, but they did not include any more beta-page . She comes to the emergency room today with rapid atrial fibrillation. Received 1 dose of 5 mg of metoprolol and not long after that, she is having heart rate in the 30s and 40s with 4 to 5-second pa uses delicacy on the monitor. The patient and family discussed the case. I discussed the case with Dr. Florian, although on Mrs. Schmid is at age 87 and do not resuscitate, she requested to be evaluated f [facility] in [place] for a possible pacemaker. She did not have any syncope. Her blood pressure was hi gh when she was in atrial fibrillation and she has been taking Eliquis at home. Medications: At home include Eliquis, aspirin, Lipitor, Norvasc, and Synthroid. Past Medical History: Includes AFib, CVA, hypertension, cholesterol. Allergies: NONE. Review of Systems: Negative. Social History: Negative. Family History: Negative. Physical Examination: General: She appeared her stated age. Vital Signs: Heart rate anywhere from 30 to 60 in AFib. Blood pressure was 88/60. She was in no ac torres martinez distress, slightly diaphoretic. HEENT: Negative. Neck: Supple with no bruit. Chest: Clear. Cardiac: Revealed atrial fibrillation. No murmurs, gallops, or rubs. Abdomen: Benign. Extremities: Revealed no clubbing, cyanosis, or edema. Diagnostic Data: Other than the AFib, is within normal limit. She had an echocardiogram about a wee k ago, which was normal without any wall motion abnormalities or thrombus. Impression And Plan: Sick sinus syndrome, intolerant to beta-page. Not a candidate for antiarrhy thmics, pauses of 6-7 seconds in the hospital with syncope about a week ago. Continued to have the s devante symptoms. Off beta-blockers. She is on Eliquis. She is well anticoagulated. I think it will b e best to send Mrs. Schmid to [facility] for a pacemaker placement and electrophysiology evaluat ion. Her other problems are stable at this point. Case was discussed with the family, the patient, and Dr. Florian. KIZZY/SALOME Voice ID: [id number] Report ID: [id number]
[2022-08-25 14:16] VITALS: TEMP 98
[2022-08-25 14:20] VITALS: BP 114/66; O2SAT 96
--- NOTE | 2022-08-26 05:51 | EKG ---
Test Date: 2022-08-25 Test Time: 09:37:14 Warranty Clerk: SALTY MEASUREMENT RESULTS: Intervals: Rate: 94 AR: QRSD: 80 QT: 346 QTc: 432 Gilbert: P: AR: QRS: 10 T: 60 INTERPRETIVE STATEMENTS: Atrial fibrillation Low voltage QRS Abnormal ECG Compared to ECG 08/22/2022 17:37:17 Low QRS voltage now present Ventricular premature complex(es) no longer present Electronically Signed On 08-26-22 05:48:48 CDT by Shay Reyez
== END 2022-08-25 18:03 | disposition short-term general hospital (02) ==
LOC: ER 09:14 → ERHOLD 09:52
PROVIDERS: ADMIT Internal Medicine; ATTEND Internal Medicine
DX: I49.5 Sick sinus syndrome (principal); I48.11 Longstanding persistent atrial fibrillation; Z79.01 Long term (current) use of anticoagulants; I10 Essential (primary) hypertension; E78.00 Pure hypercholesterolemia, unspecified; E78.5 Hyperlipidemia, unspecified; E03.9 Hypothyroidism, unspecified; Z86.73 Personal history of transient ischemic attack (TIA), and cerebral infarction without residual deficits
CPT/HCPCS: 85025; 80048; 36415; 83735; 85610; 80076; 84443; 81003; 84484; 83880; 71045; J3475; J1160; J7040; 93005; 96374; 96375; 99285; G0378

== ENCOUNTER 2022-12-08 16:02 | Emergency (ER) | payer OTHER, MEDICARE ==
--- OUTSIDE RECORDS SUMMARY | 2022-12-08 16:08 | XMS REPORT | Continuity of Care Document ---
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 Memoria 18:15:00 18:15:00 Pre-Reg r Neurology 14 l [place] Harsh 2019-10-23 2019-10-23 Outpatient MHIE IE [id number] Memoria 13:15:00 13:15:00 15 l [place] 2019-10-23 2019-10-23 [facility] [id number] 13:15:00 13:15:00 Josue 14 [place] 2019-08-02 2019-08-02 Ambulatory nullFlavo MNA [id number] Memoria 18:00:00 18:00:00 Pre-Reg r Neurology 11 l [place] Harsh 2019-08-02 2019-08-02 Ambulatory nullFlavo MNA [id number] Memoria 18:00:00 18:00:00 Pre-Reg r Neurology 11 l [place] 2019-08-02 2019-08-02 Outpatient MHIE IE [id number] Memoria 13:00:00 13:00:00 11 l [place] 2019-08-02 2019-08-02 Outpatient Marva [facility] [id number] 13:00:00 13:00:00 Josue 11 [place] 2019-07-05 2019-07-06 Outpatient nullFlavo MNA [id number] Memoria 19:00:00 04:59:59 r Neurology 13 l [place] 2019-07-05 2019-07-06 Outpatient nullFlavo MNA [id number] Memoria 19:00:00 04:59:59 r Neurology 13 jody Cheathamann 2019-07-05 2019-07-05 [id number] 14:00:00 23:59:59 Josue 13 [place] 2019-07-05 2019-07-05 Outpatient MHIE MHIE [id number] Memoria 14:00:00 14:00:00 13 jody House 2019-05-10 2019-05-11 Outpatient nullFlavo MNA [id number] Memoria 20:15:00 05:59:59 r Neurology 12 jody Cheathamann 2019-05-10 2019-05-11 Outpatient nullFlavo MNA [id number] Memoria 20:15:00 05:59:59 r Neurology 12 jody Cheathamann 2019-05-10 2019-05-10 [facility] [id number] 14:15:00 23:59:59 Josue 12 [place] 2019-05-10 2019-05-10 Outpatient MHIE MHIE [id number] Memoria 14:15:00 14:15:00 12 jody [place] 2019-02-21 2019-02-22 Outpatient nullFlavo MNA [id number] Memoria 18:00:00 04:59:59 r Neurology 10 jody Chetahamann 2019-02-21 2019-02-22 Outpatient nullFlavo MNA [id number] Memoria 18:00:00 04:59:59 r Neurology 10 jody [place] Harsh 2019-02-21 2019-02-21 [facility] [id number] 13:00:00 23:59:59 Josue 10 [place] 2019-02-21 2019-02-21 Outpatient MHIE MHIE [id number] Memoria 13:00:00 13:00:00 10 jody I[place] 2018-10-18 2018-10-19 Outpatient nullFlavo MNA [id number] Memoria 18:00:00 04:59:59 r Neurology 09 l Pranav Harsh 2018-10-18 2018-10-19 Outpatient nullFlavo MNA [id number] Memoria 18:00:00 04:59:59 r Neurology 09 l [place] Harsh 2018-10-18 2018-10-18 [facility] [id number] 13:00:00 23:59:59 Josue Nnamdi [place] 2018-10-18 2018-10-18 Outpatient MHIE MHIE [id number] Memoria 13:00:00 13:00:00 09 jody [place] 2018-09-13 2018-09-14 Outpatient nullFlavo MNA [id number] Memoria 20:00:00 04:59:59 r Neurology 08 l Pranav Harsh 2018-09-13 2018-09-14 Outpatient nullFlavo MNA [id number] Memoria 20:00:00 04:59:59 r Neurology 08 jody [place] 2018-09-13 2018-09-13 [facility] [id number] 15:00:00 23:59:59 Josue Kevin [place] 2018-09-13 2018-09-13 Outpatient MHIE MHIE [id number] Memoria 15:00:00 15:00:00 08 jody [place] 2018-09-07 2018-09-08 Outpatient nullFlavo MNA [id number] Memoria 18:00:00 04:59:59 r Neurology 07 jody [place] H[place] 2018-09-07 2018-09-08 Outpatient nullFlavo MNA [id number] Memoria 18:00:00 04:59:59 r Neurology 07 jody [place] H[place] 2018-09-07 2018-09-07 [facility] [id number] 13:00:00 23:59:59 Josue Ari [place] 2018-09-07 2018-09-07 Outpatient MHIE MHIE [id number] Memoria 13:00:00 13:00:00 07 jody Harsh 2018-08-03 2018-08-03 Outpatient MHIE MHIE [id number] Memoria 13:00:00 13:00:00 06 jody Harsh 2018-08-03 2018-08-03 Outpatient MHIE MHIE [id number] Memoria 13:00:00 13:00:00 06 jody Harsh 2018-04-12 2018-04-13 Outpatient nullFlavo MNA [id number] Memoria 19:30:00 05:59:59 r Neurology 05 l Pranav House 2018-04-12 2018-04-13 Outpatient nullFlavo MNA [id number] Memoria 19:30:00 05:59:59 r Neurology 05 l Pranav House 2018-04-12 2018-04-12 [facility] [id number] 13:30:00 23:59:59 Josue [place] 2018-04-12 2018-04-12 Outpatient MHIE MHIE [id number] Memoria 13:30:00 13:30:00 05 jody House 2018-02-27 2018-02-27 Ambulatory nullFlavo MNA [id number] Memoria 17:30:00 17:30:00 Pre-Reg r Neurology 02 l Pranav House 2018-02-27 2018-02-27 Ambulatory nullFlavo MNA [id number] Memoria 17:30:00 17:30:00 Pre-Reg r Neurology 02 l Pranav House 2018-02-27 2018-02-27 Outpatient MHIE MHIE [id number] Memoria 11:30:00 11:30:00 02 jody House 2018-02-27 2018-02-27 [facility] [id number] 11:30:00 11:30:00 Josue [place] 2018-02-08 2018-02-09 Outpatient nullFlavo MNA [id number] Memoria 19:30:00 04:59:59 r Neurology 04 l Pranav House 2018-02-08 2018-02-09 Outpatient nullFlavo MNA [id number] Memoria 19:30:00 04:59:59 r Neurology 04 l Pranav House 2018-02-08 2018-02-08 [facility] [id number] 14:30:00 23:59:59 Josue Charly [place] 2018-02-08 2018-02-08 Outpatient MHIE MHIE [id number] Memoria 14:30:00 14:30:00 04 jody House 2018-01-24 2018-01-25 Outpatient nullFlavo MNA [id number] Memoria 16:15:00 04:59:59 r Neurology 03 jody Cheathamann 2018-01-24 2018-01-25 Outpatient nullFlavo MNA [id number] Memoria 16:15:00 04:59:59 r Neurology 03 jody Cheathamann 2018-01-24 2018-01-24 [facility] [id number] 11:15:00 23:59:59 Josue 03 [place] 2018-01-24 2018-01-24 Outpatient [facility] [id number] Memoria 11:15:00 11:15:00 03 l Harsh 2017-11-28 2017-11-28 Outpatient [facility] [id number] Memoria 11:30:00 11:30:00 01 l Iota 2017-11-28 2017-11-28 Outpatient [facility] [id number] Memoria 11:30:00 11:30:00 01 l Harsh 2017-10-10 2017-10-10 Outpatient [facility] [id number] Memoria 15:45:00 15:45:00 00 jody House 2017-10-10 2017-10-10 Outpatient [facility] [id number] Memoria 15:45:00 15:45:00 00 l [place] Results Test Description Test Time Test Comments Results Result Comments Source BASIC METABOLIC PANEL 2022-08-27 08:27:39 Test Item Value Reference Range Interpretation Comme nts SODIUM (BEAKER) (test 138 meq/L 136-145 code = 381) POTASSIUM (BEAKER) 3.4 meq/L 3.5-5.1 L Specimen slightly hemolyzed (test code = 379) CHLORIDE (BEAKER) (test 111 meq/L 98-107 H code = 382) CO2 (BEAKER) (test code 19 meq/L 22-29 L = 355) BLOOD UREA NITROGEN 20 mg/dL 7-21 (BEAKER) (test code = 354) CREATININE (BEAKER) 0.65 mg/dL 0.57-1.25 Specimen slightly hemolyzed (test code = 358) GLUCOSE RANDOM (BEAKER) 90 mg/dL 70-105 (test code = 652) CALCIUM (BEAKER) (test 8.1 mg/dL 8.4-10.2 L code = 697) EGFR (BEAKER) (test 86 mL/min/1.73 sq In terpretation of eGFR values code = 1092) m Stage Descripti on Result G1 Normal or high >=90 G2 Mildly decreased 60-89 G3a Mildly to moderately 45-5 9 G3b Moderately to severely 30- 44 G4 Severly decreased 15-29 G5 Kidney failure <15Repo rted eGFR is based on the CK D-EPI 2020 equation that d oes not use a race coefficien tEstimated GFR is not as accurate as Creatinine Clearance in pr edicting glomerular filt ration rate. Estimated GFR i s not applicable for dialysis pa tients Developer Advisor ID - [id number] 08:27:38 Test Item Value Reference Range Interpretation Comments MAGNESIUM (BEAKER) 1.8 mg/dL 1.6-2.6 Specimen slightly (test code = 627) hemolyzed Developer Advisor ID - [id number] 08:27:38 Test Item Value Reference Range Interpretation Comments PHOSPHORUS (BEAKER) 2.9 mg/dL 2.3-4.7 Specimen slightly (test code = 604) hemolyzed Developer Advisor ID - ADMINCBC W/PLT COUNT & AUTO [id number] 06:17:04 Test Item Value Reference Range Interpretation Comments WHITE BLOOD CELL COUNT (BEAKER) 7.4 K/ L 3.5-10.5 (test code = 775) RED BLOOD CELL COUNT (BEAKER) 3.89 M/ L 3.93-5.22 L (test code = 761) HEMOGLOBIN (BEAKER) (test code = 12.4 GM/DL 11.2-15.7 410) HEMATOCRIT (BEAKER) (test code = 35.0 % 34.1-44.9 411) MEAN CORPUSCULAR VOLUME (BEAKER) 90 fL 79-95 (test code = 753) MEAN CORPUSCULAR HEMOGLOBIN 31.9 pg 25.6-32.2 (BEAKER) (test code = 751) MEAN CORPUSCULAR HEMOGLOBIN CONC 35.4 GM/DL 32.2-35.5 (BEAKER) (test code = 752) RED CELL DISTRIBUTION WIDTH 12.9 % 11.7-14.4 (BEAKER) (test code = 412) PLATELET COUNT (BEAKER) (test 158 K/CU MM 150-450 code = 756) MEAN PLATELET VOLUME (BEAKER) 9.5 fL 9.4-12.3 (test code = 754) NUCLEATED RED BLOOD CELLS 0 /100 WBC 0-0 (BEAKER) (test code = 413) NEUTROPHILS RELATIVE PERCENT 65 % (BEAKER) (test code = 429) LYMPHOCYTES RELATIVE PERCENT 25 % (BEAKER) (test code = 430) MONOCYTES RELATIVE PERCENT 7 % (BEAKER) (test code = 431) EOSINOPHILS RELATIVE PERCENT 3 % (BEAKER) (test code = 432) BASOPHILS RELATIVE PERCENT 0 % (BEAKER) (test code = 437) NEUTROPHILS ABSOLUTE COUNT 4.81 K/ L 1.56-6.13 (BEAKER) (test code = 670) LYMPHOCYTES ABSOLUTE COUNT 1.85 K/ L 1.18-3.74 (BEAKER) (test code = 414) MONOCYTES ABSOLUTE COUNT (BEAKER) 0.49 K/ L 0.24-0.36 H (test code = 415) EOSINOPHILS ABSOLUTE COUNT 0.21 K/ L 0.04-0.36 (BEAKER) (test code = 416) BASOPHILS ABSOLUTE COUNT (BEAKER) 0.03 K/ L 0.01-0.08 (test code = 417) IMMATURE GRANULOCYTES-RELATIVE 0.30 % 0.00-1.00 PERCENT (BEAKER) (test code = 2801) RAD, CHEST, 1 VIEW, NON [id number] 19:49:00Reason for exam:->s/p PPMShould this be performed at the bedside?->Yes [facility] : 1935 Sex: FFINAL REPORT HISTORY: Status post pacemaker placement COMPARISON: No prior comparison chest imaging is available FINDINGS: Left subclavian transvenous cardiac pacing hardware is present, with leads in the region of the right atrium and right ventricle. The lungs are clear. No pleuraleffusions or pneumothorax. The heart shadow is normal in size. The thoracic aorta is mildly tortuous. Mild scoliotic changes are present in the spine. IMPRESSION: No evidence of acute cardiopulmonary disease. Signed: Jazmyn Baig MDReport Verified Date/Time: 08/26/2022 19:49:05 [id number] 06:32:31 Test Item Value Reference Range Interpretation Comments MAGNESIUM (BEAKER) (test code = 2.2 mg/dL 1.6-2.6 627) Developer Advisor ID - [id number] 06:32:31 Test Item Value Reference Range Interpretation Comments PHOSPHORUS (BEAKER) (test code = 2.8 mg/dL 2.3-4.7 604) Developer Advisor ID - MMBASIC METABOLIC [id number] 06:32:31 Test Item Value Reference Range Interpretation Comments SODIUM (BEAKER) 141 meq/L 136-145 (test code = 381) POTASSIUM 3.5 meq/L 3.5-5.1 (BEAKER) (test code = 379) CHLORIDE (BEAKER) 108 meq/L 98-107 H (test code = 382) CO2 (BEAKER) 24 meq/L 22-29 (test code = 355) BLOOD UREA 19 mg/dL 7-21 NITROGEN (BEAKER) (test code = 354) CREATININE 0.75 mg/dL 0.57-1.25 (BEAKER) (test code = 358) GLUCOSE RANDOM 100 mg/dL 70-105 (BEAKER) (test code = 652) CALCIUM (BEAKER) 9.4 mg/dL 8.4-10.2 (test code = 697) EGFR (BEAKER) 77 Interpretati on of eGFR (test code = mL/min/1.73 values Stage De scription 1092) sq m Result G1 Anisha l or high >=90 G2 Mildly decreased 60-89 G3a Mildl y to moderately 45-5 9 G3b Moderately to s everely 30-44 G4 Severl y decreased 15-29 G5 Kidney failure <15Reported eGF R is based on the CKD-EPI 2020 equation that d oes not use a race coefficientEsti mated GFR is not as accur ate as Creatinine Lissette vj in predicting glom erular filtration rate . Estimated GFR is not appl icable for dialysis patien ts Developer Advisor ID - [id number] [id number] 06:01:54 Test Item Value Reference Range Interpretation Comments PROTIME (BEAKER) (test code = 14.8 seconds 11.9-14.2 H 759) INR (BEAKER) (test code = 370) 1.18 <=5.90 RECOMMENDED COUMADIN/WARFARIN INR THERAPY RANGESSTANDARD DOSE: 2.0 - 3.0 Includes: PROPHYLAXIS for venous thrombosis, systemic embolization; TREATMENT for venous thrombosis and/or pulmonary embolus.HIGH RISK: Target INR is 2.5-3.5 for patients with mechanical heart valves.CBC W/PLT COUNT & AUTO [id number] 05:54:25 Test Item Value Reference Range Interpretation Comments WHITE BLOOD CELL COUNT (BEAKER) 7.5 K/ L 3.5-10.5 (test code = 775) RED BLOOD CELL COUNT (BEAKER) 4.14 M/ L 3.93-5.22 (test code = 761) HEMOGLOBIN (BEAKER) (test code = 12.9 GM/DL 11.2-15.7 410) HEMATOCRIT (BEAKER) (test code = 36.6 % 34.1-44.9 411) MEAN CORPUSCULAR VOLUME (BEAKER) 88 fL 79-95 (test code = 753) MEAN CORPUSCULAR HEMOGLOBIN 31.2 pg 25.6-32.2 (BEAKER) (test code = 751) MEAN CORPUSCULAR HEMOGLOBIN CONC 35.2 GM/DL 32.2-35.5 (BEAKER) (test code = 752) RED CELL DISTRIBUTION WIDTH 13.0 % 11.7-14.4 (BEAKER) (test code = 412) PLATELET COUNT (BEAKER) (test 177 K/CU MM 150-450 code = 756) MEAN PLATELET VOLUME (BEAKER) 9.5 fL 9.4-12.3 (test code = 754) NUCLEATED RED BLOOD CELLS 0 /100 WBC 0-0 (BEAKER) (test code = 413) NEUTROPHILS RELATIVE PERCENT 56 % (BEAKER) (test code = 429) LYMPHOCYTES RELATIVE PERCENT 34 % (BEAKER) (test code = 430) MONOCYTES RELATIVE PERCENT 8 % (BEAKER) (test code = 431) EOSINOPHILS RELATIVE PERCENT 2 % (BEAKER) (test code = 432) BASOPHILS RELATIVE PERCENT 0 % (BEAKER) (test code = 437) NEUTROPHILS ABSOLUTE COUNT 4.18 K/ L 1.56-6.13 (BEAKER) (test code = 670) LYMPHOCYTES ABSOLUTE COUNT 2.58 K/ L 1.18-3.74 (BEAKER) (test code = 414) MONOCYTES ABSOLUTE COUNT (BEAKER) 0.58 K/ L 0.24-0.36 H (test code = 415) EOSINOPHILS ABSOLUTE COUNT 0.13 K/ L 0.04-0.36 (BEAKER) (test code = 416) BASOPHILS ABSOLUTE COUNT (BEAKER) 0.03 K/ L 0.01-0.08 (test code = 417) IMMATURE GRANULOCYTES-RELATIVE 0.10 % 0.00-1.00 PERCENT (BEAKER) (test code = 2801) [id number] 18:17:11 Test Item Value Reference Range Interpretation Comments MAGNESIUM (BEAKER) 2.3 mg/dL 1.6-2.6 Specimen slightly (test code = 627) hemolyzed Developer Advisor ID - ADMINBASIC METABOLIC [id number] 18:17:11 Test Item Value Reference Range Interpretation Comments SODIUM (BEAKER) 138 meq/L 136-145 (test code = 381) POTASSIUM 4.0 meq/L 3.5-5.1 Specimen slight ly (BEAKER) (test hemolyzed code = 379) CHLORIDE (BEAKER) 109 meq/L 98-107 H (test code = 382) CO2 (BEAKER) 20 meq/L 22-29 L (test code = 355) BLOOD UREA 15 mg/dL 7-21 NITROGEN (BEAKER) (test code = 354) CREATININE 0.71 mg/dL 0.57-1.25 Specimen slight ly (BEAKER) (test hemolyzed code = 358) GLUCOSE RANDOM 126 mg/dL 70-105 H (BEAKER) (test code = 652) CALCIUM (BEAKER) 8.2 mg/dL 8.4-10.2 L (test code = 697) EGFR (BEAKER) 83 Interpretatio n of eGFR (test code = mL/min/1.73 values Stage De scription 1092) sq m Result G1 Anisha l or high >=90 G2 Mildly decreased 60-89 G3a Mildl y to moderately 45-5 9 G3b Moderately to s everely 30-44 G4 Severl y decreased 15-29 G5 Kidney failure <15Reported eGF R is based on the CKD-EPI 1 equation that d oes not use a race coefficientEsti mated GFR is not as accur ate as Creatinine Lissette vj in predicting glom erular filtration rate . Estimated GFR is not appl icable for dialysis patien ts Developer Advisor ID - ADMINCBC W/PLT COUNT & AUTO [id number] 17:35:55 Test Item Value Reference Range Interpretation Comments WHITE BLOOD CELL COUNT (BEAKER) 4.9 K/ L 3.5-10.5 (test code = 775) RED BLOOD CELL COUNT (BEAKER) 4.06 M/ L 3.93-5.22 (test code = 761) HEMOGLOBIN (BEAKER) (test code = 13.0 GM/DL 11.2-15.7 410) HEMATOCRIT (BEAKER) (test code = 37.0 % 34.1-44.9 411) MEAN CORPUSCULAR VOLUME (BEAKER) 91 fL 79-95 (test code = 753) MEAN CORPUSCULAR HEMOGLOBIN 32.0 pg 25.6-32.2 (BEAKER) (test code = 751) MEAN CORPUSCULAR HEMOGLOBIN CONC 35.1 GM/DL 32.2-35.5 (BEAKER) (test code = 752) RED CELL DISTRIBUTION WIDTH 13.0 % 11.7-14.4 (BEAKER) (test code = 412) PLATELET COUNT (BEAKER) (test 171 K/CU MM 150-450 code = 756) MEAN PLATELET VOLUME (BEAKER) 10.4 fL 9.4-12.3 (test code = 754) NUCLEATED RED BLOOD CELLS 0 /100 WBC 0-0 (BEAKER) (test code = 413) NEUTROPHILS RELATIVE PERCENT 77 % (BEAKER) (test code = 429) LYMPHOCYTES RELATIVE PERCENT 19 % (BEAKER) (test code = 430) MONOCYTES RELATIVE PERCENT 3 % (BEAKER) (test code = 431) EOSINOPHILS RELATIVE PERCENT 0 % (BEAKER) (test code = 432) BASOPHILS RELATIVE PERCENT 0 % (BEAKER) (test code = 437) NEUTROPHILS ABSOLUTE COUNT 3.80 K/ L 1.56-6.13 (BEAKER) (test code = 670) LYMPHOCYTES ABSOLUTE COUNT 0.95 K/ L 1.18-3.74 L (BEAKER) (test code = 414) MONOCYTES ABSOLUTE COUNT (BEAKER) 0.14 K/ L 0.24-0.36 L (test code = 415) EOSINOPHILS ABSOLUTE COUNT 0.00 K/ L 0.04-0.36 L (BEAKER) (test code = 416) BASOPHILS ABSOLUTE COUNT (BEAKER) 0.01 K/ L 0.01-0.08 (test code = 417) IMMATURE GRANULOCYTES-RELATIVE 0.20 % 0.00-1.00 PERCENT (BEAKER) (test code = 2801) Notes Date/Time Note Provider Source 2021-06-24 08:45:00-00:00 EXAM: NM PET CT Head M Brenda PIZARRO [place] DATE: 06/24/2021 8:59 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 TECHNIQUE: Approximately 30 minutes after IV injection of mCi FDG, brain PET/CT imaging was obtained. The PET images were compared to the normal brain database from the [facility]. FINDINGS: There is normal symmetric FD G uptake in bilateral frontal, parietal, temporal and the occipital lobes. There is normal symmetric FDG uptake in bilateral posterior cingulate gyri. No cortical abnormality is identified. Compared to normal brain database, small decreased areas in left hemisphere shown on the mapping are secondary to cortical atrophy. The CT part of the study demonstrates mild diffu se parenchymal volume loss. IMPRESSION: 1. No evidence of neurodegenerative disorder. 2. Mild age-appropriate cerebral atrophy.
[2022-12-08 16:42] LABS: Absolute Lymphocytes (CBC) 2.5 K/uL (0.7-4.9); Hematocrit 39.1 % (36.0-45.0); Lymphocytes % 27.4 % (15.3-44.8); MCV 90.6 fL (80-100); MPV 7.5 fL (7.6-11.3); Platelets 181 thou/uL (152-406); RBC Red Blood Cell Count 4.32 M/uL (3.86-4.86)
[2022-12-08] MEDS ORDERED: ONDANSETRON 4 MG/2 ML VIAL ONE (16:44)
[2022-12-08] MEDS ORDERED: MORPHINE 2 MG/ML SYR ONE (16:44)
[2022-12-08] MEDS ORDERED: NA CHLORIDE 0.9% 500 ML ONE (16:44)
[2022-12-08] MEDS ORDERED: FAMOTIDINE 20 MG/2 ML VIAL IV ONE (16:44)
[2022-12-08 16:58] LABS: Albumin 3.3 g/dL (3.4-5.0); Bilirubin Total 0.3 mg/dL (0.2-1.0); Potassium 3.8 mEq/L (3.5-5.1); Protein, Total 7.1 g/dL (6.4-8.2)
[2022-12-08 17:00] LABS: Specific Gravity 1.014 (1.005-1.030); Urine Bacteria <20 /HPF (<20); Urine Bilirubin NEGATIVE (Negative); Urine Blood Trace (Negative); Urine Clarity Extremely Turbid (Clear); Urine Color Light-Yellow (Yellow); Urine Crystals Unidentified Few /HPF (None Seen); Urine Glucose NEGATIVE (Negative); Urine Protein NEGATIVE (Negative); Urine Urobilinogen Normal (Normal); Urine WBC Clump Rare /HPF (None Seen)
--- NOTE | 2022-12-08 18:16 | RAD REPORT ---
EXAM DESCRIPTION: RAD - Chest Single View - 12/08/2022 6:07 pm CLINICAL HISTORY: epigastric pain COMPARISON: Chest Single View dated 08/25/2022; Chest Single View dated 08/22/2022; Chest Pa And Lat (2 Views) dated 06/17/2022; Chest Single View dated 05/23/2021 FINDINGS: Lines: Pacemaker. Lungs: No evidence of edema or pneumonia. Pleural: No significant pleural effusions or pneumothorax. Cardiac: The heart size is within normal limits. Mediastinum: Within normal limits. Bones: No acute fractures. Other: None IMPRESSION: No acute cardiopulmonary disease.
--- NOTE | 2022-12-08 19:46 | RAD REPORT ---
EXAM DESCRIPTION: CTAbdomen Pelvis W Contrast - 12/08/2022 5:29 pm CLINICAL HISTORY: left flank pain COMPARISON: No comparisons TECHNIQUE: CT of the abdomen and pelvis was performed. All CT scans are performed using dose optimization technique as appropriate and may include automated exposure control or mA/KV adjustment according to patient size. FINDINGS: Lower chest: Pacemaker leads in the right atrium and right ventricular apex. Mild circumfe rential thickened distal esophagus which may reflect esophagitis. Liver: Heterogeneous enhancement of the liver with prominent innumerable arterially enhancing foci th at may reflect small arterioportal shunts or other benign process. No suspicious liver mass. Biliary: Cholecystectomy. Extrahepatic biliary duct measures 9 millimeters which is probably within n ormal limits given the patient's age and postcholecystectomy state. Stomach: No significant focal abnormality. Duodenum: No significant focal abnormality. Pancreas: Several cystic lesions in the pancreas similar to 08/22/2022. These may represent small int raductal papillary mucinous neoplasms but remain unchanged. The largest measures 8 millimeters. Spleen: No significant abnormality. Adrenal: No suspicious lesions. Kidney/ureter: No hydronephrosis. No renal calculi. Too small to characterize and/or benign appearing renal lesions are noted. Retroperitoneum: No retroperitoneal adenopathy. Vascular: No aneurysm. Bowel: Diverticulosis. No evidence of acute diverticulitis.. Peritoneum: Prominent upper abdominal lymph nodes. No free fluid . Bladder: Bladder wall hyperenhancement and thickening. Reproductive: No adnexal masses. Bones: No acute fracture. Right hip arthroplasty. Other: n/a IMPRESSION: Bladder wall thickening with increased mucosal hyperenhancement likely reflecting cystit is. Correlate with urinalysis. No other acute finding identified . Cystic pancreatic lesions which could represent small intraductal papillary mucinous neoplasms (IPMN) . Consider 12-24 month follow-up MRCP.
[2022-12-08] MEDS ORDERED: CEFTRIAXONE 1000 MG/VIAL ONE (20:31)
--- NOTE | 2022-12-08 21:45 | EDPHYS ---
Physician Documentation [facility] Name: Robby Schmid Age: 87 yrs Sex: Female : 1935 Arrival Date: 12/08/2022 Time: 16:02 Bed 5 Private MD: ED Physician Harvinder Reese HPI: 12/08 16:30 This 87 yrs old Female presents to ER via Ambulatory with complaints of Back Pain, cp Vomiting/Diarrhea. 16:30 The patient presents with pain that is acute, with no known mechanism of injury. The cp symptoms are located in the left flank. Historical: - Allergies: 16:23 No Known Allergies; cm10 - PMHx: 16:22 Atrial Fib August 2022; Hypertension; Hypothyroidism; High Cholesterol; CVA; UTI; cm10 - PSHx: 16:22 Cholecystectomy; hysterectomy; Pacemaker; cm10 - Immunization history:: Adult Immunizations unknown. - Social history:: Smoking status: Patient denies any tobacco usage or history of. ROS: 16:35 Constitutional: Negative for fever. cp 16:35 Eyes: Negative for injury, pain, redness, and discharge. cp 16:35 Cardiovascular: Negative for chest pain, palpitations. 16:35 Respiratory: Negative for cough, shortness of breath, wheezing. 16:35 Abdomen/GI: Positive for abdominal pain, nausea and vomiting. 16:35 Back: Positive for flank pain, on the left. 16:35 Neuro: Negative for altered mental status, headache, syncope. 16:35 : Positive for burning with urination. cp 16:35 Skin: Negative for rash. cp 16:35 All other systems are negative. Exam: 16:40 Constitutional: The patient appears in no acute distress, alert, awake, cp non-diaphoretic, non-toxic, well developed, well nourished, uncomfortable. 16:40 Head/Face: Normocephalic, atraumatic. cp 16:40 Eyes: Periorbital structures: appear normal, Conjunctiva: normal, no exudate, no injection, Sclera: no appreciated abnormality, Lids and lashes: appear normal, bilaterally. 16:40 ENT: External ear(s): are unremarkable, Nose: is normal, Mouth: Lips: moist, Oral mucosa: pink and intact, moist, Posterior pharynx: Airway: no evidence of obstruction, patent. 16:40 Neck: ROM/movement: is normal, is supple, without pain, no range of motions limitations. 16:40 Chest/axilla: Inspection: normal. 16:40 Cardiovascular: Rate: normal, Rhythm: regular, Edema: is not appreciated, JVD: is not appreciated. 16:40 Respiratory: the patient does not display signs of respiratory distress, Respirations: normal, no use of accessory muscles, no retractions, labored breathing, is not present, Breath sounds: are clear throughout, no decreased breath sounds, no stridor, no wheezing. 16:40 Abdomen/GI: Inspection: abdomen appears normal, Bowel sounds: active, all quadrants, Palpation: soft, in all quadrants, moderate abdominal tenderness, in the posterior aspect of left lateral abdomen, anterior aspect of left lateral abdomen, left upper quadrant and left lower quadrant. 16:40 Back: CVA tenderness, is noted on the left. 16:40 Neuro: Orientation: to person, place \T\ time. Mentation: is normal, Motor: moves all fours, strength is normal, Sensation: is normal. 17:45 ECG was reviewed by the Attending Physician. Vital Signs: 16:21 BP 143 / 60; Pulse 61; Resp 16; Temp 97.8; Pulse Ox 100% ; Weight 71.21 kg; Height 5 cm10 ft. 2 in. ; 16:45 BP 134 / 116; Pulse 84; Resp 18; Pulse Ox 100% on R/A; ld1 18:30 BP 146 / 76; Pulse 72; Resp 18; Pulse Ox 100% on R/A; ld1 20:34 BP 132 / 69; Pulse 59; Resp 18 S; Pulse Ox 96% on R/A; as6 22:01 BP 140 / 56; Pulse 58; Resp 20 S; Pulse Ox 97% on R/A; as6 16:21 Body Mass Index 28.72 (71.21 kg, 157.48 cm) cm10 MDM: 16:08 Patient medically screened. 21:43 Data reviewed: vital signs, nurses notes, lab test result(s), radiologic studies, CT cp scan. 21:43 Differential diagnosis: Ureterolithiasis uti, sepsis, pyelonephritis, diverticulitis. cp Consideration of Admission/Observation Escalation of care including admission/observation considered. I considered the following discharge prescriptions or medication management in the emergency department Medications were administered in the Emergency Department. See MAR. Care significantly affected by the following chronic conditions: Hypertension. 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 Response to treatment: the patient's symptoms have markedly improved after treatment, and as a result, I will discharge patient. 12/08 16:21 Order name: CBC with Diff; Complete Time: 17:07 cp 12/08 17:54 Interpretation: Normal except: MPV 7.5. cp 12/08 16:21 Order name: CMP; Complete Time: 17:07 cp 12/08 17:54 Interpretation: Normal except: GLUC 137; GFR 65; ALB 3.3; GLOB 3.8; A/G 0.9. 12/08 16:21 Order name: Lipase; Complete Time: 17:07 cp 12/08 16:21 Order name: Urinalysis w/ reflexes; Complete Time: 17:07 cp 08 17:54 Interpretation: Normal except: [facility] Extremely Turbid; UBLD Trace; UESTR 500; UWBC >50; cp URBC 5-10. 12/08 17:04 Order name: Urine Culture EDMS 08 17:07 Order name: Troponin High Sensitivity; Complete Time: 18:29 cp 12/08 18:29 Interpretation: Reviewed. 12/08 17:08 Order name: CT Abd/Pelvis - IV Contrast Only; Complete Time: 19:48 cp 12/08 17:34 Order name: XRAY Chest (1 view); Complete Time: 18:29 cp 12/08 17:07 Order name: EKG: epigastric pain; Complete Time: 17:08 cp 12/08 16:21 Order name: IV Saline Lock; Complete Time: 16:35 cp 12/08 16:21 Order name: Labs collected and sent; Complete Time: 16:35 cp 12/08 17:07 Order name: EKG - Nurse/Tech: epigastric pain; Complete Time: 17:45 cp 12/08 19:50 Order name: PO challenge; Complete Time: 19:55 cp EC:45 Rate is 61 beats/min. Rhythm is regular, Paced. [place] interval is prolonged at [id number] cp msec. QRS interval is normal. QT interval is normal. T waves are Inverted in lead aVR. Interpreted by me. Reviewed by me. Administered Medications: 16:45 Drug: morphine IVP or IV 2 mg Route: IVP; Infused Over: 4 mins; Site: right antecubital;ld1 19:37 Follow up: Response: No adverse reaction as6 16:46 Drug: Famotidine IVP 20 mg Route: IVP; Site: right antecubital; ld1 19:37 Follow up: Response: No adverse reaction as6 16:46 Drug: Ondansetron IVP 4 mg Route: IVP; Site: right antecubital; ld1 19:37 Follow up: Response: No adverse reaction as6 16:46 Drug: NS 0.9% IV 500 ml Route: IV; Rate: 125 ml/hr; Site: right antecubital; ld1 22:10 Follow up: Response: No adverse reaction; IV Status: Completed infusion; IV Intake: as6 500ml 18:29 Drug: morphine IVP or IV 2 mg Route: IVP; Infused Over: 4 mins; Site: right antecubital;ld1 19:37 Follow up: Response: No adverse reaction as6 18:29 Drug: Pantoprazole IVP 40 mg Route: IVP; Site: right antecubital; ld1 19:37 Follow up: Response: No adverse reaction as6 20:32 Drug: Rocephin IV 1 grams Route: IV; Rate: calculated rate; Site: right antecubital; jb4 22:10 Follow up: Response: No adverse reaction; IV Status: Completed infusion; IV Intake: [id number] Disposition Summary: 12/08/22 21:44 Discharge Ordered Location: Home cp Problem: new cp Symptoms: have improved cp Condition: Stable cp Diagnosis - Nausea with vomiting, unspecified cp - UTI/ Urinary tract infection, site not specified cp - Diarrhea, unspecified cp Followup: cp - With: Private Physician - When: 2 - 3 days - Reason: Recheck today's complaints Discharge Instructions: - Discharge Summary Sheet cp - Diarrhea, Adult cp - Nausea and Vomiting, Adult cp - Urinary Tract Infection, Adult cp Forms: - Medication Reconciliation Form cp - Thank You Letter cp - Antibiotic Education cp - Prescription Opioid Use cp - Patient Portal Instructions cp - Leadership Thank You Letter cp Prescriptions: - Ibuprofen 800 mg Oral Tablet - take 1 tablet by ORAL route every 8 hours As needed take with food; 30 tablet; cp Refills: 0, Product Selection Permitted - Zofran 4 mg Oral Tablet - take 1 tablet by ORAL route every 12 hours As needed; 20 tablet; Refills: 0, cp Product Selection Permitted - cefpodoxime 200 mg Oral Tablet - take 1 tablet by ORAL route every 12 hours for 7 days with food; 14 tablet; cp Refills: 0, Product Selection Permitted Addendum: 12/11/2022 20:38 Co-signature as Attending Physician, Harvinder Reese MD I reviewed the patient's care r t provided by the Advanced Practice Provider and agree with the diagnosis and treatment plan. Signatures: Dispatcher [employer] EDHardeep Patino PA PA Storm Brush, RN RN jb4 Meghan Gaming RN RN ld1 Harvinder Reese MD MD rt Karely Lehman RN RN cm10 Gen Jean-Baptiste RN as6
--- NOTE | 2022-12-08 21:45 | ER ---
Nurse's Notes [facility] Name: Robby Schmid Age: 87 yrs Sex: Female : 1935 Arrival Date: 12/08/2022 Time: 16:02 Bed 5 Private MD: Diagnosis: Nausea with vomiting, unspecified;UTI/ Urinary tract infection, site not specified;Diarrhea, unspecified Presentation: 12/08 16:21 Chief complaint: Patient states: Left flank pain onset this morning. Pt reports 1 cm10 episode of vomiting and also reports burning with urination. Coronavirus screen: Vaccine status: Patient reports being unvaccinated. Ebola Screen: No symptoms or risks identified at this time. Initial Sepsis Screen: Does the patient meet any 2 criteria? No. Patient's initial sepsis screen is negative. Does the patient have a suspected source of infection? No. Patient's initial sepsis screen is negative. Risk Assessment: Do you want to hurt yourself or someone else? Patient reports no desire to harm self or others. Onset of symptoms was December 08, 2022. 16:21 Method Of Arrival: Ambulatory cm10 16:21 Acuity: MANJINDER 3 cm10 Historical: - Allergies: 16:23 No Known Allergies; cm10 - PMHx: 16:22 Atrial Fib August 2022; Hypertension; Hypothyroidism; High Cholesterol; CVA; UTI; cm10 - PSHx: 16:22 Cholecystectomy; hysterectomy; Pacemaker; cm10 - Immunization history:: Adult Immunizations unknown. - Social history:: Smoking status: Patient denies any tobacco usage or history of. Screenin:45 [facility] ED Fall Risk Assessment (Adult) History of falling in the last 3 months, ld1 including since admission No falls in past 3 months (0 pts). Abuse screen: Denies threats or abuse. Denies injuries from another. Nutritional screening: No deficits noted. Tuberculosis screening: No symptoms or risk factors identified. Assessment: 18:29 General: Appears in no apparent distress. comfortable, Behavior is calm, cooperative, ld1 appropriate for age. Pain: Complains of pain in abdomen Pain does not radiate. Pain currently is 8 out of 10 on a pain scale. Quality of pain is described as throbbing. Neuro: Storey Agitation-Sedation Scale (RASS): Level of Consciousness is awake, alert, obeys commands, Oriented to person, place, time, situation. Cardiovascular: Capillary refill < 3 seconds Patient's skin is warm and dry. Respiratory: Airway is patent Respiratory effort is even, unlabored. GI: Abdomen is round non-distended, Reports upper abdominal pain, diarrhea, nausea, vomiting. : No signs and/or symptoms were reported regarding the genitourinary system. EENT: No signs and/or symptoms were reported regarding the EENT system. Derm: No signs and/or symptoms reported regarding the dermatologic system. Musculoskeletal: No signs and/or symptoms reported regarding the musculoskeletal system. 19:10 Reassessment: Patient appears in no apparent distress at this time. Patient and/or jb4 family updated on plan of care and expected duration. Pain level reassessed. Patient is alert, oriented x 3, equal unlabored respirations, skin warm/dry/pink. 20:30 Reassessment: Patient appears in no apparent distress at this time. Patient and/or jb4 family updated on plan of care and expected duration. Pain level reassessed. Patient is alert, oriented x 3, equal unlabored respirations, skin warm/dry/pink. Vital Signs: 16:21 BP 143 / 60; Pulse 61; Resp 16; Temp 97.8; Pulse Ox 100% ; Weight 71.21 kg; Height 5 cm10 ft. 2 in. ; 16:45 BP 134 / 116; Pulse 84; Resp 18; Pulse Ox 100% on R/A; ld1 18:30 BP 146 / 76; Pulse 72; Resp 18; Pulse Ox 100% on R/A; ld1 20:34 BP 132 / 69; Pulse 59; Resp 18 S; Pulse Ox 96% on R/A; as6 22:01 BP 140 / 56; Pulse 58; Resp 20 S; Pulse Ox 97% on R/A; as6 16:21 Body Mass Index 28.72 (71.21 kg, 157.48 cm) cm10 ED Course: 16:05 Patient arrived in ED. ts1 16:08 Hardeep Islas PA is PHCP. cp 16:08 Hardeep Gavin MD is Attending Physician. cp 16:22 Triage completed. cm10 16:23 Arm band placed on Patient placed in an exam room, on a stretcher. cm10 16:31 Meghan Gaming, LEONOR is Primary Nurse. ld1 16:35 CBC with Diff Sent. bc6 16:35 CMP Sent. bc6 16:35 Lipase Sent. bc6 16:35 Inserted saline lock: 22 gauge in right antecubital area, using aseptic technique. bc6 Blood collected. 16:41 Urinalysis w/ reflexes Sent. bc6 16:45 Patient has correct armband on for positive identification. Placed in gown. Bed in low ld1 position. Call light in reach. Side rails up X2. 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 Pulse ox on. NIBP on. Door closed. Noise minimized. Warm blanket given. 16:45 No provider procedures requiring assistance completed. ld1 16:46 CMP Sent. ld1 16:46 CBC with Diff Sent. ld1 16:46 Lipase Sent. ld1 17:12 Harvinder Reese MD is Attending Physician. cp 17:31 CT Abd/Pelvis - IV Contrast Only In Process Unspecified. EDMS 17:45 Troponin High Sensitivity Sent. bc6 18:09 XRAY Chest (1 view) In Process Unspecified. EDMS 22:11 Provided Education on: antibiotic teaching . as6 22:11 IV discontinued, intact, bleeding controlled, No redness/swelling at site. Pressure as6 dressing applied. Administered Medications: 16:45 Drug: morphine IVP or IV 2 mg Route: IVP; Infused Over: 4 mins; Site: right antecubital;ld1 19:37 Follow up: Response: No adverse reaction as6 16:46 Drug: Famotidine IVP 20 mg Route: IVP; Site: right antecubital; ld1 19:37 Follow up: Response: No adverse reaction as6 16:46 Drug: Ondansetron IVP 4 mg Route: IVP; Site: right antecubital; ld1 19:37 Follow up: Response: No adverse reaction as6 16:46 Drug: NS 0.9% IV 500 ml Route: IV; Rate: 125 ml/hr; Site: right antecubital; ld1 22:10 Follow up: Response: No adverse reaction; IV Status: Completed infusion; IV Intake: as6 500ml 18:29 Drug: morphine IVP or IV 2 mg Route: IVP; Infused Over: 4 mins; Site: right antecubital;ld1 19:37 Follow up: Response: No adverse reaction as6 18:29 Drug: Pantoprazole IVP 40 mg Route: IVP; Site: right antecubital; ld1 19:37 Follow up: Response: No adverse reaction as6 20:32 Drug: Rocephin IV 1 grams Route: IV; Rate: calculated rate; Site: right antecubital; jb4 22:10 Follow up: Response: No adverse reaction; IV Status: Completed infusion; IV Intake: [id number] Medication: 22:11 VIS not applicable for this client. as6 Intake: 22:10 IV: 10ml; Total: 10ml. as6 22:10 IV: 500ml; Total: 510ml. as6 Outcome: 21:44 Discharge ordered by MD. cp 22:11 Discharged to home via wheelchair, with family. as6 22:11 Condition: stable 22:11 Discharge instructions given to patient, family, Instructed on discharge instructions, follow up and referral plans. medication usage, Demonstrated understanding of instructions, follow-up care, medications, Prescriptions given X 3. 22:11 Patient left the ED. as6 Signatures: Dispatcher [employer] EDMS Hardeep Islas PA PA cp Bryson, James, RN RN jb4 Meghan Gaming, RN RN ld1 Gen Jean-Baptiste, LEONOR RN as6 Valentina Squires Tanya, PAS PAS ts1 Karely Lehman, RN RN cm10
--- NOTE | 2022-12-09 13:57 | EKG ---
Test Date: 2022-12-08 Test Time: 17:38:57 Planer Operator: MINAL MEASUREMENT RESULTS: Intervals: Rate: 61 MT: 218 QRSD: 88 QT: 462 QTc: 465 Epps: P: 76 MT: 218 QRS: 9 T: 58 INTERPRETIVE STATEMENTS: Electronic atrial pacemaker Low voltage QRS Borderline ECG Compared to ECG 08/25/2022 09:37:14 Atrial fibrillation no longer present Electronically Signed On 12-09-22 13:55:23 CDT by Kenrick William
== END 2022-12-08 22:11 | disposition home or self-care (01) ==
LOC: ER 16:02
DX: N39.0 Urinary tract infection, site not specified (principal); R19.7 Diarrhea, unspecified; I10 Essential (primary) hypertension; Z95.0 Presence of cardiac pacemaker; Z86.73 Personal history of transient ischemic attack (TIA), and cerebral infarction without residual deficits
CPT/HCPCS: 96365; 96361; 93005; 87088; 85025; 81001; 87086; 36415; 87077; 87186; 84484; 83690; 80053; 74177; 71045; 96375; 99285; 96366; Q9967; J2270; J2405; J7040; J0696

== ENCOUNTER → 2023-05-30 | Emergency (ER) | payer OTHER, MEDICARE ==
[~2023-05-30] MED LIST: NA CHLORIDE 0.9% 500 ML ONE; ONDANSETRON 4 MG/2 ML VIAL ONE
--- OUTSIDE RECORDS SUMMARY | 2023-05-30 13:33 | XMS REPORT | Clinical Summary ---
Author Name Unknown Organization [facility] Address [address] [place] [address] Care Team Providers Care [employer] Name Role Phone Talia Panda MD Primary Care Provider [phone] Davion Florian MD Unavailable [phone] Allergies Active Allergy Reactions Criticality Noted Date Comments Codeine Other (See Comments) 01/06/2023 Paranoid episodes Clopidogrel Other (See Comments) 01/06/2023 Pt had massive nose bleed Medications Medication Sig Dispensed Refills Start Date End Date Status alfuzosin (UROXATRAL) 10 mg 24 hr tablet Take 1 tablet (10 mg) by mouth daily. 0 03/30/2022 Active Eliquis 5 mg tablet Take 1 tablet (5 mg) by mouth every 12 (twelve) hours. 0 Active atorvastatin (LIPITOR) 10 mg tablet Take 1 tablet (10 mg) by mouth at bedtime. 0 12/19/2020 Active budesonide-formoterol (SYMBICORT) 80-4.5 mcg/actuation inhaler Inhale 2 puffs by mouth twice daily. 0 Active cetirizine (ZyrTEC) 10 mg tablet Take 1 tablet (10 mg) by mouth daily. 0 12/19/2020 Active cholecalciferol, vitamin D3, 25 mcg (1,000 unit) capsule Take 1 capsule (1,000 Units) by mouth daily. 0 12/19/2020 Active clonazePAM (KlonoPIN) 1 mg tablet Take 1 tablet (1 mg) by mouth every evening. 0 08/13/2021 Active escitalopram (LEXAPRO) 10 mg tablet Take 1 tablet (10 mg) by mouth daily. 0 10/23/2019 Active fish,bora,flax oils-om3,6,9no1 400-400-400 mg cap Take 1 capsule by mouth daily. 0 Active fluticasone propionate (FLONASE) 50 mcg/spray nasal spray Inhale 1 spray (50 mcg) into each nostril twice daily. 0 08/09/2021 Active levothyroxine (SYNTHROID, LEVOTHROID) 75 mcg tablet Take 1 tablet (75 mcg) by mouth daily. 0 Active metoprolol succinate (TOPROL XL) 25 mg 24 hr tablet Take 1 tablet (25 mg) by mouth twice daily. 0 01/03/2023 Active triamcinolone (KENALOG) 0.5 % ointment Apply topically to affected area(s) twice daily. Perineum area 0 11/02/2022 Active coenzyme Q10 10 mg capsule Take 1 capsule (10 mg) by mouth daily. 0 Active coenzyme [id number] 100-5 mg-unit cap Take 1 capsule by mouth daily. 0 12/19/2020 Active Active Problems Problem Noted Date Diagnosed Date Cyst of pancreas 12/28/2022 Encounters Date Type Department Care Team Description 02/17/2023 Telephone [facility] [address] [place] [address], [facility] [place] [address] Alta Santizo RN 01/06/2023 10:00 AM CDT Office Visit [facility] [address] [place] [address], [facility] [place] [address] Talia Panda MD Cyst of pancreas (Primary Dx) 01/06/2023 Travel 01/05/2023 11:50 PM CDT Ancillary Procedure [facility] [address] [place] [address] Rashida Castaneda APRN Cancer 01/05/2023 11:45 PM CDT Ancillary Procedure [facility] [address] [place] [address] Rashida Castaneda APRN Cancer 01/05/2023 11:40 PM CDT Ancillary Procedure [facility] [address] [place] [address] To MARCEL [facility] 01/05/2023 11:35 PM CDT Ancillary Procedure [facility] [address] [place] [address] To, MARCEL [facility] 01/05/2023 11:30 PM CDT Ancillary Procedure [facility] [address] [place] [address] To, MARCEL [facility] 01/05/2023 11:25 PM CDT Ancillary Procedure [facility] [address] [place] [address] To, MARCEL [facility] 01/05/2023 11:20 PM CDT Ancillary Procedure [facility] [address] [place] [address] To MARCEL Field [facility] 01/05/2023 11:15 PM CDT Ancillary Procedure [facility] [address] [place] [address] To MARCEL Field [facility] 01/05/2023 11:10 PM CDT Ancillary Procedure [facility] [address] [place] [address] To MARCEL Field [facility] 01/05/2023 11:05 PM CDT Ancillary Procedure [facility] [address] [place] [address] To MARCEL [facility] 01/05/2023 11:00 PM CDT Ancillary Procedure [facility] [address] [place] [address] To MARCEL [facility] 01/05/2023 10:55 PM CDT Ancillary Procedure [facility] [address] [place] [address] To, MARCEL [facility] 01/05/2023 12:55 PM CDT Ancillary Procedure MD [facility] [place] [address] [place] [address] To, MARCEL Field Cyst of pancreas 01/05/2023 12:00 PM CDT NPR MDA PATIENT ACCESS Talia Panda MD 01/05/2023 Travel 12/28/2022 Travel 12/28/2022 Orders Only [facility] [address] [facility] [address]ld[address], 7th Floor Ele[address] [place], [place] [id number] Rashida Castaneda APRN Cyst of pancreas (Primary Dx) 12/23/2022 Travel after 05/30/2022 Social History Tobacco Use Types Packs/Day Years Used Date Smoking Tobacco: Never Smokeless Tobacco: Never Tobacco Cessation:Counseling Given: Not Answered Sex and Gender Information Value Date Recorded Sex Assigned at Not on file Gender Identity Not on file Sexual Orientation Not on file Job Start Date Occupation Industry Not on file Not on file Not on file Obstetrics History Last Filed Vital Signs Vital Sign Reading Time Taken Comments Blood Pressure 136/83 01/06/2023 10:16 AM CDT Pulse 66 01/06/2023 10:16 AM CDT Temperature 36.8 C (98.2 F) 01/06/2023 1 0:16 AM CDT Respiratory Rate 18 01/06/2023 10:1 6 AM CDT Oxygen Saturation 98% 01/06/2023 10: 16 AM CDT Inhaled Oxygen Concentration - - Weight 70.6 kg (155 lb 10.3 oz) 023 10:16 AM CDT Height 155.2 cm (5' 1.1") 01/06/2023 10 :16 AM CDT Body Mass Index 29.31 01/06/2023 10:16 AM CDT Plan of Treatment Health Maintenance Due Date Last Done Comments COVID-19 Vaccination (#1) 1935 Procedures Procedure Name Priority Date/Time Associated Diagnosis Comments CT CHEST ABDOMEN PELVIS W WO CONTRAST Routine 01/05/2023 2:39 PM CDT Cyst of pancreas TMP INTERPRETATION ANTIBODY SCREEN NEGATIVE Routine 01/05/2023 12:37 PM CDT CLOT EXPIRATION DATE Routine 01/05/2023 12:37 PM CDT ANTIBODY SCREEN Routine 01/05/2023 12:37 PM CDT Cyst of pancreas ABORH Routine 01/05/2023 12:37 PM CDT Cyst of pancreas FRACTIONATED BILIRUBIN Routine 12:37 PM CDT Cyst of pancreas TOTAL PROTEIN Routine 01/05/2023 12:37 PM CDT Cyst of pancreas ASPARTATE AMINOTRANSFERASE Routine 01/05/2023 12:37 PM CDT Cyst of pancreas ALANINE AMINOTRANSFERASE Routine 023 12:37 PM CDT Cyst of pancreas ALKALINE PHOSPHATASE Routine 01/05/2023 12:37 PM CDT Cyst of pancreas ALBUMIN LEVEL Routine 01/05/2023 12:37 PM CDT Cyst of pancreas CALCIUM LEVEL Routine 01/05/2023 12:37 PM CDT Cyst of pancreas .GLOMERULAR FILTRATION RATE Routine 01/05/2023 12:37 PM CDT Cyst of pancreas SERUM CREATININE Routine 01/05/2023 12:3 7 PM CDT Cyst of pancreas ELECTROLYTE PANEL Routine 01/05/2023 12: 37 PM CDT Cyst of pancreas BLOOD UREA NITROGEN Routine 01/05/2023 1 2:37 PM CDT Cyst of pancreas GLUCOSE LEVEL Routine 01/05/2023 12:37 PM CDT Cyst of pancreas DIFFERENTIAL Routine 01/05/2023 12:37 PM CDT Cyst of pancreas .CBC Routine 01/05/2023 12:37 PM CDT Cyst of pancreas TYPE AND SCREEN Routine 01/05/2023 12:37 PM CDT Cyst of pancreas HEMOGLOBIN A1C Routine 01/05/2023 12:37 PM CDT Cyst of pancreas APTT Routine 01/05/2023 12:37 PM CDT Cyst of pancreas LIPASE LEVEL Routine 01/05/2023 12:37 PM CDT Cyst of pancreas AMYLASE LEVEL Routine 01/05/2023 12:37 PM CDT Cyst of pancreas CARBOHYDRATE ANTIGEN 19-9 Routine 01/05/2023 12:37 PM CDT Cyst of pancreas PREALBUMIN Routine 01/05/2023 12:37 PM CDT Cyst of pancreas PROTHROMBIN TIME Routine 01/05/2023 12:3 7 PM CDT Cyst of pancreas MAGNESIUM LEVEL Routine 01/05/2023 12:37 PM CDT Cyst of pancreas PHOSPHORUS LEVEL Routine 01/05/2023 12:3 7 PM CDT Cyst of pancreas COMPREHENSIVE METABOLIC PANEL Routine 01/05/2023 12:37 PM CDT Cyst of pancreas COMPLETE BLOOD COUNT W/ DIFFERENTIAL Routine 01/05/2023 12:37 PM CDT Cyst of pancreas CONFIRM ABORH TYPE Routine 01/05/2023 12 :33 PM CDT OSI CHEST Routine 12/08/2022 11:43 PM CDT Cancer OSI CT ABDOMEN AND PELVIS Routine 12/08/2022 11:39 PM CDT Cancer OSI CHEST Routine 08/25/2022 11:38 PM CDT Cancer OSI MRI NECK ORBIT FACE Routine 08/25/19 11:38 PM CDT Cancer OSI MRI SPINE CERVICAL Routine 11:38 PM CDT Cancer OSI MRI HEAD Routine 08/24/2022 11:38 PM CDT Cancer OSI MRI HEAD Routine 08/24/2022 11:37 PM CDT Cancer OSI US VASCULAR Routine 08/24/2022 11:37 PM CDT Cancer OSI CERVICAL SPINE Routine 08/23/2022 11 :36 PM CDT Cancer OSI CT CHEST ABDOMEN PELVIS Routine 08/22/2022 11:35 PM CDT Cancer OSI CT CHEST ABDOMEN PELVIS Routine 08/22/2022 11:35 PM CDT Cancer OSI CHEST Routine 08/22/2022 11:35 PM CDT Cancer after 05/30/2022 Results * CT Chest Abdomen Pelvis with and without Contrast (01/05/2023 2:39 PM CDT) Anatomical Region Laterality Modality Abdomen, Pelvis, Chest Computed Tomography 01/05/2023 2:43 PM CDT Impressions 01/05/2023 3:23 PM CDT 1. Slightly irregular left lower lobe nodule for which short-term follow-up is advised. 2. Thoracic adenopathy, and enlarged nodes identified in the upper abdomen. 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 Another etiology is possibly present. Advise follow-up with whole body PET/CT. 3. Complex small pancreatic cystic lesions, some with possible internal nodularity and at least one, in the pancreatic head, showing thickened septations (please see #1 and #4). These are suspicious. In addition, the dominant in size but relatively simple appearing medial pancreatic tail cystic lesion (#2) is associated with upstream mild dilatation of the main pancreatic duct suggestive of obstruction. 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 Advise correlation with examination by endoscopic ultrasound. ACTIONABLE ITEMS/RECOMMENDATIONS: None. Narrative 01/05/2023 3:23 PM CDT Examination: CT CHEST ABDOMEN PELVIS W WO CONTRAST on 01/05/2023 2:39 PM. Clinical History: Cyst of pancreas. Indication: Pancreas cyst; pancreas protocol. Comparison: None Technique: CT of the chest, abdomen and pelvis was performed without oral or intravenous contrast followed by scanning with both oral and intravenous contrast. Multiphasic dual-energy pancreas protocol, [employer] Nature of study: Baseline [facility] imaging evaluation CHEST FINDINGS: Lines and Tubes: Dual-lead pacemaker with tips in right atrium and right ventricle. Lungs and Pleura: 6 mm slightly irregular nodule left lower lobe is nonspecific. No definite other lesions are seen. Scarring identified in the bilateral lung apices. No pleural effusion. Cardiomediastinum: Heart: Atherosclerotic coronary artery calcifications. Lymph Nodes: Subcarinal adenopathy 10 mm short axis and heterogeneous image 51/16. Right hilar 8 mm short axis node image 43 AP window 9 mm suspicious node image 38 Other mediastinal nodes are less than 5 mm in short axis. Thyroid: What appears to be the thyroid appears very small and hypoenhancing, and clinical correlation is suggested for hypothyroidism Breasts: High density foci consistent with small sub-3 mm calcifications are identified scattered within the right breast and are very nonspecific. A possible similar calcification is seen in the left breast on image 61. Correlation would be advised with breast directed imaging. ABDOMEN AND PELVIS FINDINGS: Hepatobiliary: Small hypodensities, too small to characterize. This study will serve as a baseline for follow-up. Please see for example images 31 and 48 of series 11. There are peripheral perfusion abnormalities as well. No biliary dilatation. The gallbladder is not visualized. Spleen: Peripheral hypodensity nonspecific of the spleen 9 mm image 38 series 11 to be followed. Pancreas: Cystic lesions are identified throughout the pancreas. They involve the pancreatic head, body and tail as will be described below. * Cyst Analyses: Evaluation for potential stigmata of malignancy which includes whether internal nodules (enhancing/nonenhancing), thickened wall, thickened septa, suspicious growth (>5mm over 2 years), size >=3 cm, main pancreatic duct cutoff or diffusely dilated (>=5mm in diameter) are present. Most notable cystic finding(s). 1. Loc: Anterior head, 9 x 7 x 9 mm, image(s) 55/11, 59/14, (baseline value). Suspicious?: Yes. Details: Possible internal enhancing nodules and what appear to be thickened septations versus clustering of small cysts image 55 series 11 and on series 137, 1.5 mm images, image 136 series 12. 2. Loc: Junction body and tail, 16 x 10 x 11 mm, image(s) 38/11, 62/14, (baseline value). Suspicious?: Borderline, possibly thin septations, no definite nodules or wall thickening. However, this is associated with upstream pancreatic duct dilatation. Whether it is obstructing, or is just in close proximity to the main duct is unclear. 3. Loc: Body, 9 x 8 x 9 mm, image(s) 42/11, 57/14, (baseline value). Suspicious?: Too small to characterize. 4. Loc: Body, 7 x 6 x 10 mm, image(s) 39/11 58/14, (baseline value). Suspicious?: Yes. Details: Possible nodule seen on 1.5 mm images, image 96 series 12. * Main pancreatic duct: There is focal dilatation of the main pancreatic duct as seen in the pancreatic tail terminating at the dominant in size cystic lesion. The duct measures up to 4 mm in diameter.. * Possible solid lesions (Y/N)? No definite separate solid mass is seen. 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 In addition, there are other cystic lesions that appear to show internal enhancement possibly nodules for example pancreatic body image 39 and a complex cystic lesion in the head image 55 series 11. Adrenal Glands: No masses. Kidneys, Ureters, Bladder: No hydronephrosis. Small hypodensities, too small to characterize. This study will serve as a baseline for follow-up. Deformity left renal midpole image 55 likely scarring. No bladder mass. Gastrointestinal Tract: Scattered diverticuli without evidence for overt diverticulitis. Pelvic Organs: Vaginal cuff is unremarkable. Peritoneum/Retroperitoneum: No ascites. Lymph Nodes: Prominent node between the liver and right carlito 9 mm short axis image 25 series 11 Common hepatic artery, 7 mm, image 40 series 11. Portacaval, mildly heterogeneous, 8 mm image 40 No pelvic or inguinal adenopathy. No definite mesenteric adenopathy. Lines and Tubes: None. MUSCULOSKELETAL FINDINGS: No suspicious skeletal lesions. Procedure Note Johnnie Berger MD - 01/05/2023 Examination: CT CHEST ABDOMEN PELVIS W WO CONTRAST on 01/05/2023 2:39 PM. Clinical History: Cyst of pancreas. Indication: Pancreas cyst; pancreas protocol. Comparison: None Technique: CT of the chest, abdomen and pelvis was performed without oralor intravenous contrast followed by scanning with both oral andintravenous contrast. Multiphasic dual-energy pancreas protocol, BO[employer]LT Nature of study: Baseline [facility] imaging evaluation CHEST FINDINGS: Lines and Tubes: Dual-lead pacemaker with tips in right atrium and rightventricle. Lungs and Pleura: 6 mm slightly irregular nodule left lower lobe is nonspecific. No definiteother lesions are seen. Scarring identified in the bilateral lung apices.No pleural effusion. Cardiomediastinum: Heart: Atherosclerotic coronary artery calcifications. Lymph Nodes: Subcarinal adenopathy 10 mm short axis and heterogeneousimage 51/16. Right hilar 8 mm short axis node image 43 AP window 9 mm suspicious node image 38 Other mediastinal nodes are less than 5 mm in short axis. Thyroid: What appears to be the thyroid appears very small and hypoenhancing, andclinical correlation is suggested for hypothyroidism Breasts: High density foci consistent with small sub-3 mm calcificationsare identified scattered within the right breast and are very nonspecific.A possible similar calcification is seen in the left breast on image 61.Correlation would be advised with breast directed imaging. ABDOMEN AND PELVIS FINDINGS: Hepatobiliary: Small hypodensities, too small to characterize. This studywill serve as a baseline for follow-up. Please see for example images 31and 48 of series 11. There are peripheral perfusion abnormalities as well.No biliary dilatation. The gallbladder is not visualized. Spleen: Peripheral hypodensity nonspecific of the spleen 9 mm image 38series 11 to be followed. Pancreas: Cystic lesions are identified throughout the pancreas. Theyinvolve the pancreatic head, body and tail as will be described below. * Cyst Analyses: Evaluation for potential stigmata of malignancy whichincludes whether internal nodules (enhancing/nonenhancing), thickenedwall, thickened septa, suspicious growth (>5mm over 2 years), size >=3 cm,main pancreatic duct cutoff or diffusely dilated (>=5mm in diameter) arepresent. Most notable cystic finding(s). 1. Loc: Anterior head, 9 x 7 x 9 mm, image(s) 55/11, 59/14, (baselinevalue). Suspicious?: Yes. Details: Possible internal enhancingnodules and what appear to be thickened septations versus clustering ofsmall cysts image 55 series 11 and on series 137, 1.5 mm images, image 136series 12. 2. Loc: Junction body and tail, 16 x 10 x 11 mm, image(s) 38/11, 62/14,(baseline value). Suspicious?: Borderline, possibly thin septations, nodefinite nodules or wall thickening. However, this is associated withupstream pancreatic duct dilatation. Whether it is obstructing, or is fortunato close proximity to the main duct is unclear. 3. Loc: Body, 9 x 8 x 9 mm, image(s) 42/11, 57/14, (baseline value).Suspicious?: Too small to characterize. 4. Loc: Body, 7 x 6 x 10 mm, image(s) 39/11 58/14, (baseline value).Suspicious?: Yes. Details: Possible nodule seen on 1.5 mm images,image 96 series 12. * Main pancreatic duct: There is focal dilatation of the main pancreaticduct as seen in the pancreatic tail terminating at the dominant in sizecystic lesion. The duct measures up to 4 mm in diameter.. * Possible solid lesions (Y/N)? No definite separate solid mass isseen. Overall, findings compatible with probably mixed main duct and side branchIPMN with notable finding of dilatation of the duct in the pancreatic tailthat appears to terminate at the dominant in size cystic lesion. Inaddition, there are other cystic lesions that appear to show internalenhancement possibly nodules for example pancreatic body image 39 and acomplex cystic lesion in the head image 55 series 11. Adrenal Glands: No masses. Kidneys, Ureters, Bladder: No hydronephrosis. Small hypodensities, toosmall to characterize. This study will serve as a baseline for follow-up.Deformity left renal midpole image 55 likely scarring. No bladder mass. Gastrointestinal Tract: Scattered diverticuli without evidence for overtdiverticulitis. Pelvic Organs: Vaginal cuff is unremarkable. Peritoneum/Retroperitoneum: No ascites. Lymph Nodes: Prominent node between the liver and right carlito 9 mm short axis image 25series 11 Common hepatic artery, 7 mm, image 40 series 11. Portacaval, mildly heterogeneous, 8 mm image 40 No pelvic or inguinal adenopathy. No definite mesenteric adenopathy. Lines and Tubes: None. MUSCULOSKELETAL FINDINGS: No suspicious skeletal lesions. IMPRESSION: 1. Slightly irregular left lower lobe nodule for which [id number] is advised. 2. Thoracic adenopathy, and enlarged nodes identified in the upperabdomen. This would be unusual given the stage of the patient's suspectedmixed main duct and side branch IPMN. Another etiology is possiblypresent. Advise follow-up with whole body PET/CT. 3. Complex small pancreatic cystic lesions, some with possible internalnodularity and at least one, in the pancreatic head, showing thickenedseptations (please see #1 and #4). These are suspicious. In addition, thedominant in size but relatively simple appearing medial pancreatic tailcystic lesion (#2) is associated with upstream mild dilatation of the mainpancreatic duct suggestive of obstruction. 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 Advise correlation with examinationby endoscopic ultrasound. ACTIONABLE ITEMS/RECOMMENDATIONS: None. Rashida To [employer] IMG CT ORDERABLES * .Serum Creatinine (01/05/2023 12:37 PM CDT) Creatinine 0.79 0.51 - 0.95 mg/dL [place] Comment:Testing performed at [facility], [address] [place] [address] Blood 01/05/2023 12:3 7 PM CDT 01/05/2023 12:38 PM CDT Rashida To [employer] CHECK[facility] LAB BLOOD ORDERABLES [address], [facility] [address] [place] [address] * .CBC (01/05/2023 12:37 PM CDT) WBC 7.1 4.1 - 10.5 K/uL [place] Comment:All components of th e CBC performed at [facility], [address] [place] [address] RBC 4.25 3.99 - 5.46 M/uL [place] Comment:All components of th e CBC performed at [facility], [address] [place] [address] Hgb 13.4 12.2 - 15.3 gm/dL [place] Comment:As part of CBC or as an individual orderable testing performed at [facility], [address] [place], [place] [id number] Hct 39.3 36.4 - 46.8 % [place] Comment:As part of CBC testi ng performed at [facility], [address] [place], [place] [id number] MCV 92 82 - 99 fL [place] Comment:As part of CBC testi ng performed at [facility], [address] [place], [place] [id number] MCH 31.5 26.6 - 33.2 pg [place] Comment:As part of CBC testi ng performed at [facility], [address] [place], [place] [id number] MCHC 34.1 31.1 - 35.2 gm/dL [place] Comment:As part of CBC testi ng performed at [facility], [address] [place] [address] RDW-SD 45.4 37.5 - 49.7 fL [place] Comment:As part of CBC testi ng performed at [facility], [address] [place], [place] [id number] RDW-CV 13.5 11.6 - 15.5 % [place] Comment:As part of CBC testi ng performed at [facility], [address] [place] [address] Platelet count 177 160 - 397 K/uL [place] Comment:As part of CBC or an individual orderable testing performed at [facility], [address] [place] [address] MPV 9.5 9.1 - 12.6 fL [place] Comment:As part of CBC testi ng performed at [facility], [address] [place] [address] Blood 01/05/2023 12:3 7 PM CDT 01/05/2023 12:38 PM CDT Rashida To [employer] CHECK[facility] LAB BLOOD ORDERABLES [facility] [address] [facility], [facility] [address] [place] [address] * Clot Expiration Date (01/05/2023 12:37 PM CDT) T & S Expiration 01/08/2023 [facility] Blood 01/05/2023 12:3 7 PM CDT 01/05/2023 9:51 PM CDT Rashida To [facility] BLOOD BANK TEST ORDE YVES [facility] Unless otherwise noted, all lab tests performed by: Division of Pathology and Laboratory Medicine [address] [place] [id number] * Glomerular Filtration Rate (01/05/2023 12:37 PM CDT) eGFR 73 >=60 mL/min/1.7 3 sq. m [place] Comment: The eGFRcr is calculated with the 2020 CKD-EPI creatinine equation using creatinine, patient's age, and sex for adults 18 years of age and older. Other factors, especially muscle mass, may affect accuracy and need to be considered. According to the Kidney Disease: Improving Global Outcomes (KDIGO) CKD Work Group 2012 Clinical Practice Guideline, chronic kidney disease (CKD) is defined as the abnormalities of kidney structure or function, present for more than 3 months, with implications for health. CKD should be classified by cause, GFR category, and albuminuria category. KDIGO guidelines provide the following GFR categories Stage Description GFR mL/min/1.73 m2 G1* Normal or high >= 90 G2* Mildly decreased 60-89 G3a Mildly to moderately decreased 45-59 G3b Moderately to severely decreased 30-44 G4 Severely decreased 15-29 G5 Kidney failure <15 *In the absence of evidence of kidney damage, neither G1 nor G2 fulfill criteria for CKD. Testing performed at [facility], [address] [facility], [place] [address] Blood 01/05/2023 12:3 7 PM CDT 01/05/2023 12:38 PM CDT Rashida To [facility] [facility] LAB BLOOD ORDERABLES [place] [address] [place] [address] * Fractionated Bilirubin (01/05/2023 12:37 PM CDT) [facility] Bili Total 0.3 <=1.2 mg/dL [place] Comment: Indocyanine Green (ICG) may cause falsely elevated bilirubin results. Total and direct bilirubin must not be measured from samples containing indocyanine green. False elevation of total bilirubin can be seen in patients with IgG concentrations above 28 g/L. Testing performed at [facility], [address] [place] [address] Bili Direct <0.2 <=0.3 mg/dL [place] Comment: Indocyanine Green (ICG) may cause falsely elevated bilirubin results. Total and direct bilirubin must not be measured from samples containing indocyanine green. Testing performed at [facility], [address] [place] [address] Bili Indirect See Note 0.0 - 0.9 mg/dL [place] Comment: Unable to calculate Indirect Bilirubin result due to some parameters are outside reportable range Testing performed at [facility], [address] [place] [address] Blood 01/05/2023 12:3 7 PM CDT 01/05/2023 12:38 PM CDT Rashida To [facility] LAB BLOOD ORDERABLES [place] [id number] [place] [address] * TMP Interpretation Antibody Screen Negative (01/05/2023 12:37 PM CDT) [facility] TMP Auto Neg ABSC Interp At the present time, patient plasma shows no evidence of RBC alloantibodi es. [facility] Comment: MD Shaneka MCCAULEY [id number] Dictated by: MD Shaneka MCCAULEY [id number] Dictated Date/Time: 01.06.2023 10:46 AM CDT Transcribed Date/Time: 01.06.2023 10:46 AM CDT Electronically Signed By: MD Shaneka MCCAULEY on 01.06.2023 10:46 AM Blood 01/05/2023 12:3 7 PM CDT 01/05/2023 9:51 PM CDT Rashida To [facility] [facility] [facility] BLOOD BANK TEST ORDE YVES [facility] Unless otherwise noted, all lab tests performed by: Division of Pathology and Laboratory Medicine [address] [place] [address] * aPTT (01/05/2023 12:37 PM CDT) aPTT 33.4 24.1 - 35.5 second(s) [place] Comment:Testing performed at [facility], [address] [place] [address] Blood 01/05/2023 12:3 7 PM CDT 01/05/2023 12:38 PM CDT Narrative [place] - 01/05/2023 1:02 PM CDT This lab cannot be scheduled at the following locations due to collection/proccessing restrictions: [facility] and [facility]. Rashida To [facility] LAB BLOOD ORDERABLES [facility] [address] [place] [address], [facility] [address] [place] [address] * CA 19-9 (01/05/2023 12:37 PM CDT) [facility] CA 19-9 <2.9 <=35.0 U/mL [place] Comment: Results greater than 9500 U/mL may not be reliable due to matrix effect with extended dilution as it exceeds the table top tile setter's recommended limit. Caution should be exercised when interpreting such values and done in conjunction with clinical context. This test is measured by electrochemiluminescence immunoassay on Felipe William immunoassay analyzers. Results obtained in different methods are not interchangeable. Testing performed at [facility], [address] [place] [address] Blood 01/05/2023 12:3 7 PM CDT 01/05/2023 12:38 PM CDT Rashida To [facility] LAB BLOOD ORDERABLES [address], [facility] [address] [place] [address] * ABORh (01/05/2023 12:37 PM CDT) [facility] ABORh. O POS AL MD LINK [facility] Blood 01/05/2023 12:3 7 PM CDT 01/05/2023 9:51 PM CDT Rashida To [facility] [facility] BLOOD BANK TEST ORDE RABLES [facility] Unless otherwise noted, all lab tests performed by: Division of Pathology and Laboratory Medicine [address] [place] [address] * Differential (01/05/2023 12:37 PM CDT) [facility] Neutrophil % 53.2 43.2 - 72.7 % [place] Comment:All components of th e Differential performed at [facility], [address] [place] [address] Lymphocyte % 37.8 16.8 - 46.2 % [place] Comment:As part of the Diffe rential testing performed at [facility], [address] [place] [address] Monocyte % 5.9 5.1 - 12.5 % [place] Comment:As part of the Diffe rential testing performed at [facility], [address] [place] [address], [place] [address] Eosinophil % 2.5 0.4 - 6.3 % [place] Comment:As part of the Diffe rential testing performed at [facility], [address] [place] [address], [place] [address] Basophil % 0.3 0.2 - 1.4 % [place] Comment:As part of the Diffe rential testing performed at [facility], [address] [place] [address], [place] [address] IGRE % 0.3 0.1 - 1.5 % [place] Comment: IGRE % count includes Metamyelocytes, Myelocytes, and Promyelocytes. As part of the Differential testing performed at [facility], [address] [place] [address], [place] [address] Neutrophil Abs 3.79 1.95 - 7.25 K/uL [place] Comment:As part of the Diffe rential testing performed at [facility], [address] [place] [address] Lymphocyte Abs 2.69 1.01 - 3.24 K/uL [place] Comment:As part of the Diffe rential testing performed at [facility], [address] [place] [address], [place] [address] Monocyte Abs 0.42 0.24 - 0.85 K/uL [place] Comment:As part of the Diffe rential testing performed at [facility], [address] [place] [address], [place] [address] Eosinophil Abs 0.18 0.02 - 0.50 K/uL [place] Comment:As part of the Diffe rential testing performed at [facility], [address] [place] [address], [place] [address] Basophil Abs 0.02 0.02 - 0.09 K/uL [place] Comment:As part of the Diffe rential testing performed at [facility], [address] [place] [address] IG Abs 0.02 0.01 - 0.12 K/uL [place] Comment:As part of the Diffe rential testing performed at [facility], [address] [place] [address] Blood 01/05/2023 12:3 7 PM CDT 01/05/2023 12:38 PM CDT Rashida To [facility] LAB BLOOD ORDERABLES [address], [facility] [address] [place] [address] * Prothrombin Time with INR (01/05/2023 12:37 PM CDT) Pathologist [facility] PT 14.3 11.9 - 14.5 second(s) [place] Comment:Testing performed at [facility], [address] [place] [address] INR 1.08 0.87 - 1.12 [place] Comment:Testing performed at [facility], [address] [place] [address] Blood 01/05/2023 12:3 7 PM CDT 01/05/2023 12:38 PM CDT Narrative [place] - 01/05/2023 1:02 PM CDT This lab cannot be scheduled at the following locations due to collection/proccessing restrictions: [facility] and [facility]. Rashida To [facility] LAB BLOOD ORDERABLES [address], [facility] [address] [place] [address] * Antibody Screen (01/05/2023 12:37 PM CDT) ABSC. Negative ABSC [facility] Blood 01/05/2023 12:3 7 PM CDT 01/05/2023 9:51 PM CDT Rashida To [facility] [facility] BLOOD BANK TEST ORDE YVES [facility] Unless otherwise noted, all lab tests performed by: Division of Pathology and Laboratory Medicine [address] [place] [address] * BUN (01/05/2023 12:37 PM CDT) BUN 22 6 - 23 mg/dL [place] Comment:Testing performed at [facility], [address] [place] [address] Blood 01/05/2023 12:3 7 PM CDT 01/05/2023 12:38 PM CDT Rashida To [facility] LAB BLOOD ORDERABLES [address] [address] * ALT (01/05/2023 12:37 PM CDT) ALT 16 <=33 U/L [place] Comment:Testing performed at [facility], [address] [place] [address] Blood 01/05/2023 12:3 7 PM CDT 01/05/2023 12:38 PM CDT Rashida To [facility] LAB BLOOD ORDERABLES [address] [address] * Aspartate Aminotransferase (01/05/2023 12:37 PM CDT) AST 22 <=32 U/L [place] Comment:Testing performed at [facility], [address] [place] [address] Blood 01/05/2023 12:3 7 PM CDT 01/05/2023 12:38 PM CDT Rahsida To [facility] LAB BLOOD ORDERABLES [address] [address] * Total Protein (01/05/2023 12:37 PM CDT) Total Protein 7.1 6.4 - 8.3 g/dL [place] Comment:Testing performed at [facility], [address] [place] [address] Blood 01/05/2023 12:3 7 PM CDT 01/05/2023 12:38 PM CDT Rashida To [facility] LAB BLOOD ORDERABLES [address] [address] * (ABNORMAL) Prealbumin (01/05/2023 12:37 PM CDT) Prealbumin 16.4(L) 20.0 - 40.0 mg/dL [facility] Blood 01/05/2023 12:3 7 PM CDT 01/06/2023 7:07 AM CDT Rashida To [facility] [facility] [facility] LAB BLOOD ORDERABLES [facility] Unless otherwise noted, all lab tests performed by: Division of Pathology and Laboratory Medicine [address] [place] [address] * Phosphorus Level (01/05/2023 12:37 PM CDT) Phosphorus 3.3 2.5 - 4.5 mg/dL [place] Comment:Testing performed at [facility], [address] [place] [address] Blood 01/05/2023 12:3 7 PM CDT 01/05/2023 12:38 PM CDT Rashida To [facility] LAB BLOOD ORDERABLES [address] [address] * Alkaline Phosphatase (01/05/2023 12:37 PM CDT) Alk Phos 104 35 - 104 U/L [place] Comment:Testing performed at [facility], [address] [place] [address] Blood 01/05/2023 12:3 7 PM CDT 01/05/2023 12:38 PM CDT Rashida To [facility] LAB BLOOD ORDERABLES [address] [address] * Magnesium Level (01/05/2023 12:37 PM CDT) Magnesium 2.2 1.6 - 2.6 mg/dL [place] Comment:Testing performed at [facility], [address] [place] [address] Blood 01/05/2023 12:3 7 PM CDT 01/05/2023 12:38 PM CDT Rashida To [facility] LAB BLOOD ORDERABLES [address] [address] * Lipase Level (01/05/2023 12:37 PM CDT) Lipase Lvl 46 13 - 60 U/L [place] Comment:Testing performed at [facility], [address] [place] [address] Blood 01/05/2023 12:3 7 PM CDT 01/05/2023 12:38 PM CDT Rashida To [facility] [facility] [facility] LAB BLOOD ORDERABLES [address], [facility] [address] [place] [address] * (ABNORMAL) Hemoglobin A1c (01/05/2023 12:37 PM CDT) A1C 6.3(H) 4.3 - 5.6 % [place] Comment: HbA1c values >=6.5% are diagnostic of diabetes mellitus. Diagnosis should be confirmed by repeat testing. Therapeutic Action suggested: >8.0% HbA1c; Goal of therapy: <7.0% HbA1c Testing performed at [facility], [address] [place] [address] Blood 01/05/2023 12:3 7 PM CDT 01/05/2023 12:38 PM CDT Rashida To [facility] [facility] [facility] LAB BLOOD ORDERABLES [address], [facility] [address] [place] [address] * (ABNORMAL) Glucose Level (01/05/2023 12:37 PM CDT) Glucose Level 108(H) 70 - 99 mg/dL [place] Comment: Effective 11/18/15, the glucose reference intervals have been updated based on [place] [employer] guidelines (Standards of Medical Care in Diabetes 2016. Diabetes Care 2016; 39: S13-S22). Fasting blood glucose: Normal: 70-99 mg/dL Impaired fasting glucose (increased risk for diabetes or pre-diabetes): 100- 125 mg/dL Diabetes mellitus: >/=126 mg/dL Random blood glucose: Normal: 70-199 mg/dL Note: Random glucose >100 mg/dL is associated with increased risk for diabetes Testing performed at [facility], [address] [place] [address] Blood 01/05/2023 12:3 7 PM CDT 01/05/2023 12:38 PM CDT Rashida To [facility] LAB BLOOD ORDERABLES [address] [address] * Calcium Level (01/05/2023 12:37 PM CDT) Calcium Lvl 9.1 8.4 - 10.2 mg/dL [place] Comment:Testing performed at [facility], [address] [place] [address] Blood 01/05/2023 12:3 7 PM CDT 01/05/2023 12:38 PM CDT Rashida To [facility] LAB BLOOD ORDERABLES [address] [address] * Amylase Level (01/05/2023 12:37 PM CDT) Amylase Lvl 35 28 - 100 U/L [place] Comment:Testing performed at [facility], [address] [place] [address] Blood 01/05/2023 12:3 7 PM CDT 01/05/2023 12:38 PM CDT Rashida To [facility] [facility] [facility] LAB BLOOD ORDERABLES [address] [address] * Albumin Level (01/05/2023 12:37 PM CDT) Albumin Lvl 3.9 3.5 - 5.2 gm/dL [place] Comment:Testing performed at [facility], [address] [place] [address] Blood 01/05/2023 12:3 7 PM CDT 01/05/2023 12:38 PM CDT Rashida To [facility] [facility] LAB BLOOD ORDERABLES [address], [facility] [address] [place] [address] * (ABNORMAL) Electrolyte Panel (01/05/2023 12:37 PM CDT) Sodium Lvl 133(L) 136 - 145 mEq/L [place] Comment:Testing performed at [facility], [address] [place] [address] Potassium Lvl 4.1 3.5 - 5.1 mEq/L [place] Comment:Testing performed at [facility], [address] [place] [address] Chloride 98 98 - 107 mEq/L [place] Comment:Testing performed at [facility], [address] [place] [address] CO2 25 22 - 29 mEq/L [place] Comment:Testing performed at [facility], [address] [place] [address] Anion Gap 10 4 - 14 mEq/L [place] Comment:Testing performed at [facility], [address] [place] [address] Blood 01/05/2023 12:3 7 PM CDT 01/05/2023 12:38 PM CDT Rashida To [facility] LAB BLOOD ORDERABLES [address], [facility] [address] [place] [address] * Confirm ABORh (01/05/2023 12:33 PM CDT) ABORh Confirm. O POS [facility] Blood 01/05/2023 12:3 3 PM CDT 01/05/2023 9:51 PM CDT Rashida To [employer] CHECKER BLOOD BANK TEST ANIKET MARINELLI [facility] Unless otherwise noted, all lab tests performed by: Division of Pathology and Laboratory Medicine [address] [place] [address] * OSI Chest (12/08/2022 11:43 PM CDT) Only the most recent of3 resultswithin the time period is included. Narrative Systemgenerated, Documentation - 01/05/2023 11:43 PM CDT Study acquired at another institution. For comparison only. No MD Romaine originated interpretation requested or available. Rashida To [facility] CHECKER IMG OUTSIDE IMAGE OR DERABLES * OSI CT Abdomen and Pelvis (12/08/2022 11:39 PM CDT) Narrative Systemgenerated, Documentation - 01/05/2023 11:39 PM CDT Study acquired at another institution. For comparison only. No MD Romaine originated interpretation requested or available. Rashida To [employer] CHECKER IMG OUTSIDE IMAGE OR DERABLES * OSI MRI SPINE CERVICAL (08/24/2022 11:38 PM CDT) Narrative Systemgenerated, Documentation - 01/05/2023 11:38 PM CDT Study acquired at another institution. For comparison only. No MD Romaine originated interpretation requested or available. Rashida To [employer] CHECKER IMG OUTSIDE IMAGE OR DERABLES * OSI MRI Neck Orbit Face (08/24/2022 11:38 PM CDT) Narrative Systemgenerated, Documentation - 01/05/2023 11:38 PM CDT Study acquired at another institution. For comparison only. No MD Romaine originated interpretation requested or available. Rashida To [employer] GROUN[employer] CHECKER IMG OUTSIDE IMAGE OR DERABLES * OSI MRI Head (08/24/2022 11:38 PM CDT) Only the most recent of2 resultswithin the time period is included. Narrative Systemgenerated, Documentation - 01/05/2023 11:38 PM CDT Study acquired at another institution. For comparison only. No MD Gavin originated interpretation requested or available. Rashida To [employer] GROUNDS CHECKER IMG OUTSIDE IMAGE OR DERABLES * OSI US Vascular (08/24/2022 11:37 PM CDT) Narrative Systemgenerated, Documentation - 01/05/2023 11:37 PM CDT Study acquired at another institution. For comparison only. No MD Romaine originated interpretation requested or available. Rashida To [employer] CHECKER IMG OUTSIDE IMAGE OR DERABLES * OSI Cervical Spine (08/23/2022 11:36 PM CDT) Narrative Systemgenerated, Documentation - 01/05/2023 11:36 PM CDT Study acquired at another institution. For comparison only. No MD Gavin originated interpretation requested or available. Rashida To [employer]OUN[employer] CHECKER IMG OUTSIDE IMAGE OR DERABLES * OSI CT CHEST ABDOMEN PELVIS (08/22/2022 11:35 PM CDT) Only the most recent of2 resultswithin the time period is included. Narrative Systemgenerated, Documentation - 01/05/2023 11:36 PM CDT Study acquired at another institution. For comparison only. No MD Gavin originated interpretation requested or available. Rashida To [employer]MP GROUNDS CHECKER IMG OUTSIDE IMAGE OR DERABLES after 05/30/2022 Advance Directives Documents on File Type Date Recorded Patient Circulation Manager Expl anation Advance Directives: Living Will 01/05/2023 Directive to Physici ans and Family or Surrogates-Living Will Advance Directives: Medical Power of Combo Welder 01/05/2023 Medical Power of Att orney Care Teams Farmworker Field Crop Relationship Specialty Start Date End Date Talia Panda MD [address] [place] [address] PCP - General Surgical Oncology 12/28/22 Davion Florian MD [address] [place] [phone] PCP - External Primary Care Provider Internal Medicine 12/28/22
[2023-05-30 16:14] LABS: Hematocrit 39.4 % (36.0-45.0); MCV 95.9 fL (80-100); MPV 7.5 fL (7.6-11.3); Platelets 181 thou/uL (152-406); RBC Red Blood Cell Count 4.11 M/uL (3.86-4.86)
[2023-05-30 16:15] LABS: Absolute Lymphocytes (CBC) 1.7 K/uL (0.7-4.9); Lymphocytes % 32.4 % (15.3-44.8)
[2023-05-30 16:38] LABS: Albumin 3.2 g/dL (3.4-5.0); Bilirubin Total 0.2 mg/dL (0.2-1.0); Protein, Total 6.9 g/dL (6.4-8.2)
[2023-05-30 16:39] LABS: Potassium 4.3 mEq/L (3.5-5.1)
--- NOTE | 2023-05-30 16:59 | RAD REPORT ---
EXAM DESCRIPTION: CTAbdomen Pelvis W Contrast - 05/30/2023 4:51 pm CLINICAL HISTORY: Abdominal pain. ABD PAIN COMPARISON: <Comparisons> TECHNIQUE: Biphasic CT imaging of the abdomen and pelvis was performed with 100 ml non-ionic IV cont rast. All CT scans are performed using dose optimization technique as appropriate and may include automated exposure control or mA/KV adjustment according to patient size. FINDINGS: The lung bases are clear. Mild fatty liver is noted. No aggressive liver mass or biliary dilatation. Spleen is normal in size. Both adrenal glands and kidneys show no acute or worrisome process. There is irregular dilatation of the pancreatic duct and several rounded pancreatic lesions. This is probably related to IPMN. No bowel obstruction, free air, free fluid or abscess. Mild sigmoid diverticulosis coli is present wi thout diverticulitis. The appendix is not identified as a discrete structure, however, no secondary f indings of appendicitis are identified. No evidence of significant lymphadenopathy. Right total hip arthroplasty is present. Mild lumbar degenerative changes. IMPRESSION: No acute intra-abdominal or pelvic finding. Pancreatic IPMN is suspected.
--- NOTE | 2023-05-30 18:00 | ER ---
Nurse's Notes [facility] Name: Robby Schmid Age: 88 yrs Sex: Female : 1935 Arrival Date: 05/30/2023 Time: 13:30 Bed 17 Private MD: Diagnosis: Upper abdominal pain, unspecified;Diarrhea, unspecified;Vomiting Presentation: 05/30 13:36 Chief complaint: Patient states: she has been having upper abdominal/epigastric pain ap3 since last night. patient rates her pain as a 8/10 on the pain scale at this time. patient also reports intermittent chronic dizziness. Coronavirus screen: At this time, the client does not indicate any symptoms associated with coronavirus-19. Ebola Screen: No symptoms or risks identified at this time. Initial Sepsis Screen: Does the patient meet any 2 criteria? HR > 90 bpm. Risk Assessment: Do you want to hurt yourself or someone else? Patient reports no desire to harm self or others. Onset of symptoms was May 29, 2023. 13:36 Method Of Arrival: Wheelchair ap3 13:36 Acuity: MANJINDER 3 ap3 16:41 Initial Sepsis Screen: Does the patient have a suspected source of infection? Yes:. me1 Triage Assessment: 13:39 General: Appears uncomfortable, Behavior is calm, cooperative, appropriate for age. ap3 Pain: Complains of pain in diaphragm and xiphoid area Pain currently is 8 out of 10 on a pain scale. Pain began gradually, 1 day ago. Neuro: Level of Consciousness is awake, alert, obeys commands, Oriented to person, place, time, situation, Reports dizziness. Cardiovascular: Patient's skin is warm and dry. Respiratory: Airway is patent Respiratory effort is even, unlabored, Respiratory pattern is regular, symmetrical. GI: Reports upper abdominal pain. Historical: - Allergies: 13:39 Plavix; ap3 13:39 Codeine; ap3 - PMHx: 13:39 Atrial Fib August 2022; CVA; High Cholesterol; Hypertension; Hypothyroidism; UTI; ap3 - Immunization history:: Client reports having NOT received the Covid vaccine. Flu vaccine is not up to date. - Social history:: Smoking status: Patient denies any tobacco usage or history of. Screenin:40 Abuse screen: Denies threats or abuse. Nutritional screening: No deficits noted. ap3 Tuberculosis screening: No symptoms or risk factors identified. 13:45 [facility] ED Fall Risk Assessment (Adult) History of falling in the last 3 months, me1 including since admission No falls in past 3 months (0 pts) Confusion or Disorientation No (0 pts) Intoxicated or Sedated No (0 pts) Impaired Gait No (0 pts) Mobility Assist Device Used No (0 pt) Altered Elimination No (0 pt) Score/Fall Risk Level 0 - 2 = Low Risk Maintained a safe environment, Provided non-skid footwear, Hourly rounding (assess needs \T\ fall precautionary measures) done. Assessment: 13:45 General: Appears uncomfortable, ill, well groomed, well developed, well nourished, me1 Behavior is calm, cooperative, appropriate for age, Reports she has been having upper abdominal/epigastric pain since last night. patient rates her pain as a 8/10 on the pain scale at this time. patient also reports intermittent chronic dizziness. Pain: Complains of pain in right upper quadrant and left upper quadrant Pain radiates to back Pain currently is 8 out of 10 on a pain scale. Quality of pain is described as sharp, shooting, Pain began 1 day ago. Is continuous. Neuro: Level of Consciousness is awake, alert, obeys commands, Oriented to person, place, time, situation, Appropriate for age. Cardiovascular: Capillary refill < 3 seconds Patient's skin is warm and dry. Respiratory: Airway is patent Trachea midline Respiratory effort is even, unlabored, Respiratory pattern is regular, symmetrical. GI: Reports upper abdominal pain, diarrhea, nausea, vomiting, since abd pain since yesterday. N/V/D that started today. 18:06 General: refused covid and flu swab. Meri Hwang NP notified. . me1 Vital Signs: 13:36 BP 105 / 54; Pulse 126; Resp 19; Temp 97.5; Pulse Ox 95% on R/A; Weight 73.48 kg; ap3 Height 5 ft. 2 in. ; Pain 8/10; 13:41 Pulse 56; Pulse Ox 99% on R/A; ap3 18:13 BP 127 / 76; Pulse 65; Resp 18; Pulse Ox 98% on R/A; me1 13:36 Body Mass Index 29.63 (73.48 kg, 157.48 cm) ap3 13:36 Pain Scale: Adult ap3 ED Course: 13:32 Patient arrived in ED. mg5 13:39 Triage completed. ap3 13:40 Arm band placed on left wrist. ap3 13:41 Karla Hwang FNP-C [facility]. kb 13:41 Hardeep Gavin MD is Attending Physician. kb 13:45 Patient has correct armband on for positive identification. Bed in low position. Call me1 light in reach. Side rails up X2. Provided Education on: POC. Verbalized understanding. . 13:45 No provider procedures requiring assistance completed. me1 14:00 EKG done, by ED staff, reviewed by Karla FORD. ap3 14:14 CBC with Diff Sent. ap3 14:14 CMP Sent. ap3 14:14 Lipase Sent. ap3 14:15 Initial lab(s) drawn, by me, sent to lab. Inserted saline lock: 22 gauge in left wrist, ap3 using aseptic technique. Blood collected. 15:12 Yvonne Mcmullen, RN is Primary Nurse. me1 16:08 IV discontinued, intact, bleeding controlled, No redness/swelling at site. Pressure me1 dressing applied. 16:08 Inserted saline lock: 22 gauge in left forearm, using aseptic technique. me1 16:09 Lipase Sent. me1 16:09 CMP Sent. me1 16:09 CBC with Diff Sent. me1 16:53 CT Abd/Pelvis - IV Contrast Only In Process Unspecified. EDMS 18:27 IV discontinued, intact, bleeding controlled, No redness/swelling at site. Pressure me1 dressing applied. Administered Medications: 17:20 Drug: NS 0.9% IV 500 ml IV at bolus once Route: IV; Rate: bolus; Site: left forearm; as6 18:28 Follow up: IV Status: Completed infusion me1 17:20 Drug: Ondansetron IVP 4 mg IVP once; over 2 minutes Route: IVP; Site: left forearm; as6 18:06 Follow up: Response: No adverse reaction; Nausea is decreased me1 Medication: 13:45 VIS not applicable for this client. me1 Outcome: 18:00 Discharge ordered by . kb 18:27 Discharged to home via wheelchair, with family, me1 18:27 Condition: stable 18:27 Discharge instructions given to patient, family, Instructed on discharge instructions, follow up and referral plans. medication usage, Demonstrated understanding of instructions, follow-up care, medications, Prescriptions given X 2, 18:28 Patient left the ED. me1 Signatures: Dispatcher [employer] EDKarla Kumar, LOGAN WRIGHT-Sondra Logan RN RN ap3 Gen Jean-Baptiste RN RN as6 Yvonne Mcmullen RN RN me1 Dalia Koenig mg5 Corrections: (The following items were deleted from the chart) 16:38 13:36 Chief complaint: Patient states: she has been having upper abdominal/epigastric me1 pain since last night. patient rates her pain as a 8/10 on the pain scale at this time. patient also reports intermittent chronic dizziness. ap3
--- NOTE | 2023-05-30 18:00 | EDPHYS ---
Physician Documentation [facility] Name: Robby Schmid Age: 88 yrs Sex: Female : 1935 Arrival Date: 05/30/2023 Time: 13:30 Bed 17 Private MD: ED Physician Hardeep Gavin HPI: 05/30 23:25 This 88 yrs old Female presents to ER via Wheelchair with complaints of Dizziness, Sent kb By Dr Florian. 23:25 Patient is a 88-year-old female who was brought in by her daughter for upper abdominal kb pain that started last night. Reports patient had an episode of vomiting yesterday and slight diarrhea this morning. Denies fever. Called Dr. Florian's office and was told to come to the ER for evaluation. Patient also reports chronic dizziness and full body pain. Historical: - Allergies: 13:39 Plavix; ap3 13:39 Codeine; ap3 - PMHx: 13:39 Atrial Fib August 2022; CVA; High Cholesterol; Hypertension; Hypothyroidism; UTI; ap3 - Immunization history:: Client reports having NOT received the Covid vaccine. Flu vaccine is not up to date. - Social history:: Smoking status: Patient denies any tobacco usage or history of. ROS: 23:25 Constitutional: Negative for fever, chills, and weight loss, kb 23:25 Abdomen/GI: Positive for abdominal pain, nausea, vomiting, and diarrhea, 23:25 All other systems are negative, Exam: 23:25 Constitutional: This is a well developed, well nourished patient who is awake, alert, kb and in no acute distress. Head/Face: Normocephalic, atraumatic. ENT: Moist Mucous membranes Cardiovascular: Regular rate Respiratory: Respirations even and unlabored. No increased work of breathing. Talking in full sentences Skin: Warm, dry with normal turgor. Normal color. MS/ Extremity: Pulses equal, no cyanosis. Neurovascular intact. Full, normal range of motion. 23:25 Abdomen/GI: Inspection: abdomen appears normal, Bowel sounds: normal, Palpation: soft, in all quadrants, mild abdominal tenderness, in the right upper quadrant, left upper quadrant and left lower quadrant, Vital Signs: 13:36 BP 105 / 54; Pulse 126; Resp 19; Temp 97.5; Pulse Ox 95% on R/A; Weight 73.48 kg; ap3 Height 5 ft. 2 in. ; Pain 8/10; 13:41 Pulse 56; Pulse Ox 99% on R/A; ap3 18:13 BP 127 / 76; Pulse 65; Resp 18; Pulse Ox 98% on R/A; me1 13:36 Body Mass Index 29.63 (73.48 kg, 157.48 cm) ap3 13:36 Pain Scale: Adult ap3 MDM: 13:41 Patient medically screened. kb 23:27 Differential diagnosis: diverticulitis, gastritis, non-specific abd pain, pancreatitis. kb Data reviewed: vital signs, nurses notes. Management of patient was discussed with the following: Primary Care Provider: Diagnostic results discussed with Dr. Florian who recommends discharge and will see patient in office for follow-up. Patient has scheduled appointment for .. Historians other than the Patient: Daughter/Son: Daughter. Counseling: I had a detailed discussion with the patient and/or guardian regarding the historical points, exam findings, and any diagnostic results supporting the discharge/admit diagnosis, lab results, radiology results, the need for outpatient follow up, a family practitioner, to return to the emergency department if symptoms worsen or persist or if there are any questions or concerns that arise at home. ED course: Pancreatic lesions known to patient and family.. 05/30 13:44 Order name: CBC with Diff; Complete Time: 16:22 kb 05/30 13:44 Order name: CMP; Complete Time: 16:43 kb 05/30 13:44 Order name: Lipase; Complete Time: 16:43 kb 05/30 13:44 Order name: Troponin High Sensitivity; Complete Time: 16:43 kb 05/30 13:44 Order name: CT Abd/Pelvis - IV Contrast Only; Complete Time: 18:07 kb 05/30 13:44 Order name: EKG; Complete Time: 13:45 kb 05/30 13:44 Order name: IV Saline Lock; Complete Time: 14:14 kb 05/30 13:44 Order name: Labs collected and sent; Complete Time: 14:14 kb 05/30 13:44 Order name: EKG - Nurse/Tech; Complete Time: 14:00 kb Administered Medications: 17:20 Drug: NS 0.9% IV 500 ml IV at bolus once Route: IV; Rate: bolus; Site: left forearm; as6 18:28 Follow up: IV Status: Completed infusion me1 17:20 Drug: Ondansetron IVP 4 mg IVP once; over 2 minutes Route: IVP; Site: left forearm; as 18:06 Follow up: Response: No adverse reaction; Nausea is decreased me1 Disposition Summary: 05/30/23 18:00 Discharge Ordered Notes: Location: Home kb Condition: Stable kb Diagnosis - Upper abdominal pain, unspecified kb - Diarrhea, unspecified kb - Vomiting kb Followup: kb - With: Emergency Department - When: As needed - Reason: Worsening of condition Followup: kb - With: Private Physician - When: 2 - 3 days - Reason: Recheck today's complaints, Continuance of care, Re-evaluation by your physician Discharge Instructions: - Discharge Summary Sheet kb - Food Choices to Help Relieve Diarrhea, Adult kb - Abdominal Pain, Adult, [id number] kb - Diarrhea, Adult, [id number] kb Forms: - Medication Reconciliation Form kb - Thank You Letter kb - Antibiotic Education kb - Prescription Opioid Use kb - Patient Portal Instructions kb - Leadership Thank You Letter kb Prescriptions: - ondansetron 4 mg Oral Tablet,disintegrating - take 1 tablet ORAL route every 6 hours As needed; 12 tablet; Refills: 0, kb Product Selection Permitted - dicyclomine 20 mg Oral tablet - take 1 tablet ORAL route 3 times per day As needed; 9 tablet; Refills: 0, kb Product Selection Permitted Signatures: Dispatcher [employer] Karla Alberto FNP-C FNP-Ckb Prokisch, Amanda, RN RN ap3 Gen Jean-Baptiste RN RN as6 Yvonne Mcmullen RN me1
--- NOTE | 2023-05-31 16:42 | EKG ---
Test Date: 2023-05-30 Test Time: 13:51:02 Science Job Titles: ALP MEASUREMENT RESULTS: Intervals: Rate: 83 [place]: QRSD: 126 QT: 418 QTc: 491 [place]: P: [place]: QRS: 269 T: 49 INTERPRETIVE STATEMENTS: Demand pacemaker, interpretation is based on intrinsic rhythm Atrial fibrillation with premature ventricular or aberrantly conducted complexes Right bundle branch block Abnormal ECG Compared to ECG 05/30/2023 13:49:57 Ventricular premature complex(es) now present Left-axis deviation no longer present Electronically Signed On 05-31-23 16:41:38 TELEPHONE SERVICE REPRESENTATIVE by Justin Asencio
--- NOTE | 2023-05-31 16:43 | EKG ---
Test Date: 2023-05-30 Test Time: 13:49:57 Paper Cup Machine Operator: ALP MEASUREMENT RESULTS: Intervals: Rate: 90 IN: 144 QRSD: 126 QT: 430 QTc: 526 [place]: P: 70 IN: 144 QRS: -89 T: 63 INTERPRETIVE STATEMENTS: Demand pacemaker, interpretation is based on intrinsic rhythm Atrial fltutter with paced rhythm Left axis deviation Right bundle branch block Abnormal ECG Compared to ECG 12/08/2022 17:38:57 Left-axis deviation now present Right bundle-branch block now present Atrial-paced complex(es) or rhythm no longer present Electronically Signed On 05-31-23 16:42:23 MAINTENANCE MECHANIC by Justin Asencio
== END ==
LOC: ER 13:30
DX: R10.10 Upper abdominal pain, unspecified (principal); R19.7 Diarrhea, unspecified; R11.10 Vomiting, unspecified; Z88.5 Allergy status to narcotic agent; Z88.8 Allergy status to other drugs, medicaments and biological substances; Z28.310 Unvaccinated for COVID-19
CPT/HCPCS: 85025; 36415; 84484; 83690; 80053; 74177; Q9967; J2405; J7040; 93005

== ENCOUNTER 2023-07-24 11:33 | Emergency (ER) | payer OTHER, MEDICARE ==
--- OUTSIDE RECORDS SUMMARY | 2023-07-24 11:45 | XMS REPORT | Clinical Summary ---
Author Name Unknown Organization [facility] Address [address] [place] [address] Care Team Providers Care Tour Operator Name Role Phone Talia Panda MD Primary Care Provider [phone] Davion Florian MD Unavailable [phone] Allergies Active Allergy Reactions Criticality Noted [...] mg) by mouth daily. 0 Active coenzyme [id number] E 100-5 mg-unit cap Take 1 capsule by mouth daily. 0 12/19/2020 Active Active Problems Problem Noted Date Diagnosed Date Cyst of pancreas 12/28/2022 Encounters Date Type Department Care Team Description 02/17/2023 Telephone [facility] [address] [place] [address], [facility] [place] [address] Alta Santizo RN 01/06/2023 10:00 AM CDT Office Visit [facility] [address] [place] [address], [facility] [place] [address] Talia Panda MD Cyst of pancreas (Primary Dx) 01/06/2023 Travel 01/05/2023 11:50 PM CDT Ancillary Procedure [facility] [address] [place] [address] Rashida Castaneda APRN Cancer 01/05/2023 11:45 PM CDT Ancillary Procedure [facility] [address] [place] [address] Rashida Castaneda APRN Cancer 01/05/2023 11:40 PM CDT Ancillary Procedure [facility] [address] [place] [address] To MARCEL Field Cancer 01/05/2023 11:35 PM CDT Ancillary Procedure [facility] [address] [place] [address] To, MARCEL Field Cancer 01/05/2023 11:30 PM CDT Ancillary Procedure [facility] [address] [place] [address] To, MARCEL Field Cancer 01/05/2023 11:25 PM CDT Ancillary Procedure [facility] [address] [place] [address] To, MARCEL Field Cancer 01/05/2023 11:20 PM CDT Ancillary Procedure [facility] [address] [place] [address] 24741 To MARCEL Field Cancer 01/05/2023 11:15 PM CDT Ancillary Procedure [facility] [address] [place] [address] 36532 To MARCEL Field Cancer 01/05/2023 11:10 PM CDT Ancillary Procedure [facility] [address] [place] [address] 46701 To MARCEL Field Cancer 01/05/2023 11:05 PM CDT Ancillary Procedure [facility] [address] [place] [address] 39980 To MARCEL Field Cancer 01/05/2023 11:00 PM CDT Ancillary Procedure [facility] [address] [place] [address] 00026 To MARCEL Field Cancer 01/05/2023 10:55 PM CDT Ancillary Procedure [facility] [address] [place] [address] 35556 To, MARCEL Field Cancer 01/05/2023 12:55 PM CDT Ancillary Procedure MD Gavin [place] [address] [place] [address] To, MARCEL Field Cyst of pancreas 01/05/2023 12:00 PM CDT NPR MDA PATIENT ACCESS Talia Panda MD 01/05/2023 Travel 12/28/2022 Travel 12/28/2022 Orders Only [facility] [address] [facility] Main Bldg, 7th [place] [address] Rashida Castaneda APRN Cyst of pancreas (Primary Dx) 12/23/2022 Travel after 07/24/2022 Social History Tobacco Use Types Packs/Day Years [...] Maintenance Due Date Last Done Comments COVID-19 Vaccine (#1) 1936 Influenza Vaccine 12/23/2022 Procedures Procedure Name Priority Date/Time Associated Diagnosis [...] Routine 08/22/2022 11:35 PM CDT Cancer after 07/24/2022 Results * CT Chest Abdomen Pelvis with [...] intravenous contrast. Multiphasic dual-energy pancreas protocol, Siemens [place] Nature of study: Baseline [facility] imaging evaluation CHEST FINDINGS: Lines and Tubes: [...] oral andintravenous contrast. Multiphasic dual-energy pancreas protocol, Smartsheet Nature of study: Baseline [facility] imaging evaluation CHEST FINDINGS: Lines and Tubes: [...] irregular left lower lobe nodule for which [id number] is advised. 2. Thoracic adenopathy, and enlarged [...] endoscopic ultrasound. ACTIONABLE ITEMS/RECOMMENDATIONS: None. Rashida To CELL TUBER MACHINE IMG CT ORDERABLES * .Serum Creatinine (01/05/2023 12:37 PM CDT) Creatinine 0.79 0.51 - 0.95 mg/dL [place] Comment:Testing performed at [facility], [address] [place] [address] Blood 01/05/2023 12:3 7 PM CDT 01/05/2023 12:38 PM CDT Rashida To CELL TUBER MACHINE LAB BLOOD ORDERABLES Performing Organization Address City/State/[facility] Co de Phone Number [address], [facility] [address] [place] [address] * .CBC (01/05/2023 12:37 PM CDT) WBC 7.1 4.1 - 10.5 K/uL [place] Comment:All components of th e CBC performed at [facility], [address] [place] [address] 35096 RBC 4.25 3.99 - 5.46 M/uL [place] Comment:All components of th e CBC performed at [facility], [address] [place] [address]68 Hgb 13.4 12.2 - 15.3 gm/dL [place] Comment:As part of CBC or as an individual orderable testing performed at [facility], [address] [place] [address], [place] [address] Hct 39.3 36.4 - 46.8 % [place] Comment:As part of CBC testi ng performed at [facility], [address] [place] [address] 56839 MCV 92 82 - 99 fL [place] Comment:As part of CBC testi ng performed at [facility], [address] [place] [address] 50112 MCH 31.5 26.6 - 33.2 pg [place] Comment:As part of CBC testi ng performed at [facility], [address] [place] [address] 83973 MCHC 34.1 31.1 - 35.2 gm/dL [place] Comment:As part of CBC testi ng performed at [facility], [address] [place] [address] 03629 RDW-SD 45.4 37.5 - 49.7 fL [place] Comment:As part of CBC testi ng performed at [facility], [address] [place] [address] 33696 RDW-CV 13.5 11.6 - 15.5 % [place] Comment:As part of CBC testi ng performed at [facility], [address] [place] [address] 30893 Platelet count 177 160 - 397 K/uL [place] Comment:As part of CBC or an individual orderable testing performed at [facility], [address] [place] [address] 91518 MPV 9.5 9.1 - 12.6 fL [place] Comment:As part of CBC testi ng performed at [facility], [address] [place] [address] 30838 Blood 01/05/2023 12:3 7 PM CDT 01/05/2023 12:38 PM CDT Rashida To CELL TUBER MACHINE LAB BLOOD ORDERABLES [facility] [address] [facility], [facility] [address] [place] [address] * Clot Expiration Date (01/05/2023 12:37 PM CDT) T & S Expiration 01/08/2023 [facility] Blood 01/05/2023 12:3 7 PM CDT 01/05/2023 9:51 PM CDT Rashida To CELL TUBER MACHINE BLOOD BANK TEST ORDE YVES [facility] Unless otherwise noted, all lab tests performed by: Division of Pathology and Laboratory Medicine [address] [place] [address] * Glomerular Filtration Rate (01/05/2023 12:37 PM CDT) eGFR 73 >=60 mL/min/1.7 3 sq. m [place] Comment: The eGFRcr is calculated with the [...] fulfill criteria for CKD. Testing performed at [facility], [facility] [facility], [place] [address] Blood 01/05/2023 12:3 7 PM CDT 01/05/2023 12:38 PM CDT Rashida To CELL TUBER MACHINE LAB BLOOD ORDERABLES [place] [address] [place] [address] * Fractionated Bilirubin (01/05/2023 12:37 PM CDT) [facility] Bili Total 0.3 <=1.2 mg/dL [place] Comment: Indocyanine Green (ICG) may cause falsely elevated bilirubin results. Total and direct bilirubin must not be measured from samples containing indocyanine green. False elevation of total bilirubin can be seen in patients with IgG concentrations above 28 g/L. Testing performed at [facility], [address] [place] [address] Bili Direct <0.2 <=0.3 mg/dL [place] Comment: Indocyanine Green (ICG) may cause falsely elevated bilirubin results. Total and direct bilirubin must not be measured from samples containing indocyanine green. Testing performed at [facility], [address] [place] [address] 25866 Bili Indirect See Note 0.0 - 0.9 mg/dL [place] Comment: Unable to calculate Indirect Bilirubin result due to some parameters are outside reportable range Testing performed at [facility], [address] [place] [address] Blood 01/05/2023 12:3 7 PM CDT 01/05/2023 12:38 PM CDT Rashida To CELL TUBER MACHINE LAB BLOOD ORDERABLES [address] [address] * TMP Interpretation Antibody Screen Negative (01/05/2023 12:37 PM CDT) Pathologist [facility] TMP Auto Neg ABSC Interp At the present time, patient plasma shows no evidence of RBC alloantibodi es. [facility] Comment: MD Shaneka MCCAULEY [id number] Dictated by: MD Shaneka MCCAULEY [id number] Dictated Date/Time: 01.06.2023 10:46 AM CDT Transcribed Date/Time: 01.06.2023 10:46 AM CDT Electronically Signed By: MD Shaneka MCCAULEY [id number] on 01.06.2023 10:46 AM Blood 01/05/2023 12:3 7 PM CDT 01/05/2023 9:51 PM CDT Rashida To CELL TUBER MACHINE BLOOD BANK TEST ORDE YVES [facility] Unless otherwise noted, all lab tests performed by: Division of Pathology and Laboratory Medicine [address] [place] [address] * aPTT (01/05/2023 12:37 PM CDT) aPTT 33.4 24.1 - 35.5 second(s) [place] Comment:Testing performed at [facility], [address] [place] [address] Blood 01/05/2023 12:3 7 PM CDT 01/05/2023 12:38 PM CDT Narrative [place] - 01/05/2023 1:02 PM CDT This lab cannot be scheduled at the following locations due to collection/proccessing restrictions: [facility] and [facility]. Rashida To CELL TUBER MACHINE LAB BLOOD ORDERABLES [facility] [address] [facility], [facility] [address] [place] [address] * CA 19-9 (01/05/2023 12:37 PM CDT) [facility] CA 19-9 <2.9 <=35.0 U/mL [place] Comment: Results greater than 9500 U/mL may not be reliable due to matrix effect with extended dilution as it exceeds the director check's recommended limit. Caution should be exercised when interpreting such values and done in conjunction with clinical context. This test is measured by electrochemiluminescence immunoassay on Felipe William immunoassay analyzers. Results obtained in different methods are not interchangeable. Testing performed at [facility], [address] [place] [address] Blood 01/05/2023 12:3 7 PM CDT 01/05/2023 12:38 PM CDT Rashida To CELL TUBER MACHINE LAB BLOOD ORDERABLES [address], [facility] [address] [place] [address] * ABORh (01/05/2023 12:37 PM CDT) [facility] ABORh. O POS HI [facility] Blood 01/05/2023 12:3 7 PM CDT 01/05/2023 9:51 PM CDT Rashida To CELL TUBER MACHINE BLOOD BANK TEST ORDE RABLES [facility] Unless otherwise noted, all lab tests performed by: Division of Pathology and Laboratory Medicine [address] [place] [address] * Differential (01/05/2023 12:37 PM CDT) [facility] Neutrophil % 53.2 43.2 - 72.7 % [place] Comment:All components of th e Differential performed at [facility], [address] [place] [address]40 Lymphocyte % 37.8 16.8 - 46.2 % [place] Comment:As part of the Diffe rential testing performed at [facility], [address] [place] [address], [place] [address] Monocyte % 5.9 5.1 - 12.5 % [place] Comment:As part of the Diffe rential testing performed at [facility], [address] [place] [address], [place] [address] Eosinophil % 2.5 0.4 - 6.3 % [place] Comment:As part of the Diffe rential testing performed at [facility], [address] [place] [address], [place] [address] Basophil % 0.3 0.2 - 1.4 % [place] Comment:As part of the Diffe rential testing performed at [facility], [address] [place] [address] 24227 IGRE % 0.3 0.1 - 1.5 % [place] Comment: IGRE % count includes Metamyelocytes, Myelocytes, and Promyelocytes. As part of the Differential testing performed at [facility], [address] [place] [address] 13211 Neutrophil Abs 3.79 1.95 - 7.25 K/uL [place] Comment:As part of the Diffe rential testing performed at [facility], [address] [place] [address]1111 Lymphocyte Abs 2.69 1.01 - 3.24 K/uL [place] Comment:As part of the Diffe rential testing performed at [facility], [address] [place] [address] 32621 Monocyte Abs 0.42 0.24 - 0.85 K/uL [place] Comment:As part of the Diffe rential testing performed at [facility], [address] [place] [address]909 Eosinophil Abs 0.18 0.02 - 0.50 K/uL [place] Comment:As part of the Diffe rential testing performed at [facility], [address] [place] [address], [place] [address] Basophil Abs 0.02 0.02 - 0.09 K/uL [place] Comment:As part of the Diffe rential testing performed at [facility], [address] [place] [address] 16237 IG Abs 0.02 0.01 - 0.12 K/uL [place] Comment:As part of the Diffe rential testing performed at [facility], [address] [place] [address] Blood 01/05/2023 12:3 7 PM CDT 01/05/2023 12:38 PM CDT Rashida To CELL TUBER MACHINE LAB BLOOD ORDERABLES [address], [facility] [address] [place] [address] * Prothrombin Time with INR (01/05/2023 12:37 PM CDT) PT 14.3 11.9 - 14.5 second(s) [place] Comment:Testing performed at [facility], [address] [place] [address]25 INR 1.08 0.87 - 1.12 [place] Comment:Testing performed at [facility], [address] [place] [address] Blood 01/05/2023 12:3 7 PM CDT 01/05/2023 12:38 PM CDT Narrative [place] - 01/05/2023 1:02 PM CDT This lab cannot be scheduled at the following locations due to collection/proccessing restrictions: [facility] and [facility]. Rashida To CELL TUBER MACHINE LAB BLOOD ORDERABLES [address], [facility] [address] [place] [address] * Antibody Screen (01/05/2023 12:37 PM CDT) ABSC. Negative ABSC [facility] Blood 01/05/2023 12:3 7 PM CDT 01/05/2023 9:51 PM CDT Rashida To CELL TUBER MACHINE BLOOD BANK TEST ANIKET MARINELLI [facility] Unless otherwise noted, all lab tests performed by: Division of Pathology and Laboratory Medicine [address] [place] [address]483 * BUN (01/05/2023 12:37 PM CDT) BUN 22 6 - 23 mg/dL [place] Comment:Testing performed at [facility], [address] [place] [address] Blood 01/05/2023 12:3 7 PM CDT 01/05/2023 12:38 PM CDT Rashida To CELL TUBER MACHINE LAB BLOOD ORDERABLES [address] [address] * ALT (01/05/2023 12:37 PM CDT) ALT 16 <=33 U/L [place] Comment:Testing performed at [facility], [address] [place] [address] Blood 01/05/2023 12:3 7 PM CDT 01/05/2023 12:38 PM CDT Rashida To CELL TUBER MACHINE LAB BLOOD ORDERABLES [address] [address] * Aspartate Aminotransferase (01/05/2023 12:37 PM CDT) AST 22 <=32 U/L [place] Comment:Testing performed at [facility], [address] [place] [address] Blood 01/05/2023 12:3 7 PM CDT 01/05/2023 12:38 PM CDT Rashida To CELL TUBER MACHINE LAB BLOOD ORDERABLES [address] [address] * Total Protein (01/05/2023 12:37 PM CDT) Total Protein 7.1 6.4 - 8.3 g/dL [place] Comment:Testing performed at [facility], [address] [place] [address] Blood 01/05/2023 12:3 7 PM CDT 01/05/2023 12:38 PM CDT Rashida To CELL TUBER MACHINE LAB BLOOD ORDERABLES Performing Organization Address City/[facility] Co de Phone Number [address] [address] * (ABNORMAL) Prealbumin (01/05/2023 12:37 PM CDT) Prealbumin 16.4(L) 20.0 - 40.0 mg/dL [facility] Blood 01/05/2023 12:3 7 PM CDT 01/06/2023 7:07 AM CDT Rashida To CELL TUBER MACHINE LAB BLOOD ORDERABLES [facility] Unless otherwise noted, all lab tests performed by: Division of Pathology and Laboratory Medicine [address] [place] [address] * Phosphorus Level (01/05/2023 12:37 PM CDT) Phosphorus 3.3 2.5 - 4.5 mg/dL [place] Comment:Testing performed at [facility], [address] [place] [address] Blood 01/05/2023 12:3 7 PM CDT 01/05/2023 12:38 PM CDT Rashida To CELL TUBER MACHINE LAB BLOOD ORDERABLES [address] [address] * Alkaline Phosphatase (01/05/2023 12:37 PM CDT) Alk Phos 104 35 - 104 U/L [place] Comment:Testing performed at [facility], [address] [place] [address] Blood 01/05/2023 12:3 7 PM CDT 01/05/2023 12:38 PM CDT Rashida To CELL TUBER MACHINE LAB BLOOD ORDERABLES [address] [address] * Magnesium Level (01/05/2023 12:37 PM CDT) Magnesium 2.2 1.6 - 2.6 mg/dL [place] Comment:Testing performed at [facility], [address] [place] [address] Blood 01/05/2023 12:3 7 PM CDT 01/05/2023 12:38 PM CDT Rashida To CELL TUBER MACHINE LAB BLOOD ORDERABLES [address] [address] * Lipase Level (01/05/2023 12:37 PM CDT) Lipase Lvl 46 13 - 60 U/L [place] Comment:Testing performed at [facility], [address] [place] [address] Blood 01/05/2023 12:3 7 PM CDT 01/05/2023 12:38 PM CDT Rashida To CELL TUBER MACHINE LAB BLOOD ORDERABLES [address], [facility] [address] [place] [address] * (ABNORMAL) Hemoglobin A1c (01/05/2023 12:37 PM CDT) A1C 6.3(H) 4.3 - 5.6 % [place] Comment: HbA1c values >=6.5% are diagnostic of diabetes mellitus. Diagnosis should be confirmed by repeat testing. Therapeutic Action suggested: >8.0% HbA1c; Goal of therapy: <7.0% HbA1c Testing performed at [facility], [address] [place] [address] Blood 01/05/2023 12:3 7 PM CDT 01/05/2023 12:38 PM CDT Rashida To CELL TUBER MACHINE LAB BLOOD ORDERABLES [place] [address] [place] [address] * (ABNORMAL) Glucose Level (01/05/2023 12:37 PM CDT) Glucose Level 108(H) 70 - 99 mg/dL [place] Comment: Effective 11/18/15, the glucose reference intervals have been updated based on [place] Diabetes Association guidelines (Standards of Medical Care in Diabetes 2016. Diabetes Care 2016; 39: S13-S22). Fasting blood glucose: Normal: 70-99 mg/dL Impaired fasting glucose (increased risk for diabetes or pre-diabetes): 100- 125 mg/dL Diabetes mellitus: >/=126 mg/dL Random blood glucose: Normal: 70-199 mg/dL Note: Random glucose >100 mg/dL is associated with increased risk for diabetes Testing performed at [facility], [address] [place] [address] Blood 01/05/2023 12:3 7 PM CDT 01/05/2023 12:38 PM CDT Rashida To CELL TUBER MACHINE LAB BLOOD ORDERABLES [address], [address] [address] * Calcium Level (01/05/2023 12:37 PM CDT) Calcium Lvl 9.1 8.4 - 10.2 mg/dL [place] Comment:Testing performed at [facility], [address] [place] [address] Blood 01/05/2023 12:3 7 PM CDT 01/05/2023 12:38 PM CDT Rashida To CELL TUBER MACHINE LAB BLOOD ORDERABLES [address] [address] * Amylase Level (01/05/2023 12:37 PM CDT) Amylase Lvl 35 28 - 100 U/L [place] Comment:Testing performed at [facility], [address] [place] [address] Blood 01/05/2023 12:3 7 PM CDT 01/05/2023 12:38 PM CDT Rashida To CELL TUBER MACHINE LAB BLOOD ORDERABLES [address] [address] * Albumin Level (01/05/2023 12:37 PM CDT) Albumin Lvl 3.9 3.5 - 5.2 gm/dL [place] Comment:Testing performed at [facility], [address] [place] [address] Blood 01/05/2023 12:3 7 PM CDT 01/05/2023 12:38 PM CDT Rashida To CELL TUBER MACHINE LAB BLOOD ORDERABLES [address], [facility] [address] [place] [address] * (ABNORMAL) Electrolyte Panel (01/05/2023 12:37 PM CDT) Sodium Lvl 133(L) 136 - 145 mEq/L [place] Comment:Testing performed at [facility], [address] [place] [address] Potassium Lvl 4.1 3.5 - 5.1 mEq/L [place] Comment:Testing performed at [facility], [address] [place] [address] Chloride 98 98 - 107 mEq/L [place] Comment:Testing performed at [facility], [address] [place] [address] CO2 25 22 - 29 mEq/L [place] Comment:Testing performed at [facility], [address] [place] [address] Anion Gap 10 4 - 14 mEq/L [place] Comment:Testing performed at [facility], [address] [place] [address] Blood 01/05/2023 12:3 7 PM CDT 01/05/2023 12:38 PM CDT Rashida To CELL TUBER MACHINE LAB BLOOD ORDERABLES [address], [facility] [address] [place] [address] * Confirm ABORh (01/05/2023 12:33 PM CDT) ABORh Confirm. O POS [facility] Blood 01/05/2023 12:3 3 PM CDT 01/05/2023 9:51 PM CDT Rashida To CELL TUBER MACHINE BLOOD BANK TEST NELSONDhruv MARINELLI [facility] Unless otherwise noted, all lab tests performed by: Division of Pathology and Laboratory Medicine [address] [place] [address] * OSI Chest (12/08/2022 11:43 PM CDT) Only the most recent of3 resultswithin the time period is included. Narrative Systemgenerated, Documentation - 01/05/2023 11:43 PM CDT Study acquired at another institution. For comparison only. No MD Romaine originated interpretation requested or available. Rashida To CELL TUBER MACHINE IMG OUTSIDE IMAGE OR DERABLES * OSI CT Abdomen and Pelvis (12/08/2022 11:39 PM CDT) Narrative Systemgenerated, Documentation - 01/05/2023 11:39 PM CDT Study acquired at another institution. For comparison only. No MD Romaine originated interpretation requested or available. Rashida To CELL TUBER MACHINE IMG OUTSIDE IMAGE OR DERABLES * OSI MRI SPINE CERVICAL (08/24/2022 11:38 PM CDT) Narrative Systemgenerated, Documentation - 01/05/2023 11:38 PM CDT Study acquired at another institution. For comparison only. No MD Romaien originated interpretation requested or available. Rashida To CELL TUBER MACHINE IMG OUTSIDE IMAGE OR DERABLES * OSI MRI Neck Orbit Face (08/24/2022 11:38 PM CDT) Narrative Systemgenerated, Documentation - 01/05/2023 11:38 PM CDT Study acquired at another institution. For comparison only. No MD Romaine originated interpretation requested or available. Rashida To CELL TUBER MACHINE IMG OUTSIDE IMAGE OR DERABLES * OSI MRI Head (08/24/2022 11:38 PM CDT) Only the most recent of2 resultswithin the time period is included. Narrative Systemgenerated, Documentation - 01/05/2023 11:38 PM CDT Study acquired at another institution. For comparison only. No MD Romaine originated interpretation requested or available. Rashida To CELL TUBER MACHINE IMG OUTSIDE IMAGE OR DERABLES * OSI US Vascular (08/24/2022 11:37 PM CDT) Narrative Systemgenerated, Documentation - 01/05/2023 11:37 PM CDT Study acquired at another institution. For comparison only. No Romaine originated interpretation requested or available. Rashida To CELL TUBER MACHINE IMG OUTSIDE IMAGE OR DERABLES * OSI Cervical Spine (08/23/2022 11:36 PM CDT) Narrative Systemgenerated, Documentation - 01/05/2023 11:36 PM CDT Study acquired at another institution. For comparison only. No MD Gavin originated interpretation requested or available. Rashida To CELL TUBER MACHINE IMG OUTSIDE IMAGE OR DERABLES * OSI CT CHEST ABDOMEN PELVIS (08/22/2022 11:35 PM CDT) Only the most recent of2 resultswithin the time period is included. Narrative Systemgenerated, Documentation - 01/05/2023 11:36 PM CDT Study acquired at another institution. For comparison only. No MD Gavin originated interpretation requested or available. Rashida To CELL TUBER MACHINE IMG OUTSIDE IMAGE OR DERABLES after 07/24/2022 Advance Directives Documents on File Type Date Recorded Patient Deboner Expl anation Advance Directives: Living Will 01/05/2023 Directive to Physici ans and Family or Surrogates-Living Will Advance Directives: Medical Power of Decoration Checker 01/05/2023 Medical Power of Att orney Care Teams Tour Operator Relationship Specialty [place] [address] [place] [id number] PCP - General Surgical Oncology 12/28/22 Davion Florian MD [address] [place] [id number] PCP - External Primary Care Provider Internal Medicine 12/28/22
[2023-07-24] MEDS ORDERED: NA CHLORIDE 0.9% 1,000 ML ONE (12:34)
[2023-07-24] MEDS ORDERED: ONDANSETRON 4 MG/2 ML VIAL ONE (12:34)
[2023-07-24 13:29] LABS: Absolute Eosinophils 0.1 K/uL (0-0.5); Absolute Monocytes 0.4 K/uL (0.1-1.3); Absolute Neutrophil 3.9 K/uL (1.8-8.0); Basophils % 0.8 % (0-1.3); Hematocrit 43.7 % (36.0-45.0); Hemoglobin 14.9 g/dL (12.0-15.0); Lymphocytes % 30.5 % (15.3-44.8); MCH 32.3 pg (27.0-35.0); MCHC 34.2 g/dL (32.0-36.0); MCV 94.4 fL (80-100); MPV 7.7 fL (7.6-11.3); Neutrophils % 60.7 % (41.7-73.7); Platelets 211 thou/uL (152-406); RBC Red Blood Cell Count 4.63 M/uL (3.86-4.86); Red Cell Distribution Width 13.3 % (12.1-15.2)
[2023-07-24 13:49] LABS: Albumin 3.7 g/dL (3.4-5.0); Albumin/Globulin Ratio 0.9 (1.1-1.8); Anion Gap 10.7 mEq/L (5.0-15.0); Bilirubin Direct 0.1 mg/dL (0-0.2); Bilirubin Indirect, Calculated 0.3 mg/dL (0.2-0.8); Bilirubin Total 0.4 mg/dL (0.2-1.0); Magnesium 2.2 mg/dL (1.6-2.4); Potassium 3.7 mEq/L (3.5-5.1); Protein, Total 7.7 g/dL (6.4-8.2)
--- NOTE | 2023-07-24 13:58 | RAD REPORT ---
EXAM DESCRIPTION: Adalid Single View07/24/2023 1:33 pm CLINICAL HISTORY: Chest pain COMPARISON: 2022 FINDINGS: The lungs appear clear of acute infiltrate. The heart is normal size. Pacemaker leads in place IMPRESSION: No acute abnormalities displayed
--- NOTE | 2023-07-24 14:46 | RAD REPORT ---
EXAM DESCRIPTION: CT - Abdomen Pelvis W Contrast - 07/24/2023 2:12 pm CLINICAL HISTORY: Abdominal pain COMPARISON: May 2023 TECHNIQUE: Computed axial tomography of the abdomen pelvis was obtained. 100 cc Isovue-300 was admin istered intravenously. Oral contrast was not requested which limits evaluation of bowel and appendix All CT scans are performed using dose optimization technique as appropriate and may include automated exposure control or mA/KV adjustment according to patient size. FINDINGS: Several cystic pancreatic lesions unchanged. Largest 15 millimeters. Tiny hepatic cyst. Cholecystectomy The spleen, adrenals and right kidney unremarkable. Mild cortical thinning left kidney unchanged. Sma ll left renal cyst. Diverticula stem from the colon without evidence of diverticulitis. Hysterectomy. No adnexal mass. 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 A followup MRI in 1 year recommended No acute abnormality seen
--- NOTE | 2023-07-24 15:30 | EDPHYS ---
Physician Documentation [facility] Name: Robby Schmid Age: 88 yrs Sex: Female : 1935 Arrival Date: 07/24/2023 Time: 11:33 Bed 16 Private MD: Davion Florian ED Physician Martin Valentin HPI: 07/23 13:01 This 88 yrs old Female presents to ER via Wheelchair with complaints of Palpitations, sb4 Nausea. 13:01 Patient reports nausea, vomiting, diarrhea for the past few days. She states that she sb4 cannot hold anything down, including her medications. She has a history of A-fib and has not been able to take her rate controlling medications and feels that she has been having palpitations. She does endorse some mild abdominal pain as well. She denies any prior episodes of this. Historical: - Allergies: 12:12 Codeine; ph 12:12 Plavix; ph - PMHx: 12:12 Atrial Fib August 2022; CVA; High Cholesterol; Hypertension; Hypothyroidism; UTI; ph - PSHx: 12:12 Cholecystectomy; hysterectomy; pacemaker; ph - Immunization history:: Adult Immunizations up to date, Client reports having NOT received the Covid vaccine. Last tetanus immunization: up to date. - Infectious Disease History:: Denies. - Social history:: Smoking status: Patient denies any tobacco usage or history of. ROS: 13:01 Constitutional: Negative for fever, chills, and weight loss, sb4 13:01 Cardiovascular: Positive for palpitations, 13:01 Abdomen/GI: Positive for abdominal pain, nausea, vomiting, and diarrhea, 13:01 All other systems are negative, Exam: 13:01 Head/Face: Normocephalic, atraumatic. Eyes: Extra-ocular motions intact. Periorbital sb4 areas with no swelling, redness, or edema. Cardiovascular: Regular rate and rhythm with a normal S1 and S2. Respiratory: Lungs have equal breath sounds bilaterally, clear to auscultation and percussion. No rales, rhonchi or wheezes noted. No increased work of breathing, no retractions or nasal flaring. Abdomen/GI: Soft, non-tender, no distension. Back: No spinal tenderness. No costovertebral tenderness. Full range of motion. Skin: Warm, dry with normal turgor. Normal color with no rashes, no lesions, and no evidence of cellulitis. MS/ Extremity: Pulses equal, no cyanosis. Neurovascular intact. Full, normal range of motion. Neuro: Awake and alert, GCS 15, oriented to person, place, time, and situation. Motor strength 5/5 in all extremities. Sensory grossly intact. 13:01 Constitutional: The patient appears alert, awake, obviously ill, pale, Vital Signs: 12:08 Pulse 70; Resp 20; Temp 97.8; Pulse Ox 99% ; Weight 72.57 kg; Height 5 ft. 1 in. ; Pain ph 8/10; 12:22 BP 103 / 77; ph 12:08 Body Mass Index 30.23 (72.57 kg, 154.94 cm) ph 12:08 Pain Scale: Adult ph MDM: 12:14 Patient medically screened. sb4 15:29 Data reviewed: vital signs, nurses notes, lab test result(s), EKG, radiologic studies, sb4 and as a result, I will discharge patient. Consideration of Admission/Observation Escalation of care including admission/observation considered. Counseling: I had a detailed discussion with the patient and/or guardian regarding the historical points, exam findings, and any diagnostic results supporting the discharge/admit diagnosis, lab results, radiology results, to return to the emergency department if symptoms worsen or persist or if there are any questions or concerns that arise at home. 15:33 ED course: Patient reports feeling improved but still overall poorly. Discussed at sb4 length her prognosis. Dr. Florian is planning on putting her on palliative care this week. She has been taking tramadol for her pain but recently ran out. I discussed admission for observation versus discharge home. She would prefer to be discharged home. I will prescribe her a short course of tramadol until her appointment with Dr. Florian. 07/23 12:21 Order name: Basic Metabolic Panel; Complete Time: 13:51 sb4 07/23 12:21 Order name: CBC with Diff; Complete Time: 13:51 sb4 07/23 12:21 Order name: LFT's; Complete Time: 13:51 sb4 07/23 12:21 Order name: Magnesium; Complete Time: 13:51 sb4 07/23 12:21 Order name: NT PRO-BNP; Complete Time: 13:51 sb4 07/23 12:21 Order name: Troponin HS; Complete Time: 13:51 sb4 07/23 12:21 Order name: Lipase; Complete Time: 13:51 sb4 07/23 12:21 Order name: XRAY Chest (1 view); Complete Time: 14:00 sb4 07/23 12:21 Order name: CT Abd/Pelvis - IV Contrast Only; Complete Time: 14:47 sb4 07/23 12:21 Order name: Cardiac monitoring; Complete Time: 12:42 sb4 07/23 12:21 Order name: EKG - Nurse/Tech; Complete Time: 12:42 sb4 07/23 12:21 Order name: IV Saline Lock; Complete Time: 14:11 sb4 07/23 12:21 Order name: Labs collected and sent; Complete Time: 14:11 sb4 07/23 12:21 Order name: O2 Per Protocol; Complete Time: 12:42 sb4 07/23 12:21 Order name: O2 Sat Monitoring; Complete Time: 12:42 sb4 07/23 14:48 Order name: PO challenge; Complete Time: 15:16 sb4 EC:03 Rate is 100 beats/min. Rhythm is irregularly irregular, A fib with Multifocal PVCs. QRS sb4 interval is normal at 78 msec. QT interval is normal at [address] changes noted. Clinical impression: Atrial Fibrillation. Interpreted by me. Reviewed by me. Administered Medications: 13:43 Drug: NS 0.9% IV 1000 ml IV at 1 bolus Per protocol; 1000 mL bolus Route: IV; Rate: 1 tl4 bolus; Site: left forearm; 13:43 Drug: Ondansetron IVP 4 mg IVP once; over 2 minutes Route: IVP; Site: left forearm; tl4 Disposition Summary: 07/24/23 15:30 Discharge Ordered Notes: Location: Home sb4 Problem: new sb4 Symptoms: have improved sb4 Condition: Stable sb4 Diagnosis - Nausea with vomiting, unspecified sb4 - Abdominal pain, Generalized sb4 Followup: sb4 - With: Davion Florian MD - When: 2 - 3 days - Reason: Recheck today's complaints, Re-evaluation by your physician Discharge Instructions: - Discharge Summary Sheet sb4 - Nausea and Vomiting, Adult, [id number] sb4 Forms: - Thank You Letter sb4 - Prescription Opioid Use sb4 - Patient Portal Instructions sb4 - Leadership Thank You Letter sb4 Prescriptions: - Tramadol 50 mg Oral Tablet - take 1 tablet ORAL route every 8 hours as needed; 12 tablet; Refills: 0, sb4 Product Selection Permitted Addendum: 07/25/2023 16:57 I was immediately available for consultation during this patient's visit. I did not e c2 personally see the patient or discuss the patient with the TANO. . Signatures: Dispatcher [employer] EDMayda Noriega, LEONOR RN Lizabeth Amaya PA-C PA-C sb4 Martin Valentin MD MD ec2 Ronaldo Carrasquillo RN RN tl4 Corrections: (The following items were deleted from the chart) 07/23 12:22 12:21 BASIC METABOLIC PANEL+C.LAB.BRZ ordered. EDMS EDMS 12:22 12:21 CBC+H.LAB.BRZ ordered. EDMS EDMS 12:22 12:21 HEPATIC FUNCTION+C.LAB.BRZ ordered. EDMS EDMS 12:22 12:21 MAGNESIUM+C.LAB.BRZ ordered. EDMS EDMS 12:22 12:22 PROBNP+C.LAB.BRZ ordered. EDMS EDMS 12:22 12:22 PROTIME (+INR)+COAG.LAB.BRZ ordered. EDMS EDMS 12:22 12:22 Troponin High Sensitivity+C.LAB.BRZ ordered. EDMS EDMS 12:22 12:22 LIPASE+C.LAB.BRZ ordered. EDMS EDMS 12:22 12:22 Chest Single View+RAD.RAD.BRZ ordered. EDMS EDMS 12:22 12:22 Abdomen Pelvis W Con+CT.RAD.BRZ ordered. EDMS EDMS
--- NOTE | 2023-07-24 15:30 | ER ---
Nurse's Notes [facility] Name: Robby Schmid Age: 88 yrs Sex: Female : 1935 Arrival Date: 07/24/2023 Time: 11:33 Bed 16 Private MD: Davion Florian Diagnosis: Nausea with vomiting, unspecified;Abdominal pain, Generalized Presentation: 07/23 12:08 Chief complaint: Patient states: Pt reports nausea, diarrhea, abdominal cramping x2 ph days. Coronavirus screen: Vaccine status: Patient reports being unvaccinated. Client denies travel out of the [place] in the last 14 days. Ebola Screen: Patient negative for fever greater than or equal to 101.5 degrees Fahrenheit, and additional compatible Ebola Virus Disease symptoms Patient denies exposure to infectious person. Patient denies travel to an Ebola-affected area in the 21 days before illness onset. Initial Sepsis Screen: Does the patient meet any 2 criteria? No. Patient's initial sepsis screen is negative. Does the patient have a suspected source of infection? No. Patient's initial sepsis screen is negative. Risk Assessment: Do you want to hurt yourself or someone else? Patient reports no desire to harm self or others. Onset of symptoms was July 23, 2023. 12:08 Method Of Arrival: Wheelchair ph 12:08 Acuity: MANJINDER 2 ph Triage Assessment: 12:12 General: Appears in no apparent distress. Behavior is calm, cooperative. Pain: ph Complains of pain in chest and abdomen Pain does not radiate. Pain currently is 7 out of 10 on a pain scale. Quality of pain is described as crampy. GI: Reports lower abdominal pain, upper abdominal pain, cramping, diarrhea, nausea. Historical: - Allergies: 12:12 Codeine; ph 12:12 Plavix; ph - PMHx: 12:12 Atrial Fib August 2022; CVA; High Cholesterol; Hypertension; Hypothyroidism; UTI; ph - PSHx: 12:12 Cholecystectomy; hysterectomy; pacemaker; ph - Immunization history:: Adult Immunizations up to date, Client reports having NOT received the Covid vaccine. Last tetanus immunization: up to date. - Infectious Disease History:: Denies. - Social history:: Smoking status: Patient denies any tobacco usage or history of. Screenin:47 [facility] ED Fall Risk Assessment (Adult) History of falling in the last 3 months, tl4 including since admission No falls in past 3 months (0 pts) Confusion or Disorientation No (0 pts) Intoxicated or Sedated No (0 pts) Impaired Gait No (0 pts) Mobility Assist Device Used No (0 pt) Altered Elimination No (0 pt) Score/Fall Risk Level 0 - 2 = Low Risk Oriented to surroundings, Maintained a safe environment, Educated pt \T\ family on fall prevention, incl call for assistance when getting out of bed, Assessed \T\ reinforced patient's understanding of fall precautions, Hourly rounding (assess needs \T\ fall precautionary measures) done, Used ambulatory aids as needed (educated on \T\ assisted with), Used gait belt as appropriate. Abuse screen: Denies threats or abuse. Denies injuries from another. Nutritional screening: No deficits noted. Tuberculosis screening: No symptoms or risk factors identified. Assessment: 13:45 General: Appears ill, Behavior is calm, cooperative. Pain: Complains of pain in tl4 generalized pain everywhere. Neuro: Level of Consciousness is awake, alert, obeys commands, Oriented to person, place, time, situation, Weakness. Cardiovascular: Capillary refill < 3 seconds Patient's skin is warm and dry. Respiratory: Airway is patent Respiratory effort is even, Respiratory pattern is regular. GI: Abdomen is non-distended, Reports diarrhea, nausea. : No deficits noted. No signs and/or symptoms were reported regarding the genitourinary system. EENT: No deficits noted. No signs and/or symptoms were reported regarding the EENT system. Derm: No deficits noted. No signs and/or symptoms reported regarding the dermatologic system. 15:20 Reassessment: No changes from previously documented assessment. Patient and/or family ll1 updated on plan of care and expected duration. Pain level reassessed. Patient is alert, oriented x 3, equal unlabored respirations, skin warm/dry/pink. Vital Signs: 12:08 Pulse 70; Resp 20; Temp 97.8; Pulse Ox 99% ; Weight 72.57 kg; Height 5 ft. 1 in. ; Pain ph 8/10; 12:22 BP 103 / 77; ph 12:08 Body Mass Index 30.23 (72.57 kg, 154.94 cm) ph 12:08 Pain Scale: Adult ph ED Course: 11:34 Patient arrived in ED. rg4 11:34 Davion Florian MD is Private Physician. rg4 11:49 Lizabeth Mejia PA-C is [facility] sb4 11:49 Martin Valentin MD is Attending Physician. sb4 12:12 Triage completed. ph 12:12 Arm band placed on left wrist. ph 12:14 Patient placed in an exam room, on a stretcher. ll1 12:28 Ronaldo Carrasquillo, RN is Primary Nurse. tl4 13:35 XRAY Chest (1 view) In Process Unspecified. EDMS 13:43 Inserted saline lock: 24 gauge in left forearm, using aseptic technique. Blood tl4 collected. 14:14 CT Abd/Pelvis - IV Contrast Only In Process Unspecified. EDMS 15:30 Davion Florian MD is Referral Physician. sb4 Administered Medications: 13:43 Drug: NS 0.9% IV 1000 ml IV at 1 bolus Per protocol; 1000 mL bolus Route: IV; Rate: 1 tl4 bolus; Site: left forearm; 13:43 Drug: Ondansetron IVP 4 mg IVP once; over 2 minutes Route: IVP; Site: left forearm; tl4 Outcome: 15:30 Discharge ordered by MD. sb4 16:55 Patient left the ED. rs5 Signatures: Dispatcher [employer] EDCT Mayda Eduardo, Holly Mckeon RN, ph rg4 Teddy Eugene RN RN ll1 Lizabeth Mejia PA-C PA-C sb4 Cole Yan RN RN rs5 Ronaldo Carrasquillo, ELONOR RN tl4
[2023-07-24 22:59] VITALS: BP 103/77; TEMP 97.8; O2SAT 99
--- NOTE | 2023-07-25 13:30 | EKG ---
Test Date: 2023-07-24 Test Time: 13:34:08 Command Post Superintendent: NITA MEASUREMENT RESULTS: Intervals: Rate: 100 AK: QRSD: 78 QT: 382 QTc: 492 Skippers: P: AK: QRS: -19 T: 82 INTERPRETIVE STATEMENTS: Atrial fibrillation with frequent ventricular-paced complexes and with premature ventricular or aberrantly conducted complexes Nonspecific ST and T wave abnormality Prolonged QT Abnormal ECG Compared to ECG 05/30/2023 13:51:02 ST (T wave) deviation now present Prolonged QT interval now present Right bundle-branch block no longer present Electronically Signed On 07-25-23 13:28:08 CDT by Kenrick William
== END 2023-07-24 16:55 | disposition home or self-care (01) ==
LOC: ER 11:33
DX: R11.2 Nausea with vomiting, unspecified (principal); R10.84 Generalized abdominal pain; I48.91 Unspecified atrial fibrillation; I10 Essential (primary) hypertension; Z95.0 Presence of cardiac pacemaker; Z88.5 Allergy status to narcotic agent; Z88.8 Allergy status to other drugs, medicaments and biological substances; Z28.310 Unvaccinated for COVID-19
CPT/HCPCS: 93005; 85025; 80048; 36415; 83735; 80076; 84484; 83690; 83880; 74177; 71045; 96374; 99284; Q9967; J2405; J7030

== ENCOUNTER 2023-12-30 09:52 | Observation (INO) | payer OTHER, MEDICARE ==
--- OUTSIDE RECORDS SUMMARY | 2023-12-30 09:55 | XMS REPORT | Clinical Summary ---
Author Name Unknown Organization [facility] Address [address] [place] [address] Care Team Providers Care Nurse Informaticist Name Role Phone Talia Panda MD Primary Care Provider [phone] Davion Florian MD Unavailable [phone] Allergies Active Allergy Reactions Criticality Noted Date Comments Codeine Other (See Comments) 01/06/2023 Paranoid episodes Clopidogrel Other (See Comments) 01/06/2023 Pt had massive nose bleed Medications Medication Sig Dispensed Refills Start Date End Date Status alfuzosin (UROXATRAL) 10 mg 24 hr tablet Take 1 tablet (10 mg) by mouth daily. 03/30/2022 Active Eliquis 5 mg tablet Take 1 tablet (5 mg) by mouth every 12 (twelve) hours. Active atorvastatin (LIPITOR) 10 mg tablet Take 1 tablet (10 mg) by mouth at bedtime. 12/19/2020 Active budesonide-formoterol (SYMBICORT) 80-4.5 mcg/actuation inhaler Inhale 2 puffs by mouth twice daily. Active cetirizine (ZyrTEC) 10 mg tablet Take 1 tablet (10 mg) by mouth daily. 12/19/2020 Active cholecalciferol, vitamin D3, 25 mcg (1,000 unit) capsule Take 1 capsule (1,000 Units) by mouth daily. 12/19/2020 Active clonazePAM (KlonoPIN) 1 mg tablet Take 1 tablet (1 mg) by mouth every evening. 08/13/2021 Active escitalopram (LEXAPRO) 10 mg tablet Take 1 tablet (10 mg) by mouth daily. 10/23/2019 Active fish,bora,flax oils-om3,6,9no1 400-400-400 mg cap Take 1 capsule by mouth daily. Active fluticasone propionate (FLONASE) 50 mcg/spray nasal spray Inhale 1 spray (50 mcg) into each nostril twice daily. 08/09/2021 Active levothyroxine (SYNTHROID, LEVOTHROID) 75 mcg tablet Take 1 tablet (75 mcg) by mouth daily. Active metoprolol succinate (TOPROL XL) 25 mg 24 hr tablet Take 1 tablet (25 mg) by mouth twice daily. 01/03/2023 Active triamcinolone (KENALOG) 0.5 % ointment Apply topically to affected area(s) twice daily. Perineum area 11/02/2022 Active coenzyme Q10 10 mg capsule Take 1 capsule (10 mg) by mouth daily. Active coenzyme [id number]-mhtyvbf E 100-5 mg-unit cap Take 1 capsule by mouth daily. 12/19/2020 Active Active Problems Problem Noted Date Diagnosed Date Cyst of pancreas 12/28/2022 Encounters Date Type Department Care Team Description 02/17/2023 [facility]phone [facility] [address] [place] [address], 7th [place] [address] Alta Santizo RN 01/06/2023 10:00 AM CDT [facility] - [facility] Oncology [address] [place] [address], 7th [place] [address] Talia Panda MD Cyst of pancreas (Primary Dx) 01/06/2023 Travel 01/05/2023 11:50 PM CDT Ancillary [facility] [address] [place] [address] Rashida Castaneda APRN Cancer 01/05/2023 11:45 PM CDT Ancillary Procedure [facility] [address] [place] [address] Rashida Castaneda APRN Cancer 01/05/2023 11:40 PM CDT Ancillary Procedure [facility] [address] [place] [address] Rashida Castaneda APRN Cancer 01/05/2023 11:35 PM CDT Ancillary Procedure [facility] [address] [place] [address] To MARCEL Field Cancer 01/05/2023 11:30 PM CDT Ancillary Procedure [facility] [address] [place] [address] To MARCEL Field Cancer 01/05/2023 11:25 PM CDT Ancillary Procedure [facility] [address] [place] [address] To MARCEL Field Cancer 01/05/2023 11:20 PM CDT Ancillary Procedure [facility] [address] [place] [address] To MARCEL Field Cancer 01/05/2023 11:15 PM CDT Ancillary Procedure [facility] [address] [place] [address] To MARCEL Field Cancer 01/05/2023 11:10 PM CDT Ancillary Procedure [facility] [address] [place] [address] To MARCEL Field Cancer 01/05/2023 11:05 PM CDT Ancillary Procedure [facility] [address] [place] [address] To MARCEL Field Cancer 01/05/2023 11:00 PM CDT Ancillary Procedure [facility] [address] [place] [address] To MARCEL Field Cancer 01/05/2023 10:55 PM CDT Ancillary Procedure [facility] [address] [place] [address] To MARCEL Field Cancer 01/05/2023 12:55 PM CDT Ancillary Procedure [facility] [address] [address] To MARCEL Field Cyst of pancreas 01/05/2023 12:00 PM CDT NPR MDA PATIENT ACCESS Talia Panda MD 01/05/2023 Travel after 12/30/2022 Social History Tobacco Use Types Packs/Day Years [...] Health Maintenance Due Date Last Done Comments Pneumococcal Vaccine: 65+ Years (1 of 1 - PCV) 001 COVID-19 Vaccine (2022-24 season) 2023 Influenza Vaccine (#1) 2023 Procedures Procedure Name Priority Date/Time Associated Diagnosis [...] TYPE Routine 01/05/2023 12 :33 PM CDT after 12/30/2022 Results * CT Chest Abdomen Pelvis with [...] intravenous contrast. Multiphasic dual-energy pancreas protocol, [email or web address] [email or web address] Nature of study: Baseline [facility] imaging evaluation CHEST FINDINGS: Lines and Tubes: [...] oral andintravenous contrast. Multiphasic dual-energy pancreas protocol, [employer] [place] Nature of study: Baseline [facility] imaging evaluation CHEST FINDINGS: Lines and Tubes: [...] irregular left lower lobe nodule for which [id number] is advised. 2. Thoracic adenopathy, and enlarged [...] endoscopic ultrasound. ACTIONABLE ITEMS/RECOMMENDATIONS: None. Rashida To [employer]AM[employer] IMG CT ORDERABLES * .Serum Creatinine (01/05/2023 12:37 PM CDT) Creatinine 0.79 0.51 - 0.95 mg/dL [place] Comment:[facility], [address] [place] [address], [place] [address] Blood 01/05/2023 12:3 7 PM CDT 01/05/2023 12:38 PM CDT Rashida To LATENT PRINT EXAMINER LAB BLOOD ORDERABLES LIZBETH [facility] [address] [facility], [facility] [address] [place] [address] * .CBC (01/05/2023 12:37 PM CDT) WBC 7.1 4.1 - 10.5 K/uL [place] Comment:All components of th e CBC performed at [facility], [address] [place] [address], [place] [address] RBC 4.25 3.99 - 5.46 M/uL [place] Comment:All components of th e CBC performed at [facility], [address] [place] [address], [place] [address] Hgb 13.4 12.2 - 15.3 gm/dL [place] Comment:As part of CBC or as an individual orderable testing performed at [facility], [address] [place] [address], [place] [address] Hct 39.3 36.4 - 46.8 % [place] Comment:As part of CBC testi ng performed at [facility], [address] [place] [address], [place] [address] MCV 92 82 - 99 fL [place] Comment:As part of CBC testi ng performed at [facility], [address] [place] [address], [place] [address] MCH 31.5 26.6 - 33.2 pg [place] Comment:As part of CBC testi ng performed at [facility], [address] [place] [address], [place] [address] MCHC 34.1 31.1 - 35.2 gm/dL [place] Comment:As part of CBC testi ng performed at [facility], [address] [place] [address], [place] [address] RDW-SD 45.4 37.5 - 49.7 fL [place] Comment:As part of CBC testi ng performed at [facility], [address] [place] [address], [place] [address] RDW-CV 13.5 11.6 - 15.5 % [place] Comment:As part of CBC testi ng performed at [facility], [address] [place] [address], [place] [address] Platelet count 177 160 - 397 K/uL [place] Comment:As part of CBC or an individual orderable testing performed at [facility], [address] [place] [address], [place] [address] MPV 9.5 9.1 - 12.6 fL [place] Comment:As part of CBC testi ng performed at [facility], [address] [facility], [place] [address] Blood 01/05/2023 12:3 7 PM CDT 01/05/2023 12:38 PM CDT Rashida To [employer] EXAMINER LAB BLOOD ORDERABLES [facility] [place] [address] [facility], [facility] [address] [place] [address] * Clot Expiration Date (01/05/2023 12:37 PM CDT) T & S Expiration 01/08/2023 [facility] Blood 01/05/2023 12:3 7 PM CDT 01/05/2023 9:51 PM CDT Rashida To [employer] EXAMINER BLOOD BANK TEST ORDE RABLES [facility] Unless otherwise noted, all lab tests performed by: Division of Pathology and Laboratory Medicine [address] [place] [address] * Glomerular Filtration Rate (01/05/2023 12:37 PM CDT) eGFR 73 >=60 mL/min/1.7 3 sq. m [place] Comment: The eGFRcr is calculated with the [...] fulfill criteria for CKD. Testing performed at [facility], [address] [place] [address] Blood 01/05/2023 12:3 7 PM CDT 01/05/2023 12:38 PM CDT Rashida To [employer] EXAMINER LAB BLOOD ORDERABLES [place] [address] [place] [address] * Fractionated Bilirubin (01/05/2023 12:37 PM CDT) [facility] Bili Total 0.3 <=1.2 mg/dL [place] Comment: Indocyanine Green (ICG) may cause falsely elevated bilirubin results. Total and direct bilirubin must not be measured from samples containing indocyanine green. False elevation of total bilirubin can be seen in patients with IgG concentrations above 28 g/L. Testing performed at [facility], [address] [place] [address] Bili Direct <0.2 <=0.3 mg/dL [place] Comment: Indocyanine Green (ICG) may cause falsely elevated bilirubin results. Total and direct bilirubin must not be measured from samples containing indocyanine green. Testing performed at [facility], [address] [place] [address] Bili Indirect See Note 0.0 - 0.9 mg/dL [place] Comment: Unable to calculate Indirect Bilirubin result due to some parameters are outside reportable range Testing performed at [facility], [address] [place] [address] Blood 01/05/2023 12:3 7 PM CDT 01/05/2023 12:38 PM CDT Rashida To [employer]AM[employer]ER LAB BLOOD ORDERABLES [address] [address] [place] [address] * TMP Interpretation Antibody Screen Negative (01/05/2023 12:37 PM CDT) [facility] TMP Auto Neg ABSC Interp At the present time, patient plasma shows no evidence of RBC alloantibodi es. [facility] Comment: MD Shaneka MCCAULEY Dictated by: MD Shaneka MCCAULEY Dictated Date/Time: 01.06.2023 10:46 AM CDT Transcribed Date/Time: 01.06.2023 10:46 AM CDT Electronically Signed By: MD Shaneka MCCAULEY on 01.06.2023 10:46 AM Blood 01/05/2023 12:3 7 PM CDT 01/05/2023 9:51 PM CDT Rashida To MARCEL BLOOD BANK TEST ANIKET MARINELLI [facility] Unless otherwise noted, all lab tests performed by: Division of Pathology and Laboratory Medicine [address] [place] [address] * aPTT (01/05/2023 12:37 PM CDT) [facility] aPTT 33.4 24.1 - 35.5 second(s) [place] Comment:Testing performed at [facility], [facility], [place] [address] Blood 01/05/2023 12:3 7 PM CDT 01/05/2023 12:38 PM CDT Narrative [place] - 01/05/2023 1:02 PM CDT This lab cannot be scheduled at the following locations due to collection/proccessing restrictions: [facility] and [facility]. Rashida To [employer] EXAMINER LAB BLOOD ORDERABLES [address] [address] * CA 19-9 (01/05/2023 12:37 PM CDT) [facility] CA 19-9 <2.9 <=35.0 U/mL [place] Comment: Results greater than 9500 U/mL may not be reliable due to matrix effect with extended dilution as it exceeds the clinical laboratory technologist's recommended limit. Caution should be exercised when interpreting such values and done in conjunction with clinical context. This test is measured by electrochemiluminescence immunoassay on [employer] immunoassay analyzers. Results obtained in different methods are not interchangeable. Testing performed at [facility], [address] [place] [address] Blood 01/05/2023 12:3 7 PM CDT 01/05/2023 12:38 PM CDT Rashida To [employer] EXAMINER LAB BLOOD ORDERABLES Performing Organization Address City/[facility]/ZIP Co de Phone Number [address] [address] * ABORh (01/05/2023 12:37 PM CDT) [facility] ABORh. O POS MT MD LINK [facility] Blood 01/05/2023 12:3 7 PM CDT 01/05/2023 9:51 PM CDT Rashida To [employer] EXAMINER BLOOD BANK TEST ORDDhruv MARINELLI [facility] Unless otherwise noted, all lab tests performed by: Division of Pathology and Laboratory Medicine [address] [place] [address], [place] [address] * Differential (01/05/2023 12:37 PM CDT) [facility] Neutrophil % 53.2 43.2 - 72.7 % [place] Comment:All components of th e Differential performed at [facility], [address] [place] [address], [place] [address] Lymphocyte % 37.8 16.8 - 46.2 % [place] Comment:As part of the Diffe rential testing performed at [facility], [address] [place] [address], [place] [address] Monocyte % 5.9 5.1 - 12.5 % [place] Comment:As part of the Diffe rential testing performed at [facility], [address] [place] [address] Eosinophil % 2.5 0.4 - 6.3 % [place] Comment:As part of the Diffe rential testing performed at [facility], [address] [place] [address], [place] [address] Basophil % 0.3 0.2 - 1.4 % [place] Comment:As part of the Diffe rential testing performed at [facility], [address] [place] [address], [place] [address] IGRE % 0.3 0.1 - 1.5 % [place] Comment: IGRE % count includes Metamyelocytes, Myelocytes, and Promyelocytes. As part of the Differential testing performed at [facility], [address] [place] [address], [place] [address] Neutrophil Abs 3.79 1.95 - 7.25 K/uL [place] Comment:As part of the Diffe rential testing performed at [facility], [address] [place] [address], [place] [address] Lymphocyte Abs 2.69 1.01 - 3.24 K/uL [place] Comment:As part of the Diffe rential testing performed at [facility], [address] [place] [address] Monocyte Abs 0.42 0.24 - 0.85 K/uL [place] Comment:As part of the Diffe rential testing performed at [facility], [address] [place] [address], [place] [address] Eosinophil Abs 0.18 0.02 - 0.50 K/uL [place] Comment:As part of the Diffe rential testing performed at [facility], [address] [place] [address], [place] [address] Basophil Abs 0.02 0.02 - 0.09 K/uL [place] Comment:As part of the Diffe rential testing performed at [facility], [address] [place] [address], [place] [address] IG Abs 0.02 0.01 - 0.12 K/uL [place] Comment:As part of the Diffe rential testing performed at [facility], [address] [place] [address], [place] [address] Blood 01/05/2023 12:3 7 PM CDT 01/05/2023 12:38 PM CDT Rashida To [employer] EXAMINER LAB BLOOD ORDERABLES [place] [address] [place] [address] * Prothrombin Time with INR (01/05/2023 12:37 PM CDT) PT 14.3 11.9 - 14.5 second(s) [place] Comment:Testing performed at [facility], [address] [place] [address] INR 1.08 0.87 - 1.12 [place] Comment:Testing performed at [facility], [address] [place] [address] Blood 01/05/2023 12:3 7 PM CDT 01/05/2023 12:38 PM CDT Narrative [place] - 01/05/2023 1:02 PM CDT This lab cannot be scheduled at the following locations due to collection/proccessing restrictions: [facility] and [facility]. Rashida To LAT[employer] PR[employer] EXAMINER LAB BLOOD ORDERABLES [place] [address] [place] [address] * Antibody Screen (01/05/2023 12:37 PM CDT) ABSC. Negative ABSC [facility] Blood 01/05/2023 12:3 7 PM CDT 01/05/2023 9:51 PM CDT Rashida To LATENT [employer] EXAMINER BLOOD BANK TEST ANIKET MARINELLI [facility] Unless otherwise noted, all lab tests performed by: Division of Pathology and Laboratory Medicine [address] [place] [address] * BUN (01/05/2023 12:37 PM CDT) [facility] BUN 22 6 - 23 mg/dL [place] Comment:Testing performed at [facility], [address] [place] [address] Blood 01/05/2023 12:3 7 PM CDT 01/05/2023 12:38 PM CDT Rashida To [employer] EXAMINER LAB BLOOD ORDERABLES [address] [address] * ALT (01/05/2023 12:37 PM CDT) [facility] ALT 16 <=33 U/L [place] Comment:Testing performed at [facility], [address] [place] [address] Blood 01/05/2023 12:3 7 PM CDT 01/05/2023 12:38 PM CDT Rashida To [employer] EXAMINER LAB BLOOD ORDERABLES [address] [address] * Aspartate Aminotransferase (01/05/2023 12:37 PM CDT) [facility] AST 22 <=32 U/L [place] Comment:Testing performed at [facility], [address] [place] [address] Blood 01/05/2023 12:3 7 PM CDT 01/05/2023 12:38 PM CDT Rashida To [employer] PRINT EXAMINER [place] [address] * Total Protein (01/05/2023 12:37 PM CDT) [facility] Total Protein 7.1 6.4 - 8.3 g/dL [place] Comment:Testing performed at [facility], [address] [place] [address] Blood 01/05/2023 12:3 7 PM CDT 01/05/2023 12:38 PM CDT Rashida To LAT[employer] PRINT EXAMINER LAB BLOOD ORDERABLES [place] [id number] * (ABNORMAL) Prealbumin (01/05/2023 12:37 PM CDT) [facility] Prealbumin 16.4(L) 20.0 - 40.0 mg/dL [facility] Blood 01/05/2023 12:3 7 PM CDT 01/06/2023 7:07 AM CDT Rashida To LATENT PRINT EXAMINER LAB BLOOD ORDERABLES [facility] Unless otherwise noted, all lab tests performed by: Division of Pathology and Laboratory Medicine [address] [place] [address] * Phosphorus Level (01/05/2023 12:37 PM CDT) [facility] Phosphorus 3.3 2.5 - 4.5 mg/dL [place] Comment:Testing performed at [facility], [address] [place] [address] Blood 01/05/2023 12:3 7 PM CDT 01/05/2023 12:38 PM CDT Rashida To LAT[employer] PR[employer] EXAMINER LAB BLOOD ORDERABLES [address] [address] * Alkaline Phosphatase (01/05/2023 12:37 PM CDT) Alk Phos 104 35 - 104 U/L [place] Comment:Testing performed at [facility], [address] [place] [address] Blood 01/05/2023 12:3 7 PM CDT 01/05/2023 12:38 PM CDT Rashida To [employer] PR[employer] EXAMINER LAB BLOOD ORDERABLES [address] [address] * Magnesium Level (01/05/2023 12:37 PM CDT) Magnesium 2.2 1.6 - 2.6 mg/dL [place] Comment:Testing performed at [facility], [address] [place] [address] Blood 01/05/2023 12:3 7 PM CDT 01/05/2023 12:38 PM CDT Rashida To LAT[employer]INT EXAMINER LAB BLOOD ORDERABLES [address] [address] * Lipase Level (01/05/2023 12:37 PM CDT) Lipase Lvl 46 13 - 60 U/L [place] Comment:Testing performed at [facility], [address] [place] [address] Blood 01/05/2023 12:3 7 PM CDT 01/05/2023 12:38 PM CDT Rashida To [facility] LAB BLOOD ORDERABLES Performing Organization Address City/[facility]/ZIP Co de Phone Number [address], [facility] [address] [place] [address] * (ABNORMAL) Hemoglobin A1c (01/05/2023 12:37 PM CDT) [facility] A1C 6.3(H) 4.3 - 5.6 % [place] Comment: HbA1c values >=6.5% are diagnostic of diabetes mellitus. Diagnosis should be confirmed by repeat testing. Therapeutic Action suggested: >8.0% HbA1c; Goal of therapy: <7.0% HbA1c Testing performed at [facility], [address] [place] [address] Blood 01/05/2023 12:3 7 PM CDT 01/05/2023 12:38 PM CDT Rashida To [facility] LAB BLOOD ORDERABLES Performing Organization Address City/[facility]/ZIP Co de Phone Number [address] [address] * (ABNORMAL) Glucose Level (01/05/2023 12:37 PM CDT) Pathologist [facility] Glucose Level 108(H) 70 - 99 mg/dL [place] Comment: Effective 11/18/15, the glucose reference intervals have been updated based on [place] [employer] guidelines (Standards of Medical Care in Diabetes 2016. Diabetes Care 2016; 39: S13-S22). Fasting blood glucose: Normal: 70-99 mg/dL Impaired fasting glucose (increased risk for diabetes or pre-diabetes): 100- 125 mg/dL Diabetes mellitus: >/=126 mg/dL Random blood glucose: Normal: 70-199 mg/dL Note: Random glucose >100 mg/dL is associated with increased risk for diabetes Testing performed at [facility], [address] [place] [address] Blood 01/05/2023 12:3 7 PM CDT 01/05/2023 12:38 PM CDT Rashida To [employer] EXAMINER LAB BLOOD ORDERABLES [address], [address] [address] * Calcium Level (01/05/2023 12:37 PM CDT) Calcium Lvl 9.1 8.4 - 10.2 mg/dL [place] Comment:Testing performed at [facility], [address] [place] [address] Blood 01/05/2023 12:3 7 PM CDT 01/05/2023 12:38 PM CDT Rashida To [employer] EXAMINER LAB BLOOD ORDERABLES [address], [address] [address] * Amylase Level (01/05/2023 12:37 PM CDT) Amylase Lvl 35 28 - 100 U/L [place] Comment:Testing performed at [facility], [address] [place] [address] Blood 01/05/2023 12:3 7 PM CDT 01/05/2023 12:38 PM CDT Rashida To [employer] EXAMINER LAB BLOOD ORDERABLES [address], [address] [address] * Albumin Level (01/05/2023 12:37 PM CDT) Albumin Lvl 3.9 3.5 - 5.2 gm/dL [place] Comment:Testing performed at [facility], [address] [place] [address] Blood 01/05/2023 12:3 7 PM CDT 01/05/2023 12:38 PM CDT Rashida To [employer] EXAMINER LAB BLOOD ORDERABLES [place] [id number] [place] [address] * (ABNORMAL) Electrolyte Panel (01/05/2023 12:37 PM CDT) Sodium Lvl 133(L) 136 - 145 mEq/L [place] Comment:Testing performed at [facility], [address] [place] [address] Potassium Lvl 4.1 3.5 - 5.1 mEq/L [place] Comment:Testing performed at [facility], [address] [place] [address] Chloride 98 98 - 107 mEq/L [place] Comment:Testing performed at [facility], [address] [place] [address] CO2 25 22 - 29 mEq/L [place] Comment:Testing performed at [facility], [address] [place] [address] Anion Gap 10 4 - 14 mEq/L [place] Comment:Testing performed at [facility], [address] [place] [address] Blood 01/05/2023 12:3 7 PM CDT 01/05/2023 12:38 PM CDT Rashida To LAT[employer] PRINT EXAMINER LAB BLOOD ORDERABLES [address] [address] * Confirm ABORh (01/05/2023 12:33 PM CDT) ABORh Confirm. O POS [facility] Blood 01/05/2023 12:3 3 PM CDT 01/05/2023 9:51 PM CDT Rashida To LATENT PRINT EXAMINER BLOOD BANK TEST ANIKET MARINELLI [facility] Unless otherwise noted, all lab tests performed by: Division of Pathology and Laboratory Medicine [facility] [place] [address] after 12/30/2022 Advance Directives Documents on File Type Date Recorded Patient Statement Request Clerk Expl anation Advance Directives: Living Will 01/05/2023 Directive to Physici ans and Family or Surrogates-Living Will Advance Directives: Medical Power of Sewer Pipe Offbearer 01/05/2023 Medical Power of Att orney Care Teams Nurse Informaticist Relationship Specialty Start Date End Date Talia Panda MD [address] [place] [phone] [email or web address] PCP - General Surgical Oncology 12/28/22 Davion Florian MD [address] [place] [phone] [email or web address] PCP - External Primary Care Provider Internal Medicine 12/28/22
[2023-12-30] MEDS ORDERED: ONDANSETRON 4 MG/2 ML VIAL ONE (10:41)
[2023-12-30] MEDS ORDERED: FAMOTIDINE 20 MG/2 ML VIAL IV ONE (10:41)
[2023-12-30] MEDS ORDERED: MORPHINE 4 MG/ML SYR ONE (10:41)
[2023-12-30] MEDS ORDERED: NA CHLORIDE 0.9% 500 ML ONE (10:41)
[2023-12-30 10:58] LABS: Absolute Eosinophils 0.2 K/uL (0-0.5); Absolute Lymphocytes (CBC) 1.6 K/uL (0.7-4.9); Absolute Monocytes 0.3 K/uL (0.1-1.3); Absolute Neutrophil 6.2 K/uL (1.8-8.0); Basophils % 0.4 % (0-1.3); Eosinophils % 1.8 % (0-4.4); Hematocrit 44.7 % (36.0-45.0); Hemoglobin 15.2 g/dL (12.0-15.0); Lymphocytes % 19.3 % (15.3-44.8); MCH 32.5 pg (27.0-35.0); MCV 95.6 fL (80-100); MPV 7.7 fL (7.6-11.3); Monocytes % 3.7 % (3.3-12.3); Neutrophils % 74.8 % (41.7-73.7); Nucleated Red Blood Cells % 0.1 % (0-0); Platelets 200 thou/uL (152-406); RBC Red Blood Cell Count 4.68 M/uL (3.86-4.86); Red Cell Distribution Width 13.8 % (12.1-15.2)
[2023-12-30 11:16] LABS: Albumin 3.7 g/dL (3.4-5.0); Albumin/Globulin Ratio 0.9 (1.1-1.8); Anion Gap 12.5 mEq/L (5.0-15.0); Bilirubin Direct 0.2 mg/dL (0-0.2); Bilirubin Indirect, Calculated 0.4 mg/dL (0.2-0.8); Bilirubin Total 0.6 mg/dL (0.2-1.0); Globulin 4.1 g/dL (2.3-3.5); Magnesium 2.3 mg/dL (1.6-2.4); Potassium 3.5 mEq/L (3.5-5.1); Protein, Total 7.8 g/dL (6.4-8.2); Troponin High Sensitivity 8.7 pg/mL (<58.9)
--- NOTE | 2023-12-30 11:23 | RAD REPORT ---
EXAM DESCRIPTION: RADChest Single View12/30/2023 10:56 am CLINICAL HISTORY: epigastric pain COMPARISON: Chest Single View dated 07/24/2023; Chest Single View dated 12/08/2022; Chest Single View d ated 08/25/2022; Chest Single View dated 08/22/2022 TECHNIQUE: Portable AP view of the chest. FINDINGS: Left chest wall pacer in place. The lungs are clear. No pneumothorax or effusion. The car diomediastinal contours are unremarkable. IMPRESSION: No acute cardiopulmonary process.
[2023-12-30 11:56] LABS: PT Prothrombin Time 19.5 SECONDS (9.4-12.5); Protime INR 1.77
--- NOTE | 2023-12-30 12:25 | RAD REPORT ---
EXAM DESCRIPTION: CT - Abdomen Pelvis W Contrast - 12/30/2023 12:12 pm CLINICAL HISTORY: EPIGASTRIC PAIN COMPARISON: Abdomen Pelvis W Contrast dated 07/24/2023; Abdomen Pelvis W Contrast dated 05/30/2023; Abdomen Pelvis W Contrast dated 12/08/2022; Thorax Wo Con dated 10/09/2023 TECHNIQUE: Thin cut axial CT imaging of the abdomen and pelvis was performed following intravenous a dministration of iodinated contrast. Multiplanar reformats were generated and reviewed. All CT scans are performed using dose optimization technique as appropriate and may include automated exposure control or mA/KV adjustment according to patient size. FINDINGS: No suspicious findings in the lung bases. The liver shows a stable 7 mm inferior right lobe hypoattenuating nodule probably a cyst. Somewhat pa tchy pattern of enhancement peripherally in the aspects of the liver, favoring benign transient enhan cement differences. Atrophic changes of the spleen, with widening of the main pancreatic duct, and sm all cystic lesions along the body, largest measuring 1.8 x 1.3 cm, stable. Spleen, and adrenal glands show no suspicious findings. Gallbladder is not visualized and may have been surgically removed. Symmetric renal function is seen with no hydronephrosis or suspicious renal mass. No dilated bowel loops or bowel wall thickening. No free air, free fluid or inflammatory stranding. N o hernia, mass or bulky lymphadenopathy. Mild sigmoid diverticulosis. The urinary bladder is without significant finding. No suspicious bony findings. Streak artifact in the pelvis resulting from right hip prosthesis somewh at limits evaluation. IMPRESSION: No acute intra-abdominal process. Incidental and stable findings as above, including small cystic lesions, for which continued imaging follow-up is recommended, utilizing pancreatic protocol CT or MRI.
[2023-12-30] MEDS ORDERED: NA CHLORIDE 0.9% 50 ML ONE (15:18)
[2023-12-30] MEDS ORDERED: PROMETHAZINE INJ 25 MG/ML AMP ONE (15:18)
--- NOTE | 2023-12-30 15:42 | EDPHYS ---
Physician Documentation [facility] Name: Robby Schmid Age: 88 yrs Sex: Female : 1935 Arrival Date: 12/30/2023 Time: 09:52 Bed 19 Private MD: ED Physician Hardeep Gavin HPI: 12/29 10:09 This 88 yrs old Female presents to ER via Wheelchair with complaints of Vomiting - cp feels sick. 10:09 The patient presents to the emergency department with nausea, with "dry heaves", cp vomiting, that is continuous, abdominal pain, of the epigastric area. Onset: The symptoms/episode began/occurred yesterday. Historical: - Allergies: 10:04 Codeine; ll1 10:04 Plavix; ll1 - PMHx: 10:04 CVA; Hypothyroidism; High Cholesterol; Atrial Fib August 2022; Hypertension; UTI; ll1 - PSHx: 10:04 Cholecystectomy; hysterectomy; pacemaker; ll1 - Immunization history:: Adult Immunizations up to date. - Infectious Disease History:: Denies. - Social history:: Smoking status: Patient denies any tobacco usage or history of. ROS: 10:15 Constitutional: Negative for fever, cp 10:15 Eyes: Negative for injury, pain, redness, and discharge, cp 10:15 ENT: Negative for drainage from ear(s), ear pain, sore throat, difficulty swallowing, difficulty handling secretions, 10:15 Cardiovascular: Positive for chest pain, 10:15 Respiratory: Negative for cough, shortness of breath, wheezing, 10:15 Abdomen/GI: Positive for abdominal pain, nausea, vomiting, anorexia, of the epigastric area, Negative for hematemesis, 10:15 Neuro: Negative for altered mental status, dizziness, headache, weakness, 10:15 All other systems are negative, Exam: 10:18 Constitutional: The patient appears in no acute distress, alert, awake, cp non-diaphoretic, non-toxic, well developed, well nourished, uncomfortable, 10:18 Head/Face: Normocephalic, atraumatic. cp 10:18 Eyes: Periorbital structures: appear normal, Conjunctiva: normal, no exudate, no injection, Sclera: no appreciated abnormality, Lids and lashes: appear normal, bilaterally, 10:18 ENT: External ear(s): are unremarkable, Nose: is normal, Mouth: Lips: moist, Oral mucosa: moist, Posterior pharynx: Airway: no evidence of obstruction, patent, 10:18 Chest/axilla: Inspection: normal, 10:18 Cardiovascular: Rate: normal, Rhythm: regular, Edema: is not appreciated, JVD: is not appreciated, 10:18 Respiratory: the patient does not display signs of respiratory distress, Respirations: normal, no use of accessory muscles, no retractions, labored breathing, is not present, Breath sounds: are clear throughout, no decreased breath sounds, no stridor, no wheezing, 10:18 Abdomen/GI: Inspection: abdomen appears normal, Bowel sounds: active, all quadrants, Palpation: soft, in all quadrants, moderate abdominal tenderness, in the epigastric area, voluntary guarding, is elicited in the epigastric area, 10:18 Back: CVA tenderness, is absent, 10:18 Neuro: Orientation: to person, place \\T\\ time. Mentation: able to follow commands, Vital Signs: 10:05 BP 152 / 99; Pulse 85; Resp 18; Temp 97.2; Pulse Ox 98% ; Weight 68.04 kg; Height 5 ft. ll1 1 in. ; Pain 10/10; 11:16 BP 100 / 63; Pulse 79; Resp 12; Pulse Ox 94% on R/A; Pain 6/10; tm6 12:25 Pulse 77; Resp 14; Pulse Ox 99% on 2 lpm NC; Pain 3/10; tm6 12:28 BP 117 / 58; tm6 13:32 BP 106 / 64; Pulse 76; Pulse Ox 98% on R/A; tm6 15:01 BP 114 / 92; Pulse 67; Pulse Ox 98% on R/A; tm6 15:43 BP 133 / 74; Pulse 74; Pulse Ox 94% on R/A; Pain 0/10; tm6 20:00 BP 112 / 68; Pulse 70; Resp 16; Pulse Ox 96% on R/A; jb4 21:08 BP 114 / 73; Pulse 70; Resp 18; Temp 98.3(O); Pulse Ox 96% on R/A; jb4 22:00 BP 137 / 57; Pulse 68; Resp 16; Pulse Ox 94% on R/A; jb4 10:05 Body Mass Index 28.34 (68.04 kg, 154.94 cm) ll1 10:05 Pain Scale: Adult ll1 11:16 Pain Scale: Adult tm6 12:25 Pain Scale: Adult tm6 15:43 Pain Scale: Adult tm6 MDM: 10:03 Patient medically screened. 15:45 Data reviewed: vital signs, nurses notes, lab test result(s), EKG, radiologic studies, cp CT scan, plain films, and as a result, I will admit patient. 15:45 I considered the following discharge prescriptions or medication management in the emergency department Medications were administered in the Emergency Department. See MAR. Independent interpretation of the following test(s) in the Emergency Department EKG: See my EKG interpretation above. Care significantly affected by the following chronic conditions: Hypertension. Counseling: I had a detailed discussion with the patient and/or guardian regarding the historical points, exam findings, and any diagnostic results supporting the discharge/admit diagnosis, lab results, radiology results. Response to treatment: the patient's symptoms have mildly improved after treatment. ED course: patient continues to have nausea and pain, will admit for observation and continued monitoring. Hospitalist consulted and accepts patient after discussion. 12/29 10:07 Order name: Basic Metabolic Panel; Complete Time: 11:33 12/29 11:33 Interpretation: Normal except: GLUC 153; BUN 19; CRE 1.17; GFR 45. 12/29 10:07 Order name: CBC with Diff; Complete Time: 11:33 12/29 11:33 Interpretation: Normal except: HGB 15.2; BEATRICE% 74.8. 12/29 10:07 Order name: LFT's; Complete Time: 11:33 12/29 11:34 Interpretation: Normal except: GLOB 4.1; A/G 0.9. 12/29 10:07 Order name: Magnesium; Complete Time: 11:33 12/29 10:07 Order name: NT PRO-BNP; Complete Time: 11:33 12/29 10:07 Order name: PT-INR; Complete Time: 14:09 12/29 14:09 Interpretation: Reviewed. 12/29 10:07 Order name: Troponin HS; Complete Time: 11:33 12/29 10:07 Order name: Lipase; Complete Time: 11:33 12/29 11:34 Interpretation: Reviewed. 12/29 10:08 Order name: Urinalysis W/Microscopic; Complete Time: 20:34 cp 12/29 20:36 Order name: CBC with Automated Diff EDMS 12/29 20:36 Order name: CBC with Automated Diff EDMS 12/29 20:36 Order name: Comprehensive Metabolic Panel EDMS 12/29 20:36 Order name: Comprehensive Metabolic Panel EDMS 12/29 10:07 Order name: XRAY Chest (1 view); Complete Time: 11:33 12/29 11:34 Interpretation: Report review. 12/29 11:35 Order name: CT Abd/Pelvis - IV Contrast Only; Complete Time: 14:09 12/29 14:10 Interpretation: Report reviewed. 12/29 10:07 Order name: Cardiac monitoring; Complete Time: 10:22 12/29 10:07 Order name: EKG - Nurse/Tech; Complete Time: 10:22 12/29 10:07 Order name: IV Saline Lock; Complete Time: 11:15 12/29 10:07 Order name: Labs collected and sent; Complete Time: 11:15 12/29 10:07 Order name: O2 Per Protocol; Complete Time: 10:22 12/29 10:07 Order name: O2 Sat Monitoring; Complete Time: 10:22 12/29 11:00 Order name: Labs - recollect needed: recollect blood per lab hemolyzed; Complete Time: eb 11:32 12/29 14:12 Order name: PO challenge; Complete Time: 14:35 cp Administered Medications: 11:15 Drug: Famotidine IVP 20 mg IVP once; dilute with 10 mL 0.9% NaCl; give over 2 minutes tm6 Route: IVP; Site: left wrist; 11:15 Drug: Ondansetron IVP 4 mg IVP once; over 2 minutes Route: IVP; Site: left wrist; tm6 11:15 Drug: morphine IVP or IV 2 mg IVP once over 4 mins Route: IVP; Infused Over: 4 mins; tm6 Site: left wrist; 11:15 Drug: NS 0.9% IV 500 ml IV at 100 ml/hr continuous Route: IV; Rate: 100 ml/hr; Site: tm6 left wrist; 15:32 Drug: Promethazine IVP 25 mg IVP once Route: IVP; Site: left wrist; tm6 17:35 Follow up: Response: No adverse reaction tm6 Disposition Summary: 12/30/23 15:41 Hospitalization Ordered Notes: Hospitalization Status: Observation cp Provider: Kamila Mcknight cp Location: Telemetry/MedSurg (observation) cp Condition: Stable cp Problem: new cp Symptoms: have improved cp Bed/Room Type: Standard cp Room Assignment: 210(12/30/23 20:43) sp Diagnosis - Nausea with vomiting, unspecified - intractable cp - Epigastric pain cp Forms: - Medication Reconciliation Form cp - SBAR form cp - Leadership Thank You Letter cp Addendum: 01/06/2024 15:42 Co-signature as Attending Physician, Hardeep Gavin MD I agree with the assessment and c antoine plan of care. Signatures: Dispatcher [employer] [facility] Hardeep Gavin MD MD cha Pinkerton, Shawna sp Page, Corey, Bella Kelly cp, Lynsay, RN RN ll1 Lizabeth Mejia PA-C PA-Emi sb4 Gale Duarte RN RN tm6 Corrections: (The following items were deleted from the chart) 12/29 10:07 10:07 Chest Single View+RAD.RAD.BRZ ordered. [facility] 20:43 15:41 cp sp
--- NOTE | 2023-12-30 15:42 | ER ---
Nurse's Notes [facility] Name: Robby Schmid Age: 88 yrs Sex: Female : 1935 Arrival Date: 12/30/2023 Time: 09:52 Bed 19 Private MD: Diagnosis: Nausea with vomiting, unspecified-intractable;Epigastric pain Presentation: 12/29 10:05 Chief complaint: Patient states: N/V with abdominal/CP started yesterday. Coronavirus ll1 screen: Client denies travel out of the [place] in the last 14 days. At this time, the client does not indicate any symptoms associated with coronavirus-19. Ebola Screen: Patient denies travel to an Ebola-affected area in the 21 days before illness onset. Initial Sepsis Screen: Does the patient meet any 2 criteria? No. Patient's initial sepsis screen is negative. Does the patient have a suspected source of infection? No. Patient's initial sepsis screen is negative. Risk Assessment: Do you want to hurt yourself or someone else? Patient reports no desire to harm self or others. Onset of symptoms was December 29, 2023. 10:05 Method Of Arrival: Wheelchair ll1 10:05 Acuity: MANJINDER 3 ll1 Triage Assessment: 10:06 General: Appears uncomfortable, Behavior is calm, cooperative, appropriate for age. ll1 Pain: Complains of pain in chest and abdomen. GI: Reports upper abdominal pain, nausea, vomiting. Historical: - Allergies: 10:04 Codeine; ll1 10:04 Plavix; ll1 - PMHx: 10:04 CVA; Hypothyroidism; High Cholesterol; Atrial Fib August 2022; Hypertension; UTI; ll1 - PSHx: 10:04 Cholecystectomy; hysterectomy; pacemaker; ll1 - Immunization history:: Adult Immunizations up to date. - Infectious Disease History:: Denies. - Social history:: Smoking status: Patient denies any tobacco usage or history of. Screenin:30 [facility] ED Fall Risk Assessment (Adult) History of falling in the last 3 months, tm6 including since admission No falls in past 3 months (0 pts) Confusion or Disorientation No (0 pts) Intoxicated or Sedated No (0 pts) Impaired Gait No (0 pts) Mobility Assist Device Used No (0 pt) Altered Elimination No (0 pt) Score/Fall Risk Level 0 - 2 = Low Risk Oriented to surroundings, Maintained a safe environment, Educated pt \T\ family on fall prevention, incl call for assistance when getting out of bed. Abuse screen: Denies threats or abuse. Denies injuries from another. Nutritional screening: No deficits noted. Tuberculosis screening: No symptoms or risk factors identified. Assessment: 10:30 General: Appears uncomfortable, Behavior is calm, cooperative. Pain: Complains of pain tm6 in epigastric area and abdomen and chest Pain does not radiate. Pain currently is 6 out of 10 on a pain scale. Pain began 1 day ago. Also complains of nausea. Neuro: Level of Consciousness is awake, alert, obeys commands, Oriented to person, place, time, situation. Cardiovascular: Reports chest pain, nausea, Patient's skin is warm and dry. Rhythm is a flutter with paced Chest pain. Respiratory: Airway is patent Respiratory effort is even, unlabored, Respiratory pattern is regular, symmetrical. GI: Abdomen is round non-distended, Reports nausea, vomiting. : No signs and/or symptoms were reported regarding the genitourinary system. EENT: No signs and/or symptoms were reported regarding the EENT system. Derm: No signs and/or symptoms reported regarding the dermatologic system. Musculoskeletal: No signs and/or symptoms reported regarding the musculoskeletal system. 11:17 Reassessment: Patient and/or family updated on plan of care and expected duration. Pain tm6 level reassessed. Patient is alert, oriented x 3, equal unlabored respirations, skin warm/dry/pink. Patient states symptoms have not improved. 12:26 Reassessment: Patient appears in no apparent distress at this time. Patient and/or tm6 family updated on plan of care and expected duration. Pain level reassessed. Patient is alert, oriented x 3, equal unlabored respirations, skin warm/dry/pink. 13:33 Reassessment: Patient appears in no apparent distress at this time. Patient and/or tm6 family updated on plan of care and expected duration. Pain level reassessed. Patient is alert, oriented x 3, equal unlabored respirations, skin warm/dry/pink. 14:15 Reassessment: soft drink and saltine crackers provided to patient for PO challenge. tm6 15:02 Reassessment: Patient and/or family updated on plan of care and expected duration. Pain tm6 level reassessed. Patient is alert, oriented x 3, equal unlabored respirations, skin warm/dry/pink. 15:43 Reassessment: Patient and/or family updated on plan of care and expected duration. Pain tm6 level reassessed. Patient is alert, oriented x 3, equal unlabored respirations, skin warm/dry/pink. 19:00 Reassessment: Patient appears in no apparent distress at this time. Patient and/or jb4 family updated on plan of care and expected duration. Pain level reassessed. Patient is alert, oriented x 3, equal unlabored respirations, skin warm/dry/pink. 20:00 Reassessment: Patient appears in no apparent distress at this time. Patient and/or jb4 family updated on plan of care and expected duration. Pain level reassessed. Patient is alert, oriented x 3, equal unlabored respirations, skin warm/dry/pink. 21:00 Reassessment: Patient appears in no apparent distress at this time. Patient and/or jb4 family updated on plan of care and expected duration. Pain level reassessed. Patient is alert, oriented x 3, equal unlabored respirations, skin warm/dry/pink. 22:00 Reassessment: Patient appears in no apparent distress at this time. Patient and/or jb4 family updated on plan of care and expected duration. Pain level reassessed. Patient is alert/active/playful, equal unlabored respirations, skin warm/dry/pink. Vital Signs: 10:05 BP 152 / 99; Pulse 85; Resp 18; Temp 97.2; Pulse Ox 98% ; Weight 68.04 kg; Height 5 ft. ll1 1 in. ; Pain 10/10; 11:16 BP 100 / 63; Pulse 79; Resp 12; Pulse Ox 94% on R/A; Pain 6/10; tm6 12:25 Pulse 77; Resp 14; Pulse Ox 99% on 2 lpm NC; Pain 3/10; tm6 12:28 BP 117 / 58; tm6 13:32 BP 106 / 64; Pulse 76; Pulse Ox 98% on R/A; tm6 15:01 BP 114 / 92; Pulse 67; Pulse Ox 98% on R/A; tm6 15:43 BP 133 / 74; Pulse 74; Pulse Ox 94% on R/A; Pain 0/10; tm6 20:00 BP 112 / 68; Pulse 70; Resp 16; Pulse Ox 96% on R/A; jb4 21:08 BP 114 / 73; Pulse 70; Resp 18; Temp 98.3(O); Pulse Ox 96% on R/A; jb4 22:00 BP 137 / 57; Pulse 68; Resp 16; Pulse Ox 94% on R/A; jb4 10:05 Body Mass Index 28.34 (68.04 kg, 154.94 cm) ll1 10:05 Pain Scale: Adult ll1 11:16 Pain Scale: Adult tm6 12:25 Pain Scale: Adult tm6 15:43 Pain Scale: Adult tm6 ED Course: 09:55 Patient arrived in ED. ra3 09:56 Hardeep Islas PA is PHCP. cp 09:56 Hardeep Gavin MD is Attending Physician. cp 10:04 Arm band placed on. ll1 10:06 Triage completed. ll1 10:08 Gale Duarte, RN is Primary Nurse. tm6 10:22 EKG done, by ED staff, reviewed by Hardeep Gavin MD. tm6 10:30 Patient has correct armband on for positive identification. Bed in low position. Call tm6 light in reach. Side rails up X2. Provided Education on: use of call [place]. Client placed on continuous cardiac and pulse oximetry monitoring. NIBP monitoring applied. bus driver/monitor on. Pulse ox on. NIBP on. Door closed. Noise minimized. Warm blanket given. 10:30 Pillow given. tm6 10:57 XRAY Chest (1 view) In Process Unspecified. EDMS 11:32 PT-INR Sent. tm6 12:14 CT Abd/Pelvis - IV Contrast Only In Process Unspecified. EDMS 15:40 Kamila Mcknight MD is Hospitalizing Provider. cp 19:00 Report given to Dorian GALVEZ. tm6 22:21 No provider procedures requiring assistance completed. Patient admitted, IV remains in jb4 place. Administered Medications: 11:15 Drug: Famotidine IVP 20 mg IVP once; dilute with 10 mL 0.9% NaCl; give over 2 minutes tm6 Route: IVP; Site: left wrist; 11:15 Drug: Ondansetron IVP 4 mg IVP once; over 2 minutes Route: IVP; Site: left wrist; tm6 11:15 Drug: morphine IVP or IV 2 mg IVP once over 4 mins Route: IVP; Infused Over: 4 mins; tm6 Site: left wrist; 11:15 Drug: NS 0.9% IV 500 ml IV at 100 ml/hr continuous Route: IV; Rate: 100 ml/hr; Site: tm6 left wrist; 15:32 Drug: Promethazine IVP 25 mg IVP once Route: IVP; Site: left wrist; tm6 17:35 Follow up: Response: No adverse reaction tm6 Medication: 10:30 VIS not applicable for this client. tm6 Outcome: 15:41 Decision to Hospitalize by Provider. cp 22:21 Admitted to Med/surg accompanied by tech, via wheelchair, room 210, with chart, Report jb4 called to LEONOR Dhillon 22:21 Condition: stable 22:21 Discharge instructions given to patient, Instructed on the need for admit, Demonstrated understanding of instructions, 22:21 Patient left the ED. jb4 Signatures: Dispatcher [employer] EDMS Hardeep Islas PA PA cp Bryson, James, RN RN jb4 Teddy Eugene RN RN ll1 Gale Duarte RN RN tm6 Nieves Kimble ra3 Corrections: (The following items were deleted from the chart) 10:07 10:05 Pulse 85bpm; Resp 18bpm; Pulse Ox 98%; Temp 97.2F; 68.04 kg; Height 5 ft. 1 in.; ll1 BMI: 28.3; Pain 10, Adult; ll1 22:15 22:00 BP 141 / 75; Pulse 76bpm; Resp 16bpm; Pulse Ox 98% RA; jb4 jb4 22:15 20:00 BP 149 / 70; Pulse 67bpm; Resp 16bpm; Pulse Ox 99% RA; jb4 jb4
[2023-12-30 17:45] LABS: Sqamous Epithelial 20-50 /HPF (None Seen); Urine Bacteria None Seen /HPF (<20); Urine Bilirubin NEGATIVE (Negative); Urine Blood 1+ (Negative); Urine Clarity Clear (Clear); Urine Color Yellow (Yellow); Urine Culture Reflex Order NOT NEEDED; Urine Glucose NEGATIVE (Negative); Urine Ketones NEGATIVE (Negative); Urine Micro Reflex YN NO BILL MICROSCOPIC; Urine Mucus Slight /HPF (None Seen); Urine Nitrite NEGATIVE (Negative); Urine Protein TRACE (Negative); Urine RBC 21-50 /HPF (None Seen); Urine Urobilinogen Normal (Normal); Urine WBC >50 /HPF (<5)
[2023-12-30 17:48] LABS: Specific Gravity > 1.030 (1.005-1.030)
[2023-12-30] MEDS ORDERED: ONDANSETRON 4 MG/2 ML VIAL IV PRN (20:33)
[2023-12-30] MEDS ORDERED: ACETAMINOPHEN 500 MG TAB PO PRN (20:33)
[2023-12-30] MEDS ORDERED: MORPHINE 2 MG/ML SYR IV PRN (20:33)
--- NOTE | 2023-12-30 20:50 | P.HP ---
Certification for Inpatient Patient admitted to: Observation With expected LOS: <2 Midnights Patient will require the following post-hospital care: None Practitioner: I am a practitioner with admitting privileges, knowledge of patient current condition, hospital course, and medical plan of care. Services: Services provided to patient in accordance with Admission requirements found in Title 42 Section 412.3 of the Code of Federal Regulations Patient History Date of Service: 12/30/23 Reason for admission: Abdominal pain along with nausea and vomiting History of Present Illness: Patient is an 88-year-old female who came to the hospital with nausea and vomiting. Patient has been having dry heaves and has had persistent vomiting send patient decided to come into the ER as she started progressing with abdominal pain. In the ER patient's labs and imaging studies did not reveal any significant abnormality. Decision was made to admit the patient to the hospital for observation. Allergies No Known Allergies Allergy (Verified 05/23/21 21:37) Home Medications: clonazePAM [Clonazepam] 1 mg PO BEDTIME 09/13/17 Amlodipine [Norvasc*] 5 mg PO BEDTIME 12/19/20 Aspirin [Adult Low Dose Aspirin EC] 81 mg PO BID 12/19/20 Atorvastatin Calcium [Lipitor*] 10 mg PO BEDTIME 12/19/20 Cholecalciferol (Vitamin D3) [Vitamin D3] 25 mcg PO DAILY 12/19/20 Escitalopram Oxalate 10 mg PO DAILY 12/19/20 Fish Oil/Borage/Flax/Om3,6,9 1 [Triple [place] 3-6-9 Softgel] 400 mg PO DAILY 12/19/20 Levothyroxine Sodium 88 mcg PO DAILY 12/19/20 Alfuzosin HCl [Alfuzosin HCl ER] 10 mg PO DAILY 08/23/22 Benzonatate 100 mg PO DAILY 08/23/22 Apixaban [Eliquis] 5 mg PO BID 12/30/23 Cetirizine HCl [Zyrtec] 10 mg PO DAILY 12/30/23 Ondansetron [Zofran] 4 mg PO Q6H PRN #20 tab 12/31/23 - Past Medical/Surgical History Diabetic: No -: Recurring bronchitis -: Hypertension -: Hypothyroidisim -: CVA -: High cholesterol -: Cholecystectomy, 1967 -: Hysterectomy, 1971 -: Broken bone in R. foot, 1984 - Family History Father Medical History: Hypertension, Diabetes Mother Medical History: Hypertension, Cancer - Social History Smoking Status: Never smoker Alcohol use: No CD- Drugs: No Caffeine use: No Review of Systems 10-point ROS is otherwise unremarkable Physical Examination - Vital Signs Temperature: 98 F Blood Pressure: 140/80 Pulse: 80 Respirations: 18 Pulse Ox (%): 95 - Physical Exam General: Alert, In no apparent distress, Oriented x3 HEENT: Atraumatic, PERRLA, Mucous membr. moist/pink, EOMI, Sclerae nonicteric Neck: Supple, 2+ carotid pulse no bruit, No LAD, Without JVD or thyroid abnormality Respiratory: Clear to auscultation bilaterally, Normal air movement Cardiovascular: Regular rate/rhythm, Normal S1 S2 Gastrointestinal: Normal bowel sounds, Soft and benign, Non-distended, No tenderness Musculoskeletal: No clubbing, No swelling, No tenderness Integumentary: No rashes Neurological: Normal gait, Normal speech, Normal strength at 5/5 x4 extr, Normal tone, Sensation intact, Cranial nerves 3-12 intact, Normal affect Lymphatics: No axilla or inguinal lymphadenopathy - Studies Laboratory Data (last 24 hrs) 12/30/23 12/30/23 12/30/23 11:31 10:47 10:47 WBC 8.30 Hgb 15.2 H Hct 44.7 Plt Count 200 PT 19.5 H INR 1.77 Sodium 138 Potassium 3.5 BUN 19 H Creatinine 1.17 H Glucose 153 H Magnesium 2.3 Total Bilirubin 0.6 AST 33 ALT 37 Alkaline Phosphatase 116 Lipase 28 Assessment & Plan - Problems (Diagnosis) (1) Abdominal pain Status: Acute (2) Nausea and vomiting Status: Acute (3) CVA (cerebral vascular accident) Status: Acute (4) Hypertension Status: Acute (5) Hypothyroidism Status: Acute - Plan Plan: 1. IV fluids 2. IV antibiotics 3. Antiemetics 4. Pain control Discharge Plan: Home Plan to discharge in: 24 Hours - Advance Directives Does patient have a Living Will: Yes Does patient have a Durable POA for Healthcare: Yes - Code Status/Comfort Care Code Status Assessed: Yes Code Status: Full Code Critical Care: No Time Spent Managing PTS Care (In Minutes): 45
[2023-12-30] MEDS: NA CHLORIDE 0.9% 1,000 ML IV SCH (21:00)
[2023-12-30 22:38] VITALS: O2SAT 94
[2023-12-30 22:41] VITALS: BMI 29.7
[2023-12-31 06:41] LABS: Absolute Eosinophils 0.4 K/uL (0-0.5); Absolute Lymphocytes (CBC) 1.3 K/uL (0.7-4.9); Absolute Monocytes 0.6 K/uL (0.1-1.3); Absolute Neutrophil 3.3 K/uL (1.8-8.0); Basophils % 0.5 % (0-1.3); Eosinophils % 6.9 % (0-4.4); Lymphocytes % 23.8 % (15.3-44.8); MCHC 33.2 g/dL (32.0-36.0); MCV 96.3 fL (80-100); MPV 8.4 fL (7.6-11.3); Monocytes % 9.8 % (3.3-12.3); Nucleated Red Blood Cells % 0.2 % (0-0); Platelets 138 thou/uL (152-406); RBC Red Blood Cell Count 4.05 M/uL (3.86-4.86); Red Cell Distribution Width 13.6 % (12.1-15.2)
[2023-12-31 06:59] LABS: Albumin 2.8 g/dL (3.4-5.0); Albumin/Globulin Ratio 0.8 (1.1-1.8); Anion Gap 9.6 mEq/L (5.0-15.0); Bilirubin Total 0.4 mg/dL (0.2-1.0); Globulin 3.6 g/dL (2.3-3.5); Potassium 3.6 mEq/L (3.5-5.1); Protein, Total 6.4 g/dL (6.4-8.2)
[2023-12-31 07:48] LABS: Blood Morphology Comment NOT SEEN (NOT SEEN); Differential Total Cells Count 100; Eosinophils 7 % (0-3); Lymphocytes 19 % (15-42); Monocytes 10 % (0-10); Platelet Estimate DECR; Segmented Neutrophils 63 % (40-80); Toxic Granulation 1+; White Blood Cell Scan OK (OK)
[2023-12-31] MEDS: CEFTRIAXONE 1,000 MG in NA CHLORIDE 0.9% 50 ML IVPB SCH (08:13)
--- NOTE | 2024-01-01 17:04 | EKG ---
Test Date: 2023-12-30 Test Time: 10:15:58 Renal Dialysis Rn: LEONELA MEASUREMENT RESULTS: Intervals: Rate: 82 ID: QRSD: [id number] QT: 406 QTc: 474 [place]: P: 236 ID: QRS: [id number] T: 138 INTERPRETIVE STATEMENTS: Demand pacemaker, interpretation is based on intrinsic rhythm Atrial flutter with variable AV block with premature ventricular or aberrantly conducted complexes Left axis deviation Inferior-posterior infarct, age undetermined Anterolateral infarct, age undetermined Abnormal ECG Compared to ECG 07/24/2023 13:34:08 Left-axis deviation now present Myocardial infarct finding now present Atrial fibrillation no longer present ST (T wave) deviation no longer present Prolonged QT interval no longer present Electronically Signed On 01-01-24 17:00:19 CDT by Kenrick William
[2024-01-05 01:52] VITALS: BP 140/80; TEMP 98
--- NOTE | 2024-01-05 01:55 | P.DS ---
Discharge Date: 12/31/23 Disposition: ROUTINE DISCHARGE Discharge Condition: GOOD Reason for Admission: Abdominal pain along with nausea and vomiting - Problems (1) Abdominal pain Status: Acute (2) Nausea and vomiting Status: Acute (3) CVA (cerebral vascular accident) Status: Acute (4) Hypertension Status: Acute (5) Hypothyroidism Status: Acute Brief History of Present Illness: Patient is an 88-year-old female who came to the hospital with nausea and vomiting. Patient has been having dry heaves and has had persistent vomiting send patient decided to come into the ER as she started progressing with abdominal pain. In the ER patient's labs and imaging studies did not reveal any significant abnormality. Decision was made to admit the patient to the hospital for observation. Hospital Course: Patient has done well during hospital stay. Patient is clinically doing much better. Labs are stable. At this time, patient is stable for discharge with outpatient follow-up with PCP and specialist. Patient is told to call me if he has any questions over the next few days and we can give patient taking care of at that time. Vital Signs/Physical Exam: Temp Pulse Resp BP Pulse Ox 98 F 80 18 140/80 95 01/05/24 01:52 01/05/24 01:52 01/05/24 01:52 01/05/24 01:52 01/05/24 01:52 General: Alert, In no apparent distress, Oriented x3 Laboratory Data at Discharge: WBC 5.70 thou/uL (4.3-10.9) 12/31/23 05:35 Hgb 13.0 g/dL (12.0-15.0) D 12/31/23 05:35 Hct 39.0 % (36.0-45.0) 12/31/23 05:35 Plt Count 138 thou/uL (152-406) L D 12/31/23 05:35 PT 19.5 SECONDS (9.4-12.5) H 12/30/23 11:31 INR 1.77 12/30/23 11:31 Sodium 138 mEq/L (136-145) 12/31/23 05:35 Potassium 3.6 mEq/L (3.5-5.1) 12/31/23 05:35 BUN 19 mg/dL (7-18) H 12/31/23 05:35 Creatinine 0.83 mg/dL (0.55-1.02) 12/31/23 05:35 Glucose 102 mg/dL (74-106) 12/31/23 05:35 Magnesium 2.3 mg/dL (1.6-2.4) 12/30/23 10:47 Total Bilirubin 0.4 mg/dL (0.2-1.0) 12/31/23 05:35 AST 33 U/L (15-37) 12/31/23 05:35 ALT 35 U/L (13-56) 12/31/23 05:35 Alkaline Phosphatase 91 U/L (45-117) D 12/31/23 05:35 Lipase 28 U/L (13-75) 12/30/23 10:47 Home Medications: clonazePAM [Clonazepam] 1 mg PO BEDTIME 09/13/17 Amlodipine [Norvasc*] 5 mg PO BEDTIME 12/19/20 Aspirin [Adult Low Dose Aspirin EC] 81 mg PO BID 12/19/20 Atorvastatin Calcium [Lipitor*] 10 mg PO BEDTIME 12/19/20 Cholecalciferol (Vitamin D3) [Vitamin D3] 25 mcg PO DAILY 12/19/20 Escitalopram Oxalate 10 mg PO DAILY 12/19/20 Fish Oil/Borage/Flax/Om3,6,9 1 [Triple [place] 3-6-9 Softgel] 400 mg PO DAILY 12/19/20 Levothyroxine Sodium 88 mcg PO DAILY 12/19/20 Alfuzosin HCl [Alfuzosin HCl ER] 10 mg PO DAILY 08/23/22 Benzonatate 100 mg PO DAILY 08/23/22 Apixaban [Eliquis] 5 mg PO BID 12/30/23 Cetirizine HCl [Zyrtec] 10 mg PO DAILY 12/30/23 Ondansetron [Zofran] 4 mg PO Q6H PRN #20 tab 12/31/23 New Medications: Ondansetron [Zofran] 4 mg PO Q6H PRN #20 tab PRN Reason: Nausea / Vomiting Physician Discharge Instructions: -OK to DC IV and DC home -Follow-up with GI after discharge -Follow-up with PCP in 1 week after Discharge -Please call nursing station at [phone] if any nursing or medication questions -Call Dr. Mcknight at [phone] if any questions or concerns regarding hospital stay -Return to the emergency room if symptoms worsen Diet: Regular Activity: Fall precautions Followup: Davion Florian MD [Primary Care Provider] - Time spent managing pt's care (in minutes): 35
== END 2023-12-31 17:45 | disposition home or self-care (01) ==
LOC: ER 09:52 → ERHOLD 20:33 → 2ND 21:46
PROVIDERS: ADMIT Hospitalist; ATTEND Hospitalist
DX: R11.2 Nausea with vomiting, unspecified (principal); R10.13 Epigastric pain; I10 Essential (primary) hypertension; E03.9 Hypothyroidism, unspecified; Z86.73 Personal history of transient ischemic attack (TIA), and cerebral infarction without residual deficits
CPT/HCPCS: 93005; 85025 ×2; 81001; 80048; 36415; 83735; 85610; 80076; 84484; 83690; 80053; 83880; 74177; 71045; 96375; 96374; 99285; Q9967; J2550; J2405; J7040; J7030; J0696; G0378 ×3

== ENCOUNTER 2024-02-26 10:33 | Day surgery (SDC) | payer OTHER, MEDICARE ==
[2024-02-26 11:34] VITALS: TEMP 97.2
[2024-02-26 13:22] VITALS: O2SAT 95
[2024-02-26 13:33] VITALS: BP 114/53
--- NOTE | 2024-02-28 09:17 | TEE ---
TRANSESOPHAGEAL ECHOCARDIOGRAM REPORT CARDIOLOGY DEPARTMENT DATE OF STUDY: 02/26/2024 HEIGHT: 5'2 WEIGHT: 149 lbs DIAGNOSIS: POST WATCHMAN COMMENTS: 1. NORMAL SEATED LEFT ATRIAL APPENDAGE CLOSURE DEVICE (WATCHMAN). 2. NO THROMBUS. 3. NO LEAK. TECHNOLOGIST: ROBERT SHAW
== END 2024-02-26 13:48 | disposition home or self-care (01) ==
LOC: EKG 10:33
PROVIDERS: ATTEND Internal Medicine
DX: I48.11 Longstanding persistent atrial fibrillation (principal); I10 Essential (primary) hypertension; E78.5 Hyperlipidemia, unspecified; R07.9 Chest pain, unspecified; Z98.890 Other specified postprocedural states; Z79.899 Other long term (current) drug therapy; Z82.49 Family history of ischemic heart disease and other diseases of the circulatory system
CPT/HCPCS: 1922; 93312

== ENCOUNTER 2024-03-28 13:12 | Observation (INO) | payer OTHER, MEDICARE ==
--- OUTSIDE RECORDS SUMMARY | 2024-03-28 13:15 | XMS REPORT | Clinical Summary ---
Author Name Unknown Organization [facility] Address [address] [place] [address] Care Team Providers Care Concrete Rod Buster Name Role Phone Talia Panda MD Primary Care Provider [phone] Davion Florian MD Unavailable [phone] 1 Allergies Active Allergy Reactions Criticality Noted Date Comments Codeine Other (See Comments) 01/06/2023 Paranoid episodes Clopidogrel Other (See Comments) 01/06/2023 Pt had massive nose bleed Medications alfuzosin (UROXATRAL) 10 mg 24 hr tablet Take 1 tablet (10 mg) by mouth daily. 2 Active Eliquis 5 mg tablet Take 1 tablet (5 mg) by mouth every 12 (twelve) hours. Active atorvastatin (LIPITOR) 10 mg tablet Take 1 tablet (10 mg) by mouth at bedtime. 1 Active budesonide-form oterol (SYMBICORT) 80-4.5 mcg/actuation inhaler Inhale 2 puffs by mouth twice daily. Active cetirizine (ZyrTEC) 10 mg tablet Take 1 tablet (10 mg) by mouth daily. 1 Active cholecalciferol , vitamin D3, 25 mcg (1,000 unit) capsule Take 1 capsule (1,000 Units) by mouth daily. 1 Active clonazePAM (KlonoPIN) 1 mg tablet Take 1 tablet (1 mg) by mouth every evening. 2 Active escitalopram (LEXAPRO) 10 mg tablet Take 1 tablet (10 mg) by mouth daily. 0 Active fish,bora,flax oils-om3,6,9no1 400-400-400 mg cap Take 1 capsule by mouth daily. Active fluticasone propionate (FLONASE) 50 mcg/spray nasal spray Inhale 1 spray (50 mcg) into each nostril twice daily. 2 Active levothyroxine (SYNTHROID, LEVOTHROID) 75 mcg tablet Take 1 tablet (75 mcg) by mouth daily. Active metoprolol succinate (TOPROL XL) 25 mg 24 hr tablet Take 1 tablet (25 mg) by mouth twice daily. 3 Active triamcinolone (KENALOG) 0.5 % ointment Apply topically to affected area(s) twice daily. Perineum area 3 Active coenzyme Q10 10 mg capsule Take 1 capsule (10 mg) by mouth daily. Active coenzyme D20-ihshhie E 100-5 mg-unit cap Take 1 capsule by mouth daily. 1 Active Active Problems Problem Noted Date Diagnosed Date Cyst of pancreas 12/28/2022 Social History Tobacco Use Types Packs/Day Years Used Date Smoking Tobacco: Never Smokeless Tobacco: Never Tobacco Cessation:Counseling Given: Not Answered Comments Unknown Sex and Gender Information Value Date Recorded Sex Assigned at Not on file Legal Sex Female 9:15 AM CDT Gender Identity Not on file Sexual Orientation Not on file Obstetrics History Plan of Treatment Health Maintenance Due Date Last Done Comments Pneumococcal Vaccine: 65+ Years (1 of 1 - PCV) 001 COVID-19 Vaccine ( - 2023- season) 2023 Influenza Vaccine (#1) 2023 Insurance [employer]-SECONDARY ONLY MEDICARE PART A AND B [place]OË [id number] * Guarantor: Robby Schmid Roland Account Type Relation to Patient Date of Phone Billing Address Personal/Family Self 1935 [address] [place] [address] A[employer]-SECONDARY ONLY MEDICARE PART A AND B Advance Directives Documents on File Type Date Recorded Patient Wall Man Expl anation Advance Directives: Living Will 01/05/2023 Directive to Physici ans and Family or Surrogates-Living Will Advance Directives: Medical Power of Automatic Developer 01/05/2023 Medical Power of Att orney Care Teams Concrete Rod Buster Relationship Specialty Start Date End Date Talia Panda MD [address] [place] [address] [email or web address] PCP - General Surgical Oncology 12/28/22 Davion Florian MD [address] [place] [phone] [email or web address] PCP - External Primary Care Provider Internal Medicine 12/28/22
[2024-03-28 14:18] LABS: Absolute Eosinophils 0.1 K/uL (0-0.5); Absolute Lymphocytes (CBC) 2.1 K/uL (0.7-4.9); Absolute Monocytes 0.6 K/uL (0.1-1.3); Absolute Neutrophil 4.2 K/uL (1.8-8.0); Basophils % 0.4 % (0-1.3); Eosinophils % 0.9 % (0-4.4); Hematocrit 43.5 % (36.0-45.0); Hemoglobin 14.7 g/dL (12.0-15.0); Lymphocytes % 30.7 % (15.3-44.8); MCH 32.2 pg (27.0-35.0); MCHC 33.8 g/dL (32.0-36.0); MCV 95.2 fL (80-100); Platelets 176 thou/uL (152-406); RBC Red Blood Cell Count 4.57 M/uL (3.86-4.86); Red Cell Distribution Width 13.5 % (12.1-15.2)
[2024-03-28 14:19] LABS: PTT, Activated Partial Thromb 36.2 SECONDS (24.3-36.9); Protime INR 1.07
[2024-03-28 14:29] LABS: ALT/SGPT 106 U/L (13-56); AST/SGOT 99 U/L (15-37); Albumin 3.2 g/dL (3.4-5.0); Albumin/Globulin Ratio 0.7 (1.1-1.8); Alkaline Phosphatase 133 U/L (45-117); Anion Gap 12.1 mEq/L (5.0-15.0); BUN Blood Urea Nitrogen 17 mg/dL (7-18); Bicarbonate 23 mEq/L (21-32); Bilirubin Total 0.4 mg/dL (0.2-1.0); Globulin 4.7 g/dL (2.3-3.5); Glomerular Filtration Rate 41 ml/min (=/>90); Glucose Level 123 mg/dL (74-106); Lipase 20 U/L (13-75); NT PRO-BNP 1233 pg/mL (<450); Potassium 4.1 mEq/L (3.5-5.1); Protein, Total 7.9 g/dL (6.4-8.2); Sodium Level 137 mEq/L (136-145); Troponin High Sensitivity 11.7 pg/mL (<58.9)
[2024-03-28 14:34] LABS: Bilirubin Direct < 0.2 mg/dL (0-0.2); Bilirubin Indirect, Calculated 0.2 mg/dL (0.2-0.8)
--- NOTE | 2024-03-28 15:08 | RAD REPORT ---
EXAMINATION: ONE VIEW CHEST XR CLINICAL INDICATION: Female, 88 years old.,CHEST PAIN TECHNIQUE: Frontal chest projection is submitted. Examination is limited by patient positioning and t echnique. COMPARISON: 12/30/2023 FINDINGS: The lungs are well inflated and clear. Left chest wall pacer, and left atrial appendage occlusion dev ice in place. No pneumothorax or sizable effusion. The heart is normal in size. Mediastinal contours are unremarkable. IMPRESSION: No acute intrathoracic abnormalities.
[2024-03-28] MEDS ORDERED: NA CHLORIDE 0.9% 500 ML ONE (15:26)
[2024-03-28 15:40] LABS: Urine Bacteria <20 /HPF (<20); Urine Bilirubin NEGATIVE (Negative); Urine Blood Trace (Negative); Urine Clarity Extremely Turbid (Clear); Urine Color Yellow (Yellow); Urine Crystals Unidentified Few /HPF (None Seen); Urine Culture Reflex Order REFLEXED; Urine Glucose NEGATIVE (Negative); Urine Ketones NEGATIVE (Negative); Urine Microscopic Reflex YN ORDER UMIC; Urine Mucus 1+ /HPF (None Seen); Urine Nitrite NEGATIVE (Negative); Urine Protein TRACE (Negative); Urine RBC <5 /HPF (None Seen); Urine Urobilinogen Normal (Normal); Urine WBC 20-50 /HPF (<5); Urine WBC Clump Rare /HPF (None Seen); Urine Yeast (Budding) Trace /HPF (None Seen)
--- NOTE | 2024-03-28 16:49 | RAD REPORT ---
EXAMINATION: CT Abdomen Pelvis W Contrast CLINICAL INDICATION: Female, 88 years old. ABD PAIN TECHNIQUE: CT abdomen and pelvis was performed, after the administration of IV contrast, [facility]. Axial, sagittal and coronal reconstructions were obtained. One or more of the following dose reduction techniques were used: Automated exposure control, adjustment of the mA and k V according to patient size, and iterative reconstruction. Unless otherwise specified, incidental findings do not require dedicated imaging follow-up. COMPARISON: 03/19/2024 FINDINGS: LOWER CHEST: The visualized lung bases are clear. LIVER: Stable contour nodularity, with normal size. Stable subcentimeter inferior right lobe hypoatte nuating lesion, not well characterized, may represent a cyst. No focal lesion. BILIARY SYSTEM: No suspicious abnormalities. SPLEEN: Normal size. No focal lesion. PANCREAS: Stable atrophic changes and stable multiple cystic lesions along the body, largest measurin g 1.8 cm. No other suspicious mass, ductal dilation, or anibal-pancreatic fluid. ADRENALS: Normal; no mass. KIDNEYS: Stable size and contour, with. No hydronephrosis. URINARY BLADDER: Unremarkable. GASTROINTESTINAL TRACT: No evidence of free air, significant intra-abdominal free fluid, bowel obstru ction or abscess. APPENDIX: Normal appendix. LYMPH NODES: Multiple stable upper retroperitoneal lymph nodes, measuring up to 1 cm in short axis, n onspecific. MUSCULOSKELETAL: No acute or suspicious osseous abnormality. ADDITIONAL FINDINGS: None. IMPRESSION: No acute or concerning abnormalities seen in the abdomen or pelvis. 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
--- NOTE | 2024-03-28 17:47 | EDPHYS ---
Physician Documentation [facility] Name: Robby Schmid Age: 88 yrs Sex: Female : 1935 Arrival Date: 03/28/2024 Time: 13:12 Bed 16 Private MD: ED Physician Atif Barry HPI: 03/28 15:07 This 88 yrs old Female presents to ER via Wheelchair with complaints of Dizziness, Low rn blood pressure. 15:07 The patient presents with dizziness, feeling faint, generalized weakness, rn lightheadedness. Onset: The symptoms/episode began/occurred today. Modifying factors: The symptoms are alleviated by nothing, the symptoms are aggravated by standing up, changing position. Associated signs and symptoms: Pertinent negatives: abdominal pain, blurred vision, confusion, diaphoresis, shortness of breath, syncope, vomiting. Severity of symptoms: At their worst the symptoms were moderate in the emergency department the symptoms are unchanged. The patient has experienced similar episodes in the past. The patient has been recently seen by a physician:. Pt reports dizziness and low blood pressure, was at Dr. Florian's clinic, sent here for hypotension and dizziness. Denies blood in stool or hematemesis. Reports mild abdominal pain. Generalized weakness without focal weakness or numbness.. Historical: - Allergies: 13:41 Codeine; cm10 13:41 Plavix; cm10 - PMHx: 13:41 Atrial Fib August 2022; CVA; High Cholesterol; Hypertension; Hypothyroidism; UTI; cm10 - PSHx: 13:41 Cholecystectomy; hysterectomy; pacemaker; WATCHMAN PROCEDURE; cm10 - Immunization history:: Adult Immunizations up to date. - Infectious Disease History:: Denies. - Social history:: Smoking status: Patient denies any tobacco usage or history of. - Family history:: not pertinent. - Hospitalizations: : No recent hospitalization is reported. ROS: 15:10 Constitutional: Negative for fever, chills, and weight loss, Cardiovascular: Negative rn for palpitations, and edema Respiratory: Negative for shortness of breath, cough, wheezing, and pleuritic chest pain, Abdomen/GI: Negative for nausea, vomiting, diarrhea, and constipation, MS/Extremity: Negative for injury and deformity, Skin: Negative for injury, rash, and discoloration, Neuro: Negative for headache, numbness, tingling, and seizure, Exam: 15:58 Constitutional: This is a well developed, well nourished patient who is awake, alert, rn and in no acute distress. ENT: Dry mucous membranes Cardiovascular: Regular rate and rhythm. No pulse deficits. Respiratory: No increased work of breathing, no retractions or nasal flaring. Abdomen/GI: Soft, non-tender MS/ Extremity: Pulses equal, no cyanosis. Neuro: Awake and alert, GCS 15 16:02 ECG was reviewed by the Attending Physician. rn Vital Signs: 13:40 BP 108 / 59; Pulse 70; Resp 18; Temp 97.4; Pulse Ox 97% on R/A; Weight 65.77 kg; Height cm10 5 ft. 2 in. ; Pain 5/10; 14:00 BP 91 / 66; Pulse 99; Resp 18; Pulse Ox 95% on R/A; cm10 14:30 BP 91 / 61; Pulse 91; Resp 18; Pulse Ox 95% on R/A; cm10 14:45 BP 105 / 75; Pulse 88; Resp 16; Pulse Ox 97% on R/A; cm10 15:00 BP 99 / 70; Pulse 86; Resp 17; Pulse Ox 97% on R/A; cm10 15:30 BP 126 / 78; Pulse 90; Resp 12; Pulse Ox 96% on R/A; cm10 15:30 BP 129 / 77; Pulse 75; Resp 16; Pulse Ox 98% on R/A; cm10 16:00 BP 112 / 89; Pulse 86; Resp 16; Pulse Ox 97% ; cm10 16:30 BP 132 / 93; Pulse 81; Resp 16; Pulse Ox 98% ; cm10 17:00 BP 123 / 76; Pulse 86; Resp 15; Pulse Ox 97% on R/A; cm10 17:30 BP 137 / 73; Pulse 88; Resp 16; Pulse Ox 95% ; cm10 19:00 BP 116 / 69; Pulse 87; Resp 16; Pulse Ox 95% ; jb4 13:40 Body Mass Index 26.52 (65.77 kg, 157.48 cm) cm10 13:40 Pain Scale: Adult cm10 MDM: 13:18 Medical Screening Exam initiated rn 17:45 Differential diagnosis: hypovolemia, idiopathic dizziness, vertigo, Urinary tract rn infection, dehydration. Data reviewed: vital signs, nurses notes, lab test result(s), EKG, radiologic studies, CT scan, and as a result, I will admit patient. Consideration of Admission/Observation Patient was admitted/placed on observation. Escalation of care including admission/observation considered. Counseling: I had a detailed discussion with the patient and/or guardian regarding the historical points, exam findings, and any diagnostic results supporting the discharge/admit diagnosis, lab results, radiology results, the need for further work-up and treatment in the hospital. Response to treatment: the patient's symptoms have mildly improved after treatment, and as a result, I will admit patient. 03/28 13:19 Order name: Basic Metabolic Panel; Complete Time: 15:12 rn 03/28 13:19 Order name: CBC with Diff; Complete Time: 15:12 rn 03/28 13:19 Order name: LFT's; Complete Time: 15:12 03/28 13:19 Order name: NT PRO-BNP; Complete Time: 15:12 03/28 13:19 Order name: PT-INR; Complete Time: 15:12 03/28 13:19 Order name: Troponin HS; Complete Time: 15:12 03/28 13:19 Order name: Lipase; Complete Time: 15:12 05 13:40 Order name: Blood Culture Adult (2) rn 05 13:40 Order name: Lactate w/ 2H reflex if indic.; Complete Time: 15:12 05 13:40 Order name: Ptt, Activated 03/28 13:41 Order name: Flu; Complete Time: 15:12 05 13:41 Order name: Urinalysis w/ reflexes; Complete Time: 15:57 03/28 14:04 Order name: PTT, Activated Partial Thromb; Complete Time: 15:12 EDMN 03/28 14:30 Order name: Glucose, Ancillary Testing; Complete Time: 15:12 EDMN 03/28 14:31 Order name: Ghost Lactate-NO COLLECT Timer; Complete Time: 16:58 EDMN 03/28 15:43 Order name: Urine Culture EDMN 03/28 17:11 Order name: Lactate Sepsis 2 HR Follow-up EDMN 03/28 13:19 Order name: XRAY Chest (1 view); Complete Time: 15:12 03/28 15:12 Order name: CT Abd/Pelvis - IV Contrast Only; Complete Time: 16:58 rn 03/28 13:19 Order name: Cardiac monitoring; Complete Time: 13:40 rn 03/28 13:19 Order name: EKG - Nurse/Tech; Complete Time: 13:40 rn 03/28 13:19 Order name: IV Saline Lock; Complete Time: 14:01 rn 03/28 13:19 Order name: Labs collected and sent; Complete Time: 14:01 rn 03/28 13:19 Order name: O2 Per Protocol; Complete Time: 13:40 rn 03/28 13:19 Order name: O2 Sat Monitoring; Complete Time: 13:40 rn 03/28 13:40 Order name: Accucheck; Complete Time: 14:30 rn 03/28 13:40 Order name: IV Saline Lock - Large Bore; Complete Time: 14:01 rn 03/28 13:40 Order name: Vital Signs; Complete Time: 14:01 rn EC:02 Rate is 83 beats/min. Rhythm is irregular. QRS [place] is Normal. QT interval is normal. rn No Q waves. T waves are Normal. No ST changes noted. Clinical impression: Demand pacemaker. Interpreted by me. Reviewed by me. Administered Medications: 15:30 Drug: NS 0.9% IV 500 ml IV at bolus once; to be given as a bolus over 30 minutes Route: cm10 IV; Rate: bolus; Site: left forearm; 16:32 Follow up: Response: No adverse reaction; IV Status: Completed infusion; IV Intake: cm10 500ml 18:01 Drug: Rocephin IV 1 grams IV at calculated rate once; Given slow IV push per pharmacy cm10 instructions Route: IV; Rate: calculated rate; Site: left forearm; 19:00 Follow up: Response: No adverse reaction; IV Status: Completed infusion; IV Intake: [id number] Disposition Summary: 03/28/24 17:46 Hospitalization Ordered Notes: Hospitalization Status: Observation rn Provider: Brit Florian [facility] Condition: Stable rn Problem: new rn Symptoms: have improved rn Bed/Room Type: Standard rn Room Assignment: 403(03/28/24 18:25) sp Diagnosis - Hypotension, unspecified rn Forms: - Medication Reconciliation Form rn - SBAR form rn - Leadership Thank You Letter rn Signatures: Dispatcher [employer] EDMS KatlinRuth Ann shepard Roman, MD MD rn Martinez, ZOIE Cali RN cm10 Corrections: (The following items were deleted from the chart) 13:19 13:19 BASIC METABOLIC PANEL+C.LAB.BRZ ordered. EDMS EDMS 13:19 13:19 CBC+H.LAB.BRZ ordered. EDMS EDMS 13:19 13:19 HEPATIC FUNCTION+C.LAB.BRZ ordered. EDMS EDMS 13:19 13:19 PROBNP+C.LAB.BRZ ordered. EDMS EDMS 13:19 13:19 PROTIME (+INR)+COAG.LAB.BRZ ordered. EDMS EDMS 13:19 13:19 Troponin High Sensitivity+C.LAB.BRZ ordered. EDMS EDMS 13:19 13:19 LIPASE+C.LAB.BRZ ordered. EDMS EDMS 13:20 13:20 Chest Single View+RAD.RAD.BRZ ordered. EDMS EDMS 14:04 13:41 COMPREHENSIVE METABOLIC PANEL+C.LAB.BRZ ordered. EDMS EDMS 18:25 17:46 zoie charles
--- NOTE | 2024-03-28 17:47 | ER ---
Nurse's Notes [facility] Name: Robby Schmid Age: 88 yrs Sex: Female : 1935 Arrival Date: 03/28/2024 Time: 13:12 Bed 16 Private MD: Diagnosis: Hypotension, unspecified Presentation: 03/28 13:40 Chief complaint: Patient's son or daughter states: SENT TO THE ED BY DR. MIRANDA FOR LOW cm10 BLOOD PRESSURE AND CHEST PAIN. PT STATES THAT SHE WAS FEELING DIZZY AND WAS HAVING LEFT SIDED CHEST PAIN. PT CURRENTLY DENIES CHEST PAIN AND REPORTS BACK PAIN. Coronavirus screen: Client denies travel out of the [place] in the last 14 days. Ebola Screen: Patient denies travel to an Ebola-affected area in the 21 days before illness onset. No symptoms or risks identified at this time. Initial Sepsis Screen: Does the patient meet any 2 criteria? No. Patient's initial sepsis screen is negative. Does the patient have a suspected source of infection? No. Patient's initial sepsis screen is negative. Risk Assessment: Do you want to hurt yourself or someone else? Patient reports no desire to harm self or others. Onset of symptoms was March 28, 2024. 13:40 Method Of Arrival: Wheelchair cm10 13:40 Acuity: MANJINDER 2 cm10 Triage Assessment: 13:45 General: Appears in no apparent distress. comfortable, Behavior is calm, cooperative. cm10 Pain: Complains of pain in back. Neuro: No deficits noted. Level of Consciousness is awake, alert, obeys commands, Oriented to person, place, time, situation, Appropriate for age. Cardiovascular: No deficits noted. Heart tones present Patient's skin is warm and dry. Respiratory: No deficits noted. Airway is patent Respiratory effort is even, unlabored, Respiratory pattern is regular, symmetrical, Breath sounds are clear bilaterally. Derm: Skin is pale. Historical: - Allergies: 13:41 Codeine; cm10 13:41 Plavix; cm10 - PMHx: 13:41 Atrial Fib August 2022; CVA; High Cholesterol; Hypertension; Hypothyroidism; UTI; cm10 - PSHx: 13:41 Cholecystectomy; hysterectomy; pacemaker; WATCHMAN PROCEDURE; cm10 - Immunization history:: Adult Immunizations up to date. - Infectious Disease History:: Denies. - Social history:: Smoking status: Patient denies any tobacco usage or history of. - Family history:: not pertinent. - Hospitalizations: : No recent hospitalization is reported. Screenin:00 [facility] ED Fall Risk Assessment (Adult) History of falling in the last 3 months, cm10 including since admission No falls in past 3 months (0 pts) Confusion or Disorientation No (0 pts) Intoxicated or Sedated No (0 pts) Impaired Gait Yes (1 pt) Mobility Assist Device Used Yes (1 pt) Altered Elimination Yes (1 pt) Score/Fall Risk Level 3 or more points = High Risk Oriented to surroundings, Maintained a safe environment, Hourly rounding (assess needs \T\ fall precautionary measures) done. Abuse screen: Denies threats or abuse. Denies injuries from another. Nutritional screening: No deficits noted. Tuberculosis screening: No symptoms or risk factors identified. Assessment: 14:30 Reassessment: Patient appears in no apparent distress at this time. No changes from cm10 previously documented assessment. Patient and/or family updated on plan of care and expected duration. Pain level reassessed. Patient is alert, oriented x 3, equal unlabored respirations, skin warm/dry/pink. 15:14 Reassessment: UNSUCCESSFUL ATTEMPT AT STRAIGHT CATH. PT PLACED ON BEDPAN. cm10 16:08 Reassessment: Patient appears in no apparent distress at this time. No changes from cm10 previously documented assessment. Patient and/or family updated on plan of care and expected duration. Pain level reassessed. Patient is alert, oriented x 3, equal unlabored respirations, skin warm/dry/pink. 18:05 Reassessment: Patient appears in no apparent distress at this time. No changes from cm10 previously documented assessment. Patient and/or family updated on plan of care and expected duration. Pain level reassessed. Patient is alert, oriented x 3, equal unlabored respirations, skin warm/dry/pink. 19:00 Reassessment: Patient appears in no apparent distress at this time. Patient and/or jb4 family updated on plan of care and expected duration. Pain level reassessed. Patient is alert, oriented x 3, equal unlabored respirations, skin warm/dry/pink. 19:54 Reassessment: Patient appears in no apparent distress at this time. Patient and/or jb4 family updated on plan of care and expected duration. Pain level reassessed. Patient is alert, oriented x 3, equal unlabored respirations, skin warm/dry/pink. Vital Signs: 13:40 BP 108 / 59; Pulse 70; Resp 18; Temp 97.4; Pulse Ox 97% on R/A; Weight 65.77 kg; Height cm10 5 ft. 2 in. ; Pain 5/10; 14:00 BP 91 / 66; Pulse 99; Resp 18; Pulse Ox 95% on R/A; cm10 14:30 BP 91 / 61; Pulse 91; Resp 18; Pulse Ox 95% on R/A; cm10 14:45 BP 105 / 75; Pulse 88; Resp 16; Pulse Ox 97% on R/A; cm10 15:00 BP 99 / 70; Pulse 86; Resp 17; Pulse Ox 97% on R/A; cm10 15:30 BP 126 / 78; Pulse 90; Resp 12; Pulse Ox 96% on R/A; cm10 15:30 BP 129 / 77; Pulse 75; Resp 16; Pulse Ox 98% on R/A; cm10 16:00 BP 112 / 89; Pulse 86; Resp 16; Pulse Ox 97% ; cm10 16:30 BP 132 / 93; Pulse 81; Resp 16; Pulse Ox 98% ; cm10 17:00 BP 123 / 76; Pulse 86; Resp 15; Pulse Ox 97% on R/A; cm10 17:30 BP 137 / 73; Pulse 88; Resp 16; Pulse Ox 95% ; cm10 19:00 BP 116 / 69; Pulse 87; Resp 16; Pulse Ox 95% ; jb4 13:40 Body Mass Index 26.52 (65.77 kg, 157.48 cm) cm10 13:40 Pain Scale: Adult cm10 ED Course: 13:14 Patient arrived in ED. im 13:18 Atif Barry MD is Attending Physician. rn 13:40 Karely Lehman, LEONOR is Primary Nurse. cm10 13:41 Triage completed. cm10 13:42 Arm band placed on right wrist. Patient placed in an exam room, on a stretcher, on cm10 playground monitor, on pulse oximetry. 13:43 EKG done, by ED staff, reviewed by Atif Barry MD. cm10 13:54 XRAY Chest (1 view) In Process Unspecified. EDMS 13:55 Inserted saline lock: 20 gauge in left forearm, using aseptic technique. Blood cm10 collected. Flushed with 10 mL NS. 13:55 Initial lab(s) drawn, by me, First set of blood cultures drawn by me. Patient maintains cm10 SpO2 saturation greater than 95% on room air. 14:01 Lactate w/ 2H reflex if indic. Sent. cm10 14:01 Ptt, Activated Sent. cm10 14:01 Basic Metabolic Panel Sent. cm10 14:01 CBC with Diff Sent. cm10 14:01 LFT's Sent. cm10 14:01 NT PRO-BNP Sent. cm10 14:01 PT-INR Sent. cm10 14:01 Troponin HS Sent. cm10 14:02 Patient has correct armband on for positive identification. Placed in gown. Bed in low cm10 position. Call light in reach. Side rails up X2. Provided Education on: ER PROCESS AND PROCEDURES. Client placed on continuous cardiac and pulse oximetry monitoring. NIBP monitoring applied. monitoring and evaluation advisor on. 14:20 Second set of blood cultures drawn by me, Flu and/or RSV swab sent to lab. cm10 14:30 Flu Sent. cm10 14:30 Inserted saline lock: 22 gauge in right forearm, using aseptic technique. Blood cm10 collected. Flushed with 10 mL NS. 15:51 CT Abd/Pelvis - IV Contrast Only In Process Unspecified. EDMS 17:46 Brit Miranda MD is Hospitalizing Provider. rn 19:00 REPORT FAXED AT 1855. CALLED AT 1857 X3 WITH NO ANSWER. cm10 19:00 No provider procedures requiring assistance completed. Patient admitted, IV remains in cm10 place. 19:15 Report given to LEONOR TANNER. cm10 Administered Medications: 15:30 Drug: NS 0.9% IV 500 ml IV at bolus once; to be given as a bolus over 30 minutes Route: cm10 IV; Rate: bolus; Site: left forearm; 16:32 Follow up: Response: No adverse reaction; IV Status: Completed infusion; IV Intake: cm10 500ml 18:01 Drug: Rocephin IV 1 grams IV at calculated rate once; Given slow IV push per pharmacy cm10 instructions Route: IV; Rate: calculated rate; Site: left forearm; 19:00 Follow up: Response: No adverse reaction; IV Status: Completed infusion; IV Intake: [id number] Medication: 19:00 VIS not applicable for this client. jb4 Intake: 16:32 IV: 500ml; Total: 500ml. cm10 19:00 IV: 50ml; Total: 550ml. cm10 Outcome: 17:46 Decision to Hospitalize by Provider. rn 19:00 Discharged to home ambulatory, jb4 19:00 Condition: stable 19:00 Discharge instructions given to patient, Instructed on the need for admit, Demonstrated understanding of instructions, 19:55 Patient left the ED. jb4 Signatures: Dispatcher [employer] EDMS Atif Barry MD MD rn Bryson, James, RN RN jb4 Pamela Sarah Clarissa, RN RN cm10 Corrections: (The following items were deleted from the chart) 14:04 14:01 COMPREHENSIVE METABOLIC PANEL+C.LAB.BRZ drawn and sent. 10 EDMD
[2024-03-28] MEDS ORDERED: CEFTRIAXONE 1000 MG/VIAL ONE (17:55)
[2024-03-28] MEDS ORDERED: NA CHLORIDE 0.9% 50 ML ONE (17:56)
[2024-03-28 19:57] VITALS: BMI 26.4
[2024-03-28] MEDS ORDERED: ONDANSETRON 4 MG/2 ML VIAL IV PRN (21:51)
--- NOTE | 2024-03-28 22:21 | HP ---
Date of Admission: 03/28/2024 Chief Complaint: Chest pain, shortness of breath, back pain, nausea. History Of Present Illness: This is an 88-year-old pleasant female patient, who came into office today with her daughter with above-mentioned complaints. The patient is complaining of feeling very weak and tired and she was noticeably appearing extremely weak and tired at office. She has chronic nausea problem which has not changed lately. She is complaining of some lower central chest pain and some mid back pain associated with shortness of breath and she just had hard time getting comfortable. Denies any vomiting or diarrhea. When I saw her at office with all this complaint, her blood pressure was very low. Her blood pressure was 80/55, and when I rechecked her blood pressure, it was 78/50. After I evaluated her, it was recommended for her to come to emergency room, and after she was evaluated in ER, decision was made to admit her to hospital. Allergies: NO KNOWN ALLERGIES. Medications: List reviewed. Review of Systems: Cardiovascular: As mentioned above. GI: As mentioned above. Constitutional: As mentioned above. All other systems reviewed and negative. Past Medical History: Significant for stroke, COPD, allergic rhinitis, hypothyroidism, impaired fasting glucose, hypertension, hyperlipidemia which is mixed, paroxysmal atrial fibrillation, osteoarthritis at multiple sites, restless legs syndrome, pancreatic cyst, liver cyst. Past Surgical History: Pacemaker placement on August 26, 2022, Watchman's procedure done in January 2024, cholecystectomy, hysterectomy, right hip fracture, for which she had surgery done in 2020. Family History: Father had diabetes, hypertension. Mother had breast cancer, hypertension. Brother had diabetes, hypertension. Sister had diabetes. Social History: Negative for smoking and alcohol use. Physical Examination: Vital Signs: Blood pressure 80/55, pulse 73, respiratory rate 20, temperature 97.4, weight 145 pounds, height 61 inches. General: Awake, alert, oriented, not in distress. HEENT: Head atraumatic, normocephalic. Conjunctivae nonerythematous. Sclerae white. Mouth, no thrush or edema noted. Ears/Nose, no mass, lesion, discharge noted. Neck: Supple. No JVD, lymph nodes, bruit, thyromegaly noted. Lungs: Bilateral good equal air entry. Clear to auscultation. No rhonchi. No rales. Heart: Normal heart sounds, no murmur or gallop. Abdomen: Soft, bowel sounds normal. No guarding, rigidity, tenderness, mass, hepatosplenomegaly, distention, or bruit noted. Extremities: No leg edema. No calf tenderness. Skin: No rash, ulcer, cellulitis. Lymphatics: No lymph node enlargement in neck, supraclavicular, infraclavicular region. Neuro: No focal neurological deficit. Chest: Unremarkable. External Genitalia: Deferred. Rectal: Deferred. Laboratory Data: Urinalysis; 20 to 50 wbc, 500 leukocytes, rest of the urinalysis was negative. Chest x-ray, no acute cardiopulmonary changes. CAT scan of the abdomen and pelvis showed evidence of pancreatic cyst and liver cyst, unchanged from prior imaging studies. WBC 6.9, hemoglobin 14.7, platelets 176. Sodium 137, potassium 4.1, chloride 106, bicarb 23, BUN 17, creatinine 1.26, glucose 123. Lactic acid; initial lactic acid 3.3, repeat lactic acid 2.1. Lipase 20. Troponin 11.7, AST 99, ALT 106. Impression: 1. Hypotension. 2. Chest pain. 3. Pancreatic cyst. 4. Liver cyst. 5. Paroxysmal atrial fibrillation. 6. Hypertension. 7. Mixed hyperlipidemia. 8. Hypothyroidism. 9. Osteoarthritis, multiple sites. 10. Restless legs syndrome. 11. Urinary tract infection. Plan: We will go ahead and admit the patient to hospital for further evaluation and management of this problem. The patient is appropriate for inpatient and is expected to spend 2 midnights in the hospital. The patient's exact etiology for low blood pressure is not quite clear. There is no evidence of any acute myocardial infarction and imaging studies done today has not shown any definite problem to explain her low blood pressure problem. We will get serial cardiac enzymes. We will repeat blood work tomorrow morning. IV fluid will be given per order. For hyperlipidemia, we will continue her statin therapy. No need for further intervention. For hypothyroidism, we will continue her levothyroxine per order and no need for further intervention. COPD problem is stable and will not require any further intervention. She is on chronic pain medications and one has to definitely think about possibility of chronic pain medication contributing to this low blood pressure problem. The patient will need to follow up with her statuary painter for this. Total time spent today 85 minutes including evaluation and management at office, communication with emergency room physician, management for hospital admission, and review of prior office visit record. SAPNA/SALOME Voice ID: [id number] GARO
[2024-03-28] MEDS: NA CHLORIDE 0.9% 1,000 ML IV SCH (23:19)
[2024-03-29 06:26] LABS: Absolute Eosinophils 0.1 K/uL (0-0.5); Absolute Lymphocytes (CBC) 1.7 K/uL (0.7-4.9); Absolute Monocytes 0.5 K/uL (0.1-1.3); Basophils % 0.3 % (0-1.3); Hematocrit 37.7 % (36.0-45.0); Hemoglobin 13.1 g/dL (12.0-15.0); Lymphocytes % 26.6 % (15.3-44.8); MCH 32.5 pg (27.0-35.0); MCHC 34.8 g/dL (32.0-36.0); MCV 93.3 fL (80-100); MPV 7.8 fL (7.6-11.3); Monocytes % 7.7 % (3.3-12.3); Neutrophils % 63.4 % (41.7-73.7); Nucleated Red Blood Cells % 0.1 % (0-0); Platelets 146 thou/uL (152-406); RBC Red Blood Cell Count 4.04 M/uL (3.86-4.86)
[2024-03-29 06:28] LABS: Anion Gap 7.7 mEq/L (5.0-15.0); Potassium 3.7 mEq/L (3.5-5.1)
[2024-03-29] MEDS: CEFTRIAXONE 1,000 MG in NA CHLORIDE 0.9% 50 ML IVPB SCH (08:02)
[2024-03-29 09:51] VITALS: TEMP 97.5
[2024-03-29 09:56] VITALS: O2SAT 92
[2024-03-29 12:17] VITALS: BP 122/65
--- NOTE | 2024-03-30 05:04 | DS ---
Date of Discharge: 03/29/2024 Disposition: Discharged to go home. Physical Examination: HEENT: Unremarkable. Lungs: Clear to auscultation. Heart: Sounds normal. Abdomen: Soft. Bowel sounds normal. No guarding, rigidity, tenderness, or distention. Extremities: No leg edema. Laboratory Data: Yesterday, white count 6.9, hemoglobin 14.7, platelets 176. This morning, white count 6.3, hemoglobin 13.1, platelets 146. Her chemistry yesterday, sodium 137, potassium 4.1, chloride 106, bicarb 23, BUN 17, creatinine 1.26, glucose 123, lactic acid 3.3, repeat lactic acid 2.1, total bilirubin 0.4, AST 99, ALT 106, alkaline phosphatase 133. Troponin 11.7. ProBNP 1233, lipase 20. This morning, sodium 140, potassium 3.7, chloride 110, bicarb 26, BUN 19, creatinine 0.75, glucose 112. Hospital Course: This is an 89-year-old pleasant female patient, who came into office yesterday with her daughter and was complaining of chest pain, shortness of breath, nausea, and back pain. Please see dictated H and P for more information. After the patient was evaluated at office, she was sent to emergency room where further evaluation was done and subsequently the patient was admitted to the hospital. Her blood pressure which was low yesterday at office as low as 78/50 and she felt very weak and tired with other complaints. After she came into emergency room, we started her on IV fluid. Her urinalysis had shown some abnormality indicating early signs of urinary tract infection and IV ceftriaxone was started. So far, she has received 2 doses of this antibiotic. This morning when I saw her, she is feeling better, looking a lot better. Her daughter was with her at bedside. Her vital signs this morning, last temperature was 97.5, pulse 72, respiratory rate 14, blood pressure 113/58, oxygen saturation was 92%. Urine culture was sent from emergency room which came back negative. This morning, the patient does not have any complaints of any chest pain or shortness of breath. Overall, she feels better, looks lot better, and she will be discharged to go home in stable condition with following discharge medications and instructions: Discharge Medications And Instructions: 1. Continue all prior home medications. 2. Start new medication which is antibiotic cefpodoxime 100 mg take 1 tablet by mouth 2 times a day with food for 1 week. 3. Follow up at my office next week. 4. Follow with your paint and table edger, Dr. Sagastume, as per your appointment this month and I have informed the patient's daughter to check blood pressure 2 times a day and take those blood pressure readings to his office as well as when she comes to see me, bring it to my office as well. I have asked daughter to communicate with Dr. Sagastume to see if her pain medication dose needs to be reduced or not depending on her blood pressure readings. Discharge Diagnoses: 1. Volume depletion. 2. Hypotension. 3. Chest pain. 4. Pancreatic cyst. 5. Liver cyst. 6. Paroxysmal atrial fibrillation. 7. Hypertension. 8. Mixed hyperlipidemia. 9. Hypothyroidism. 10. Osteoarthritis, multiple sites. 11. Restless legs syndrome. 12. Urinary tract infection. Total time spent today was 40 minutes. SAPNA/SALOME Voice ID: [id number] Report ID: [id number] MTDD
== END 2024-03-29 11:40 | disposition home or self-care (01) ==
LOC: ER 13:12 → ERHOLD 17:59 → 4TH 18:52
PROVIDERS: ADMIT Internal Medicine; ATTEND Internal Medicine
DX: E86.9 Volume depletion, unspecified (principal); N39.0 Urinary tract infection, site not specified; R07.9 Chest pain, unspecified; R06.02 Shortness of breath; M54.9 Dorsalgia, unspecified; R11.0 Nausea; R53.1 Weakness; I95.9 Hypotension, unspecified; K86.2 Cyst of pancreas; K76.89 Other specified diseases of liver; I48.0 Paroxysmal atrial fibrillation; I10 Essential (primary) hypertension; E78.2 Mixed hyperlipidemia; E03.9 Hypothyroidism, unspecified; M19.90 Unspecified osteoarthritis, unspecified site; G25.81 Restless legs syndrome; J44.9 Chronic obstructive pulmonary disease, unspecified; Z86.73 Personal history of transient ischemic attack (TIA), and cerebral infarction without residual deficits
CPT/HCPCS: 96365; 96361; 87040 ×2; 85025 ×2; 81001; 87086; 80048 ×2; 36415; 85610; 82947; 80076; 83605 ×2; 85730; 84484; 83690; 83880; 87804 ×2; 74177; 71045; 99285; Q9967; J7040; J7030; J0696 ×2; 87088; G0378

== ENCOUNTER 2024-07-08 12:19 | Observation (INO) | payer OTHER, MEDICARE ==
--- OUTSIDE RECORDS SUMMARY | 2024-07-08 12:21 | XMS REPORT | Clinical Summary ---
Author Name Unknown Organization [facility] [place] Address [address] [place] [address] Care Team Providers Care Superintendent Meter Tests Name Role Phone Talia Panda MD Primary Care Provider [phone] Davion Florian MD Unavailable [phone] Allergies Active Allergy Reactions Criticality Noted [...] (10 mg) by mouth daily. 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 Coordinator Expl anation Advance Directives: Living Will 01/05/2023 Directive to Physici ans and Family or Surrogates-Living Will Advance Directives: Medical Power of Finger Grip Machine Operator 01/05/2023 Medical Power of Att orney Care Teams Superintendent Meter Tests Relationship Specialty Start Date End Date Talia Panda MD [address] [place] [address] [email or web address] - General Surgical Oncology 12/28/22 Davion Florian MD [address] [place] [phone] [email or web address] - External Primary Care Provider Internal Medicine 12/28/22
[2024-07-08] MEDS ORDERED: NA CHLORIDE 0.9% 1,000 ML ONE ×2 (13:00→18:32)
[2024-07-08 13:46] LABS: Absolute Lymphocytes (CBC) 1.7 K/uL (0.7-4.9); Absolute Monocytes 0.4 K/uL (0.1-1.3); Absolute Neutrophil 3.8 K/uL (1.8-8.0); Basophils % 0.4 % (0-1.3); Eosinophils % 0.6 % (0-4.4); Hematocrit 45.4 % (36.0-45.0); Hemoglobin 15.9 g/dL (12.0-15.0); Lymphocytes % 28.1 % (15.3-44.8); MCH 33.5 pg (27.0-35.0); MCV 95.9 fL (80-100); MPV 7.9 fL (7.6-11.3); Monocytes % 6.4 % (3.3-12.3); Neutrophils % 64.5 % (41.7-73.7); Nucleated Red Blood Cells % 0.1 % (0-0); Platelets 158 thou/uL (152-406); RBC Red Blood Cell Count 4.73 M/uL (3.86-4.86); Red Cell Distribution Width 13.5 % (12.1-15.2)
[2024-07-08 13:50] LABS: PT Prothrombin Time 11.9 SECONDS (10-13.0); Protime INR 1.05
--- NOTE | 2024-07-08 14:12 | RAD REPORT ---
EXAMINATION: CT ABDOMEN AND PELVIS WITH CONTRAST CLINICAL INDICATION: Female, 89 years old.vomiting/diarrhea;Abd pain TECHNIQUE: CT abdomen and pelvis was performed, after the administration of IV contrast, as per [facility] protocol. Axial, sagittal and coronal reconstructions were obtained. One or more of the following dose reduction techniques were used: Automated exposure control, adjustment of the mA and/o r kV according to patient size, and/or iterative reconstruction. Unless otherwise specified, incidental findings do not require dedicated imaging follow-up. [id number]. COMPARISON: 03/28/2024 FINDINGS: LOWER CHEST: No acute process identified.No significant pericardial effusion. Moderate coronary arter y calcifications.Small hiatal hernia. UPPER GI: No significant abnormality. LIVER: Hepatic steatosis. Benign appearing and/or stable lesions are identified. No suspicious mass. GALLBLADDER/BILE DUCTS: Cholecystectomy. Moderate extrahepatic biliary ductal dilatation. This could be secondary to the post-cholecystectomy state. Recommend correlation with LFT's. If abnormal, consider MRCP for further evaluation. ? PANCREAS: Similar cystic pancreatic lesions with pronounced atrophy. SPLEEN: Unremarkable. ADRENALS: No adrenal masses. KIDNEYS AND URETERS: No hydronephrosis.Low density and/or too small to characterize renal lesions whi ch are statistically benign. ABDOMINAL AORTA AND OTHER VESSELS: Mild atherosclerotic changes. PERITONEUM: No abnormal free fluid. No free air. LYMPH NODES: Mildly enlarged upper abdominal lymph nodes are similar. ABDOMINAL WALL: Unremarkable SMALL BOWEL/COLON: Small bowel has normal course and caliber. No colonic wall thickening or pericolon ic inflammatory changes.No appendicitis. Mild diverticulosis without diverticulitis. URINARY BLADDER: Underdistended but grossly unremarkable. REPRODUCTIVE ORGANS: No pathologic process. MUSCULOSKELETAL: Right hip arthroplasty. No acute fracture. ADDITIONAL FINDINGS: None. IMPRESSION: No acute findings within the abdomen or pelvis. Incidental findings as noted above.
[2024-07-08 14:15] LABS: ALT/SGPT 84 U/L (13-56); Albumin 3.2 g/dL (3.4-5.0); Albumin/Globulin Ratio 0.7 (1.1-1.8); Alkaline Phosphatase 151 U/L (45-117); Anion Gap 14.1 mEq/L (5.0-15.0); BUN Blood Urea Nitrogen 15 mg/dL (7-18); Bicarbonate 21 mEq/L (21-32); Bilirubin Total 0.5 mg/dL (0.2-1.0); Globulin 4.6 g/dL (2.3-3.5); Glomerular Filtration Rate 54 ml/min (=/>90); Glucose Level 152 mg/dL (74-106); Lipase 17 U/L (13-75); NT PRO-BNP 903 pg/mL (<450); Protein, Total 7.8 g/dL (6.4-8.2); Sodium Level 138 mEq/L (136-145); Troponin High Sensitivity 9.4 pg/mL (<58.9)
[2024-07-08 14:16] LABS: AST/SGOT 80 U/L (15-37); Bilirubin Direct < 0.2 mg/dL (0-0.2); Bilirubin Indirect, Calculated 0.3 mg/dL (0.2-0.8); Magnesium 2.3 mg/dL (1.6-2.4); Potassium 3.1 mEq/L (3.5-5.1)
--- NOTE | 2024-07-08 14:45 | ER ---
Nurse's Notes [facility] Name: Robby Schmid Age: 89 yrs Sex: Female : 1935 Arrival Date: 07/08/2024 Time: 12:19 Bed 17 Private MD: Diagnosis: Dehydration, diarrhea, lactic acidosis, hypokalemia Presentation: 07/08 12:31 Chief complaint: EMS states: diarrhea that began yesterday and vomiting that began aa5 today, reports pt was found pale and diaphoretic sitting on toilet, initial BP was 76/43 and improved to 128/73 after 1L NS bolus IV. Coronavirus screen: diarrhea, nausea, vomiting. Ebola Screen: Patient denies travel to an Ebola-affected area in the 21 days before illness onset. Initial Sepsis Screen: Does the patient meet any 2 criteria? No. Patient's initial sepsis screen is negative. Does the patient have a suspected source of infection? No. Patient's initial sepsis screen is negative. Risk Assessment: Do you want to hurt yourself or someone else? Patient reports no desire to harm self or others. Onset of symptoms was June 2024. 12:31 Acuity: MANJINDER 2 aa5 12:31 Method Of Arrival: EMS: [facility] [place] [place] [facility] aa5 12:31 Care prior to arrival: Medication(s) given: Normal saline infusion, 1000 mL, zofran 4 aa5 mg, IV initiated. 18 GA, in the right antecubital area, Glucose check: 93. Historical: - Allergies: 12:34 Codeine; aa5 12:34 Plavix; aa5 - Home Meds: 12:34 buprenorphine transdermal [Active]; aa5 - PMHx: 12:34 Atrial Fib August 2022; CVA; High Cholesterol; Hypertension; Hypothyroidism; UTI; Chronic aa5 pain; - PSHx: 12:34 Cholecystectomy; hysterectomy; pacemaker; watchman procedure; aa5 Screenin:31 [facility] ED Fall Risk Assessment (Adult) History of falling in the last 3 months, aa5 including since admission No falls in past 3 months (0 pts) Confusion or Disorientation No (0 pts) Intoxicated or Sedated No (0 pts) Impaired Gait Yes (1 pt) Mobility Assist Device Used Yes (1 pt) Altered Elimination No (0 pt) Score/Fall Risk Level 0 - 2 = Low Risk Oriented to surroundings, Maintained a safe environment, Educated pt \T\ family on fall prevention, incl call for assistance when getting out of bed, Assessed \T\ reinforced patient's understanding of fall precautions. Abuse screen: Denies threats or abuse. Nutritional screening: No deficits noted. Tuberculosis screening: No symptoms or risk factors identified. Assessment: 12:31 General: Appears uncomfortable, Behavior is calm, cooperative. Pain: Complains of pain aa5 in right upper quadrant, left upper quadrant, right lower quadrant and left lower quadrant Pain currently is 2 out of 10 on a pain scale. Quality of pain is described as aching, dull, Is intermittent. Neuro: Level of Consciousness is awake, alert, obeys commands, Oriented to person, place, time, situation. Cardiovascular: Heart tones S1 S2 present Patient's skin is warm and dry. Rhythm is paced. Respiratory: Airway is patent Respiratory effort is even, unlabored, Respiratory pattern is regular, symmetrical. GI: Abdomen is round non-distended, Bowel sounds present X 4 quads. Abd is soft and non tender X 4 quads. Reports diarrhea, nausea, vomiting. : No signs and/or symptoms were reported regarding the genitourinary system. EENT: No signs and/or symptoms were reported regarding the EENT system. Derm: Skin is pink, warm \T\ dry. Musculoskeletal: Range of motion: intact in all extremities. 14:03 Reassessment: Patient is alert, oriented x 3, equal unlabored respirations, skin aa5 warm/dry/pink. Pt back from CT scan . 14:33 Reassessment: Patient is alert, oriented x 3, equal unlabored respirations, skin aa5 warm/dry/pink. 15:38 Reassessment: Patient is alert, oriented x 3, equal unlabored respirations, skin aa5 warm/dry/pink. 16:30 Reassessment: Patient is alert, oriented x 3, equal unlabored respirations, skin aa5 warm/dry/pink. 18:00 Reassessment: Patient is alert, oriented x 3, equal unlabored respirations, skin aa5 warm/dry/pink. 18:40 Reassessment: Patient is alert, oriented x 3, equal unlabored respirations, skin aa5 warm/dry/pink. Vital Signs: 12:31 BP 130 / 61; Pulse 81; Resp 14 S; Temp 99.1(TE); Pulse Ox 99% on R/A; aa5 14:03 BP 130 / 75; Pulse 108; Resp 14 S; Pulse Ox 99% on R/A; aa5 15:00 BP 124 / 81; Pulse 81; Resp 16 S; Pulse Ox 98% on R/A; aa5 16:30 BP 124 / 81; Pulse 87; Resp 16 S; Pulse Ox 98% on R/A; aa5 18:40 BP 148 / 62; Pulse 75; Resp 16 S; Temp 97.6(TE); Pulse Ox 98% on R/A; aa5 ED Course: 12:31 Patient arrived in ED. aa5 12:31 Munira Green MD is Attending Physician. sp3 12:31 Arm band placed on Patient placed in an exam room, on a stretcher. aa5 12:31 Patient has correct armband on for positive identification. Placed in gown. Bed in low aa5 position. Call light in reach. Side rails up X2. Client placed on continuous cardiac and pulse oximetry monitoring. NIBP monitoring applied. nut grader on. Pulse ox on. NIBP on. 12:33 Triage completed. aa5 12:36 Jacklyn Garrett, LEONOR is Primary Nurse. aa5 13:30 Missed attempt(s): 20 gauge in left antecubital area. Bleeding controlled, band aid aa5 applied, catheter tip intact. 13:32 Missed attempt(s): 22 gauge in left forearm. Bleeding controlled, band aid applied, aa5 catheter tip intact. 13:36 Initial lab(s) drawn, by me, sent to lab. Inserted saline lock: 22 gauge in left aa5 forearm, using aseptic technique. Blood collected. Flushed with 10 mL NS. 13:55 CT Abd/Pelvis - IV Contrast Only In Process Unspecified. EDMS 14:44 Davion Florian MD is Hospitalizing Provider. sp3 19:21 No provider procedures requiring assistance completed. Patient admitted, IV remains in rg5 place. intact, No redness/swelling at site. 19:22 Provided Education on: needs for admit. rg5 Administered Medications: 14:03 Drug: NS 0.9% IV 500 ml IV at bolus once; to be given as a bolus over 30 minutes. VO at aa5 1400 Route: IV; Rate: bolus; Site: left forearm; 14:33 Follow up: IV Status: Completed infusion; IV Intake: 500ml aa5 15:38 Drug: Potassium Chloride IV 20 mEq IV at calculated rate once; administer over 1-2 aa5 hours Route: IV; Rate: calculated rate; Site: left forearm; 18:40 Follow up: IV Status: Completed infusion aa5 15:38 Drug: NS 0.9% IV 1000 ml IV at 125 ml/hr Per protocol; to be given as a bolus over 60 aa5 minutes Route: IV; Rate: 125 ml/hr; Site: left forearm; 19:00 Follow up: IV Status: Completed infusion; IV Intake: 1000ml rg5 16:49 CANCELLED (Physician Discretion): ns 0.9% 1000 ml IV at 1 bolus Per protocol; to be aa5 given as a bolus over 60 minutes Medication: 16:13 VIS not applicable for this client. aa5 Intake: 14:33 IV: 500ml; Total: 500ml. aa5 19:00 IV: 1000ml; Total: 1500ml. rg5 Outcome: 14:45 Decision to Hospitalize by Provider. sp3 19:21 Admitted to Med/surg accompanied by tech, via stretcher, rg5 19:21 Condition: stable 19:21 Instructed on the need for admit, 19:22 Patient left the ED. rg5 Signatures: Dispatcher [employer] EDJacklyn Adames, RN RN aa5 Munira Green MD MD sp3 Nura Blanton RN RN rg5 Corrections: (The following items were deleted from the chart) 16:49 14:03 NS 0.9% IV 1000 ml IV at 1 bolus in left forearm aa5 aa5
--- NOTE | 2024-07-08 14:45 | EDPHYS ---
Physician Documentation [facility] Name: Robby Schmid Age: 89 yrs Sex: Female : 1935 Arrival Date: 07/08/2024 Time: 12:19 Bed 17 Private MD: ED Physician Munira Green HPI: 07/08 13:43 This 89 yrs old Female presents to ER via EMS with complaints of Vomiting/Diarrhea. sp3 13:43 89-year-old female with history of atrial fibrillation, hyperlipidemia, hypertension, sp3 chronic pain that presents to the ED with chief complaint vomiting and diarrhea started over 3 days. Diarrhea started 3 days ago and vomiting today with no blood or mucus noted. Mild abdominal pain cramping in nature off and on as well. Patient states she feels "dehydrated". States that she has had similar episodes in the past. Review of system negative for headache, fever, URI symptoms, chest pain, shortness of breath, back pain, dysuria, syncope, near syncope, focal neurological deficit, or any other signs or symptoms on ROS at this time.. Historical: - Allergies: 12:34 Codeine; aa5 12:34 Plavix; aa5 - Home Meds: 12:34 buprenorphine transdermal [Active]; aa5 - PMHx: 12:34 Atrial Fib August 2022; CVA; High Cholesterol; Hypertension; Hypothyroidism; UTI; Chronic aa5 pain; - PSHx: 12:34 Cholecystectomy; hysterectomy; pacemaker; watchman procedure; aa5 ROS: 13:45 Constitutional: Negative for fever, chills, and weight loss, Eyes: Negative for injury, sp3 pain, redness, and discharge, ENT: Negative for injury, pain, and discharge, Neck: Negative for injury, pain, and swelling, Cardiovascular: Negative for chest pain, palpitations, and edema, Respiratory: Negative for shortness of breath, cough, wheezing, and pleuritic chest pain, Back: Negative for injury and pain, : Negative for injury, bleeding, discharge, and swelling, MS/Extremity: Negative for injury and deformity, Skin: Negative for injury, rash, and discoloration, Neuro: Negative for headache, weakness, numbness, tingling, and seizure, Psych: Negative for depression, anxiety, suicide ideation, homicidal ideation, and hallucinations, Allergy/Immunology: Negative for hives, rash, and allergies, Endocrine: Negative for neck swelling, polydipsia, polyuria, polyphagia, and marked weight changes, Hematologic/Lymphatic: Negative for swollen nodes, abnormal bleeding, and unusual bruising, 13:45 All other systems are negative, Exam: 13:45 Constitutional: This is a well developed, well nourished patient who is awake, alert, sp3 and in no acute distress. Head/Face: Normocephalic, atraumatic. Eyes: Pupils equal round and reactive to light, extra-ocular motions intact. Lids and lashes normal. Conjunctiva and sclera are non-icteric and not injected. Cornea within normal limits. Periorbital areas with no swelling, redness, or edema. ENT: Nares patent. No nasal discharge, no septal abnormalities noted. External auditory canals are clear. Oropharynx with no redness, swelling, or masses, exudates, or evidence of obstruction, uvula midline. Mucous membranes moist. Neck: Trachea midline, no thyromegaly or masses palpated, and no cervical lymphadenopathy. Supple, full range of motion without nuchal rigidity, or vertebral point tenderness. No Meningismus. Chest/axilla: Normal chest wall appearance and motion. Nontender with no deformity. No lesions are appreciated. Respiratory: Lungs have equal breath sounds bilaterally, clear to auscultation and percussion. No rales, rhonchi or wheezes noted. No increased work of breathing, no retractions or nasal flaring. Back: No spinal tenderness. No costovertebral tenderness. Full range of motion. Skin: Warm, dry with normal turgor. Normal color with no rashes, no lesions, and no evidence of cellulitis. MS/ Extremity: Pulses equal, no cyanosis. Neurovascular intact. Full, normal range of motion. Neuro: Awake and alert, GCS 15, oriented to person, place, time, and situation. Cranial nerves II-XII grossly intact. Motor strength 5/5 in all extremities. Sensory grossly intact. Cerebellar exam normal. Normal gait. Psych: Awake, alert, with orientation to person, place and time. Behavior, mood, and affect are within normal limits. 13:45 Cardiovascular: Atrial fibrillation with ventricular response at 81 bpm with no other abnormalities., 13:45 ECG was reviewed by the Attending Physician. EKG demonstrates atrial fibrillation at 94 bpm with QTc of 497, normal axis, nonspecific diffuse ST/T changes without evidence of acute ischemia limited by fibrillation effect. 13:45 Abdomen/GI: Mild diffuse abdominal pain to palpation without peritoneal signs, rebound or guarding., Vital Signs: 12:31 BP 130 / 61; Pulse 81; Resp 14 S; Temp 99.1(TE); Pulse Ox 99% on R/A; aa5 14:03 BP 130 / 75; Pulse 108; Resp 14 S; Pulse Ox 99% on R/A; aa5 15:00 BP 124 / 81; Pulse 81; Resp 16 S; Pulse Ox 98% on R/A; aa5 16:30 BP 124 / 81; Pulse 87; Resp 16 S; Pulse Ox 98% on R/A; aa5 18:40 BP 148 / 62; Pulse 75; Resp 16 S; Temp 97.6(TE); Pulse Ox 98% on R/A; aa5 MDM: 12:31 Medical Screening Exam initiated sp3 13:46 Data reviewed: vital signs, nurses notes, old medical records, lab test result(s), EKG, sp3 radiologic studies. ED course: 89-year-old female with PMH above now with abdominal pain, vomiting and diarrhea. Differential diagnosis includes viral gastroenteritis, bacterial gastroenteritis, other inflammatory bowel process, foodborne illness, among others. I am not highly suspicious of sepsis, shock, ACS, EDUCATION MANAGER or pathology, or any other critical process at this time. Workup will include general labs, IV fluids, CT scan of the abdomen pelvis with IV contrast and general supportive care. Disposition pending workup and patient course.. 14:44 ED course: Back elevated 4.5 with low potassium. I discussed the case with Dr. Florian her sp3 PCP and we will be admitting for continued care and hydration.. 07/08 12:59 Order name: Basic Metabolic Panel; Complete Time: 14: sp3 07/08 12:59 Order name: CBC with Diff; Complete Time: 14: sp3 07/08 12:59 Order name: LFT's; Complete Time: 14: sp3 07/08 12:59 Order name: Magnesium; Complete Time: 14: sp3 07/08 12:59 Order name: NT PRO-BNP; Complete Time: 14: sp3 07/08 12:59 Order name: PT-INR; Complete Time: 14:15 sp3 07/08 12:59 Order name: Troponin HS; Complete Time: 14:23 sp3 07/08 12:59 Order name: Lipase; Complete Time: 14:23 sp3 07/08 12:59 Order name: Lactate w/ 2H reflex if indic.; Complete Time: 14:23 3 07/08 14:25 Order name: Ghost Lactate-NO COLLECT Timer EDMS 07/08 15:02 Order name: CBC with Automated Diff EDMS 07/08 15:02 Order name: CBC with Automated Diff EDMS 07/08 15:02 Order name: Comprehensive Metabolic Panel EDMS 07/08 15:02 Order name: Comprehensive Metabolic Panel EDMS 07/08 12:59 Order name: CT Abd/Pelvis - IV Contrast Only; Complete Time: 14:15 sp3 07/08 12:59 Order name: EKG; Complete Time: 12:59 sp3 07/08 12:59 Order name: Cardiac monitoring; Complete Time: 13:40 3 07/08 12:59 Order name: EKG - Nurse/Tech; Complete Time: 13:40 sp3 07/08 12:59 Order name: IV Saline Lock; Complete Time: 13:40 sp3 07/08 12:59 Order name: Labs collected and sent; Complete Time: 13:40 3 07/08 12:59 Order name: O2 Sat Monitoring; Complete Time: 13:40 sp3 Administered Medications: 14:03 Drug: NS 0.9% IV 500 ml IV at bolus once; to be given as a bolus over 30 minutes. VO at aa5 1400 Route: IV; Rate: bolus; Site: left forearm; 14:33 Follow up: IV Status: Completed infusion; IV Intake: 500ml aa5 15:38 Drug: Potassium Chloride IV 20 mEq IV at calculated rate once; administer over 1-2 aa5 hours Route: IV; Rate: calculated rate; Site: left forearm; 18:40 Follow up: IV Status: Completed infusion aa5 15:38 Drug: NS 0.9% IV 1000 ml IV at 125 ml/hr Per protocol; to be given as a bolus over 60 aa5 minutes Route: IV; Rate: 125 ml/hr; Site: left forearm; 19:00 Follow up: IV Status: Completed infusion; IV Intake: 1000ml rg5 16:49 CANCELLED (Physician Discretion): ns 0.9% 1000 ml IV at 1 bolus Per protocol; to be aa5 given as a bolus over 60 minutes Disposition Summary: 07/08/24 14:45 Hospitalization Ordered Notes: Hospitalization Status: Inpatient Admission sp3 Provider: Davion Florian sp3 Condition: Stable sp3 Problem: an acute exacerbation sp3 Symptoms: have worsened sp3 Bed/Room Type: Standard sp3 Location: Telemetry/MedSurg (Inpatient)(07/08/24 18:07) bd Room Assignment: [facility](07/08/24 18:07) Diagnosis - Dehydration, diarrhea, lactic acidosis, hypokalemia sp3 Forms: - Medication Reconciliation Form sp3 - SBAR form sp3 - Leadership Thank You Letter sp3 Critical care time excluding procedures: 14:45 Critical care time: Bedside Care: 10 minutes, Consultation: 10 minutes, Family sp3 Intervention: 10 minutes. Total time: 30 minutes Signatures: Dispatcher [employer] EDMS Flora Urrutia Audri RN RN aa5 Munira Green MD MD sp3 Yana Medrano RN RN kb3 Nura Blanton RN rg5 Corrections: (The following items were deleted from the chart) 12:59 12:59 Abdomen Pelvis W Con+CT.RAD.BRZ ordered. EDMI EDMI 16:19 14:45 Telemetry/MedSurg (Inpatient) sp3 kb3 16:19 14:45 sp3 kb3 16:49 12:59 NS 0.9% IV 1000 ml IV at 1 bolus Per protocol; to be given as a bolus over 60 aa5 minutes ordered. sp3 16:49 14:03 NS 0.9% IV 1000 ml IV at 1 bolus Per protocol; to be given as a bolus over 60 aa5 minutes given. aa5 16:49 16:49 NS 0.9% IV 1000 ml IV at 1 bolus Per protocol; to be given as a bolus over 60 aa5 minutes ordered. aa5 18:07 16:19 [facility] ER HOLD kb3 bd 18:07 16:19 ERHOLD- kb3 bd
[2024-07-08] MEDS ORDERED: KCL 20 MEQ/100 mL IVPB 100 ML IV ONE (15:30)
[2024-07-08] MEDS: NA CHLORIDE 0.9% 1,000 ML IV SCH (18:40)
[2024-07-08 20:04] VITALS: O2SAT 98
[2024-07-08 21:41] VITALS: BMI 25.4
--- NOTE | 2024-07-09 01:17 | HP ---
Date of Admission: 07/08/2024 Chief Complaint: Nausea, vomiting, diarrhea. History Of Present Illness: This is an 89-year-old pleasant female patient, who lives at home with h er daughter, has history of chronic constipation, for which she takes some [id number] stool sof tener 1 or 2 tablets a day and when it does not work, she takes MiraLAX, so that is exactly what happ ened that stool softener was not working, so this past Monday, 3 days ago, she took MiraLAX and she e nded up having bad diarrhea after taking that and diarrhea problem continued and as of this morning, she started to have nausea and vomiting. Denies any abdominal pain or fever. No blood in stool. No hematemesis. The patient's daughter reports that she probably had more than 10 bowel movements in l ast 3 days and it was loose watery stool. After she was evaluated in emergency room, she was admitte d to hospital with lactic acidosis and volume depletion problem. Physical Examination: Vital Signs: Height 5 feet inches, weight pounds, temperature , puls e , blood pressure , respiratory rate , oxygen saturation . General: Awake, alert, oriented, not in distress. HEENT: Head atraumatic, normocephalic. Conjunctivae nonerythematous. Sclerae white. Mouth, no thr ush or edema noted. Ears/Nose, no mass, lesion, discharge noted. Neck: Supple. No JVD, lymph nodes, bruit, thyromegaly noted. Lungs: Bilateral good equal air entry. Clear to auscultation. No rhonchi. No rales. Heart: Normal heart sounds, no murmur or gallop. Abdomen: Soft, bowel sounds normal. No guarding, rigidity, tenderness, mass, hepatosplenomegaly, dis tention, or bruit noted. Extremities: No leg edema. No calf tenderness. Skin: No rash, ulcer, cellulitis. Lymphatics: No lymph node enlargement in neck, supraclavicular, infraclavicular region. Neuro: No focal neurological deficit. Chest: Unremarkable. External Genitalia: Deferred. Rectal: Deferred. Laboratory Data: WBC 5.9, hemoglobin 15.9, platelets 158. Sodium 138, potassium 3.1, chloride 106, bicarb 21, BUN 15, creatinine 1.05, glucose 152. Liver function tests unremarkable except AST 80, AL T 84, alkaline phosphatase 151, lactic acid 4.5, lipase 17. CAT scan of the abdomen and pelvis shows no acute findings. Impression: 1. Lactic acidosis. 2. Volume depletion. 3. Hypokalemia. 4. Paroxysmal atrial fibrillation. 5. Hypertension. 6. Mixed hyperlipidemia. 7. Osteoarthritis, multiple sites. 8. Hypothyroidism. 9. Restless legs syndrome. Plan: Admit the patient to hospital for further evaluation and management of this problem. The ken ent is appropriate for observation. The patient received IV fluid in the emergency room and we will continue to hydrate her overnight. Repeat blood work tomorrow morning. SCD was ordered for DVT prop hylaxis. For her lactic acidosis, no need for any further intervention except correction of her dehy dration problem with IV fluid. For her chronic constipation, I have informed the patient's daughter to stop using [id number] stool softener that she was using and I have instructed her to start t he patient on Senokot-S 2 tablets daily and if that is too much, then to cut back to 1 tablet daily a nd if it is not enough, then to give 2 tablets 2 times a day and if she still has constipation on top of that, then to add MiraLAX. Daughter verbalized understanding. Advance directive was discussed w ith the patient in presence of the patient's daughter. In the event of cardiopulmonary arrest, the p atient would not have wanted any CPR, defibrillation, or ventilator support. DNR order was written i n the chart. For hypertension, no need for further intervention except monitoring of blood pressure and use blood pressure medications per order. For hyperlipidemia, no need for further intervention. For hypokalemia, we will repeat blood work tomorrow morning and decide if she needs any further berny ection on electrolytes or not. For hyperlipidemia, no need for any further intervention. For hypoth yroidism, continue her levothyroxine and no need for further intervention. Total time spent 80 minutes including communication with emergency room physician, review of last hos pital admission record from 03/28/2024, review of emergency room visit record, and performing today's evaluation and management. SAPNA/SALOME Voice ID: [id number]
[2024-07-09 07:26] LABS: Albumin 1.9 g/dL (3.4-5.0); Albumin/Globulin Ratio 0.7 (1.1-1.8); Anion Gap 7.9 mEq/L (5.0-15.0); Bilirubin Total 0.2 mg/dL (0.2-1.0); Globulin 2.6 g/dL (2.3-3.5); Potassium 2.9 mEq/L (3.5-5.1); Protein, Total 4.5 g/dL (6.4-8.2)
[2024-07-09] MEDS: CALCIUM GLUCONATE 1 GM IVPB 1 GM/50 ML BAG IV SCH (08:10)
[2024-07-09 08:12] LABS: Hematocrit 34.3 % (36.0-45.0); Hemoglobin 12.1 g/dL (12.0-15.0); MCH 33.9 pg (27.0-35.0); MCHC 35.4 g/dL (32.0-36.0); MCV 95.6 fL (80-100); MPV 7.5 fL (7.6-11.3); Platelets 126 thou/uL (152-406); RBC Red Blood Cell Count 3.58 M/uL (3.86-4.86); Red Cell Distribution Width 13.3 % (12.1-15.2)
[2024-07-09 08:13] LABS: Absolute Eosinophils 0.1 K/uL (0-0.5); Absolute Lymphocytes (CBC) 2.1 K/uL (0.7-4.9); Absolute Monocytes 0.4 K/uL (0.1-1.3); Absolute Neutrophil 2.8 K/uL (1.8-8.0); Basophils % 0.5 % (0-1.3); Eosinophils % 2.5 % (0-4.4); Lymphocytes % 38.7 % (15.3-44.8); Monocytes % 7.7 % (3.3-12.3); Neutrophils % 50.6 % (41.7-73.7); Nucleated Red Blood Cells % 0.1 % (0-0)
[2024-07-09] MEDS: KCL 20 MEQ/100 mL IVPB 20 MEQ/100 ML BAG IV SCH (09:17)
[2024-07-09] MEDS: ESCITALOPRAM OXALATE 10 MG TABLET PO SCH (12:18)
[2024-07-09 21:15] LABS: Potassium 4.3 mEq/L (3.5-5.1)
--- NOTE | 2024-07-09 22:53 | PN ---
Date of Progress Note: 07/09/2024 Subjective: The patient was seen this morning for followup. No new complaints or problems reported. Overnight, she has not had any nausea, vomiting, diarrhea. Objective: Vital Signs: Reviewed. HEENT: Unremarkable. Lungs: Clear to auscultation. Heart: Sounds normal. Abdomen: Soft. Bowel sounds normal. No guarding, rigidity, tenderness, distention. Extremities: No leg edema. Laboratory Data: This morning, potassium was 2.9, calcium 6.4, BUN 11, creatinine 0.54, glucose 152. AST 41, ALT 47, alkaline phosphatase 85. Magnesium 1.9. Impression: 1. Lactic acidosis. 2. Volume depletion. 3. Hypocalcemia. 4. Hypokalemia. Plan: We will go ahead and replace potassium per electrolyte replacement protocol. Give calcium glu conate 2 g IV x1 dose. We will follow up on blood work after electrolyte has been replaced. Possibl e discharge to go home tomorrow. SAPNA/MODL Voice ID: [id number] Report ID: [id number]
[2024-07-10] MEDS: LEVOTHYROXINE SOD 0.112 MG TAB PO SCH (05:33)
[2024-07-10 06:43] LABS: Anion Gap 7.7 mEq/L (5.0-15.0); Magnesium 1.9 mg/dL (1.6-2.4); Potassium 3.7 mEq/L (3.5-5.1)
[2024-07-10] MEDS: AMLODIPINE 5 MG TAB PO ONE (08:26)
[2024-07-10 08:30] VITALS: BP 157/73
[2024-07-10 08:50] VITALS: TEMP 98
--- NOTE | 2024-07-10 12:37 | EKG ---
Test Date: 2024-07-08 Test Time: 13:14:54 Measuring Machine Tender: CARLOS MEASUREMENT RESULTS: Intervals: Rate: 94 MO: QRSD: 84 QT: 398 QTc: 497 [place]: P: MO: QRS: 9 T: 77 INTERPRETIVE STATEMENTS: Atrial fibrillation with frequent ventricular-paced complexes Nonspecific ST and T wave abnormality Abnormal ECG Compared to ECG 03/28/2024 13:36:27 ST (T wave) deviation now present Ventricular premature complex(es) no longer present Electronically Signed On 07-10-24 12:27:54 CDT by Justin Asencio
--- NOTE | 2024-07-10 20:30 | DS ---
Date of Discharge: 07/10/2024 Disposition: Discharged to go home. Physical Examination: HEENT: Unremarkable. Lungs: Clear to auscultation. Heart: Sounds normal. Abdomen: Soft. Bowel sounds normal. No guarding, rigidity, tenderness, distention. Extremities: No leg edema. Laboratory Data: Today, sodium 140, potassium 3.7, chloride 108, bicarb 28, BUN 10, creatinine 0.56, glucose 101, magnesium 1.9. Yesterday, sodium 145, potassium 2.9, chloride 118, bicarb 22, BUN 11, creatinine 0.54, glucose 83, calcium 6.4. Upon admission, blood work shows , . Hospital Course: This is an 89-year-old pleasant female patient who was admitted to the hospital aft er she came into emergency room with abdominal pain, nausea, vomiting, diarrhea. Please see dictated H and P for more information. The patient was evaluated in the emergency room and was admitted to [facility] with acute gastroenteritis. She was given IV fluid hydration and overall her condition i mproved. Her nausea, vomiting, diarrhea, abdominal pain has resolved. She is tolerating diet very w ell. The patient did have significantly low potassium as well as calcium level yesterday, which was corrected and today she was discharged to go home in stable and improved condition with following dis charge medications and instructions. Final Diagnoses: 1. Acute gastroenteritis. 2. Volume depletion. 3. Hypokalemia. 4. Hypocalcemia. 5. Paroxysmal atrial fibrillation. 6. Hypertension. 7. Mixed hyperlipidemia. 8. Osteoarthritis, multiple sites. 9. Restless legs syndrome. Discharge Medications And Instructions: 1. Continue all prior home medications. 2. Follow up at my office next week. Total time spent 35 minutes. SAPNA/MODL Voice ID: [id number] Report ID: [id number]
== END 2024-07-10 09:35 | disposition home or self-care (01) ==
LOC: ER 12:19 → ERHOLD 14:59 → 2ND 18:53
PROVIDERS: ADMIT Internal Medicine; ATTEND Internal Medicine
DX: K52.9 Noninfective gastroenteritis and colitis, unspecified (principal); R11.2 Nausea with vomiting, unspecified; R19.7 Diarrhea, unspecified; K59.00 Constipation, unspecified; E87.20 Acidosis, unspecified; E86.9 Volume depletion, unspecified; E87.6 Hypokalemia; I48.11 Longstanding persistent atrial fibrillation; I10 Essential (primary) hypertension; E78.2 Mixed hyperlipidemia; M19.90 Unspecified osteoarthritis, unspecified site; E03.9 Hypothyroidism, unspecified; G25.81 Restless legs syndrome; E83.51 Hypocalcemia
CPT/HCPCS: 96365; 96361; 93005; 85025 ×2; 80048 ×2; 36415 ×2; 82310; 83735 ×2; 84132; 85610; 80076; 83605 ×2; 84484; 83690; 80053; 83880; 74177; 99285; 96366; Q9967; J3480 ×4; J0612 ×2; J7030 ×3; G0378

== ENCOUNTER 2024-12-12 18:55 | Inpatient (IN) | payer OTHER, MEDICARE ==
--- OUTSIDE RECORDS SUMMARY | 2024-12-12 18:57 | XMS REPORT | Clinical Summary ---
Author Name Unknown Organization [facility] Address [address] [place] [address] Care Team Providers Care Pipe Fitter Name Role Phone Talia Panda MD Primary Care Provider [phone] Davion Florian MD Unavailable [phone] Allergies Active Allergy Reactions Criticality Noted [...] (10 mg) by mouth daily. 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
[2024-12-12] MEDS ORDERED: ONDANSETRON 4 MG/2 ML VIAL ONE (19:24)
[2024-12-12] MEDS ORDERED: FENTANYL CITR 100 MCG/2 ML ONE (19:25)
[2024-12-12] MEDS ORDERED: NA CHLORIDE 0.9% 500 ML ONE (19:26)
[2024-12-12] MEDS ORDERED: FAMOTIDINE 20 MG/2 ML VIAL IV ONE (19:26)
[2024-12-12 20:25] LABS: Absolute Lymphocytes (CBC) 1.7 K/uL (0.7-4.9); Hematocrit 36.6 % (36.0-45.0); Hemoglobin 12.9 g/dL (12.0-15.0); MCH 34.6 pg (27.0-35.0); MCHC 35.1 g/dL (32.0-36.0); MCV 98.5 fL (80-100); MPV 8.4 fL (7.6-11.3); Nucleated RBC Absolute Count 0.0 (0-0); Nucleated Red Blood Cells % 0.1 % (0-0); RBC Red Blood Cell Count 3.72 M/uL (3.86-4.86); White Blood Count 4.70 thou/uL (4.3-10.9)
[2024-12-12 20:32] LABS: PT Prothrombin Time 12.8 SECONDS (10-13.0); Protime INR 1.14
--- NOTE | 2024-12-12 20:43 | RAD REPORT ---
EXAMINATION: Pelvis CLINICAL INDICATION: Female, 89 years old. PAIN COMPARISON: No prior exam. FINDINGS: No acute fracture. Right hip arthroplasty. No malalignment/dislocation. Mild left hip degenerative changes. Mild degenerative changes in the lower spine. Other: n/a IMPRESSION: No acute osseous abnormality.
--- NOTE | 2024-12-12 20:50 | RAD REPORT ---
EXAM: Chest Single View HISTORY: 89 years Female COUGH COMPARISON: 03/28/2024 FINDINGS: LUNGS/PLEURA: Blunting left costophrenic angle with mild left basilar airspace disease. CARDIAC/MEDIASTINUM: The cardiac silhouette is within normal limits. UPPER ABDOMEN: No significant abnormality. BONES: No acute abnormality. LINES/TUBES/OTHER: Pacemaker present. IMPRESSION: Small left pleural effusion with either underlying atelectasis or pneumonia.
--- NOTE | 2024-12-12 20:53 | RAD REPORT ---
EXAMINATION: Femur Right VIEWS: Five views CLINICAL INDICATION: Female, 89 years old. PAIN RIGHT COMPARISON: No prior exam. IMPRESSION: Periprosthetic fracture at the right subtrochanteric region though it may extend into the greater tro chanter. There is the suggestion on the frog-leg view but there is a longitudinal component of the fracture. The fracture probably extends to the proximal stem of the hip arthroplasty. No dislocation.
[2024-12-12 20:54] LABS: ALT/SGPT 140 U/L (13-56); Albumin 2.3 g/dL (3.4-5.0); Albumin/Globulin Ratio 0.6 (1.1-1.8); Alkaline Phosphatase 133 U/L (45-117); Anion Gap 8.9 mEq/L (5.0-15.0); BUN Blood Urea Nitrogen 15 mg/dL (7-18); Globulin 3.8 g/dL (2.3-3.5); Glucose Level 146 mg/dL (74-106); NT PRO-BNP 180 pg/mL (<450); Troponin High Sensitivity 7.1 pg/mL (<58.9)
[2024-12-12 20:59] LABS: AST/SGOT 153 U/L (15-37); Bilirubin Indirect, Calculated 0.2 mg/dL (0.2-0.8); Magnesium 2.1 mg/dL (1.6-2.4); Potassium 3.9 mEq/L (3.5-5.1)
--- NOTE | 2024-12-12 21:49 | RAD REPORT ---
EXAMINATION: Pelvis Wo Cont CLINICAL INDICATION: Female, 89 years old. right pelvic pain TECHNIQUE: CT pelvis was performed, without IV contrast, as per department protocol. Axial, sagittal and coronal reconstructions were obtained. One or more of the following dose reduction techniques were used: Automated exposure control, adjustment of the mA and/or kV according to patient size, and/ or iterative reconstruction. Unless otherwise specified, incidental findings do not require dedicated imaging follow-up. [id number]. IV CONTRAST: Not administered. COMPARISON: Same-day radiographs FINDINGS: Right hip arthroplasty. Longitudinally oriented slightly displaced fracture along the stem of the rig ht arthroplasty which extends from the greater trochanter to the lateral subtrochanteric region. The fracture line comes into close proximity to the arthroplasty without conclusive involvement. No d islocation. No other fractures are seen. IMPRESSION: Longitudinally oriented slightly displaced displaced fracture extending from the greater trochanter t o the subtrochanteric region which comes into very close proximity but without definitive involvement of the right hip arthroplasty.
--- NOTE | 2024-12-12 22:18 | EDPHYS ---
Physician Documentation [facility] Name: Robby Schmid Age: 89 yrs Sex: Female : 1935 Arrival Date: 12/12/2024 Time: 18:55 Bed 4 Private MD: ED Physician Jeremiah Granger HPI: 12/12 19:09 This 89 yrs old Female presents to ER via EMS with complaints of Fall Injury. hay 19:10 This 89 yrs old Other Race Female presents to ER via EMS with complaints of Fall Injury.sp4 19:09 Details of fall: The patient fell from an upright position, while walking. Onset: The hay symptoms/episode began/occurred just prior to arrival. Severity of symptoms: At their worst the symptoms were moderate, in the emergency department the symptoms are unchanged. The patient has experienced a previous episode, many years ago. Historical: - Allergies: 19:01 Codeine; bp 19:01 Plavix; bp - PMHx: 19:01 Atrial Fib August 2022; UTI; Hypothyroidism; Hypertension; High Cholesterol; CVA; Chronic bp pain; - PSHx: 19:01 Cholecystectomy; hysterectomy; pacemaker; watchman procedure; bp - Immunization history:: Adult Immunizations up to date. - Infectious Disease History:: Denies. - Social history:: Smoking status: Patient denies any tobacco usage or history of. ROS: 19:10 Constitutional: Negative for fever, chills, and weight loss, Eyes: Negative for injury, hay pain, redness, and discharge, ENT: Negative for injury, pain, and discharge, Neck: Negative for injury, pain, and swelling, Cardiovascular: Negative for chest pain, palpitations, and edema, Respiratory: Negative for shortness of breath, cough, wheezing, and pleuritic chest pain, Abdomen/GI: Negative for abdominal pain, nausea, vomiting, diarrhea, and constipation, Back: Negative for injury and pain, : Negative for injury, bleeding, discharge, and swelling, Skin: Negative for injury, rash, and discoloration, Neuro: Negative for headache, weakness, numbness, tingling, and seizure, 19:10 MS/extremity: Positive for injury or acute deformity, decreased range of motion, pain, tenderness, of the right hip and right upper thigh, Exam: 19:10 Constitutional: This is a well developed, well nourished patient who is awake, alert, hay and in no acute distress. Head/Face: Normocephalic, atraumatic. Eyes: Pupils equal round and reactive to light, extra-ocular motions intact. Lids and lashes normal. Conjunctiva and sclera are non-icteric and not injected. Cornea within normal limits. Periorbital areas with no swelling, redness, or edema. ENT: Nares patent. No nasal discharge, no septal abnormalities noted. Tympanic membranes are normal and external auditory canals are clear. Oropharynx with no redness, swelling, or masses, exudates, or evidence of obstruction, uvula midline. Mucous membranes moist. Neck: Trachea midline, no thyromegaly or masses palpated, and no cervical lymphadenopathy. Supple, full range of motion without nuchal rigidity, or vertebral point tenderness. No Meningismus. Chest/axilla: Normal chest wall appearance and motion. Nontender with no deformity. No lesions are appreciated. Respiratory: Lungs have equal breath sounds bilaterally, clear to auscultation and percussion. No rales, rhonchi or wheezes noted. No increased work of breathing, no retractions or nasal flaring. Abdomen/GI: Soft, non-tender, with normal bowel sounds. No distension or tympany. No guarding or rebound. No evidence of tenderness throughout. Back: No spinal tenderness. No costovertebral tenderness. Full range of motion. Female : Normal external genitalia. Skin: Warm, dry with normal turgor. Normal color with no rashes, no lesions, and no evidence of cellulitis. Neuro: Awake and alert, GCS 15, oriented to person, place, time, and situation. Cranial nerves II-XII grossly intact. Motor strength 5/5 in all extremities. Sensory grossly intact. Cerebellar exam normal. Normal gait. Psych: Awake, alert, with orientation to person, place and time. Behavior, mood, and affect are within normal limits. 19:10 Cardiovascular: Rate: tachycardic, actual rate is 110 bpm, Rhythm: regular, Pulses: Pulses are 4+ in bilateral radial, brachial, femoral, popliteal, posterior tibial and and dorsalis pedis arteries.. Heart sounds: normal, Edema: is not appreciated, JVD: is not appreciated, 19:10 ECG was reviewed by the Attending Physician. Vital Signs: 19:00 BP 160 / 89; Pulse 110; Resp 18; Temp 98; Pulse Ox 97% ; bp 20:40 BP 158 / 77; Pulse 70; Resp 16 S; Pulse Ox 97% on R/A; lg3 21:50 BP 145 / 65; Pulse 70; Resp 16 S; Pulse Ox 95% on R/A; ha1 22:50 BP 143 / 69; Pulse 66; Resp 18 S; Pulse Ox 97% on R/A; ha1 12/13 00:40 BP 142 / 67; Pulse 68; Resp 18 S; Pulse Ox 96% on R/A; ha1 MDM: 12/12 19:00 Medical Screening Exam initiated hay 19:12 Differential diagnosis: hip fracture, intertrochanteric fracture, femoral neck hay fracture, femoral shaft fracture, bursitis, arthritis, strain. Differential diagnosis: contusion, fracture, multiple trauma, sprain, strain. Data reviewed: vital signs, nurses notes, EMS record, lab test result(s), EKG, radiologic studies, plain films. Consideration of Admission/Observation Escalation of care including admission/observation considered. I considered the following discharge prescriptions or medication management in the emergency department Medications were administered in the Emergency Department. See MAR. Independent interpretation of the following test(s) in the Emergency Department EKG: See my EKG interpretation above. Test considered but Not performed: CT: NO TRAUMA GRAM. Historians other than the Patient: EMS: EMS WELL INFORMED. Care significantly affected by the following chronic conditions: Hypertension, UTI, A FIB, CVA, CHRONIC PAIN. 22:10 ED course: IV CONTRAST: Not administered. COMPARISON: Same-day radiographs FINDINGS: sp4 Right hip arthroplasty. Longitudinally oriented slightly displaced fracture along the stem of the right arthroplasty which extends from the greater trochanter to the lateral subtrochanteric region. The fracture line comes into close proximity to the arthroplasty without conclusive involvement. No dislocation. No other fractures are seen. IMPRESSION: Longitudinally oriented slightly displaced displaced fracture extending from the greater trochanter to the subtrochanteric region which comes into very close proximity but without definitive involvement of the right hip arthroplasty. . ED course: CLINICAL INDICATION: Female, 89 years old. PAIN COMPARISON: No prior exam. FINDINGS: No acute fracture. Right hip arthroplasty. No malalignment/dislocation. Mild left hip degenerative changes. Mild degenerative changes in the lower spine. Other: n/a IMPRESSION: No acute osseous abnormality. . ED course: VIEWS: Five views CLINICAL INDICATION: Female, 89 years old. PAIN RIGHT COMPARISON: No prior exam. IMPRESSION: Periprosthetic fracture at the right subtrochanteric region though it may extend into the greater trochanter. There is the suggestion on the frog-leg view but there is a longitudinal component of the fracture. The fracture probably extends to the proximal stem of the hip arthroplasty. No dislocation.. ED course: HISTORY: 89 years Female COUGH COMPARISON: 03/28/2024 FINDINGS: LUNGS/PLEURA: Blunting left costophrenic angle with mild left basilar airspace disease. CARDIAC/MEDIASTINUM: The cardiac silhouette is within normal limits. UPPER ABDOMEN: No significant abnormality. BONES: No acute abnormality. LINES/TUBES/OTHER: Pacemaker present. IMPRESSION: Small left pleural effusion with either underlying atelectasis or pneumonia. 22:12 Management of patient was discussed with the following: Sander And Buffer: Orthopedist on sp4 staff and recommended transfer for hardware revision.. 12/12 19:09 Order name: Basic Metabolic Panel; Complete Time: 21:[address] [facility] 12/12 19:09 Order name: CBC with Diff; Complete Time: 20:[address] [facility] 12/12 19:09 Order name: LFT's; Complete Time: 21:49 hay 12/12 19:09 Order name: Magnesium; Complete Time: 21:49 hay 12/12 19:09 Order name: NT PRO-BNP; Complete Time: 21:49 12/12 19:09 Order name: PT-INR; Complete Time: 20:47 12/12 19:09 Order name: Troponin HS; Complete Time: 21:49 hay 12/12 19:09 Order name: Type And Screen; Complete Time: 21:[address] [facility] 12/12 19:09 Order name: UA Rfx Kvng Cult if indicated [facility] 12/12 19:09 Order name: XRAY Chest (1 view); Complete Time: 21:[address] [facility] 12/12 19:09 Order name: Pelvis XRAY; Complete Time: 20:47 hay 12/12 19:09 Order name: Femur Right XRAY; Complete Time: 21:[address] [facility] 12/12 20:54 Order name: CT Pelvis wo Cont; Complete Time: 21:50 sp4 12/12 19:09 Order name: EKG; Complete Time: 19:[address] [facility] 12/12 23:01 Order name: CONS Physician Consult EDMS 12/12 19:09 Order name: Cardiac monitoring; Complete Time: 20:[address] [facility] 12/12 19:09 Order name: EKG - Nurse/Tech; Complete Time: 20:[address] [facility] 12/12 19:09 Order name: IV Saline Lock; Complete Time: 20:[address] [facility] 12/12 19:09 Order name: Labs collected and sent; Complete Time: 20:[address] [facility] 12/12 19:09 Order name: O2 Per Protocol; Complete Time: 20:[address] [facility] 12/12 19:09 Order name: O2 Sat Monitoring; Complete Time: 20:[address] [facility] Administered Medications: 20:00 Drug: NS 0.9% IV 500 ml 500 ml IV at 1 bolus once; to be given as a bolus over 30 ha1 minutes Volume: 500 ml; Route: IV; Rate: 1 bolus; Site: left antecubital; 20:41 Follow up: Response: No adverse reaction; IV Status: Completed infusion; IV Intake: lg3 500ml 20:00 Drug: Famotidine IVP 20 mg IVP once; dilute with 10 mL 0.9% NaCl; give over 2 minutes ha1 Route: IVP; Site: left forearm; 20:41 Follow up: Response: No adverse reaction lg3 20:02 Drug: Ondansetron IVP 4 mg IVP once; over 2 minutes Route: IVP; Site: left forearm; ha1 20:41 Follow up: Response: No adverse reaction lg3 20:05 Drug: fentaNYL (PF) IVP 50 mcg IVP once Route: IVP; Site: left forearm; ha1 20:41 Follow up: Response: No adverse reaction; Marked relief of symptoms lg3 12/13 00:11 Drug: fentaNYL (PF) IVP 25 mcg IVP once Route: IVP; Site: left forearm; ha1 00:39 Follow up: Response: No adverse reaction; Marked relief of symptoms; Pain is decreased; ha1 RASS: Alert and Calm (0) Disposition Summary: 12/12/24 22:17 Hospitalization Ordered Notes: Hospitalization Status: Inpatient Admission sp4 Provider: Davion Florian Location: Telemetry/MedSurg (Inpatient) sp4 Condition: Stable sp4 Problem: new sp4 Symptoms: have improved sp4 Bed/Room Type: Standard sp4 Room Assignment: 431(12/12/24 23:13) rv1 Diagnosis - Acute right femur greater trochanter fracture, acute fall at home. sp4 Forms: - Medication Reconciliation Form sp4 - SBAR form sp4 - Leadership Thank You Letter sp4 Signatures: Dispatcher [employer] EDMS Hardeep Gavin MD MD cha Peltier, Brian RN RN Jannet Ugarte RN RN ha1 Jacquie Flores rv1 Jeremiah Granger MD MD sp4 Ita Byrd RN lg3 Corrections: (The following items were deleted from the chart) 12/12 20:37 19:10 Hip Right 2 View+RAD.RAD.BRZ ordered. EDMS EDMS 20:54 20:54 Pelvis Wo Cont+CT.RAD.BRZ ordered. EDMS EDMS 23:13 22:17 sp4 rv1
--- NOTE | 2024-12-12 22:18 | ER ---
Nurse's Notes [facility] Name: Robby Schmid Age: 89 yrs Sex: Female : 1935 Arrival Date: 12/12/2024 Time: 18:55 Bed 4 Private MD: Diagnosis: Acute right femur greater trochanter fracture, acute fall at home. Presentation: 12/12 19:00 Chief complaint: EMS states: FALL FROM SEATED POSITION AT HOME, NO LOC, R HIP PAIN. bp Coronavirus screen: At this time, the client does not indicate any symptoms associated with coronavirus-19. Ebola Screen: No symptoms or risks identified at this time. Initial Sepsis Screen: Does the patient meet any 2 criteria? No. Patient's initial sepsis screen is negative. Does the patient have a suspected source of infection? No. Patient's initial sepsis screen is negative. Risk Assessment: Do you want to hurt yourself or someone else? Patient reports no desire to harm self or others. Onset of symptoms was December 12, 2024. Care prior to arrival: Medication(s) given: 1 GM OFERMEV IV initiated. 22 GA, in the left wrist. 19:00 Method Of Arrival: EMS: [facility] bp 19:00 Acuity: MANJINDER 3 bp Historical: - Allergies: 19:01 Codeine; bp 19:01 Plavix; bp - PMHx: 19:01 Atrial Fib August 2022; UTI; Hypothyroidism; Hypertension; High Cholesterol; CVA; Chronic bp pain; - PSHx: 19:01 Cholecystectomy; hysterectomy; pacemaker; watchman procedure; bp - Immunization history:: Adult Immunizations up to date. - Infectious Disease History:: Denies. - Social history:: Smoking status: Patient denies any tobacco usage or history of. Screenin:38 [facility] ED Fall Risk Assessment (Adult) History of falling in the last 3 months, lg3 including since admission Yes- single mechanical fall (1 pt) Confusion or Disorientation No (0 pts) Intoxicated or Sedated No (0 pts) Impaired Gait Yes (1 pt) Mobility Assist Device Used Yes (1 pt) Altered Elimination No (0 pt) Score/Fall Risk Level 3 or more points = High Risk Oriented to surroundings, Maintained a safe environment, Educated pt \T\ family on fall prevention, incl call for assistance when getting out of bed, Assessed \T\ reinforced patient's understanding of fall precautions. Abuse screen: Denies threats or abuse. Denies injuries from another. Nutritional screening: No deficits noted. Tuberculosis screening: No symptoms or risk factors identified. Assessment: 19:09 General: Appears in no apparent distress. uncomfortable, Behavior is calm, cooperative. lg3 20:38 Pain: Complains of pain in right leg and right hip Pain currently is 6 out of 10 on a lg3 pain scale. Neuro: No deficits noted. Storey Agitation-Sedation Scale (RASS): 0 - Alert and Calm Level of Consciousness is awake, alert, obeys commands, Oriented to person, place, time, situation. Cardiovascular: No deficits noted. Denies chest pain, shortness of breath, Capillary refill < 3 seconds Clubbing of nail beds is absent JVD is absent Patient's skin is warm and dry. Respiratory: No deficits noted. Airway is patent Respiratory effort is even, unlabored, Respiratory pattern is regular, symmetrical. GI: No deficits noted. No signs and/or symptoms were reported involving the gastrointestinal system. : No signs and/or symptoms were reported regarding the genitourinary system. EENT: No deficits noted. No signs and/or symptoms were reported regarding the EENT system. Derm: No deficits noted. No signs and/or symptoms reported regarding the dermatologic system. Skin is intact, is thin, Skin is dry, Skin is normal, Skin temperature is warm. Musculoskeletal: Circulation, motion, and sensation intact. Range of motion: intact in all extremities, Reports pain in right leg and right hip. 20:40 Reassessment: Patient appears in no apparent distress at this time. No changes from lg3 previously documented assessment. Patient and/or family updated on plan of care and expected duration. Pain level reassessed. Patient is alert, oriented x 3, equal unlabored respirations, skin warm/dry/pink. 21:45 Reassessment: Patient and/or family updated on plan of care and expected duration. Pain ha1 level reassessed. Patient is alert, oriented x 3, equal unlabored respirations, skin warm/dry/pink. 22:50 Reassessment: Patient and/or family updated on plan of care and expected duration. Pain ha1 level reassessed. Patient is alert, oriented x 3, equal unlabored respirations, skin warm/dry/pink. 23:50 Reassessment: Patient and/or family updated on plan of care and expected duration. Pain ha1 level reassessed. Patient is alert, oriented x 3, equal unlabored respirations, skin warm/dry/pink. Vital Signs: 19:00 BP 160 / 89; Pulse 110; Resp 18; Temp 98; Pulse Ox 97% ; bp 20:40 BP 158 / 77; Pulse 70; Resp 16 S; Pulse Ox 97% on R/A; lg3 21:50 BP 145 / 65; Pulse 70; Resp 16 S; Pulse Ox 95% on R/A; ha1 22:50 BP 143 / 69; Pulse 66; Resp 18 S; Pulse Ox 97% on R/A; ha1 12/13 00:40 BP 142 / 67; Pulse 68; Resp 18 S; Pulse Ox 96% on R/A; ha1 ED Course: 12/12 19:00 Patient arrived in ED. bp 19:00 Hardeep Gavin MD is Attending Physician. hay 19:01 Triage completed. bp 19:10 Attending Physician role handed off by Hardeep Gavin MD sp4 19:10 Jeremiah Granger MD is Attending Physician. sp4 19:35 EKG done, by mobile service rv technician. ts3 19:35 Maintain EMS IV. Dressing intact. Gauge \T\ site: 22 left FRA. Flushed with 10 mL NS. ha1 19:48 placed in gown and purewick. ts3 20:19 Basic Metabolic Panel Sent. ha1 20:19 CBC with Diff Sent. ha1 20:19 LFT's Sent. ha1 20:19 Magnesium Sent. ha1 20:19 NT PRO-BNP Sent. ha1 20:19 PT-INR Sent. ha1 20:19 Troponin HS Sent. ha1 20:19 Initial lab(s) drawn, by ED staff, sent to lab. Inserted saline lock: 24 gauge in right ts3 wrist, using aseptic technique. Blood collected. Flushed with 10 mL NS. 20:38 Patient has correct armband on for positive identification. Placed in gown. Bed in low lg3 position. Call light in reach. Side rails up X 1. Client placed on continuous cardiac and pulse oximetry monitoring. NIBP monitoring applied. Door closed. Noise minimized. Warm blanket given. Pillow given. Family accompanied patient. 20:40 Pelvis XRAY In Process Unspecified. EDMS 20:41 XRAY Chest (1 view) In Process Unspecified. EDMS 20:41 Femur Right XRAY In Process Unspecified. EDMS 21:24 CT Pelvis wo Cont In Process Unspecified. EDMS 22:17 Davion Florian MD is Hospitalizing Provider. sp4 23:01 Urine collected: clean catch specimen, sent to lab. ts3 12/13 00:38 No provider procedures requiring assistance completed. Patient admitted, IV remains in ha1 place. 00:39 Arm band placed on right wrist. ha1 00:39 Provided Education on: need for admit . ha1 Administered Medications: 12/12 20:00 Drug: NS 0.9% IV 500 ml 500 ml IV at 1 bolus once; to be given as a bolus over 30 ha1 minutes Volume: 500 ml; Route: IV; Rate: 1 bolus; Site: left antecubital; 20:41 Follow up: Response: No adverse reaction; IV Status: Completed infusion; IV Intake: lg3 500ml 20:00 Drug: Famotidine IVP 20 mg IVP once; dilute with 10 mL 0.9% NaCl; give over 2 minutes ha1 Route: IVP; Site: left forearm; 20:41 Follow up: Response: No adverse reaction lg3 20:02 Drug: Ondansetron IVP 4 mg IVP once; over 2 minutes Route: IVP; Site: left forearm; ha1 20:41 Follow up: Response: No adverse reaction lg3 20:05 Drug: fentaNYL (PF) IVP 50 mcg IVP once Route: IVP; Site: left forearm; ha1 20:41 Follow up: Response: No adverse reaction; Marked relief of symptoms lg3 12/13 00:11 Drug: fentaNYL (PF) IVP 25 mcg IVP once Route: IVP; Site: left forearm; ha1 00:39 Follow up: Response: No adverse reaction; Marked relief of symptoms; Pain is decreased; ha1 RASS: Alert and Calm (0) Medication: 12/12 22:01 VIS not applicable for this client. ha1 Intake: 20:41 IV: 500ml; Total: 500ml. lg3 Outcome: 22:17 Decision to Hospitalize by Provider. sp4 12/13 00:37 Admitted to Tele accompanied by tech, via stretcher, room 431, with chart, ha1 Condition: stable Instructed on the need for admit, Demonstrated understanding of instructions, 00:41 Patient left the ED. ha1 Signatures: Dispatcher [employer] EDHardeep Garvey MD MD cha Peltier, Brian RN RN Ita Guy RN RN lg3 Jannet Tierney RN RN ha1 Jeremiah Granger MD MD sp4 Yasmin Hernandez ts3 Corrections: (The following items were deleted from the chart) 12/12 20:39 19:09 General: Appears in no apparent distress. lg3 lg3
[2024-12-12 23:11] LABS: Urine Microscopic Reflex YN NO UMIC
[2024-12-13] MEDS ORDERED: FENTANYL CITR 100 MCG/2 ML ONE (00:07)
[2024-12-13 00:50] VITALS: BMI 24.3
[2024-12-13] MEDS ORDERED: ZOLPIDEM TARTRATE 5 MG TABLET PO PRN (01:11)
[2024-12-13] MEDS ORDERED: MORPHINE 4 MG/ML SYR IV PRN (01:11)
[2024-12-13] MEDS ORDERED: ALBUTEROL 2.5 MG/3 ML NEB SOL NEB PRN (01:11)
[2024-12-13] MEDS ORDERED: clonazePAM 1 MG TAB PO PRN (01:11)
[2024-12-13] MEDS ORDERED: ACETAMINOPHEN 325 MG TABLET PO PRN (01:11)
[2024-12-13] MEDS: HYDROCODONE/APAP 10/325 TAB PO PRN (04:29)
[2024-12-13] MEDS: LEVOTHYROXINE SOD 0.112 MG TAB PO SCH (06:41)
[2024-12-13] MEDS: AMLODIPINE 5 MG TAB PO SCH (09:12)
[2024-12-13] MEDS: ESCITALOPRAM OXALATE 10 MG TABLET PO SCH (09:12)
[2024-12-13] MEDS: DOCUSATE NA 100 MG CAP PO SCH (09:12)
[2024-12-13] MEDS: ENOXAPARIN 40 MG/0.4 ML SQ SCH (10:39)
--- NOTE | 2024-12-13 13:11 | HP ---
Date of Admission: 12/13/2024 Chief Complaint: Fall and pain. History Of Present Illness: This is an 89-year-old female patient, who says that as she was coming o ut of her bathroom, she lost balance and fell down on the floor in her house. Her daughter was there in the house and the patient was brought into emergency room via ambulance last night. Further eval uation revealed presence of fracture of the right femur around the prosthesis site, and ER physician contacted me with this, who was advised to contact orthopedic surgeon, Dr. Shultz who was on-call and a fter he reviewed information, he recommended that the patient could be admitted to our hospital as th e patient will not need any surgical intervention and this will be managed with conservative treatmen t, so the patient was admitted to our hospital with orthopedic consultation from Dr. Shultz, who alread y has seen her today and communicated with me regarding his recommendation which is conservative gladys gement, no need for surgery, and touchdown weightbearing to right leg for 2 months and all those deta ils were discussed with the patient as well when I saw her today. When I saw her, there was no famil y member with her. Next, advance directives as per my discussion with the patient today. She inform ed me in the event of cardiopulmonary arrest, she does not want any heroic measures like CPR, defibri llation, or ventilator support, and DNR order was written in the chart. Allergies: NO KNOWN ALLERGIES. Medications: 1. Albuterol inhaler 2 puffs by mouth every 4 hours as needed. 2. Atorvastatin 10 mg daily. 3. Buprenorphine patch 15 mcg. 4. Vitamin D3 1000 units daily. 5. Clonazepam 1 mg daily as needed for muscle cramps/restless legs. 6. Escitalopram 10 mg daily. 7. Fluticasone nasal spray 1 spray each nostril 2 times a day. 8. Levothyroxine 112 mcg daily. 9. Zofran 4 mg sublingual tablet every 12 hours as needed. 10. Aspirin 81 mg daily. 11. Nitrofurantoin 100 mg. Review of Systems: Musculoskeletal: As mentioned above. All other systems reviewed and negative. Past Medical History: Significant for chronic fatigue, hypothyroidism, hypertension, osteoarthritis at multiple sites, COPD, mixed hyperlipidemia, anxiety, headache, allergic rhinitis, type 2 diabetes mellitus, paroxysmal atrial fibrillation, pancreatic cyst, pulmonary nodule, abnormal liver function tests. Past Surgical History: Significant for pacemaker placement on 08/26/2022, Watchman's procedure in [place] 20[place], cholecystectomy, hysterectomy, right hip fracture and surgery for that in 2020. Family History: Father had hypertension, diabetes. Mother had breast cancer, hypertension. Brother had hypertension, diabetes and sister had diabetes. Social History: Negative for smoking and alcohol use. Physical Examination: Vital Signs: Temperature 97.4, pulse 78, respiratory rate 17, blood pressure 184/76, oxygen saturati on 96%. Height 5 feet 2 inches, weight 133 pounds. General: Awake, alert, oriented, not in distress. HEENT: Head atraumatic, normocephalic. Conjunctivae nonerythematous. Sclerae white. Mouth, no thr ush or edema noted. Ears/Nose, no mass, lesion, discharge noted. Neck: Supple. No JVD, lymph nodes, bruit, thyromegaly noted. Lungs: Bilateral good equal air entry. Clear to auscultation. No rhonchi. No rales. Heart: Normal heart sounds, no murmur or gallop. Abdomen: Soft, bowel sounds normal. No guarding, rigidity, tenderness, mass, hepatosplenomegaly, dis tention, or bruit noted. Extremities: No leg edema. No calf tenderness. Skin: No rash, ulcer, cellulitis. Lymphatics: No lymph node enlargement in neck, supraclavicular, infraclavicular region. Neuro: No focal neurological deficit. Chest: Unremarkable. External Genitalia: Deferred. Rectal: Deferred. Laboratory Data: WBC 4.7, hemoglobin 12.9, platelets 111. Sodium 140, potassium 3.9, chloride 109, bicarb 26, BUN 15, creatinine 0.65, glucose 146, AST 153, ALT 140, alkaline phosphatase 133, total bi lirubin 0.4. Troponin 7.1, proBNP 180. Urinalysis normal. Chest x-ray, small left-sided pleural ef fusion with underlying atelectasis. Pelvis x-ray was negative. CAT scan of the pelvis shows longitu dinally oriented slightly displaced fracture extending from greater trochanter to the subtrochanteric region which comes into very close proximity, but without definitive involvement of the right hip ar throplasty. Impression: 1. Fracture, right femur. 2. Hypothyroidism. 3. Hypertension. 4. Mixed hyperlipidemia. 5. Osteoarthritis, multiple sites. 6. COPD. 7. Anxiety. 8. Type 2 diabetes mellitus. 9. Paroxysmal atrial fibrillation. Plan: We will go ahead and admit the patient to hospital for further evaluation and management of th is problem. The patient is appropriate for inpatient and is expected to spend more than [facility]. For her right femur fracture, orthopedic consultation was requested from Dr. Shultz, who h as already evaluated the patient and discussed details with him today after he evaluated the patient and his recommendation is nonoperative management, so we will go ahead and consult Physical Therapy, touchdown weightbearing to right leg, pain medications ordered. We will also give her some stool sof tener. DVT prophylaxis will be given using Lovenox 40 mg subcutaneous injection daily. For hyperlip idemia, she is on statin therapy, we will continue that, no need for further intervention. For her a nxiety, she is on escitalopram, which we will continue that, no need for further intervention. For h ypothyroidism, she is on levothyroxine and we will continue that per order, will not require any furt her intervention. The patient is on chronic low-dose suppressive antibiotic nitrofurantoin for her r ecurrent UTI and that actually has helped her, so we will continue that right now per order. 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 Physical Therapy was consulted and I have also consulted Social Service to see if we can get her to inpatient rehab [place] and I did discuss details with her, written an order for her to go there. She will need to parti cipate for 3 hours a day for therapy. If she is not able to do that, then she may need to go to [facility]. All those details were discussed with her. There was no family member, but hopefully I wi ll see her daughter tomorrow when I see her and I will discuss details with her as well. Total time spent 65 minutes including review of last office visit record from 11/04/2024, communicati on with emergency room physician, communication with admissions specialist, and performing today's ev aluation and management. SAPNA/MODL Voice ID: [id number]
--- NOTE | 2024-12-13 13:42 | CON ---
Date of Consultation: 12/13/2024 Consulting Physician: Dr. Brett Shultz. Reason For Consultation: Right hip pain. History Of Present Illness: Robby is an 89-year-old female who presented to the ER after sustaining a fall in a seated position on her right side with subsequent pain to the right hip. The patient was then seen in the emergency room and had x-rays and CT scan demonstrated a fracture and a periprosthetic right proximal femur fracture. The patient has history of a right hip hemiarthroplasty in 2020 that she was doing well with. She denies any other musculoskeletal complaints at this time. Review of Systems: As above, otherwise negative. Past Medical History: Includes AFib, hypothyroidism, hypertension, history of CVA and hypercholesterolemia. Past Surgical History: Includes right hip hemiarthroplasty, cholecystectomy, hysterectomy, pacemaker placement, Watchman procedure. Allergies: CODEINE AND PLAVIX. Medications: Per medication reconciliation form. Social History: Lives at home with her daughter. She denies tobacco or alcohol use. Physical Examination: General: No apparent distress. HEENT: Normocephalic, atraumatic. Neck: Supple. Cardiovascular: Brisk cap refill to all digits. Chest: Nonlabored breathing. Abdomen: Nondistended. Psychiatric: Responsive to exam. Musculoskeletal: Bilateral upper extremities functional range of motion without pain. No gross deformities. No obvious dislocations. Left lower extremity functional range of motion without pain or gross deformities. No obvious dislocations. Right lower extremity pain with internal and external rotation. The right hip: sensation grossly intact to the dorsal and plantar foot ttp over the greater trochanter. Diagnostic Studies: X-ray and CT scan of the right femur demonstrate a periprosthetic proximal femur fracture over the greater trochanter. No signs of hardware loosening or failure. Assessment/plan: Ms. Schmid is an 89-year-old female with a right periprosthetic femur fracture. I discussed the patient at length her diagnosis as well as treatment plan. X-rays and CT scan were reviewed, which do not demonstrate any significant loosening of the hardware. We will proceed with a trial of conservative treatment measures. The patient will be touchdown weightbearing on the right lower extremity. We will monitor the patient over healing course to ensure no loosening hardware is noted with her right hip hemiarthroplasty. The patient may be touchdown weightbearing over the next 2 months. Patient to follow up in clinic in 2 weeks for repeat x-rays of the right hip. CURTIS/SALOME Voice ID: [id number] Report ID: [id number] MTDD
[2024-12-13] MEDS: ACETAMINOPHEN 325 MG TABLET PO PRN (15:23)
[2024-12-13] MEDS ORDERED: ATORVASTATIN 10 MG TAB PO SCH (21:00)
[2024-12-13] MEDS: ATORVASTATIN 10 MG TAB PO SCH (21:24)
[2024-12-13] MEDS: DOCUSATE NA/SENNA CONC 1 TAB PO SCH (21:24)
[2024-12-13] MEDS: clonazePAM 1 MG TAB PO SCH (21:25)
[2024-12-13] MEDS: FLUTICASONE 50MCG NASAL SPRAY NAS SCH (21:34)
[2024-12-14] MEDS: NITROFURAN MACRO 100 MG CAP PO SCH (08:57)
[2024-12-14] MEDS: VITAMIN D 1000 UNIT TAB PO SCH (08:58)
[2024-12-14] MEDS ORDERED: HOME MED 1 EA UNK (Cholecalciferol (Vitamin D3) [Vitamin D3] 25 MCG Capsule) PO SCH (09:00)
[2024-12-14] MEDS ORDERED: ESCITALOPRAM OXALATE 10 MG TABLET PO SCH (09:00)
[2024-12-14] MEDS ORDERED: LEVOTHYROXINE SOD 0.112 MG TAB PO SCH (09:00)
[2024-12-14 17:06] LABS: Urine Microscopic Reflex YN NO UMIC
[2024-12-15] MEDS: ONDANSETRON 4 MG/2 ML VIAL IV PRN (06:04)
[2024-12-15] MEDS: MAGNESIUM HYDROXIDE 8% 30 ML PO PRN (06:12)
--- NOTE | 2024-12-15 08:23 | PN ---
Date of Progress Note: 12/14/2024 Subjective: The patient was seen this morning for followup. No new complaints or problems reported by her. Her pain is well controlled as long as she does not know, but she still has lot of pain in h er right leg. No nausea, vomiting. No abdominal pain. No chest pain. No shortness of breath. Physical Examination: Vital Signs: Reviewed. This morning, temperature 97.4, pulse 78, respiratory rate 17, blood pressur e 131/73, oxygen saturation 96%. HEENT: Unremarkable. Lungs: Clear to auscultation. Heart: Sounds normal. Abdomen: Soft. Bowel sounds normal. No guarding, rigidity, tenderness, distention. Extremities: No leg edema. Laboratory Data: No new labs today. Impression: 1. Right femur fracture. 2. Hypertension. 3. Hyperlipidemia. 4. Osteoarthritis, multiple sites. Plan: We will go ahead and continue current pain medication. Continue current DVT prophylaxis. Phy sical therapy to continue to work with the patient and the patient has been accepted to go to [facility] rehab tomorrow. Medically, she is stable for discharge and I will discharge her tomorrow when I s ee her to go to inpatient rehab. SAPNA/MODL Voice ID: [id number] Report ID: [id number]
[2024-12-15] MEDS ORDERED: AMLODIPINE 5 MG TAB PO SCH (09:15)
[2024-12-15] MEDS: BISACODYL 10 MG RECTAL SUPP PR ONE (09:38)
[2024-12-15 10:45] VITALS: O2SAT 93
--- NOTE | 2024-12-15 10:58 | DS ---
Date of Discharge: 12/15/2024 Disposition: The patient will be discharged to go to inpatient rehab. Physical Examination: HEENT: Unremarkable. Lungs: Clear to auscultation. Heart: Sounds normal. Abdomen: Soft. Bowel sounds normal. No guarding, rigidity, tenderness, distention. Extremities: No leg edema. Laboratory Data: , . Final Diagnoses: 1. . 2. . Hospital Course: This is an 89-year-old female patient who was admitted to the hospital after she fe ll down at home. Please see dictated H and P for more information. After patient was evaluated in [facility] emergency room, she was admitted to the hospital with fracture of the right femur. X-ray, CAT sca n results reviewed. Consultation was obtained from Dr. Shultz, orthopedic surgeon, and patient's fract ure site did not involve the hip prosthesis and Dr. Shultz recommended conservative treatment with 2 mo nths of touchdown weightbearing to the right leg and he will continue to follow up. Pain medication was started. Physical Therapy was consulted and Inpatient Rehab was consulted as patient expressed d esire to go to inpatient rehab. The patient was accepted today. She will be discharged to go there in stable condition. She is having constipation problem, has been getting Senokot S 2 tablets twice a day and Milk of Magnesia as needed, but today will go ahead and u se Dulcolax rectal suppository. SAPNA/MODL Voice ID: [id number] Report ID: [id number]
[2024-12-15 16:15] VITALS: BP 122/69; TEMP 97.7
[2024-12-20] MEDS ORDERED: BUPRENORPHINE TOP SCH (09:00)
== END 2024-12-15 16:00 | DRG 551 ==
LOC: ER 18:55 → ERHOLD 22:56 → 4TH 12-13 00:15
PROVIDERS: ADMIT Internal Medicine; ATTEND Internal Medicine
DX: M54.9 Dorsalgia, unspecified (principal); S72.111A Displaced fracture of greater trochanter of right femur, initial encounter for closed fracture; N39.0 Urinary tract infection, site not specified; M97.01XA Periprosthetic fracture around internal prosthetic right hip joint, initial encounter; Z66 Do not resuscitate; Y92.009 Unspecified place in unspecified non-institutional (private) residence as the place of occurrence of the external cause; Z88.8 Allergy status to other drugs, medicaments and biological substances; Z88.5 Allergy status to narcotic agent; E03.9 Hypothyroidism, unspecified; Z86.73 Personal history of transient ischemic attack (TIA), and cerebral infarction without residual deficits; G89.29 Other chronic pain; Z90.49 Acquired absence of other specified parts of digestive tract; Z90.710 Acquired absence of both cervix and uterus; Z95.810 Presence of automatic (implantable) cardiac defibrillator; Z98.890 Other specified postprocedural states; M15.9 Polyosteoarthritis, unspecified; J44.9 Chronic obstructive pulmonary disease, unspecified; F41.9 Anxiety disorder, unspecified; I10 Essential (primary) hypertension; E11.9 Type 2 diabetes mellitus without complications; J30.9 Allergic rhinitis, unspecified; E78.2 Mixed hyperlipidemia; I48.0 Paroxysmal atrial fibrillation; Z79.890 Hormone replacement therapy; Z87.440 Personal history of urinary (tract) infections; Z96.641 Presence of right artificial hip joint; W19.XXXA Unspecified fall, initial encounter; K59.00 Constipation, unspecified
CPT/HCPCS: 36415; 71045; 72170; 72192; 80048; 80076; 81003; 83735; 83880; 84484; 85025; 85610; 86850; 86900; 86901; 93005; 96361; 96374; 96375; 97110; 97161; 97530; 99285; J1650; J2405; J3010; J7040